=== PATIENT | female | born 1945 | race Caucasian/White ===

== ENCOUNTER 2018-02-01 07:22 | Day surgery (SDC) | payer OTHER, BC ==
[2018-02-01] MEDS ORDERED: FENTANYL CITR 100 MCG/2 ML IV ONE (07:23)
--- OUTSIDE RECORDS SUMMARY | 2018-02-01 07:27 | XMS REPORT | Continuity of Care Document ---
:1945 Author Organization Interface Problems Problem Status Onset Date Classification Date Comments Source Reported Medications Medication Details Route Status Patient Ordering Order Source Instructions Provider Date Allergies, Adverse Reactions, Alerts Substance Category Reaction Severity Reaction Status Date Comments Source type Reported Immunizations Immunization Date Given Site Status Last Updated Comments Source Results Order Results Value Reference Date Interpretation Comments Source Name Range Vital Signs Vital Sign Value Date Comments Source Encounters Location Location Encounter Encounter Reason Attending ADM DC Status Source Details Type Number For Provider Date Date Visit Outpatient [id number] STEVE 03/27 Active [facility] [place] [id number] STEVE 10/28 Active [facility] [place] Outpatient [id number] STEVE 11/12 Active [facility] [place] Outpatient [id number] STEVE 12/09 Active [facility] [place] Outpatient [id number] STEVE 01/27 Active [facility] [place] Outpatient [id number] SETVE 03/31 Active [facility] [place] Procedures Procedure Code Date Perfomer Comments Source
--- OUTSIDE RECORDS SUMMARY | 2018-02-01 07:27 | XMS REPORT | Clinical Summary ---
:1945 Author Organization [facility] Address [address] [place] [address] Care Team Providers Name Role Phone Brendon Her MD Primary Care Provider Allergies Active Allergy Reactions Severity Noted Date Comments Codeine 10/07/2016 Erythromycin 10/07/2016 Medications Medication Sig Dispensed Refills Start Date End Date Status venlafaxine XR Take 150 mg 0 Active (EFFEXOR-XR) 150 MG by mouth 24 hr capsule daily. PRIMIDONE ORAL Take 100 mg 0 Active by mouth 2 (two) times a day. metoprolol succinate Take 100 mg 0 Active XL (TOPROL-XL) 100 by mouth mg 24 hr tablet daily. omeprazole Take 20 mg by 0 Active (PriLOSEC) 20 MG mouth daily. capsule losartan (COZAAR) Take 100 mg 0 Active 100 MG tablet by mouth daily. amLODIPine (NORVASC) Take 2.5 mg 0 Active 2.5 mg tablet by mouth daily. rosuvastatin Take 10 mg by 0 Active (CRESTOR) 10 MG mouth daily. tablet levothyroxine Take 75 mcg 0 Active (SYNTHROID, LEVOXYL) by mouth 75 mcg tablet every morning. ANASTROZOLE ORAL Take 1 mg by 0 Active mouth daily. aspirin (ECOTRIN) 81 Take 81 mg by 0 Active MG enteric coated mouth daily. tablet LD 06/17/17 calcium Take 1 tablet 0 Active carbonate-vitamin D3 by mouth 2 500 mg-200 unit per (two) times a tablet day with meals. VIT A/VIT C/VIT Take by 0 Active E/ZINC/COPPER (ICAPS mouth. AREDS ORAL) ARIPiprazole Take 5 mg by 0 Active (ABILIFY) 5 MG mouth daily. tablet rosuvastatin Take 10 mg by 0 Active (CRESTOR) 10 MG mouth daily. tablet doxycycline Take 100 mg 0 Active (VIBRAMYCIN) 100 MG by mouth 2 oral dosage form (two) times a day. LORAZepam (ATIVAN) Take 0.5 mg 0 10/29/2017 Discontinued 0.5 MG tablet by mouth every 6 (six) hours as needed for anxiety. ARIPiprazole Take 2 mg by 0 10/29/2017 Discontinued (ABILIFY) 2 MG mouth daily. tablet Active Problems Problem Noted Date Personal history of breast cancer 06/25/2017 Malignant neoplasm of upper lobe of left lung 06/25/2017 Overview: Diagnosed 2017 Encounters Date Type Specialty Care Team Description 01/04/2018 Orders Only Cardiothoracic Surgery Susan Grijalva MD 10/29/2017 Hospital Encounter Radiology Adolfo Park MD 10/29/2017 Hospital Encounter Radiology Adolfo Park MD 10/29/2017 Office Visit Cardiothoracic Surgery Adolfo Park Personal history of lung cancer (Primary Dx); MD Edgar Lung nodules; LAD (lymphadenopathy), hilar 10/22/2017 Telephone Cardiothoracic Surgery Denise Hill MA 10/21/2017 Orders Only Cardiothoracic Surgery Susan Grijalva MD 07/07/2017 Telephone Cardiothoracic Surgery Adolfo Park MD 07/03/2017 Hospital Encounter Radiology Denny Jenkins Lung nodule MD Jose Manuel 07/03/2017 Hospital Encounter Radiology Carlos Fink Lung nodule Tan THAKUR MD 07/03/2017 Hospital Encounter Radiology Adolfo Park Personal history of breast cancer (Primary Dx); MD Edgar Lung nodule; Pre-op testing 07/01/2017 Telephone Cardiothoracic Surgery Denise Hill MA 06/29/2017 Telephone Cardiothoracic Surgery Naima Birch MA 06/26/2017 Telephone Cardiothoracic Surgery Denise Hill MA 06/25/2017 Lab Lab Adolfo Park [place] lesion (Primary Dx); MD Carlos Preop examination Adolfo Park MD 06/25/2017 Hospital Encounter Radiology Adolfo Park MD 06/25/2017 Office Visit Cardiothoracic Surgery Adolfo Park Lung nodule ( Primary Dx); MD Edgar Pre-op testing; Martha, Personal history of lung cancer; Candace Keith NP Personal history of breast cancer 06/25/2017 Orders Only Cardiothoracic Surgery Susan Grijalva MD 04/29/2017 Telephone Cardiothoracic Surgery Denise Hill, AUGUSTINA 04/17/2017 Telephone Cardiothoracic Surgery Sergio, Denise, [place]UG[place]INA 04/06/2017 Telephone Cardiothoracic Surgery Adolfo Park MD 04/06/2017 Telephone Cardiothoracic Surgery Naima Birch MA 03/25/2017 Hospital Encounter Radiology Lupillo Castillo MD 03/25/2017 Hospital Encounter Radiology Lupillo Castillo MD 03/25/2017 Hospital Encounter Radiology Lupillo Castillo MD 03/25/2017 Hospital Encounter Radiology Adolfo Park Lung nodule; MD Edgar Malignant neoplasm of upper lobe of left lung 03/09/2017 Telephone Cardiothoracic Surgery Candace Thomas NP 03/03/2017 Telephone Cardiothoracic Surgery Sergio Denise, AUG[place]INA 03/03/2017 Telephone Cardiothoracic Surgery Sergio, Denise, [place]UG[place] 02/20/2017 Orders Only Cardiothoracic Surgery Denise Hill, SOB ( shortness of breath) (Primary Dx); MA Lung nodule; Pre-operative laboratory examination 02/16/2017 Lab Lab Adolfo Park MD 02/13/2017 Lab Lab Adolfo Park MD 02/12/2017 Lab Lab Adolfo Park Lung nodule; MD Edgar Malignant neoplasm of upper lobe of left lung 02/12/2017 Hospital Encounter Radiology Adolfo Park MD 02/12/2017 Office Visit Cardiothoracic Surgery Adolfo Park Lung nodule ( Primary Dx); MD Edgar Malignant neoplasm of upper lobe of left lung 02/12/2017 Orders Only Cardiothoracic Surgery Susan Grijalva MD after 01/31/2017 Family History Medical History Relation Name Comments Basal cell carcinoma Brother Deniz Breast cancer Brother Deniz Mastectomy age 75 Heart disease Brother Deniz Prostate cancer Brother Sky Stomach cancer Brother Bruce Brain cancer Father Colon cancer Mother Bee Alvarez Age 78 Colon polyps Mother Bee Alvarez Hypertension Mother Bee Alvarez Relation Name Status Comments Brother Deniz Brother Sky Alive Brother Bruce Alive Father Mother Bee Alvarez Social History Tobacco Use Types Packs/Day Years Used Date Former Smoker Cigarettes 1 11/19/1969 - 04/16/1994 Smokeless Tobacco: Never Used Tobacco Cessation: Counseling Given: No Alcohol Use Drinks/Week oz/Week Comments Yes 15 Glasses of wine Sex Assigned at Date Recorded Not on file Job Start Date Occupation Industry Not on file Not on file Not on file Travel History Travel Start Travel End No recent travel history available. Last Filed Vital Signs Vital Sign Reading Time Taken Blood Pressure 173/83 10/29/2017 10:31 AM CDT Pulse 88 10/29/2017 10:31 AM CDT Temperature 36.4 C (97.6 F) 10/29/2017 10:31 AM CDT Respiratory Rate 15 10/29/2017 10:31 AM CDT Oxygen Saturation 95% 10/29/2017 10:31 AM CDT Inhaled Oxygen Concentration - - Weight 91.2 kg (201 lb) 10/29/2017 10:31 AM CDT Height 167.6 cm (5' 6") 10/29/2017 10:31 AM CDT Body Mass Index 32.44 10/29/2017 10:31 AM CDT Plan of Treatment Health Maintenance Due Date Last Done Comments COLON CANCER SCREENING 1994 SHINGRIX VACCINE (1 of 2) 1994 ZOSTER VACCINE 2004 PNEUMOCOCCAL POLYSACCHARIDE VACCINE 2009 AGE 65 AND OVER PNEUMOCOCCAL-13 2009 BREAST CANCER SCREENING 06/12/2017 06/13/2015, 06/13/2015, 09/21/2009 INFLUENZA VACCINE 09/30/2017 Procedures Procedure Name Priority Date/Time Associated Comments Diagnosis CT CHEST W CONTRAST Routine 01/01/2018 CT CHEST EXTERNAL STUDY Routine 10/09/2017 8:07 Results for this AM CDT procedure are in the results section. CT CHEST W CONTRAST Routine 10/09/[address] SKULL BASE TO Routine 07/16/2017 MID THIGH XR CHEST 1 VW Routine 07/03/2017 3:32 Lung nodule Results for this PM CDT procedure are in the results section. XR CHEST 1 VW Routine 07/03/2017 1:28 Lung nodule Results for this PM CDT procedure are in the results section. CT NEEDLE BIOPSY NO Routine 07/03/2017 1:01 Lung nodule Results for this CONTRAST PM CDT Pre-op testing procedure are in the results section. CYTOLOGY Routine 07/03/2017 12:57 Results for this (NON-GYNECOLOGICAL) PM CDT procedure are in REQUEST the results section. SURGICAL PATHOLOGY Routine 07/03/2017 12:57 Results for this REQUEST PM CDT procedure are in the results section. HC COMPLETE BLD COUNT Routine 06/25/2017 12:05 [place] lesion Results for this W/AUTO DIFF PM CDT Preop examination procedure are in the results section. PARTIAL THROMBOPLASTIN Routine 06/25/2017 12:05 [place] lesion Results for this TIME (PTT) PM CDT Preop examination procedure are in the results section. PROTHROMBIN TIME WITH Routine 06/25/2017 12:05 [place] lesion Results for this INR PM CDT Preop examination procedure are in the results section. CT CHEST EXTERNAL STUDY Routine 06/17/2017 8:37 Results for this AM CDT procedure are in the results section. CT CHEST EXTERNAL STUDY Routine 06/17/2017 8:37 Results for this AM CDT procedure are in the results section. CT CHEST W CONTRAST Routine 06/17/2017 XR CHEST 1 VW Routine 03/25/2017 3:38 Results for this PM [employer] procedure are in the results section. XR CHEST 1 VW Routine 03/25/2017 2:20 Results for this PM [employer] procedure are in the results section. XR CHEST 1 VW STAT 03/25/2017 12:57 Results for this PM [employer] procedure are in the results section. CYTOLOGY Routine 03/25/2017 11:36 Results for this (NON-GYNECOLOGICAL) AM [employer] procedure are in REQUEST the results section. CT NEEDLE BIOPSY NO Routine 03/25/2017 11:18 Lung nodule Results for this CONTRAST AM [employer] Malignant neoplasm procedure are in of upper lobe of the results left lung section. SURGICAL PATHOLOGY Routine 03/25/2017 11:12 Results for this REQUEST AM [employer] procedure are in the results section. MISCELLANEOUS REFERRAL Routine 02/16/2017 12:00 Results for this TEST PM [employer] procedure are in the results section. PARTIAL THROMBOPLASTIN Routine 02/12/2017 12:07 Lung nodule Results for this TIME (PTT) PM [employer] Malignant neoplasm procedure are in of upper lobe of the results left lung section. PROTHROMBIN TIME WITH Routine 02/12/2017 12:07 Lung nodule Results for this INR PM [employer]ODUCT [employer] Malignant neoplasm procedure are in of upper lobe of the results left lung section. HC COMPLETE BLD COUNT Routine 02/12/2017 12:07 Lung nodule Results for this W/AUTO DIFF PM [employer] Malignant neoplasm procedure are in of upper lobe of the results left lung section. CT CHEST EXTERNAL STUDY Routine 02/03/2017 8:55 Results for this AM [employer] procedure are in the results section. CT CHEST WO CONTRAST Routine 02/03/2017 CT CHEST EXTERNAL STUDY Routine 02/03/2017 after 01/31/[address] Chest W Contrast (01/01/2018)Only the most recent of3 resultswithin the time period is included. Narrative Performed At CT Chest External Study (10/09/2017 8:07 AM CDT)Only the most recent of5 resultswithin the time period is included. Narrative Performed At This exam was not acquired at a [facility] facility and has not been RADIANT interpreted by a [facility] Provider.The exam was imported into our imaging system for comparisons purposes. Performing Organization Address [facility] Phone Number [facility] [address] [place] [address] PET/CT Skull Base To Mid Thigh (07/16/2017) Narrative Performed At XR Chest 1 Vw (07/03/2017 3:32 PM CDT)Only the most recent of5 resultswithin the time period is included. Narrative Performed At EXAMINATION:XR CHEST 1 VW RADIANT CLINICAL HISTORY:R91.1 Solitary pulmonary nodule, post lung biopsy COMPARISON:07/03/2017 IMPRESSION: Subsegmental left upper lobe atelectasis and parenchymal density is again present. Heart size is within normal limits. Suspicious osseous lesion is not seen. No pneumothorax is seen. [facility]-[id number] Procedure Note Hm Interface, Radiology Results Incoming - 07/03/2017 3:42 PM CDT EXAMINATION: XR CHEST 1 VW CLINICAL HISTORY: R91.1 Solitary pulmonary nodule, post lung biopsy COMPARISON: 07/03/2017 IMPRESSION: Subsegmental left upper lobe atelectasis and parenchymal density is again present. Heart size is within normal limits. Suspicious osseous lesion is not seen. No pneumothorax is seen. [id number] Performing Organization Address [facility] Phone Number [facility] [address] [place] [address] CT Needle Biopsy No Contrast (07/03/2017 1:01 PM CDT)Only the most recent of2 resultswithin the time period is included. Narrative Performed At EXAMINATION:CT NEEDLE BIOPSY NO CONTRAST RADIANT CLINICAL HISTORY:R91.1 Solitary pulmonary nodule, Z01.818 Encounter for other preprocedural examination, NODULE ON CTLUNG, lung nodule- RUL TECHNIQUE: The risks, benefits, and alternatives were discussed with the patient and written informed consent was obtained. Patient was placed in prone position on CT table. A 7 x 9 mm nodule in the medial aspect of the right upper lobe was localized with CT.A site for needle entry was selected and the skin was prepped and draped in the usual sterile fashion. After local administration of 1% buffered lidocaine, using CT guidance, introducer needle was advanced to the margin of the right upper lobe nodule. Subsequently, with intermittent CT, 3 20-gauge core samples were obtained through the introducer needle. Scant tissue was obtained. There was small amount of postbiopsy hemorrhage. The introducer needle was removed. No definite malignant cells identified on touch prep. The patient was discharged to the radiology recovery area for monitoring prior to discharge. They have been instructed to follow-up with referring physician for the results of the biopsy. Conscious sedation: Intravenous Versed 1.5 mg, intravenous fentanyl 75 mcg. The patient was monitored throughout the procedure and in the postprocedure recovery area. Physician [id number] sedation time was 33 minutes. Estimated blood loss: None Complications: None Assistants: None IMPRESSION: CT-guided biopsy right upper lobe lung nodule. [id number] Procedure Note [facility], Radiology Results Incoming - 07/03/2017 2:56 PM CDT EXAMINATION: CT NEEDLE BIOPSY NO CONTRAST CLINICAL HISTORY: R91.1 Solitary pulmonary nodule, Z01.818 Encounter for other preprocedural examination, NODULE ON CT LUNG, lung nodule- RUL TECHNIQUE: The risks, benefits, and alternatives were discussed with the patient and written informed consent was obtained. Patient was placed in prone position on CT table. A 7 x 9 mm nodule in the medial aspect of the right upper lobe was localized with CT. A site for needle entry was selected and the skin was prepped and draped in the usual sterile fashion. After local administration of 1% buffered lidocaine, using CT guidance, introducer needle was advanced to the margin of the right upper lobe nodule. Subsequently, with intermittent CT, 3 20-gauge core samples were obtained through the introducer needle. Scant tissue was obtained. There was small amount of postbiopsy hemorrhage. The introducer needle was removed. No definite malignant cells identified on touch prep. The patient was discharged to the radiology recovery area for monitoring prior to discharge. They have been instructed to follow-up with referring physician for the results of the biopsy. Conscious sedation: Intravenous Versed 1.5 mg, intravenous fentanyl 75 mcg. The patient was monitored throughout the procedure and in the postprocedure recovery area. Physician nldi-fu-[id number] sedation time was 33 minutes. Estimated blood loss: None Complications: None Assistants: None IMPRESSION: CT-guided biopsy right upper lobe lung nodule. [id number] Performing Organization Address [facility] Phone Number [facility] [address] [place] [address] Surgical pathology request (07/03/2017 12:57 PM CDT)Only the most recent of2 resultswithin the time period is included. [facility] DEPARTMENT OF PATHOLOGY AND GENOMIC MEDICINE Surgical pathology report See link below for PDF [facility] DEPARTMENT OF Lab Report PATHOLOGY AND GENOMIC MEDICINE Result status This is Final Report to [facility] DEPARTMENT OF [id number] PATHOLOGY AND GENOMIC MEDICINE Performing Organization Address [facility] Phone Number [facility] DEPARTMENT OF PATHOLOGY AND [address] [place] [phone] GENOMIC MEDICINE Cytology (non-gynecological) request (07/03/2017 12:57 PM CDT)Only the most recent of2 resultswithin the time period is included. [facility] DEPARTMENT OF PATHOLOGY AND GENOMIC MEDICINE Cytology See link below for PDF [facility] DEPARTMENT OF (non-gynecological) report Lab Report PATHOLOGY AND GENOMIC MEDICINE Result status This is Final Report to [facility] DEPARTMENT OF [id number] PATHOLOGY AND GENOMIC MEDICINE Performing Organization Address [facility] [place]/[facility] Phone Number [facility] DEPARTMENT OF PATHOLOGY AND [address] [place] [address] [facility] MEDICINE Partial thromboplastin time, activated (06/25/2017 12:05 PM CDT)Only the most recent of2 resultswithin the time period is included. PTT 27.2 23.0 - 36.0 sec [facility] DEPARTMENT OF PATHOLOGY Comment: AND GENOMIC MEDICINE PTT therapeutic range for unfractionated heparin is 61.0-112.0 seconds which corresponds to Anti-Xa 0.3-0.7 U/ml. Specimen Blood Performing Organization Address [facility] Phone Number [facility] DEPARTMENT OF PATHOLOGY AND [address] [place] [address] [employer] [facility] Prothrombin time with INR (06/25/2017 12:05 PM CDT)Only the most recent of2 resultswithin the time period is included. Prothrombin time 13.9 12.0 - 15.0 sec [facility] DEPARTMENT OF PATHOLOGY AND GENOMIC MEDICINE INR 1.1 [facility] DEPARTMENT OF Comment: PATHOLOGY AND GENOMIC The International Normalized Ratio (INR) is a therapeutic MEDICINE monitoring tool for patients who are stable on oral anticoagulant therapy. An INR of 2.0-3.0 is suggested for deep vein thrombosis/pulmonary embolism. Specimen Blood Performing Organization Address City/State/Zipcode Phone Number [facility] DEPARTMENT OF PATHOLOGY AND [address] [place] [phone] [facility] CBC with platelet and differential (06/25/2017 12:05 PM CDT)Only the most recent of2 resultswithin the time period is included. WBC 3.12 (L) 4.50 - 11.00 k/uL [facility] DEPARTMENT OF PATHOLOGY AND GENOMIC MEDICINE RBC 4.04 (L) 4.20 - 5.50 m/uL [facility] DEPARTMENT OF PATHOLOGY AND GENOMIC MEDICINE HGB 13.2 12.0 - 16.0 g/dL [facility] DEPARTMENT OF PATHOLOGY AND GENOMIC MEDICINE HCT 39.4 37.0 - 47.0 % [facility] DEPARTMENT OF PATHOLOGY AND GENOMIC MEDICINE MCV 97.5 82.0 - 100.0 fL [facility] DEPARTMENT OF PATHOLOGY AND GENOMIC MEDICINE MCH 32.7 27.0 - 34.0 pg [facility] DEPARTMENT OF PATHOLOGY AND GENOMIC MEDICINE MCHC 33.5 31.0 - 37.0 g/dL [facility] DEPARTMENT OF PATHOLOGY AND GENOMIC MEDICINE RDW - SD 47.2 37.0 - 55.0 fL [facility] DEPARTMENT OF PATHOLOGY AND GENOMIC MEDICINE MPV 11.2 8.8 - 13.2 fL [facility] DEPARTMENT OF PATHOLOGY AND GENOMIC MEDICINE Platelet count 149 (L) 150 - 400 k/uL [facility] DEPARTMENT OF PATHOLOGY AND GENOMIC MEDICINE Nucleated RBC 0.00 /100 WBC [facility] DEPARTMENT OF PATHOLOGY AND GENOMIC MEDICINE Neutrophils 61.2 39.0 - 69.0 % [facility] DEPARTMENT OF PATHOLOGY AND GENOMIC MEDICINE Lymphocytes 19.2 (L) 25.0 - 45.0 % [facility] DEPARTMENT OF PATHOLOGY AND GENOMIC MEDICINE Monocytes 13.5 (H) 0.0 - 10.0 % [facility] DEPARTMENT OF PATHOLOGY AND GENOMIC MEDICINE Eosinophils 4.5 0.0 - 5.0 % [facility] DEPARTMENT OF PATHOLOGY AND GENOMIC MEDICINE Basophils 1.0 0.0 - 1.0 % [facility] DEPARTMENT OF PATHOLOGY AND GENOMIC MEDICINE Immature granulocytes 0.6Comment: 0.0 - 1.0 % [facility] DEPARTMENT OF "Immature PATHOLOGY AND GENOMIC granulocytes" MEDICINE (promyelocytes, myelocytes, metamyelocytes) Specimen Blood Performing Organization Address City/State/Zipcode Phone Number [facility] DEPARTMENT OF PATHOLOGY AND [address] [place] [phone] GENOMIC MEDICINE Miscellaneous referral test (02/16/2017 12:00 PM [employer]ODUCT [facility]ER) [facility] test name [facility] test result SEE NOTE [facility] Comment: MET FISH Sample type: Paraffin, lung Case# [id number] RESULTS: NEGATIVE Interpretation: MET(7q31) signals per nucleus: 2.1 CEN7 signals per nucleus: 2.1 MET-CEN7 signal ratio: 1.0 An H&E stained slide was reviewed by a pathologist to identify traget areas containing invasive tumor. FISH analysis was performed within the marked target areas using a dual-probe FISH assay to detect MET overexpression. Results show no evidence of MET amplification with a MET/CEN7 ratio of <2.0. This is a NEGATIVE result. This MET FISH assay was scored manually by a certified radiologic technologist. Two or more independent areas containing invasive tumor were analyzed and the technical results underwent further review for design quality engineer purposes. Reference range: Positive: MET(7q31) to CEN7 signal ration is >/=2.0 or when 10% of tumor cells contain clusters of >15 copies per cell of MET (7q31) signals. Negative: MET(7q31) to CEN7 signal ratio is <2.0 Equivocal: MET copy number >/=5.0 and MET/CEN7 ratio <2.0 Probe set details: MET: nuc cynthia(CEN7x2.1,METx2.1)[50] Nuclei scored: 50 Test(s) performed by: [employer] MONO Hernández Narrative Performed At [facility] [id number] SERVICE DATE: 10/23/16 Performing Organization Address City/State/Zipcode [place] [address] CT Chest Wo Contrast (02/03/2017) Narrative Performed At after 01/31/2017 Insurance Payer Benefit Plan / Group Subscriber ID Type Phone Address MEDICARE MEDICARE PART A AND B xxxxxxxxxxx Medicare [place], [place] BCBS BCBS CHOICE PPO/[employer] PPO xxxxxxxxxxxx PPO Advance Directives Patient has advance care planning documents on file. For more information, please contact:Servando [id number] [facility] [place] [address]
[2018-02-01] MEDS ORDERED: BUPIVACAINE 0.25% PF 10 ML VIAL ONE (08:12)
[2018-02-01] MEDS ORDERED: NA CHLORIDE 0.9% 500 ML ONE (08:12)
[2018-02-01] MEDS ORDERED: TETRACAINE HCL 0.5% 2ML OPTH ONE (08:12)
[2018-02-01] MEDS ORDERED: LIDOCAINE 2% MPF 5 ML VIAL ONE (08:12)
[2018-02-01] MEDS: PHENYLEPHRINE 10% OPTH 5ML ONE ×3 (08:15→08:36)
[2018-02-01] MEDS: CYCLOPENTOLATE 1% OPTH 2 ML ONE ×3 (08:15→08:35)
[2018-02-01] MEDS ORDERED: DUOVISC 1 KIT OPTH ONE (08:18)
[2018-02-01] MEDS ORDERED: BALANCED SALT IRRIG PLAIN 500 ML BTL IRR ONE (08:18)
[2018-02-01] MEDS ORDERED: NS 0.9% VIAL 10 ML ONE (08:18)
[2018-02-01] MEDS ORDERED: EPINEPHRINE/PF 1 MG/ML AMP ONE (08:18)
[2018-02-01] MEDS ORDERED: MOXIFLOXACIN HCL 10 DROPS/ML **OR USE OPTH ONE (08:20)
[2018-02-01] MEDS ORDERED: PROPOFOL 200 MG/20 ML VIAL IV ONE (09:02)
[2018-02-01] MEDS ORDERED: LIDOCAINE 1% MPF 2 ML AMPULE ONE (09:03)
--- NOTE | 2018-02-01 09:53 | P.BOP ---
Preoperative diagnosis: Nuclear sclerotic cataract OS Postoperative diagnosis: Same Primary procedure: Phacoemulsification with IOL OS Estimated blood loss: None Anesthesia: Local (Subtenon's infusion with anesthesia for cataract surgery) Complications: None Implants: [id number] +24.0 Transferred to: Other (Day surgery) Condition: Good
--- NOTE | 2018-02-01 21:10 | OP ---
Date of Procedure: 02/01/2018 Surgeon: Lamar Gallagher MD Preoperative Diagnosis: Nuclear sclerotic cataract, left eye. Operation Performed: Phacoemulsification with intraocular lens implant, left eye. Anesthesia: Velia Tanner CRNA. Anesthesia: Per cataract surgery. Complications: None. Description Of Procedure: In day surgery, the patient was prepped with Betadine and draped. A conju nctival incision was made in the inferior nasal quadrant with Kim scissors. A sub-Tenon block c onsisting of a 1:1 mixture of 2% Xylocaine and 0.25% bupivacaine was placed through the conjunctival incision with a blunt cannula. A Honan balloon was placed over the eye and the patient was transferr ed to the operating room. In the operating room the patient was prepped and draped in the usual sterile fashion for ophthalmic surgery. A lid speculum was placed in the left eye. Two paracentesis sites were made superiorly and inferiorly in the limbal cornea. Viscoat was placed in the anterior chamber and a crescent blade wa s used to make a corneal groove and tunnel, and a keratome was used to enter the anterior chamber. P rovisc was placed in the anterior chamber and a 360 degree capsulotomy was performed with a cystitome . The lens was hydrodissected with BSS and rotated freely. The lens was removed with a stop and cho p technique. 10.69 phaco CDE was used to remove the lens. Residual cortex was removed with the irri gation and aspiration. Provisc was placed in the capsular bag. A SN60WF +24.0 diopter lens was plac ed in the capsular bag without complications. Irrigation and aspiration were used to remove residual viscoelastic. The paracentesis sites were hydrated with BSS. The wound and paracentesis sites were inspected and found to be watertight. Vigamox 0.07 cc was placed intracamerally at the end of the p rocedure. The eye was irrigated with balanced salt solution. The eye was patched with a soft cotton patch and Glover metal shield. The patient was returned to day surgery in good condition. Comments: Discharge Instructions: Ms. Keith was discharged to home in good condition and is to follow up with Dr. Gallagher in the morning. NOLVIA/SHAHID Voice ID: [id number] Report ID: [id number]
== END 2018-02-01 11:00 | disposition home or self-care (01) ==
LOC: OR 07:22
PROVIDERS: ATTEND Ophthalmology Retina Specialist
PROC: 08RK3JZ Replacement of Left Lens with Synthetic Substitute, Percutaneous Approach (ICD-10-PCS; principal; 2018-02-01 09:00)
DX: H25.12 Age-related nuclear cataract, left eye (principal); H04.123 Dry eye syndrome of bilateral lacrimal glands; H35.3110 Nonexudative age-related macular degeneration, right eye, stage unspecified; I10 Essential (primary) hypertension; E07.9 Disorder of thyroid, unspecified; E78.00 Pure hypercholesterolemia, unspecified; G47.30 Sleep apnea, unspecified; M19.90 Unspecified osteoarthritis, unspecified site; Z88.6 Allergy status to analgesic agent; Z88.3 Allergy status to other anti-infective agents; Z85.3 Personal history of malignant neoplasm of breast; Z85.118 Personal history of other malignant neoplasm of bronchus and lung; Z87.891 Personal history of nicotine dependence; Z83.518 Family history of other specified eye disorder; Z80.9 Family history of malignant neoplasm, unspecified; Z82.49 Family history of ischemic heart disease and other diseases of the circulatory system
CPT/HCPCS: 66984; J0171; J2001; J2704; J3010; V2630

== ENCOUNTER 2018-11-02 21:54 | Emergency (ER) | payer OTHER, BC ==
--- OUTSIDE RECORDS SUMMARY | 2018-11-02 22:02 | XMS REPORT | Continuity of Care Document ---
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 Dyskinesia Resolved Problem 08/18/2018 [facility] Essential tremor Active Problem 08/18/2018 [facility] Hyperlipidemia Active Problem 08/18/2018 [facility] Hypertension Active Problem 08/18/2018 [facility] Hypothyroidism Active Problem 08/18/2018 [facility] Paresthesia Active Problem 08/18/2018 [facility] Tremor Resolved Problem 08/18/2018 [facility] Mixed anxiety and Resolved Problem 10/26/2018 [facility] depressive Neuro disorder (disorder) 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) Dyskinesia Resolved Problem 10/26/2018 [facility] (finding) [facility] Essential tremor Active Problem 10/26/2018 [facility] (disorder) [facility] Hyperlipidemia Active Problem 10/26/2018 [facility] (disorder) [facility] Hypertensive Active Problem 10/26/2018 [facility] disorder, Neuro systemic arterial (disorder) Hypothyroidism Active Problem 10/26/2018 [facility] (disorder) [facility] Paresthesia Active Problem 10/26/2018 [facility] (finding) [facility] Tremor (finding) Resolved Problem 10/26/2018 [facility] Medications Medication Details Route Status Patient Ordering Order Source Instructions Provider Date topiramate 50 50 mg=1 Active 08/11/19 [facility] MG Oral Tablet tab, PO, 19 Neuro [Topamax] BID, # 180 tab, 2 Refill(s), Pharmacy: [facility] primidone 250 =1 tab, Active 07/06/19 [facility] mg oral tablet PO, BID, # 19 Neuro 180 tab, Refill(s) 2, Pharmacy: [facility] topiramate 50 50 mg=1 Active 07/01/19 [facility] MG Oral Tablet tab, PO, 19 Neuro [Topamax] Bedtime, # 90 tab, 1 Refill(s), Pharmacy: [facility] Carbidopa 25 1 tab, PO, No Longer 03/31/19 [facility] MG / Levodopa BID, # 180 Active 19 Neuro 100 MG Oral tab, 2 Tablet Refill(s), [Sinemet Pharmacy: 25-100] [facility] primidone 250 250 mg=1 No Longer 01/28/20 [facility] mg oral tablet tab, PO, Active 18 Neuro BID, # 180 tab, 2 Refill(s), Pharmacy: [facility] primidone 50 See No Longer 05/29/19 [facility] mg oral tablet Instructio Active 18 Neuro ns, # 360 tab, Refill(s) 2, TAKE 2 TABLETS TWICE A DAY, Pharmacy: [facility] Allergies, Adverse Reactions, Alerts Substance Category Reaction Severity Reaction Status Date Comments Source type Reported codeine Assertion Drug Active [facility] phosphate allergy Neuro Immunizations No Data Provided for This Section Results No Data Provided for This Section Pathology Reports No Data Provided for This Section Diagnostic Reports No Data Provided for This Section Consultation Notes No Data Provided for This Section Discharge Summaries No Data Provided for This Section History and Physicals No Data Provided for This Section Vital Signs Vital Sign Value Date Comments Source Height 165.1 cm 08/10/2018 [facility] Weight 93.182 08/10/2018 [facility] BMI Calculated 34.19 08/10/2018 [facility] Systolic (mm Hg) 158 08/10/2018 [facility] Diastolic (mm Hg) 78 08/10/2018 [facility] Respitory Rate 16 08/10/2018 [facility] Heart Rate 68 08/10/2018 [facility] Weight 93.182 06/30/2018 [facility] Height 165.1 cm 06/30/2018 [facility] BMI Calculated 34.19 06/30/2018 [facility] Heart Rate 72 06/30/2018 [facility] Systolic (mm Hg) 159 06/30/2018 [facility] Diastolic (mm Hg) 85 06/30/2018 [facility] Respitory Rate 16 06/30/2018 [facility] Systolic (mm Hg) 146 03/31/2018 [facility] Diastolic (mm Hg) 77 03/31/2018 [facility] Heart Rate 74 03/31/2018 [facility] Height 167.64 cm 03/31/2018 [facility] Weight 95 03/31/2018 [facility] BMI Calculated 33.8 03/31/2018 [facility] Neuro BMI Calculated 33.8 01/27/2018 [facility] Neuro Weight 95 01/27/2018 [facility] Neuro Height 167.64 cm 01/27/2018 [facility] Neuro Systolic (mm Hg) 159 01/27/2018 [facility] Neuro Diastolic (mm Hg) 86 01/27/2018 [facility] Neuro Heart Rate 73 01/27/2018 [facility] Neuro Encounters Location Location Encounter Encounter Reason Attending ADM DC Status Source Details Type Number For Provider Date Date Visit Outpatient [id number] STEVE 03/27 Active [facility] Outpatient [id number] STEVE 10/28 [facility] Outpatient [id number] STEVE 11/12 [facility] Outpatient [id number] STEVE 12/09 [facility] Ambulatory [id number] Steve 12/09 12/09 [facility] Neurology Pre-Reg [facility] [place] [facility] [id number] STEVE 01/27 [facility] [facility] Outpatient [id number] Steve 01/27 01/28 [facility] Neurology [facility] /2017 [facility] [place] [facility] Phone [id number] 01/27 01/29 [facility] Neurology Message /2017 [facility] [place] [facility] Outside [id number] 03/05 03/07 [facility] Neurology Medical /2018 [facility] [place] Records Outpatient [id number] STEVE 03/31 Active [facility] MNA Outpatient [id number] Steve 03/31 04/01 [facility] Neurology [facility] /2018 [facility] [place] MNA Phone [id number] 04/06 04/08 [facility] Neurology Message /2018 [facility] [place] Outpatient [id number] STEVE 04/13 Active [facility] Miguel Angel Outpatient [id number] Steve 05/25 Active [facility] Outpatient [id number] Steve 06/30 Active [facility] [place] [facility] Outpatient [id number] Steve 06/30 07/01 [facility] Neurology Kre /2018 [facility] [place] Outpatient [id number] Steve 08/10 Active [facility] MNA Outpatient [id number] Steve 08/10 08/11 [facility] /2018 [facility] [place] Outpatient [id number] Steve 11/09 [facility] Procedures No Data Provided for This Section Assessment and Plan No Data Provided for This Section Plan of Care No Data Provided for This Section Social History Social History Date Source Social History TypeResponse 08/10/2018 [facility] Smoking Status Former smoker; Type: Cigarettes; Exposure to Tobacco Smoke None; Cigarette Smoking Last 365 Days No; Reg Smoking Cessation Counseling No entered on: 08/10/18 Family History No Data Provided for This Section Advance Directives No Data Provided for This Section Functional Status No Data Provided for This Section
--- OUTSIDE RECORDS SUMMARY | 2018-11-02 22:02 | XMS REPORT | Clinical Summary ---
:1945 Author Organization [facility] Address [address] [place] [address] Care Team Providers Name Role Phone Brendon Her MD Primary Care Provider Allergies Active Allergy Reactions Severity Noted Date Comments Codeine 10/07/2016 Erythromycin 10/07/2016 Medications Medication Sig Dispensed Refills Start Date End Date Status venlafaxine XR Take 150 mg by 0 Active (EFFEXOR-XR) 150 MG 24 mouth daily. hr capsule PRIMIDONE ORAL Take 100 mg by 0 Active mouth 2 (two) times a day. metoprolol succinate XL Take 100 mg by 0 Active (TOPROL-XL) 100 mg 24 hr mouth daily. tablet omeprazole (PriLOSEC) 20 Take 20 mg by 0 Active MG capsule mouth daily. losartan (COZAAR) 100 MG Take 100 mg by 0 Active tablet mouth daily. amLODIPine (NORVASC) 2.5 Take 2.5 mg by 0 Active mg tablet mouth daily. rosuvastatin (CRESTOR) Take 10 mg by 0 Active 10 MG tablet mouth daily. levothyroxine Take 75 mcg by 0 Active (SYNTHROID, LEVOXYL) 75 mouth every mcg tablet morning. ANASTROZOLE ORAL Take 1 mg by 0 Active mouth daily. aspirin (ECOTRIN) 81 MG Take 81 mg by 0 Active enteric coated tablet mouth daily. LD 06/17/17 calcium Take 1 tablet by 0 Active carbonate-vitamin D3 500 mouth 2 (two) mg-200 unit per tablet times a day with meals. VIT A/VIT C/VIT Take by mouth. 0 Active E/ZINC/COPPER (ICAPS AREDS ORAL) ARIPiprazole (ABILIFY) 5 Take 5 mg by 0 Active MG tablet mouth daily. rosuvastatin (CRESTOR) Take 10 mg by 0 Active 10 MG tablet mouth daily. doxycycline (VIBRAMYCIN) Take 100 mg by 0 Active 100 MG oral dosage form mouth 2 (two) times a day. Active Problems Problem Noted Date Personal history of breast cancer 06/25/2017 Malignant neoplasm of upper lobe of left lung 06/25/2017 Overview: Diagnosed 2017 Encounters Date Type Specialty Care Team Description 04/07/2018 Hospital Encounter Radiology Patric Perez MD 04/07/2018 Hospital Encounter Radiology Patric Perez Tremor MD [facility] 03/31/2018 Transcribe Orders Radiology Patric Perez (Primary Dx) MD [place] 01/04/2018 Orders Only Cardiothoracic Surgery Provider, MD Susan after 11/01/2017 Family History Medical History Relation Name Comments [...] Years Used Date Former Smoker Cigarettes 1 25 11/19/1969 - 04/16/1994 Smokeless Tobacco: Never Used Tobacco Cessation: Counseling Given: No Alcohol Use Drinks/Week oz/Week Comments Yes 15 Glasses of wine Sex Assigned at Date Recorded Not on file Job Start Date Occupation Industry Not on file Not on file Not on file Travel History Travel Start Travel End No recent travel history available. Last Filed Vital Signs Not on file Plan of Treatment Health Maintenance Due Date Last Done Comments COLONOSCOPY SCREENING 1994 SHINGLES VACCINES (#1) 1994 65+ PNEUMOCOCCAL VACCINE (1 of 2 - 2009 PCV13) BREAST CANCER SCREENING 06/12/2017 06/13/2015, 06/13/2015, 09/21/2009 INFLUENZA VACCINE 09/30/2018 Procedures Procedure Name Priority Date/Time Associated Diagnosis Comments NM BRAIN SPECT W I Routine 04/07/2018 1:57 PM Tremor Results for this 123 DATSCAN FUTURES TRADER procedure are in the results section. CT CHEST W CONTRAST Routine 01/01/2018 after 11/01/2017 Results NM Brain Spect W I 123 Datscan (04/07/2018 1:57 PM FUTURES TRADER) Specimen Narrative Performed At PROCEDURE:NM BRAIN SPECT W I 123 DATSCAN [facility] INDICATION:Tremor. TECHNIQUE: The patient was pretreated with potassium iodide drops for thyroid protection and then injected with 4 mCi of I-123 DaTscan IV. Brain SPECT imaging was then performed. FINDINGS:Striatal uptake appears normal, bilaterally. IMPRESSION: 1.Negative study.No evidence for an underlying primary Parkinsonian syndrome. [facility]-[id number] Procedure Note Interface, Radiology Results Incoming - 04/07/2018 2:17 PM FUTURES TRADER PROCEDURE: NM BRAIN SPECT W I 123 DATSCAN INDICATION: Tremor. TECHNIQUE: The patient was pretreated with potassium iodide drops for thyroid protection and then injected with 4 mCi of I-123 DaTscan IV. Brain SPECT imaging was then performed. FINDINGS: Striatal uptake appears normal, bilaterally. IMPRESSION: 1. Negative study. No evidence for an underlying primary Parkinsonian syndrome. 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
--- NOTE | 2018-11-03 00:16 | ER ---
Nurse's Notes [facility] [place], [place] Name: Khushbu Keith Age: 73 yrs Sex: Female : 1945 Arrival Date: 11/02/2018 Time: 21:58 Bed 20 Private MD: Diagnosis: Concussion with loss of consciousness of 30 minutes or less;Contusion of unspecified part of head Presentation: 11/02 21:50 Presenting complaint: EMS states: "Head injury resulting from fall over from bathroom cc3 to bed. Patient sustained a wound to her right temporal area which was due to her eyeglasses that she was wearing when she fell. Nobody witnessed the incident but patient said she thinks that she lost her consciousness after the fall". Care prior to arrival: None. Mechanism of Injury: Fall from standing position. Trauma event details: Injury occurred in the [facility]. 21:50 Acuity: CONCHA 2 cc3 21:50 Method Of Arrival: EMS: [facility] cc3 21:50 Transition of care: patient was not received from another setting of care. Onset of cc3 symptoms was November 02, 2018. Risk Assessment: Do you want to hurt yourself or someone else? Patient reports no desire to harm self or others. Initial Sepsis Screen: Does the patient meet any 2 criteria? No. Patient's initial sepsis screen is negative. Does the patient have a suspected source of infection? No. Patient's initial sepsis screen is negative. Triage Assessment: 21:50 General: Appears in no apparent distress. comfortable, Behavior is calm, cooperative, cc3 appropriate for age. Pain: Denies pain. EENT: No signs and/or symptoms were reported regarding the EENT system. Neuro: Level of Consciousness is awake, alert, obeys commands, Oriented to person, place, time, situation, Appropriate for age C[place] Edge Trimmer are equal bilaterally Moves all extremities. Speech is normal, Facial symmetry appears normal, Pupils are PERRLA, Intact. Cardiovascular: Denies chest pain, Heart tones S1 S2 present Capillary refill < 3 seconds Patient's skin is warm and dry. Respiratory: Airway is patent Respiratory effort is even, unlabored, Respiratory pattern is regular, symmetrical. GI: Abdomen is round obese. : No signs and/or symptoms were reported regarding the genitourinary system. Derm: Skin is intact, is healthy with good turgor, Skin is pink, warm \\T\\ dry. normal, Wound noted right temporal area. Musculoskeletal: Circulation, motion, and sensation intact. Range of motion: intact in all extremities. Injury Description: fall injury. Trauma Activation: Alert Physician: ED Physician; Name: Ward; Notified At: 21:50; Arrived At: 21:50 Physician: General Surgeon; Name: ; Notified At: 21:50; Arrived At: Physician: Radiology; Name: ; Notified At: 21:50; Arrived At: Physician: Respiratory; Name: ; Notified At: 21:50; Arrived At: Physician: Lab; Name: ; Notified At: 21:50; Arrived At: Historical: - Allergies: 21:50 Codeine; cc3 21:50 Erythromycin; cc3 - Home Meds: 21:50 venlafaxine oral oral [Active]; Primidone Oral [Active]; Metoprolol Tartrate Oral cc3 [Active]; Omeprazole Oral [Active]; losartan oral oral [Active]; amlodipine oral [Active]; letrozole oral oral [Active]; levothyroxine oral [Active]; rosuvastatin oral oral [Active]; Lorazepam Oral [Active]; aripiprazole oral oral [Active]; topiramate oral oral [Active]; Vitamin D3 oral oral [Active]; areds 2 [Active]; - PMHx: 21:50 breast cancer; Hyperlipidemia; Hypertension; bilateral mastectomy 2016; right plantar cc3 fascitis; left hip sciatica; - PSHx: 21:50 Hysterectomy; cc3 - Immunization history: Last tetanus immunization: unknown. - Social history:: Smoking status: Patient/guardian denies using tobacco, but has a distant history of tobacco abuse. - Ebola Screening: : No symptoms or risks identified at this time. Screenin:50 Abuse screen: Denies threats or abuse. Denies injuries from another. Nutritional cc3 screening: No deficits noted. Tuberculosis screening: No symptoms or risk factors identified. Fall Risk Ambulatory Aid- None/Bed Rest/Nurse Assist (0 pts). Gait- Normal/Bed Rest/Wheelchair (0 pts) Mental Status- Oriented to own ability (0 pts). Primary Survey: 21:50 NO uncontrolled hemorrhage observed. A: The patient is alert. Airway: patent, No cc3 supplemental oxygen in use on arrival. Oral cavity: clear, gag reflex present, Trachea midline. Breathing/Chest: Respiratory pattern: regular, Respiratory effort: spontaneous, unlabored, Breath sounds: clear, bilaterally. Chest inspection: symmetrical rise and fall of the chest. Circulation: Heart tones present. Skin color: pink, Skin temperature: warm. Disability Alert. Exposure/Environment: All clothing and personal items were removed. Forensic evidence collection is not deemed to be indicated at this time. Items placed in patient belonging bag. There is no evidence of uncontrolled external bleeding. Obvious injury(ies) are noted at this time: wound to right temporal area A warming method has been applied: A warm blanket has been provided to the patient. 22:00 Reassessment Airway Airway Patent Oxygen No O2 Breathing/Chest Respiratory pattern cc3 Regular Circulation Heart tones Present Disability Alert. Secondary Survey: 21:50 HEENT: Head No injury/deformity Face Other wound to right temporal area Eyes: No injury cc3 or deformity noted. to bilateral eyes. Ears: clear bilaterally. Nose: clear to bilateral nares. Throat: No injury or deformity noted. is clear with gag reflex present. Gastrointestinal: Abdomen is soft, obese, Bowel sounds present in all quadrants. : No signs and/or symptoms were reported regarding the genitourinary system. Musculoskeletal: Circulation, motion, and sensation intact. Range of motion: intact in all extremities. Assessment: 21:50 General: Appears in no apparent distress. comfortable, Behavior is calm, cooperative, cc3 appropriate for age. Pain: Denies pain. Neuro: Level of Consciousness is awake, alert, obeys commands, Oriented to person, place, time, situation, Appropriate for age Cutter And Edge Trimmer are equal bilaterally Moves all extremities. Speech is normal, Facial symmetry appears normal, Pupils are PERRLA, Intact. EENT: No signs and/or symptoms were reported regarding the EENT system. Cardiovascular: Denies chest pain, Heart tones S1 S2 present Capillary refill < 3 seconds Patient's skin is warm and dry. Respiratory: Airway is patent Respiratory effort is even, unlabored, Respiratory pattern is regular, symmetrical. GI: Abdomen is round non-distended. : No signs and/or symptoms were reported regarding the genitourinary system. Derm: Skin is intact, is healthy with good turgor, Skin is pink, warm \\T\\ dry. normal, Wound noted right temporal area. Musculoskeletal: Circulation, motion, and sensation intact. Range of motion: intact in all extremities. Injury Description: fall injury. 22:30 Reassessment: Patient appears in no apparent distress at this time. Patient and/or cc3 family updated on plan of care and expected duration. Pain level reassessed. Patient is alert, oriented x 3, equal unlabored respirations, skin warm/dry/pink. Patient came back from CT scan department, awaiting result. Patient denies pain at this time. 23:18 Reassessment: Patient appears in no apparent distress at this time. Patient and/or cc3 family updated on plan of care and expected duration. Pain level reassessed. Patient is alert, oriented x 3, equal unlabored respirations, skin warm/dry/pink. Patient denies pain at this time. 11/03 00:15 Reassessment: Patient appears in no apparent distress at this time. Patient and/or cc3 family updated on plan of care and expected duration. Pain level reassessed. Patient is alert, oriented x 3, equal unlabored respirations, skin warm/dry/pink. Dr. Hopper discharged the patient home, no prescription given. No IV cannula in situ. Patient left ER vitally stable by wheelchair escorted by me and the patient's . No valuables left in the patient's room. Patient denies pain at this time. Patient states feeling better. Patient states symptoms have improved. Vital Signs: 11/02 21:50 BP 153 / 80; Pulse 79; Resp 18 S; Temp 98.6(O); Pulse Ox 97% on R/A; Weight 92.99 kg cc3 (R); Height 5 ft. 5 in. (165.10 cm) (R); Pain 0/10; 22:41 BP 148 / 65; Pulse 76; Resp 17 S; Pulse Ox 98% on R/A; cc3 23:10 BP 149 / 67; Pulse 75; Resp 18 S; Pulse Ox 96% on R/A; 3 11/03 00:00 BP 139 / 60; Pulse 73; Resp 17 S; Pulse Ox 96% on R/A; 3 11/02 21:50 Body Mass Index 34.11 (92.99 kg, 165.10 cm) cc3 [place] Coma Score: 11/02 21:50 Eye Response: spontaneous(4). Verbal Response: oriented(5). Motor Response: obeys cc3 commands(6). Total: 15. Trauma Score (Adult): 21:50 Eye Response: spontaneous(1); Verbal Response: oriented(1); Motor Response: obeys cc3 commands(2); Systolic BP: > 89 mm Hg(4); Respiratory Rate: 10 to 29 per min(4); [place] Score: 15; Trauma Score: 12 ED Course: 21:50 Arm band placed on right wrist. Patient notified of wait time. cc3 21:50 Patient has correct armband on for positive identification. Placed in gown. Bed in low cc3 position. Call light in reach. Side rails up X2. Pulse ox on. NIBP on. 21:50 Patient maintains SpO2 saturation greater than 95% on room air. cc3 21:50 Thermoregulation: warm blanket given to patient. cc3 21:58 Patient arrived in ED. aa1 22:00 Mansoor Hopper MD is Attending Physician. tw4 22:04 Garima Fortune is Primary Nurse. cc3 22:20 Triage completed. cc3 22:35 CT Head C Spine In Process Unspecified. EDMS 11/03 00:15 No provider procedures requiring assistance completed. Patient did not have IV access cc3 during this emergency room visit. Administered Medications: No medications were administered Intake: 11/02 22:30 PO: 200ml (Water); Total: 200ml. cc3 Output: 22:30 Urine: 1ml (Voided); Total: 1ml. cc3 Outcome: 11/03 00:02 Discharge ordered by . tw4 00:15 Discharged to home via wheelchair, with family. cc3 00:15 Condition: stable 00:15 Discharge instructions given to patient, family, Instructed on discharge instructions, follow up and referral plans. Demonstrated understanding of instructions, follow-up care. 00:15 Patient's length of stay was not longer than 2 hours. cc3 00:24 Patient left the ED. cc3 Signatures: Dispatcher [employer] EDAK Yojana Ramos RN RN aa1 Mansoor Hopper MD MD tw4 Cordel, Garima cc3 Corrections: (The following items were deleted from the chart) 11/02 22:11 22:05 BP 153 / 80; Pulse 79bpm; Resp 18bpm; Spontaneous; Pulse Ox 97% RA; Temp 98.6F cc3 Oral; 92.99 kg Reported; Height 5 ft. 5 in. Reported; BMI: 34.1; Pain 0/10; cc3
--- NOTE | 2018-11-03 00:19 | EDPHYS ---
Physician Documentation [facility] Name: Khushbu Keith Age: 73 yrs Sex: Female : 1945 Arrival Date: 11/02/2018 Time: 21:58 Bed 20 Private MD: ED Physician Mansoor Hopper HPI: 11/02 23:58 This 73 yrs old Female presents to ER via EMS with complaints of Fall Injury. tw4 23:58 Details of fall: The patient fell from an upright position, while standing. Onset: The tw4 symptoms/episode began/occurred today. Associated injuries: The patient sustained injury to the head, abrasion, contusion. Severity of symptoms: At their worst the symptoms were mild, in the emergency department the symptoms are unchanged. The patient has not experienced similar symptoms in the past. Historical: - Allergies: 21:50 Codeine; cc3 21:50 Erythromycin; cc3 - Home Meds: 21:50 venlafaxine oral oral [Active]; Primidone Oral [Active]; Metoprolol Tartrate Oral cc3 [Active]; Omeprazole Oral [Active]; losartan oral oral [Active]; amlodipine oral [Active]; letrozole oral oral [Active]; levothyroxine oral [Active]; rosuvastatin oral oral [Active]; Lorazepam Oral [Active]; aripiprazole oral oral [Active]; topiramate oral oral [Active]; Vitamin D3 oral oral [Active]; areds 2 [Active]; - PMHx: 21:50 breast cancer; Hyperlipidemia; Hypertension; bilateral mastectomy 2016; right plantar cc3 fascitis; left hip sciatica; - PSHx: 21:50 Hysterectomy; cc3 - Immunization history: Last tetanus immunization: unknown. - Social history:: Smoking status: Patient/guardian denies using tobacco, but has a distant history of tobacco abuse. - Ebola Screening: : No symptoms or risks identified at this time. ROS: 23:58 Constitutional: Negative for fever, chills, and weight loss, Eyes: Negative for injury, tw4 pain, redness, and discharge, Cardiovascular: Negative for chest pain, palpitations, and edema, Respiratory: Negative for shortness of breath, cough, wheezing, and pleuritic chest pain, Abdomen/GI: Negative for abdominal pain, nausea, vomiting, diarrhea, and constipation, Back: Negative for injury and pain, MS/Extremity: Negative for injury and deformity, Skin: Negative for injury, rash, and discoloration. Exam: 23:58 Constitutional: This is a well developed, well nourished patient who is awake, alert, tw4 and in no acute distress. Chest/axilla: Normal chest wall appearance and motion. Nontender with no deformity. No lesions are appreciated. Cardiovascular: Regular rate and rhythm with a normal S1 and S2. No gallops, murmurs, or rubs. Normal PMI, no JVD. No pulse deficits. Respiratory: Lungs have equal breath sounds bilaterally, clear to auscultation and percussion. No rales, rhonchi or wheezes noted. No increased work of breathing, no retractions or nasal flaring. Abdomen/GI: Soft, non-tender, with normal bowel sounds. No distension or tympany. No guarding or rebound. No evidence of tenderness throughout. 23:58 MS/ Extremity: Pulses equal, no cyanosis. Neurovascular intact. Full, normal range of motion. Neuro: Awake and alert, GCS 15, oriented to person, place, time, and situation. Cranial nerves II-XII grossly intact. Motor strength 5/5 in all extremities. Sensory grossly intact. Cerebellar exam normal. Normal gait. 23:58 Head/face: Noted is contusion, of the right mandaeism. Vital Signs: 21:50 BP 153 / 80; Pulse 79; Resp 18 S; Temp 98.6(O); Pulse Ox 97% on R/A; Weight 92.99 kg cc3 (R); Height 5 ft. 5 in. (165.10 cm) (R); Pain 0/10; 22:41 BP 148 / 65; Pulse 76; Resp 17 S; Pulse Ox 98% on R/A; cc3 23:10 BP 149 / 67; Pulse 75; Resp 18 S; Pulse Ox 96% on R/A; cc3 11/03 00:00 BP 139 / 60; Pulse 73; Resp 17 S; Pulse Ox 96% on R/A; cc3 11/02 21:50 Body Mass Index 34.11 (92.99 kg, 165.10 cm) cc3 [place] Coma Score: 11/02 21:50 Eye Response: spontaneous(4). Verbal Response: oriented(5). Motor Response: obeys cc3 commands(6). Total: 15. Trauma Score (Adult): 21:50 Eye Response: spontaneous(1); Verbal Response: oriented(1); Motor Response: obeys cc3 commands(2); Systolic BP: > 89 mm Hg(4); Respiratory Rate: 10 to 29 per min(4); [place] Score: 15; Trauma Score: 12 MDM: 22:00 Patient medically screened. tw4 23:58 Data reviewed: vital signs, nurses notes. Counseling: I had a detailed discussion with tw4 the patient and/or guardian regarding: the historical points, exam findings, and any diagnostic results supporting the discharge/admit diagnosis, radiology results. Special discussion: Based on the patient's history, exam and DX evaluation, there is no indication for emergent intervention or inpatient [place]. It is understood by the patient/guardian that if the SXs persist or worsen they need to return immediately for re-evaluation. I discussed with the patient/guardian in detail that at this point there is no indication for admission to the hospital. It is understood, however, that if the symptoms persist or worsen the patient needs to return immediately for re-evaluation. 11/02 22:01 Order name: CT Head C Spine tw4 Administered Medications: No medications were administered Disposition: 11/03/18 00:02 Discharged to Home. Impression: Concussion with loss of consciousness of 30 minutes or less, Contusion of unspecified part of head. - Condition is Stable. - Discharge Instructions: Head Injury, Adult. - Medication Reconciliation Form, Thank You Letter, Antibiotic Education, Prescription Opioid Use form. - Follow up: Private Physician; When: Upon discharge from the Emergency Department; Reason: If symptoms return, Recheck today's complaints, Continuance of care. - Problem is new. - Symptoms have improved. Signatures: Dispatcher [employer] Mansoor Beatty MD MD tw4 Garima Fortune cc3 Corrections: (The following items were deleted from the chart) 11/03 00:24 00:02 11/03/2018 00:02 Discharged to Home. Impression: Concussion with loss of cc3 consciousness of 30 minutes or less; Contusion of unspecified part of head. Condition is Stable. Forms are Medication Reconciliation Form, Thank You Letter, Antibiotic Education, Prescription Opioid Use. Follow up: Private Physician; When: Upon discharge from the Emergency Department; Reason: If symptoms return, Recheck today's complaints, Continuance of care. Problem is new. Symptoms have improved. tw4
--- NOTE | 2018-11-03 10:46 | RAD REPORT ---
EXAM DESCRIPTION: CT - Head C Spine Mpr Wo Con - 11/02/2018 11:45 pm CLINICAL HISTORY: PAIN COMPARISON: None. TECHNIQUE: CT HEAD NECK WITHOUT IV CONTRAST on 11/02/2018 10:01 PM CDT This exam was performed according to our departmental dose-optimization program, which includes autom ated exposure control, adjustment of the mA and/or kV according to patient size and/or use of iterati ve reconstruction technique. FINDINGS: Brain: There is no acute hemorrhage, mass effect or midline shift. Hernandez-white differentiat ion is preserved. There is no hydrocephalus. There is no significant volume loss for age. The calvarium is intact. Orbits and globes are unremarkable. The paranasal sinuses are clear. Mastoid air cells are clear. Cervical Spine: There is no acute fracture. Alignment is anatomic. There is mild diffuse facet arthri tis. There are multiple small osteophytes at multiple levels throughout the cervical spine. There is mild narrowing of the C3-4, C4-5, C5-6 and C6-7 discs. Vertebral body heights are preserved. Soft tissues are unremarkable. IMPRESSION: No definite posttraumatic findings. Electronically signed by: Allen Shen MD 11/02/2018 11:36 PM CDT Due to temporary technical issues with the PACS/Fluency reporting system, reports are being signed by the in house radiologist as a courtesy to ensure prompt reporting. The interpreting radiologist is f ully responsible for the content of the report.
== END 2018-11-03 00:24 | disposition home or self-care (01) ==
LOC: ER 21:54
DX: S06.0X1A Concussion with loss of consciousness of 30 minutes or less, initial encounter (principal); W19.XXXA Unspecified fall, initial encounter; Y93.89 Activity, other specified; Y92.9 Unspecified place or not applicable; Z88.3 Allergy status to other anti-infective agents; Z88.5 Allergy status to narcotic agent; Z85.3 Personal history of malignant neoplasm of breast; Z90.13 Acquired absence of bilateral breasts and nipples; E78.5 Hyperlipidemia, unspecified; I10 Essential (primary) hypertension
CPT/HCPCS: 70450; 71250; 72125; 99284

== ENCOUNTER 2019-03-26 14:01 | Emergency (ER) | payer OTHER, BC ==
--- OUTSIDE RECORDS SUMMARY | 2019-03-26 14:05 | XMS REPORT ---
:1945 [facility] Address [address] [place] [address] Dr. Hernandez [address] [place] [address] Care Team Providers Name Role Phone Unavailable Unavailable Unavailable Payers Payer Name Policy Type Policy Number Effective Date Expiration Date Problems This patient has no known problems. Allergies, Adverse Reactions, Alerts Allergy Name Allergy Status Severity Reaction(s) Onset Inactive Treating Comments Type Date Date Clinician codeine DA Active MO 2018-03 00:00: 00 erythromycin DA Active MO 2018-03 base 03-13 00:00: 00 adhesive tape DA Active MO 2018-03 00:00: 00 adhesive tape DA Active MO 2018-03 00:00: 00 codeine DA Active MO 2018-03 00:00: 00 erythromycin DA Active MO 2018-03 00:00: 00 Medications This patient has no known medications. Results Test Description Test Time Test Comments Text Results Atomic Results Result Comments - XR PELVIS 1/2 VIEWS 2019-01-12 09:43:00 Patient Name: ODALIS RUVALCABA Unit No: [id number] EXAMS: CPT CODE: [id number] XR PELVIS 1/2 VIEWS 20416 AP VIEW OF THE PELVIS. COMMENT: In progress total left hip arthroplasty. AP view of the pelvis COMMENT: COMPARISON: No prior exams available. Completed total left hip arthroplasty. Prosthesis appears to be in good position. at 0943 Reported and signed by: Sudhir Kirby M.D. CC: Jessee Santiago MD Technologist: ESTEFANIA WHITE (RT.R) Transcribed D/ (0943) [facility]: [facility]ATION[facility]avon [address] [place] [address] PHYS: MATVA.Jessee Lopez : 1945 AGE: 73 SEX: F [place], [place] [address] LOC: Y.501 A PHONE #: [phone] EXAM DATE: 01/11/2019 STATUS: ADM IN FAX #: [phone] RAD #: D/C DT PAGE 1 Signed Report Patient Name: ODALIS RUVALCABA Unit No: [id number] EXAMS: CPT CODE: [id number] XR PELVIS 1/2 VIEWS 83082 <Continued> Orig Print D/T: S: 01/12/2019 (0947) [facility] NAME: ODALIS RUVALCABA[address] PHYS: MATVAJessee Amezquita : 1945 AGE: 73 SEX: F [place] [address] LOC: Y.501 A PHONE #: [phone] EXAM DATE: 01/11/2019 STATUS: ADM IN FAX #: [phone] RAD #: D/C DT PAGE 2 Signed Report - XR PELVIS 1/2 VIEWS 2019-01-12 09:43:00 Patient Name: ODALIS RUVALCABA Unit No: [id number] EXAMS: CPT CODE: [id number] XR PELVIS 1/2 VIEWS 42641 AP VIEW OF THE PELVIS. COMMENT: In progress total left hip arthroplasty. AP view of the pelvis COMMENT: COMPARISON: No prior exams available. Completed total left hip arthroplasty. Prosthesis appears to be in good position. at 0943 Reported and signed by: Sudhir Kirby M.D. CC: Jessee Santiago MD Technologist: ESTEFANIA WHITE (RT.R) Transcribed D/ (5413) [facility]: ODALIS RUVALCABA[address] PHYS: Jsesee Britton : 1945 AGE: 73 SEX: F [place], [place] [address] LOC: Y.501 A PHONE #: [phone] EXAM DATE: 01/11/2019 STATUS: ADM IN FAX #: [phone] RAD #: D/C DT PAGE 1 Signed Report Patient Name: ODALIS RUVALCABA Unit No: [id number] EXAMS: CPT CODE: [id number] XR PELVIS 1/2 VIEWS 04253 <Continued> Orig Print D/T: S: 01/12/2019 (0947) [facility] NAME: ODALIS RUVALCABA [address] [facility] PHYS: Jessee Britton : 1945 AGE: 73 SEX: F [place] [address] LOC: Y.501 A PHONE #: [phone] EXAM DATE: 01/11/2019 STATUS: ADM IN FAX #: [phone] RAD #: D/C DT PAGE 2 Signed Report BASIC METABOLIC PANEL 2019-01-12 07:12:00 Test Item Value Reference Range Comments SODIUM (test code=NA) 143 mmol/L 136-145 POTASSIUM (test code=K) 4.6 mmol/L 3.5-5.1 CHLORIDE (test code=CL) 108.0 mmol/L 98-107 CARBON DIOXIDE (test code=CO2) 26.4 mmol/L 21-32 GLUCOSE (test code=GLU) 115 mg/dL 70-110 BLOOD UREA NITROGEN (test 22 mg/dL 7-18 code=BUN) GLOMERULAR FILTRATION RATE (test 53.0 >60 Unit of measure: mL/min/1.73 code=GFR) [id number] Range:Healthy Adults >90 mL/min/1.73 m2 For Chronic Kidney Disease: Stage II Mild Decrease in GFR 60-90 Stage III Moderate Decrease in GFR 30-59 Stage IV Severe Decrease in GFR 15-29 Stage V Kidney Failure <15 CREATININE (test code=CREAT) 1.02 mg/dL 0.55-1.30 CALCIUM (test code=CA) 8.3 mg/dL 8.2-10.1 HGB [id number] 05:59:00 Test Item Value Reference Range Comments HEMOGLOBIN (test code=HGB) 11.0 g/dL 12-16 HEMATOCRIT (test code=HCT) 34.0 % 37-47 COMPREHENSIVE METABOLIC [id number] 20:53:00 Test Item Value Reference Range Comments SODIUM (test code=NA) 144 mmol/L 136-145 POTASSIUM (test code=K) 4.1 mmol/L 3.5-5.1 CHLORIDE (test code=CL) 107.0 mmol/L 98-107 CARBON DIOXIDE (test code=CO2) 27.9 mmol/L 21-32 GLUCOSE (test code=GLU) 81 mg/dL 70-110 BLOOD UREA NITROGEN (test 15 mg/dL 7-18 code=BUN) GLOMERULAR FILTRATION RATE 72.2 >60 Unit of measure: (test code=GFR) mL/min/1.73 d2Swliittiu Range:Healthy Adults >90 mL/min/1.73 m2 For Chronic Kidney Disease: Stage II Mild Decrease in GFR 60-90 Stage III Moderate Decrease in GFR 30-59 Stage IV Severe Decrease in GFR 15-29 Stage V Kidney Failure <15 CREATININE (test code=CREAT) 0.78 mg/dL 0.55-1.30 TOTAL PROTEIN (test code=PROT) 6.6 g/dL 6.4-8.2 ALBUMIN (test code=ALB) 3.5 g/dL 3.4-5.0 GLOBULIN (test code=GLOB) 3.1 g/dL 2.2-4.2 ALBUMIN/GLOBULIN RATIO (test 1.1 0.7-2.0 code=A/G) CALCIUM (test code=CA) 9.0 mg/dL 8.2-10.1 BILIRUBIN TOTAL (test 0.26 mg/dL 0.2-1.00 code=BILT) SGOT/AST (test code=AST) 33.0 U/L 15-37 SGPT/ALT (test code=ALT) 57.0 U/L 12-78 Please note new normal range. ALKALINE PHOSPHATASE TOTAL 146 U/L 46-116 (test code=ALKP) CBC W/AUTO [id number] 20:31:00 Test Item Value Reference Range Comments WHITE BLOOD CELL (test code=WBC) 3.6 K/mm3 5.8-11.0 RED BLOOD CELL (test code=RBC) 3.98 M/mm3 4.2-5.4 HEMOGLOBIN (test code=HGB) 12.7 g/dL 12-16 HEMATOCRIT (test code=HCT) 38.1 % 37-47 MEAN CELL VOLUME (test code=MCV) 96 fL 80-98 MEAN CELL HGB (test code=MCH) 31.9 pg 27-34 MEAN CELL HGB CONCENTRATION (test code=MCHC) 33.3 g/dL 30.8-34.1 RED CELL DISTRIBUTION WIDTH (test code=RDW) 13.7 % 11-16 PLT (test code=PLT) 129 K/mm3 130-400 MEAN PLATELET VOLUME (test code=MPV) 12.3 fL 8.9-12.1 NEUTROPHIL % (test code=NT%) 62.1 % 45-70 LYMPHOCYTE % (test code=LY%) 19.1 % 20-40 MONOCYTE % (test code=MO%) 14.1 % 3-10 EOSINOPHIL % (test code=EO%) 3.3 % 1-5 BASOPHIL % (test code=BA%) 0.8 % 0.0-1.1 NEUTROPHIL # (test code=NT#) 2.25 K/mm3 2.00-7.50 LYMPHOCYTE # (test code=LY#) 0.69 K/mm3 1.50-4.00 MONOCYTE # (test code=MO#) 0.51 K/mm3 0.2-0.8 EOSINOPHIL # (test code=EO#) 0.12 K/mm3 0.04-0.4 BASOPHIL # (test code=BA#) 0.03 K/mm3 0.02-0.10 MANUAL DIFF REQUIRED (test code=MDIFF) NO MANUAL DIFF NUCLEATED RED BLOOD CELL (test code=NRBC) 0 % 0-0 PROTHROMBIN [id number] 20:26:00 Test Item Value Reference Range Comments PROTHROMBIN TIME PATIENT 11.1 secs 10.1-12.5 (test code=PTP) INTERNATIONAL NORMAL RATIO 0.99 <2.0 RECOMMENDED THERAPEUTIC RANGE (test code=INR) FOR ORAL ANTICOAGULANTTREATMENT: CONDITION INRProphylaxis of venous thrombosis in 2.0 - 3.0 high-risk medical or surgical patientsTreatment of venous thrombosis 2.0 - 3.0Prevention of embolism 2.0 - 3.0Prevention of recurrent embolism, or 3.0 - 4.5 patients with mechanical prosthetic intravascular valves IS PATIENT ON ANTICOAGULANTS ? [facility] been notified if Patient is on Heparin Drip? NOTHROMBOPLASTIN TIME [id number] 20:26:00 Test Item Value Reference Range Comments PTT ACTIVATED (test code=APTT) 32.1 secs 24.9-37.0 IS PATIENT ON ANTICOAGULANTS ? [facility] been notified if Patient is on Heparin Drip? NO
--- OUTSIDE RECORDS SUMMARY | 2019-03-26 14:05 | XMS REPORT | Summary of Care ---
:1945 Author Organization [facility] Address [address] [place] [address] Care Team Providers Name Role Phone Brendon Her Primary Care Provider Reason for Visit Reason Comments LAB WORK Auth/Cert Status Reason Specialty Diagnoses / Referred By Referred To Procedures Contact Contact Clinical Medical Diagnoses Low back pain Low back pain [M54.5] [facility] Laboratory Procedures CHG COMPLETE CBC & AUTO DIFF WBC CBC [address] [facility] [place] [address] Encounter Details Date Type Department Care Team Description 11/03/2018 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 3 06/24/2016 Active venlafaxine XR 150 mg 24 Take 150 mg by 0 Active hr capsule mouth 2 (two) times daily. PRIMIDONE ORAL Take 100 mg by 0 Active mouth daily. METOPROLOL SUCCINATE Take 100 mg by 0 Active ORAL mouth daily. omeprazole 20 mg capsule Take 20 mg by 0 Active mouth daily. losartan 100 mg tablet Take 100 mg by 0 Active mouth daily. rosuvastatin 10 mg Take 10 mg by 0 Active tablet mouth at bedtime. LORazepam 0.5 mg tablet Take 0.5 mg by 0 Active mouth. levothyroxine 75 mcg Take 75 mcg by 0 Active tablet mouth every morning. ARIPiprazole (ABILIFY) 2 Take 2 mg by 0 Active mg tablet mouth daily. ANASTROZOLE ORAL Take 1 mg by 0 Active mouth daily. aspirin 81 mg chewable Take 81 mg by 0 Active tablet mouth daily. CALCIUM Take by mouth. 0 Active CARBONATE/VITAMIN D3 (CALCIUM 500 + D, D3, ORAL) VIT Take by mouth. 0 Active C/E/ZN/COPPR/LUTEIN/ZEAX AN (PRESERVISION AREDS 2 ORAL) documented as of this encounter (statuses as of 11/03/2018) Active Problems Not on filedocumented as of this encounter (statuses as of 11/03/2018) Social History Tobacco Use Types Packs/Day Years Used Date Never Smoker Sex Assigned at Date Recorded Not on file Job Start Date Occupation Industry Not on file Not on file Not on file Travel History Travel Start Travel End No recent travel history available. documented as of this encounter Last Filed Vital Signs Not on filedocumented in this encounter Plan of Treatment Name Type Priority Associated Diagnoses Date/Time CBC WITH DIFF LAB Routine Preop testing 11/03/2018 2:39 PM CDT CBC WITH DIFFERENTIAL LAB Routine Preop testing 11/03/2018 2:39 PM CDT Health Maintenance Due Date Last Done Comments HEPATITIS C (HCV) SCREEN 1945 DTaP,Tdap,and Td Vaccines (1 - Tdap) 1963 MAMMOGRAM 1984 COLONOSCOPY 1994 Zoster Recombinant Vaccine (SHINGRIX) (1 of 2) 1994 Medicare Wellness Visit 2009 Osteoporosis Screening 2009 PNEUMOCOCCAL VACCINES 65+ (1 of 2 - PCV13) 2009 INFLUENZA VACCINE (#1) 2018 documented as of this encounter Results Not on filedocumented in this encounter Visit Diagnoses Diagnosis Preop testing - Primary Preoperative examination, unspecified documented in this encounter Insurance Payer Benefit Plan / Subscriber ID Effective Phone Address Type Group Dates MEDICARE MEDICARE PART A xxxxxxxxxxx 2009-Pres [phone] [address] Medicare & B ent [phone] ALANNAH ROSARIO [phone] BCBS OF BCBS [id number] 2016-Pres [phone] Medicare [place] [employer]ITION[employer] ent [id number] [place] [address] documented as of this encounter
--- NOTE | 2019-03-26 14:28 | EDPHYS ---
Physician Documentation [facility] Name: Khushbu Keith Age: 73 yrs Sex: Female : 1945 Arrival Date: 03/26/2019 Time: 14:07 Bed 9 Private MD: Brendon Her ED Physician Manolo Zheng HPI: 03/26 14:25 This 73 yrs old Female presents to ER via Ambulatory with complaints of Sore pm1 on back. 14:25 the patient presents with a swollen area of the left low back. Description: raised. pm1 14:25 Onset: The symptoms/episode began/occurred 1 week(s) ago. Possible cause(s): unknown. pm1 Associated signs and symptoms: Pertinent negatives: discharge, drainage, fever. Modifying factors: the symptoms are alleviated by nothing, the symptoms are aggravated by touching. Severity of symptoms: in the emergency department the symptoms are unchanged. The patient has not experienced similar symptoms in the past. Historical: - Allergies: 14:12 Codeine; hb 14:12 Erythromycin; hb - PMHx: 14:12 Hyperlipidemia; Hypertension; breast cancer; bilateral mastectomy 2015; left hip hb sciatica; right plantar fascitis; - PSHx: 14:12 Hysterectomy; Hip - Left; hb - Immunization history:: Adult Immunizations up to date. - Coronavirus screen:: The patient has NOT traveled to [place], [place], or [place] in the past 14 days. The patient has NOT had contact with known/suspected case of Coronavirus? Proceed with normal triage procedures. - Social history:: Smoking status: Patient denies any tobacco usage or history of. - Ebola Screening: : No symptoms or risks identified at this time. ROS: 14:25 Constitutional: Negative for fever, chills, and weight loss, Cardiovascular: Negative pm1 for chest pain, palpitations, and edema, Respiratory: Negative for shortness of breath, cough, wheezing, and pleuritic chest pain, Abdomen/GI: Negative for abdominal pain, nausea, vomiting, diarrhea, and constipation, Back: Negative for injury and pain, MS/Extremity: Negative for injury and deformity. 14:25 Neuro: Negative for headache, weakness, numbness, tingling, and seizure. 14:25 Skin: Positive for of the left low back, swollen area. Exam: 14:25 Constitutional: This is a well developed, well nourished patient who is awake, alert, pm1 and in no acute distress. Head/Face: Normocephalic, atraumatic. Neck: Trachea midline, no thyromegaly or masses palpated, and no cervical lymphadenopathy. Supple, full range of motion without nuchal rigidity, or vertebral point tenderness. No Meningismus. Chest/axilla: Normal chest wall appearance and motion. Nontender with no deformity. No lesions are appreciated. Cardiovascular: Regular rate and rhythm with a normal S1 and S2. No gallops, murmurs, or rubs. Normal PMI, no JVD. No pulse deficits. Respiratory: Lungs have equal breath sounds bilaterally, clear to auscultation and percussion. No rales, rhonchi or wheezes noted. No increased work of breathing, no retractions or nasal flaring. Back: No spinal tenderness. No costovertebral tenderness. Full range of motion. 14:25 Skin: Appearance: normal except for affected area, small 1 cm x 1.5 cm phlegmon. No fluctuance, pointing, surrounding cellulitis. Vital Signs: 14:12 BP 180 / 59; Pulse 84; Resp 16; Temp 98.5; Pulse Ox 98% on R/A; Weight 95.25 kg; Height hb 5 ft. 5 in. (165.10 cm); Pain 0/10; 14:12 Body Mass Index 34.95 (95.25 kg, 165.10 cm) hb MDM: 14:25 Patient medically screened. pm1 14:25 Data reviewed: vital signs. Data interpreted: Pulse oximetry: on room air is 98 %. pm1 Interpretation: normal. Counseling: I had a detailed discussion with the patient and/or guardian regarding: the historical points, exam findings, and any diagnostic results supporting the discharge/admit diagnosis, the need for outpatient follow up, to return to the emergency department if symptoms worsen or persist or if there are any questions or concerns that arise at home. 14:25 ED course: Tetanus less than 5 years per patient. pm1 Administered Medications: No medications were administered Disposition: 17:06 Co-signature as Attending Physician, Manolo Zheng MD I agree with the assessment and kdr plan of care. Disposition: 03/26/19 14:27 Discharged to Home. Impression: Local infection of the skin and subcutaneous tissue, unspecified. - Condition is Stable. - Discharge Instructions: Cellulitis, Adult. - Prescriptions for Bactrim DS 800- 160 mg Oral Tablet - take 1 tablet by ORAL route every 12 hours for 10 days; 20 tablet. Bactroban 2 % Topical Ointment - Apply to affected area 1 application by TOPICAL route every 12 hours; 30 gram. - Medication Reconciliation Form, Thank You Letter, Antibiotic Education, Prescription Opioid Use form. - Follow up: Emergency Department; When: As needed; Reason: Worsening of condition. Follow up: Private Physician; When: 2 - 3 days; Reason: Recheck today's complaints, Continuance of care, Re-evaluation by your physician. - Problem is new. - Symptoms have improved. Signatures: Manolo Zheng MD MD [facility] Shawn Patel NP PIN MAKER pm1 Janet Chaudhari RN RN hb Corrections: (The following items were deleted from the chart) 14:43 14:27 03/26/2019 14:27 Discharged to Home. Impression: Local infection of the skin and hb subcutaneous tissue, unspecified. Condition is Stable. Forms are Medication Reconciliation Form, Thank You Letter, Antibiotic Education, Prescription Opioid Use. Follow up: Emergency Department; When: As needed; Reason: Worsening of condition. Follow up: Private Physician; When: 2 - 3 days; Reason: Recheck today's complaints, Continuance of care, Re-evaluation by your physician. Problem is new. Symptoms have improved. pm1
--- NOTE | 2019-03-26 14:28 | ER ---
Nurse's Notes [facility] Name: Khushbu Keith Age: 73 yrs Sex: Female : 1945 Arrival Date: 03/26/2019 Time: 14:07 Bed 9 Private MD: Brendon Her Diagnosis: Local infection of the skin and subcutaneous tissue, unspecified Presentation: 03/26 14:11 Presenting complaint: Abscess on left lower back x 1 week. Transition of care: patient hb was not received from another setting of care. Onset of symptoms was March 19, 2019. Risk Assessment: Do you want to hurt yourself or someone else? Patient reports no desire to harm self or others. Initial Sepsis Screen: Does the patient meet any 2 criteria? No. Patient's initial sepsis screen is negative. Does the patient have a suspected source of infection? No. Patient's initial sepsis screen is negative. Care prior to arrival: None. 14:11 Method Of Arrival: Ambulatory hb 14:11 Acuity: CONCHA 4 hb Historical: - Allergies: 14:12 Codeine; hb 14:12 Erythromycin; hb - PMHx: 14:12 Hyperlipidemia; Hypertension; breast cancer; bilateral mastectomy 2015; left hip hb sciatica; right plantar fascitis; - PSHx: 14:12 Hysterectomy; Hip - Left; hb - Immunization history:: Adult Immunizations up to date. - Coronavirus screen:: The patient has NOT traveled to [place], [place], or [place] in the past 14 days. The patient has NOT had contact with known/suspected case of Coronavirus? Proceed with normal triage procedures. - Social history:: Smoking status: Patient denies any tobacco usage or history of. - Ebola Screening: : No symptoms or risks identified at this time. Vital Signs: 14:12 BP 180 / 59; Pulse 84; Resp 16; Temp 98.5; Pulse Ox 98% on R/A; Weight 95.25 kg; Height hb 5 ft. 5 in. (165.10 cm); Pain 0/10; 14:12 Body Mass Index 34.95 (95.25 kg, 165.10 cm) hb ED Course: 14:07 Patient arrived in ED. es 14:07 Brendon Her MD is Private Physician. es 14:11 Triage completed. hb 14:12 Arm band placed on. hb 14:15 Shawn Patel NP is PHCP. pm1 14:15 Manolo Zheng MD is Attending Physician. pm1 Administered Medications: No medications were administered Outcome: : Discharge ordered by . pm1 14:43 Patient left the ED. hb Signatures: Ophelia Kang Patrick, NP GARDEN WORKER pm1 Janet Chaudhari, RN RN hb
[2019-03-26 14:49] VITALS: BP 180/59; TEMP 98.5; O2SAT 98
== END 2019-03-26 14:43 | disposition home or self-care (01) ==
LOC: ER 14:01
DX: L02.212 Cutaneous abscess of back [any part, except buttock and flank] (principal); L08.9 Local infection of the skin and subcutaneous tissue, unspecified; Z88.6 Allergy status to analgesic agent; Z88.2 Allergy status to sulfonamides; Z85.3 Personal history of malignant neoplasm of breast
CPT/HCPCS: 99281

== ENCOUNTER 2019-05-24 17:12 | Emergency (ER) | payer OTHER, BC ==
--- OUTSIDE RECORDS SUMMARY | 2019-05-24 17:16 | XMS REPORT ---
:1945 [facility] Address [address] [place] [address] Dr. Hernandez [address] [place] [address] Care Team Providers Name Role Phone Unavailable [...] 00 erythromycin DA Active MO 2018-03 base 03-07 00:00: 00 Medications This patient has no known medications. Results Test Description Test Time Test Comments Text Results Atomic Results Result Comments - XR PELVIS 1/2 VIEWS 2019-01-12 09:43:00 Patient Name: ODALIS RUVALCABA Unit No: [id number] EXAMS: CPT CODE: [id number] XR PELVIS 1/2 VIEWS 83629 AP VIEW OF THE PELVIS. COMMENT: In progress total left hip arthroplasty. AP view of the pelvis COMMENT: COMPARISON: No prior exams available. Completed total left hip arthroplasty. Prosthesis appears to be in good position. at 0943 Reported and signed by: Sudhir Kirby M.D. CC: Jessee Santiago MD Technologist: ESTEFANIA WHITE (RT.R) Transcribed D/ (0943) [facility]: [facility] [address] [place] [address] PHYS: MATVA.Jessee Lopez : 1945 AGE: 73 SEX: F [place], [place] [address] LOC: Y.501 A PHONE #: [phone] EXAM DATE: 01/11/2019 STATUS: ADM IN FAX #: [phone] RAD #: D/C DT PAGE 1 Signed Report Patient Name: ODALIS RUVALCABA Unit No: [id number] EXAMS: CPT CODE: [id number] XR PELVIS 1/2 VIEWS 03084 <Continued> Orig Print D/T: S: 01/12/2019 (0947) [facility] NAME: ODALIS RUVALCABA[address] PHYS: MATVAJessee Amezquita : 1945 AGE: 73 SEX: F [place] [address] LOC: Y.501 A PHONE #: [phone] EXAM DATE: 01/11/2019 STATUS: ADM IN FAX #: [phone] RAD #: D/C DT PAGE 2 Signed Report - XR PELVIS 1/2 VIEWS 2019-01-12 09:43:00 Patient Name: ODALIS RUVALCABA Unit No: [id number] EXAMS: CPT CODE: [id number] XR PELVIS 1/2 VIEWS 11690 AP VIEW OF THE PELVIS. COMMENT: In progress total left hip arthroplasty. AP view of the pelvis COMMENT: COMPARISON: No prior exams available. Completed total left hip arthroplasty. Prosthesis appears to be in good position. at 0943 Reported and signed by: Sudhir Kirby M.D. CC: Jessee Santiago MD Technologist: ESTEFANIA WHITE (RT.R) Transcribed D/ (1205) [facility]: ODALIS RUVALCABA[address] PHYS: Jessee Britton : 1945 AGE: 73 SEX: F [place], [place] [address] LOC: Y.501 A PHONE #: [phone] EXAM DATE: 01/11/2019 STATUS: ADM IN FAX #: [phone] RAD #: D/C DT PAGE 1 Signed Report Patient Name: ODALIS RUVALCABA Unit No: [id number] EXAMS: CPT CODE: [id number] XR PELVIS 1/2 VIEWS 40612 <Continued> Orig Print D/T: S: 01/12/2019 (0947) [facility] NAME: ODALIS RUVALCABA [address] [facility] PHYS: Jessee Britton : 1945 AGE: 73 SEX: F [place] [address] LOC: Y.501 A PHONE #: [phone] EXAM DATE: 01/11/2019 STATUS: ADM IN FAX #: [phone] RAD #: D/C DT PAGE 2 Signed [...] 53.0 >60 Unit of measure: mL/min/1.73 code=GFR) [id number] Range:Healthy Adults >90 mL/min/1.73 m2 For Chronic Kidney Disease: Stage II Mild Decrease in GFR 60-90 Stage III Moderate Decrease in GFR 30-59 Stage IV Severe Decrease in GFR 15-29 Stage V Kidney Failure <15 CREATININE (test code=CREAT) 1.02 mg/dL 0.55-1.30 CALCIUM (test code=CA) 8.3 mg/dL 8.2-10.1 HGB [id number] 05:59:00 Test Item Value Reference Range Comments HEMOGLOBIN (test code=HGB) 11.0 g/dL 12-16 HEMATOCRIT (test code=HCT) 34.0 % 37-47 COMPREHENSIVE METABOLIC [id number] 20:53:00 Test Item Value Reference Range Comments SODIUM (test code=NA) 144 mmol/L 136-145 POTASSIUM (test code=K) 4.1 mmol/L 3.5-5.1 CHLORIDE (test code=CL) 107.0 mmol/L 98-107 CARBON DIOXIDE (test code=CO2) 27.9 mmol/L 21-32 GLUCOSE (test code=GLU) 81 mg/dL 70-110 BLOOD UREA NITROGEN (test 15 mg/dL 7-18 code=BUN) GLOMERULAR FILTRATION RATE 72.2 >60 Unit of measure: (test code=GFR) mL/min/1.73 [id number] Range:Healthy Adults >90 mL/min/1.73 m2 For Chronic [...] 146 U/L 46-116 (test code=ALKP) CBC W/AUTO [id number] 20:31:00 Test Item Value Reference Range Comments [...] CELL (test code=NRBC) 0 % 0-0 PROTHROMBIN [id number] 20:26:00 Test Item Value Reference Range Comments [...] intravascular valves IS PATIENT ON ANTICOAGULANTS ? [facility] been notified if Patient is on Heparin Drip? NOTHROMBOPLASTIN TIME [id number] 20:26:00 Test Item Value Reference Range Comments PTT ACTIVATED (test code=APTT) 32.1 secs 24.9-37.0 IS PATIENT ON ANTICOAGULANTS ? [facility] been notified if Patient is on Heparin Drip? NO
--- NOTE | 2019-05-24 17:36 | ER ---
Nurse's Notes [facility] Name: Khushbu Keith Age: 74 yrs Sex: Female : 1945 Arrival Date: 05/24/2019 Time: 17:18 Bed 26 Private MD: Diagnosis: Secondary malignant neoplasm of brain Presentation: 05/23 17:22 Chief complaint: Chief complaint: "I have been having memory problems for a couple hb months, Dr. Perez sent me for outpatient MRI today, his office called and said I have a lesion in my brain and he instructed me to come to the ER to be transferred to [facility] for surgery.". 17:23 Coronavirus screen: Patient denies fever greater than 100.4F, cough, shortness of hb breath, or difficulty breathing. Proceed with normal triage process. Ebola Screen: No symptoms or risks identified at this time. Initial Sepsis Screen: Does the patient meet any 2 criteria? No. Patient's initial sepsis screen is negative. Does the patient have a suspected source of infection? No. Patient's initial sepsis screen is negative. Risk Assessment: Do you want to hurt yourself or someone else? Patient reports no desire to harm self or others. 17:23 Method Of Arrival: Wheelchair hb 17:23 Acuity: CONCHA 3 hb 21:17 Onset of symptoms was March 2019. ch2 Historical: - Allergies: 17:26 Codeine; hb 17:26 Erythromycin; hb - PMHx: 17:26 bilateral mastectomy 2015; Hypertension; left hip sciatica; right plantar fascitis; hb Hyperlipidemia; breast cancer; - PSHx: 17:26 Hysterectomy; Hip - Left; hb - Immunization history:: Adult Immunizations up to date. - Social history:: Smoking status: Patient denies any tobacco usage or history of. Patient/guardian denies using alcohol, street drugs, The patient lives with family. - Family history:: not pertinent. Screenin:00 Abuse screen: Denies threats or abuse. Denies injuries from another. Nutritional rr5 screening: No deficits noted. Tuberculosis screening: No symptoms or risk factors identified. Fall Risk Ambulatory Aid- Crutches/Cane/Walker (15 pts). Total Cui Fall Scale indicates No Risk (0-24 pts). Assessment: 17:50 General: Appears in no apparent distress. comfortable, Behavior is calm, cooperative. rr5 17:50 Pain: Denies pain. Neuro: Level of Consciousness is awake, alert, obeys commands, rr5 Oriented to person, place, time, situation. Cardiovascular: Capillary refill < 3 seconds Patient's skin is warm and dry. Respiratory: Airway is patent Respiratory effort is even, unlabored, Respiratory pattern is regular, symmetrical. GI: No signs and/or symptoms were reported involving the gastrointestinal system. : No signs and/or symptoms were reported regarding the genitourinary system. EENT: No signs and/or symptoms were reported regarding the EENT system. Derm: Skin is intact, is healthy with good turgor, Skin is pink, warm \\T\\ dry. Skin temperature is warm. Musculoskeletal: Capillary refill < 3 seconds. 18:30 Reassessment: Patient appears in no apparent distress at this time. Patient is alert, rr5 oriented x 3, equal unlabored respirations, skin warm/dry/pink. for transfer awaiting for facility acceptance. complaining neck pain 4/10 pain score. ED provider aware with order made and carried out. 18:46 Reassessment: spoke to transfer center [facility] staff "smooth". she said to call rr5 them back because they are doing shift huddle. 19:30 Reassessment: Patient appears in no apparent distress at this time. No changes from ch2 previously documented assessment. Patient and/or family updated on plan of care and expected duration. Pain level reassessed. Patient is alert, oriented x 3, equal unlabored respirations, skin warm/dry/pink. updated on transfer process, attempting to call transfer center to give receiving nurse report, no answer at this time Patient denies pain at this time. Patient states feeling better. 19:30 General: Appears in no apparent distress. comfortable, Behavior is calm, cooperative, ch2 appropriate for age. 20:30 Reassessment: Patient appears in no apparent distress at this time. No changes from ch2 previously documented assessment. Patient and/or family updated on plan of care and expected duration. Pain level reassessed. Patient is alert, oriented x 3, equal unlabored respirations, skin warm/dry/pink. notified physician of elevated BP, doctor gave verbal OK for patient to take home meds as usual along with antianxiety meds, assisted patient with admin. Vital Signs: 17:23 BP 179 / 95; Pulse 88; Resp 16; Temp 97.9; Pulse Ox 100% on R/A; Weight 97.52 kg; hb Height 5 ft. 4 in. (162.56 cm); Pain 0/10; 18:30 BP 177 / 74; Pulse 85; Resp 17; Pulse Ox 98% on R/A; Pain 4/10; rr5 19:04 BP 176 / 84; Pulse 101; Resp 18; Temp 98.2; Pulse Ox 100% ; Pain 0/10; ch2 20:19 BP 190 / 71; Pulse 106; Resp 20; Pulse Ox 100% on R/A; Pain 0/10; ch2 17:23 Body Mass Index 36.90 (97.52 kg, 162.56 cm) hb ED Course: 17:18 Patient arrived in ED. ag5 17:25 Triage completed. hb 17:26 Arm band placed on. hb 17:27 Carla Ahuja MD is Attending Physician. ma2 17:30 Patient has correct armband on for positive identification. Bed in low position. Call rr5 light in reach. Pulse ox on. NIBP on. 18:27 Zac Alba, RN is Primary Nurse. rr5 21:16 No provider procedures requiring assistance completed. Patient did not have IV access ch2 during this emergency room visit. 21:18 Report given to Haley Mayo RN. ch2 Administered Medications: 18:35 Drug: Tylenol 500 mg Route: PO; rr5 Outcome: 17:36 ER care complete, transfer ordered by . ma2 21:16 Transferred by ground EMS to [facility]. ch2 21:16 Condition: good 21:16 Instructed on the need for transfer. 21:20 Patient left the ED. ch2 Signatures: Janet Chaudhari, RN RN Carla Ahuja MD MD ma2 Samantha Torres RN RN ch2 Zac Alba, CINTHIA RN rr5 Kiko Bond ag5 Corrections: (The following items were deleted from the chart) 17:25 17:22 Chief complaint: hb hb 18:41 18:35 Reassessment: Patient appears in no apparent distress at this time. Patient is rr5 alert, oriented x 3, equal unlabored respirations, skin warm/dry/pink. for transfer awaiting for facility acceptance. rr5 21:15 20:30 Reassessment: Patient appears in no apparent distress at this time. No changes ch2 from previously documented assessment. Patient and/or family updated on plan of care and expected duration. Pain level reassessed. Patient is alert, oriented x 3, equal unlabored respirations, skin warm/dry/pink. updated on transfer process, attempting to call transfer center to give receiving nurse report, no answer at this time Patient denies pain at this time. Patient states feeling better. ch2 21:15 20:30 General: Appears in no apparent distress. comfortable, Behavior is calm, ch2 cooperative, appropriate for age, ch2
--- NOTE | 2019-05-24 17:36 | EDPHYS ---
Physician Documentation [facility] Name: Khushbu Keith Age: 74 yrs Sex: Female : 1945 Arrival Date: 05/24/2019 Time: 17:18 Bed 26 Private MD: ED Physician Carla Ahuja HPI: 05/23 17:30 This 74 yrs old Female presents to ER via Wheelchair with complaints of Sent ma2 By Dr. Perez. 17:[address] Perez for chronic headache and mri shows frontal lobe mass with edema and ma2 midline shift. she does not have any new symptoms. headache is unchanged for the last 3 weeks, history of breast and lung cancer in remission . Onset: The symptoms/episode began/occurred gradually, 1 week(s) ago. Severity of symptoms: At their worst the symptoms were mild in the emergency department the symptoms are unchanged. Historical: - Allergies: 17:26 Codeine; hb 17:26 Erythromycin; hb - PMHx: 17:26 bilateral mastectomy 2015; Hypertension; left hip sciatica; right plantar fascitis; hb Hyperlipidemia; breast cancer; - PSHx: 17:26 Hysterectomy; Hip - Left; hb - Immunization history:: Adult Immunizations up to date. - Social history:: Smoking status: Patient denies any tobacco usage or history of. Patient/guardian denies using alcohol, street drugs, The patient lives with family. - Family history:: not pertinent. ROS: 17:30 Constitutional: Negative for fever, chills, and weight loss, Eyes: Negative for injury, ma2 pain, redness, and discharge. 17:30 All other systems are negative. Exam: 17:30 Constitutional: This is a well developed, well nourished patient who is awake, alert, ma2 and in no acute distress. Chest/axilla: Normal chest wall appearance and motion. Nontender with no deformity. No lesions are appreciated. Cardiovascular: Regular rate and rhythm with a normal S1 and S2. No gallops, murmurs, or rubs. Normal PMI, no JVD. No pulse deficits. Respiratory: Lungs have equal breath sounds bilaterally, clear to auscultation and percussion. No rales, rhonchi or wheezes noted. No increased work of breathing, no retractions or nasal flaring. Abdomen/GI: Soft, non-tender, with normal bowel sounds. No distension or tympany. No guarding or rebound. No evidence of tenderness throughout. Neuro: Awake and alert, GCS 15, oriented to person, place, time, and situation. Cranial nerves II-XII grossly intact. Motor strength 5/5 in all extremities. Sensory grossly intact. Cerebellar exam normal. Normal gait. Vital Signs: 17:23 BP 179 / 95; Pulse 88; Resp 16; Temp 97.9; Pulse Ox 100% on R/A; Weight 97.52 kg; hb Height 5 ft. 4 in. (162.56 cm); Pain 0/10; 18:30 BP 177 / 74; Pulse 85; Resp 17; Pulse Ox 98% on R/A; Pain 4/10; rr5 19:04 BP 176 / 84; Pulse 101; Resp 18; Temp 98.2; Pulse Ox 100% ; Pain 0/10; ch2 20:19 BP 190 / 71; Pulse 106; Resp 20; Pulse Ox 100% on R/A; Pain 0/10; ch2 17:23 Body Mass Index 36.90 (97.52 kg, 162.56 cm) hb MDM: 17:27 Patient medically screened. ma2 17:30 Differential Diagnosis brain tumurs primary vs mets, vs other mass vs bleeding, will ma2 transfer emergently given the midline shift, for higher level of care no neurosurgery or oncology or radiation oncology available in our hospital. . Data reviewed: vital signs, nurses notes. Counseling: I had a detailed discussion with the patient and/or guardian regarding: the historical points, exam findings, and any diagnostic results supporting the discharge/admit diagnosis, the presence of at least one elevated blood pressure reading (>120/80) during this emergency department visit, the need to transfer to another facility. 17:41 ED course: MRI shows 3.8 centimeter enhancing mass contains areas necrosis right ma2 frontal lobe. Marked amount of surrounding vasogenic edema with shift of the midline structures 13 millimeters to the left . 18:13 ED course: . ma2 Administered Medications: 18:35 Drug: Tylenol 500 mg Route: PO; rr5 Disposition: 05/24/19 17:36 Transfer ordered to [facility]. Diagnosis is Secondary malignant neoplasm of brain. - Reason for transfer: Higher level of care. - Accepting physician is [facility] . - Condition is Stable. - Problem is new. - Symptoms are unchanged. Signatures: Janet Chaudhari, RN RN Carla Ahuja MD MD ma2 Samantha Torres RN RN ch2 Zac Alba RN RN rr5 Corrections: (The following items were deleted from the chart) 21:20 17:36 05/24/2019 17:36 Transfer ordered to [facility]. Diagnosis is Secondary ch2 malignant neoplasm of brain. Reason for transfer: Higher level of care. Accepting physician is [facility] . Condition is Stable. Problem is new. Symptoms are unchanged. ma2
[2019-05-24] MEDS ORDERED: ACETAMINOPHEN 500 MG TAB ONE (18:38)
[2019-05-24 21:28] VITALS: TEMP 98.2; O2SAT 100
[2019-05-24 21:29] VITALS: BP 190/71
== END 2019-05-24 21:20 | disposition short-term general hospital (02) ==
LOC: ER 17:12
DX: C79.31 Secondary malignant neoplasm of brain (principal); I10 Essential (primary) hypertension; Z88.1 Allergy status to other antibiotic agents; Z85.3 Personal history of malignant neoplasm of breast; Z88.5 Allergy status to narcotic agent; Z85.118 Personal history of other malignant neoplasm of bronchus and lung; Z90.13 Acquired absence of bilateral breasts and nipples
CPT/HCPCS: 70553; 99285

== ENCOUNTER 2020-02-07 09:34 | Inpatient (IN) | payer OTHER, BC ==
[2020-02-07] MEDS ORDERED: ONDANSETRON 4 MG/2 ML VIAL ONE (10:32)
[2020-02-07] MEDS ORDERED: MORPHINE 4 MG/ML SYR ONE (10:32)
[2020-02-07] MEDS ORDERED: NA CHLORIDE 0.9% 1,000 ML ONE (10:32)
[2020-02-07 11:02] LABS: Potassium 4.1 mmol/L (3.5-5.1)
[2020-02-07 11:40] LABS: Absolute Lymphocytes (CBC) 0.5 K/uL (0.7-4.9); Basophils % 0.6 % (0-1.3); Hematocrit 42.3 % (36.0-45.0); Lymphocytes % 10.2 % (15.3-44.8); MPV 9.4 fL (7.6-11.3); RBC Red Blood Cell Count 4.54 M/uL (3.86-4.86)
--- NOTE | 2020-02-07 11:46 | RAD REPORT ---
EXAM DESCRIPTION: CT - Abdomen Pelvis W Contrast - 02/07/2020 11:10 am CLINICAL HISTORY: Abdominal pain COMPARISON: October 2019 TECHNIQUE: Computed axial tomography of the abdomen pelvis was obtained. 100 cc Isovue-300 was admin istered intravenously. Oral contrast was not requested which limits evaluation of bowel. All CT scans are performed using dose optimization technique as appropriate and may include automated exposure control or mA/KV adjustment according to patient size. FINDINGS: 11 millimeter nodule right lower lobe. Previously it measured 7 millimeters. Possible gallstones. Gallbladder is mildly distended. Mild fatty infiltration. , spleen, pancreas, adrenal and kidneys appear unremarkable. There is no evidence of diverticulitis. A normal appendix Mild dilatation of jejunum. Mid and distal ileum decompressed. This likely represents a small bowel o bstruction. A small amount of ascites. Spondylosis involves lumbar spine resulting in spinal stenosis. Small hiatal hernia IMPRESSION: Small bowel obstruction Mild gallbladder distention with possible cholelithiasis Enlargement of an 11 millimeter right lower lobe nodule
--- NOTE | 2020-02-07 12:21 | EDPHYS ---
Physician Documentation [facility] Name: Khushbu Keith Age: 74 yrs Sex: Female : 1945 Arrival Date: 02/07/2020 Time: 09:39 Bed 2 Private MD: Brendon Her ED Physician Carla Ahuja HPI: 02/06 12:18 This 74 yrs old Female presents to ER via Ambulatory with complaints of kb Abdominal Pain. 12:18 The patient presents with abdominal pain in the lower abdomen. Onset: The kb symptoms/episode began/occurred 2 day(s) ago. The symptoms do not radiate. Associated signs and symptoms: Pertinent positives: nausea, vomiting, and diarrhea, Pertinent negatives: fever. The symptoms are described as achy, constant, dull. Modifying factors: The symptoms are alleviated by nothing, the symptoms are aggravated by pressure. Severity of pain: At its worst the pain was moderate in the emergency department the pain is unchanged. The patient has not experienced similar symptoms in the past. The patient has not recently seen a physician. Historical: - Allergies: 10:03 Codeine; iw 10:03 Erythromycin; iw - PMHx: 10:03 bilateral mastectomy 2016; breast cancer; Hyperlipidemia; Hypertension; left hip iw sciatica; right plantar fascitis; metastatic breast cancer, brain and lung; - PSHx: 10:03 Hysterectomy; Hip - Left; iw - Immunization history:: Adult Immunizations. - Social history:: Smoking status: Patient denies any tobacco usage or history of. ROS: 12:14 Constitutional: Negative for fever, chills, and weight loss, Cardiovascular: Negative kb for chest pain, palpitations, and edema, Respiratory: Negative for shortness of breath, cough, wheezing, and pleuritic chest pain, Back: Negative for injury and pain, MS/Extremity: Negative for injury and deformity, Skin: Negative for injury, rash, and discoloration, Neuro: Negative for headache, weakness, numbness, tingling, and seizure. 12:14 Abdomen/GI: Positive for abdominal pain, nausea, vomiting, and diarrhea. Exam: 12:17 Constitutional: This is a well developed, well nourished patient who is awake, alert, kb and in no acute distress. Head/Face: Normocephalic, atraumatic. Chest/axilla: Normal chest wall appearance and motion. Nontender with no deformity. No lesions are appreciated. Cardiovascular: Regular rate and rhythm with a normal S1 and S2. No gallops, murmurs, or rubs. Normal PMI, no JVD. No pulse deficits. Respiratory: Lungs have equal breath sounds bilaterally, clear to auscultation and percussion. No rales, rhonchi or wheezes noted. No increased work of breathing, no retractions or nasal flaring. Skin: Warm, dry with normal turgor. Normal color with no rashes, no lesions, and no evidence of cellulitis. MS/ Extremity: Pulses equal, no cyanosis. Neurovascular intact. Full, normal range of motion. Neuro: Awake and alert, GCS 15, oriented to person, place, time, and situation. Cranial nerves II-XII grossly intact. Motor strength 5/5 in all extremities. Sensory grossly intact. Cerebellar exam normal. Normal gait. 12:17 Abdomen/GI: Inspection: abdomen appears normal, Bowel sounds: diminished, Palpation: soft, in all quadrants, moderate abdominal tenderness, in the right lower quadrant and left lower quadrant. Vital Signs: 09:58 BP 162 / 91; Pulse 106; Resp 18; Temp 98.6; Pulse Ox 98% on R/A; Weight 100.7 kg; iw Height 5 ft. 5 in. (165.10 cm); Pain 6/10; 10:52 BP 155 / 84; Pulse 90; Resp 15; Pulse Ox 96% ; jl7 11:55 BP 149 / 83; Pulse 81; Resp 18; Pulse Ox 100% on 1 lpm NC; tw2 13:04 BP 152 / 79; Pulse 75; Resp 18; Pulse Ox 100% on 1 lpm NC; tw2 14:07 BP 146 / 66; Pulse 80; Resp 17; Pulse Ox 100% ; jl7 15:20 BP 125 / 66; Pulse 84; Resp 17; Pulse Ox 100% on R/A; tw2 09:58 Body Mass Index 36.94 (100.70 kg, 165.10 cm) iw MDM: 10:04 Patient medically screened. kb 12:11 Data reviewed: vital signs, nurses notes. Data interpreted: Pulse oximetry: on room air kb is 100 %. Interpretation: normal. Counseling: I had a detailed discussion with the patient and/or guardian regarding: the historical points, exam findings, and any diagnostic results supporting the discharge/admit diagnosis, lab results, radiology results, the need for further work-up and treatment in the hospital. Physician consultation: Zac Bennett MD was contacted at 12:11, regarding admission, to the medical/surgical unit. patient's condition, and will see patient in ED, shortly. 12:14 Physician consultation: Koby Marquez MD was contacted at 12:14, regarding consult, kb patient's condition, and will see patient in inpatient room, later today. 02/06 10:13 Order name: Basic Metabolic Panel 02/06 10:13 Order name: CBC with Diff 02/06 10:47 Order name: CBC with Automated Diff; Complete Time: 11:44 EDMS 02/06 11:02 Order name: Basic Metabolic Panel; Complete Time: 11:05 EDMS 02/06 11:03 Order name: Basic Metabolic Panel EDLA 02/06 11:34 Order name: CREATININE WHOLE BLOOD; Complete Time: 11:44 EDLA 02/06 10:13 Order name: CT Abd/Pelvis - IV Contrast Only 02/06 10:50 Order name: Abdomen ; Complete Time: 11:49 EDMS 02/06 11:34 Order name: CREATININE WHOLE BLOOD EDLA 02/06 12:41 Order name: LFT's tw2 02/06 12:47 Order name: Liver (Hepatic) Function EDLA 02/06 12:52 Order name: Liver (Hepatic) Function EDLA 02/06 13:14 Order name: Liver (Hepatic) Function EDLA 02/06 10:13 Order name: IV Saline Lock; Complete Time: 10:54 kb 02/06 10:13 Order name: Labs collected and sent; Complete Time: 10:54 kb 02/06 11:03 Order name: Labs - recollect needed: recollect cbc; Complete Time: 11:30 bd 02/06 13:19 Order name: CONS Physician Consult EDMS Administered Medications: 10:40 Drug: NS 0.9% 1000 ml Route: IV; Rate: 1000 ml; Site: right antecubital; jl7 15:32 Follow up: IV Status: Infusion continued upon admission jl7 10:40 Drug: Zofran (Ondansetron) 4 mg Route: IVP; Site: right antecubital; jl7 11:00 Follow up: Response: No adverse reaction; Nausea is decreased jl7 10:40 Drug: morphine 4 mg Route: IVP; Site: right antecubital; jl7 11:00 Follow up: Response: No adverse reaction; Pain is decreased jl7 Disposition: 18:32 Co-signature as Attending Physician, Carla Ahuja MD. ma2 Disposition: 02/07/20 12:21 Hospitalization ordered by Zac Bennett for Inpatient Admission. Preliminary diagnosis is Other intestinal obstruction - SBO. - Bed requested for Telemetry/MedSurg (Inpatient). - Status is Inpatient Admission. jl7 - Condition is Stable. - Problem is new. - Symptoms are unchanged. Signatures: Dispatcher [employer] EDMS Maria A Valentine, DRU-C [employer] [facility] OFFICE SUPERVISOR-Brittney Elmore Irene, CINTHIA VICENTE Owen Hopkins RN RN 7 Carla Ahuja MD MD ma2 Corrections: (The following items were deleted from the chart) 14:00 12:21 Hospitalization Ordered by Zac Bennett MD for Inpatient Admission. Preliminary bd diagnosis is Other intestinal obstruction - SBO. Bed requested for Telemetry/MedSurg (Inpatient). Status is Inpatient Admission. Condition is Stable. Problem is new. Symptoms are unchanged. kb 15:32 14:00 02/07/2020 12:21 Hospitalization Ordered by Zac Bennett MD for Inpatient jl7 Admission. Preliminary diagnosis is Other intestinal obstruction - SBO. Bed requested for Telemetry/MedSurg (Inpatient). Status is Inpatient Admission. Condition is Stable. Problem is new. Symptoms are unchanged. bd
--- NOTE | 2020-02-07 12:21 | ER ---
Nurse's Notes [facility] Name: Khushbu Keith Age: 74 yrs Sex: Female : 1945 Arrival Date: 02/07/2020 Time: 09:39 Bed 2 Private MD: Brendon Her Diagnosis: Other intestinal obstruction-SBO Presentation: 02/06 09:58 Chief complaint: Patient states: has had vomiting and abd pain since Thursday night also iw has diarrhea , hx of diverticulosis. Coronavirus screen: diarrhea, nausea, vomiting. Client presents with at least one sign or symptom that may indicate coronavirus-19. Ebola Screen: Patient negative for fever greater than or equal to 101.5 degrees Fahrenheit, and additional compatible Ebola Virus Disease symptoms Patient denies exposure to infectious person. Patient denies travel to an Ebola-affected area in the 21 days before illness onset. No symptoms or risks identified at this time. Initial Sepsis Screen: Does the patient meet any 2 criteria? No. Patient's initial sepsis screen is negative. Does the patient have a suspected source of infection? No. Patient's initial sepsis screen is negative. Risk Assessment: Do you want to hurt yourself or someone else? Patient reports no desire to harm self or others. Onset of symptoms was February 03, 2020. 09:58 Method Of Arrival: Ambulatory iw 09:58 Acuity: CONCHA 3 iw 09:58 Acuity: CONCHA 3 iw Historical: - Allergies: 10:03 Codeine; iw 10:03 Erythromycin; iw - PMHx: 10:03 bilateral mastectomy 2016; breast cancer; Hyperlipidemia; Hypertension; left hip iw sciatica; right plantar fascitis; metastatic breast cancer, brain and lung; - PSHx: 10:03 Hysterectomy; Hip - Left; iw - Immunization history:: Adult Immunizations. - Social history:: Smoking status: Patient denies any tobacco usage or history of. Screenin:10 Abuse screen: Denies threats or abuse. Denies injuries from another. Nutritional jl7 screening: No deficits noted. Tuberculosis screening: No symptoms or risk factors identified. Fall Risk IV access (20 points). Total Cui Fall Scale indicates No Risk (0-24 pts). Assessment: 10:10 General: Appears in no apparent distress. uncomfortable, Behavior is calm, cooperative, jl7 appropriate for age. Pain: Complains of pain in right lower quadrant and left lower quadrant Pain currently is 6 out of 10 on a pain scale. Pain began 2-3 days ago. Is continuous. Neuro: Level of Consciousness is awake, alert, obeys commands, Oriented to person, place, time, situation. Cardiovascular: Patient's skin is warm and dry. Respiratory: Airway is patent Respiratory effort is even, unlabored, Respiratory pattern is regular, symmetrical. GI: Abdomen is round Abdomen is tender to palpation. Derm: Skin is pink, warm \T\ dry. 11:34 Reassessment: Patient appears in no apparent distress at this time. Patient and/or jl7 family updated on plan of care and expected duration. Pain level reassessed. Patient is alert, oriented x 3, equal unlabored respirations, skin warm/dry/pink. reports decreased pain at this time. 11:51 Reassessment: provider at bedside at this time. tw2 12:42 Reassessment: hospitalist Dr. Zac Bennett at bedside at this time. VO 100% read back tw2 to add LFT's, lab notified and will add to pts results. 13:05 Reassessment: Patient appears in no apparent distress at this time. Patient and/or tw2 family updated on plan of care and expected duration. Pain level reassessed. Patient is alert, oriented x 3, equal unlabored respirations, skin warm/dry/pink. 15:31 Reassessment: Patient appears in no apparent distress at this time. Patient and/or jl7 family updated on plan of care and expected duration. Pain level reassessed. Patient is alert, oriented x 3, equal unlabored respirations, skin warm/dry/pink. Vital Signs: 09:58 BP 162 / 91; Pulse 106; Resp 18; Temp 98.6; Pulse Ox 98% on R/A; Weight 100.7 kg; iw Height 5 ft. 5 in. (165.10 cm); Pain 6/10; 10:52 BP 155 / 84; Pulse 90; Resp 15; Pulse Ox 96% ; jl7 11:55 BP 149 / 83; Pulse 81; Resp 18; Pulse Ox 100% on 1 lpm NC; tw2 13:04 BP 152 / 79; Pulse 75; Resp 18; Pulse Ox 100% on 1 lpm NC; tw2 14:07 BP 146 / 66; Pulse 80; Resp 17; Pulse Ox 100% ; jl7 15:20 BP 125 / 66; Pulse 84; Resp 17; Pulse Ox 100% on R/A; tw2 09:58 Body Mass Index 36.94 (100.70 kg, 165.10 cm) iw ED Course: 09:39 Patient arrived in ED. ag5 09:39 Brendon Her MD is Private Physician. ag5 09:50 Maria A Valentine F[facility]-C [facility]. kb 09:50 Carla Ahuja MD is Attending Physician. kb 10:01 Triage completed. iw 10:03 Arm band placed on. iw 10:04 Owen Hopkins RN is Primary Nurse. jl7 10:10 Patient has correct armband on for positive identification. Placed in gown. Bed in low jl7 position. Call light in reach. Side rails up X 1. Pulse ox on. NIBP on. 10:15 Missed attempt(s): 20 gauge in right antecubital area. Bleeding controlled, band aid jl7 applied, catheter tip intact. 10:45 Initial lab(s) drawn, by oh, sent to lab. Inserted saline lock: 22 gauge in right jl7 antecubital area, using aseptic technique. Blood collected. 11:10 Abdomen In Process Unspecified. EDMS 12:20 Zac Bennett MD is Hospitalizing Provider. kb 14:02 Awaiting: Receiving nurse unavailable. jl7 14:14 Awaiting: unsuccessful attempt to call report to 2nd floor at this time. tw2 15:31 No provider procedures requiring assistance completed. Patient admitted, IV remains in jl7 place. Administered Medications: 10:40 Drug: NS 0.9% 1000 ml Route: IV; Rate: 1000 ml; Site: right antecubital; jl7 15:32 Follow up: IV Status: Infusion continued upon admission jl7 10:40 Drug: Zofran (Ondansetron) 4 mg Route: IVP; Site: right antecubital; jl7 11:00 Follow up: Response: No adverse reaction; Nausea is decreased jl7 10:40 Drug: morphine 4 mg Route: IVP; Site: right antecubital; jl7 11:00 Follow up: Response: No adverse reaction; Pain is decreased jl7 Outcome: 12:21 Decision to Hospitalize by Provider. kb 15:31 Admitted to Med/surg accompanied by tech, via wheelchair. jl7 15:31 Condition: stable 15:31 Instructed on the need for admit. 15:32 Patient left the ED. jl7 Signatures: Dispatcher [employer] EDMaria A Rivera, CORRECTIONAL OFFICER LIEUTENANT-C CORRECTIONAL OFFICER LIEUTENANT-Samantha Maher, RN RN iw Maryjo Leong RN RN tw2 Owen Hopkins RN RN jl7 Kiko Bond ag5 Corrections: (The following items were deleted from the chart) 12:43 12:42 Reassessment: hospitalist Dr. Zac Bennett at bedside at this time. tw2 tw2
[2020-02-07 13:13] LABS: ALT/SGPT 25 U/L (12-78); AST/SGOT 17 U/L (15-37); Albumin 3.3 g/dL (3.4-5.0); Alkaline Phosphatase 185 U/L (45-117); Bilirubin Direct < 0.1 mg/dL (0-0.2); Bilirubin Total 0.3 mg/dL (0.2-1.0); Protein, Total 7.2 g/dL (6.4-8.2)
--- NOTE | 2020-02-07 13:30 | P.HP ---
Certification for Inpatient Patient admitted to: Inpatient With expected LOS: >2 Midnights Practitioner: I am a practitioner with admitting privileges, knowledge of patient current condition, hospital course, and medical plan of care. Services: Services provided to patient in accordance with Admission requirements found in Title 42 Section 412.3 of the Code of Federal Regulations Patient History Date of Service: 02/07/20 Reason for admission: SBO History of Present Illness: 74yo female, presents to ED due to abdominal pain over past 2 days associated with nausea/vomiting. She reports initially having some diarrhea, then began to feel bloated and nauseous. She has been unable to tolerate any PO diet over the last 2-3 days. Her last BM was yesterday and reported as regular but small. She believes she passed some flatus early this morning/overnight. Her last emesis was last night. In the ED, workup revealed a CT concerning for SBO. Dr. Marquez was contacted and recommended admission. Pt endorses some slight chills at home, Tmax: 99.6 yesterday. She reports otherwise being in her usual state of health until this occurred. PMH: HTN, anxiety/depression, metastatic breast cancer (brain), lung cancer Allergies codeine Adverse Reaction (Verified 01/28/18 11:17) Nausea/Vomiting erythromycin base Adverse Reaction (Verified 01/28/18 11:17) Nausea/Vomiting Home Medications: Amlodipine Besylate [Norvasc] 2.5 mg PO [id number] 09/06/15 LORazepam [Ativan*] 0.5 mg PO DAILY 09/06/15 Levothyroxine [Synthroid*] 75 mcg PO [id number] 09/06/15 Metoprolol Succinate [Toprol Xl*] 100 mg PO [id number] 09/06/15 Omeprazole 20 mg PO BID 09/06/15 Primidone [Mysoline *] 100 mg PO BID 09/06/15 Venlafaxine HCl [Effexor XR] 150 mg PO BID 09/06/15 ARIPiprazole [Abilify*] 2.5 mg PO BEDTIME 01/23/16 Rosuvastatin Calcium [Crestor] 40 mg PO DAILY 01/28/18 Vit D3/Folic Acid/B2/B6/B12 [Folgard Tablet] 1 mg PO DAILY 01/28/18 Ramelteon 1 tab PO BEDTIME 02/07/20 - Past Medical/Surgical History -: breast cancer, metastatic -: lung cancer -: HTN -: Anxiety/depression -: Bilateral mastectomy 2016 -: Hysterectomy -: brain mass excision - Family History Family History: Reviewed- Non-Contributory - Social History Smoking Status: Former smoker Alcohol use: Yes Place of Residence: Home Review of Systems 10-point ROS is otherwise unremarkable Physical Examination - Physical Exam General: Alert, In no apparent distress HEENT: Sclerae nonicteric Respiratory: Clear to auscultation bilaterally Cardiovascular: No edema, Regular rate/rhythm Gastrointestinal: Soft and benign, No rebound, Distended (mild), Tenderness (mild, across lower abdomen) Musculoskeletal: No tenderness Integumentary: No rashes Neurological: Normal speech, Normal affect - Studies Laboratory Data (last 24 hrs) 02/07/20 11:26: WBC 4.8, Hgb 14.2, Hct 42.3, Plt Count 133 L 02/07/20 10:37: Total Bilirubin 0.3, AST 17, ALT 25, Alkaline Phosphatase 185 H 02/07/20 10:37: Sodium 142, Potassium 4.1, BUN 13, Creatinine 1.08, Glucose 172 H Assessment and Plan - Advance Directives Does patient have a Living Will: Yes Does patient have a Durable POA for Healthcare: Yes Physician Review Additional Text: Small-bowel obstruction h/o metastatic breast cancer s/p b/l mastectomy (metastasis to brain) s/p excision h/o Lung cancer Hypertension Anxiety/depression Dr. Marquez contacted by ED, recommended admission and will see in consult NPO, IVF, morphine for pain control Discussed NGT, will hold off for now, as patient reports no emesis since last night, small flatus this a.m. Serial abdominal exams Obtain home medications and restart as appropriate Mild gallbladder distention with possible cholelithiasis noted on CT, will add LFTs to blood obtained in ED VTE prophylaxis: SCDs Dispo: Anticipate dc home once SBO resolves, hospitalization > 48hrs Time Spent Managing Pts Care (In Minutes): 60
[2020-02-07] MEDS ORDERED: MORPHINE 4 MG/ML SYR IV PRN (15:41)
[2020-02-07 16:15] VITALS: BMI 36.6
[2020-02-07] MEDS: ONDANSETRON 4 MG/2 ML VIAL IV PRN (17:32)
[2020-02-07] MEDS: NA CHLORIDE 0.9% 1,000 ML IV SCH (17:32)
--- NOTE | 2020-02-07 20:11 | P.CNS ---
Date of Consult: 02/07/20 PC: I was asked to see this 74-year-old female regards to a partial small-bowel obstruction. HPC: Patient on Thursday has some granola as an some baked chicken. Th later on that evening she began to notice her abdomen felt full, and she become distended. Over the past last 24 hr she has been having increasing pain that comes in waves. Her chin in the lower portion of her abdomen. PMH: Breast cancer, endometriosis PSHx: Previous mastectomies SOC: Allergic to codeine erythromycin, the medication list was reviewed SYS REVIEW: States that she has actually been a in a relatively okay health. She does have some back issues as well as some hip issues. No shortness of breath. This is the 1st time she has had some abdominal issues and quite a while. She was also contemplating back surgery for a possible disc issue. Denies any urinary complaints. O/E awake alert comfortable at the moment HEENT: Not jaundiced Chest: Air entry equal bilateral ABD: Mildly tympanic, but soft minimal tenderness LOCO: Intact DATA: White cell count normal, CT suggests possible distal partial small-bowel obstruction IMPRESSION: Partial small-bowel obstruction PLAN: The patient is currently in NPO. I would her some clear liquids for now for a preacher comfort. I will give her some mineral oil. We will make her NPO again and midnight in reviewed in a.m.. I anticipate this will resolve non operatively.
[2020-02-07] MEDS ORDERED: MINERAL OIL 30 ML UCUP FT ONE (20:12)
[2020-02-08] MEDS: NA CHLORIDE 0.9% 1,000 ML IV SCH ×4 (00:26→23:39)
[2020-02-08] MEDS ORDERED: LORazepam 2 MG/ML VIAL IV ONE (01:36)
[2020-02-08] MEDS: ONDANSETRON 4 MG/2 ML VIAL IV PRN (08:54)
[2020-02-08] MEDS: LORAZEPAM 0.5 MG TABLET PO SCH (12:19)
[2020-02-08] MEDS: VENLAFAXINE HCL XR 75 MG CAP PO SCH ×2 (13:24→20:38)
[2020-02-08] MEDS: AMLODIPINE 2.5 MG TAB PO SCH (13:24)
[2020-02-08] MEDS: METOPROLOL XL 100 MG TAB PO SCH (13:29)
[2020-02-08] MEDS: PANTOPRAZOLE 40MG TABLET PO SCH (16:21)
--- NOTE | 2020-02-08 17:30 | P.PN ---
Subjective Date of Service: 02/08/20 Chief Complaint: SBO Subjective: Other (slight improvement, small BM this morning, still with lower abdominal pain) Review of Systems 10-point ROS is otherwise unremarkable Physical Examination - Vital Signs Temperature: 98.7 F Blood Pressure: 177/81 Pulse: 91 Respirations: 20 Pulse Ox (%): 93 - Physical Exam General: Alert, In no apparent distress HEENT: Sclerae nonicteric Respiratory: Clear to auscultation bilaterally Cardiovascular: Regular rate/rhythm Gastrointestinal: Hypoactive, Soft and benign, No rebound, Tenderness (lower abdomen, bilaterally) Musculoskeletal: No tenderness Integumentary: No rashes Neurological: Normal speech, Normal affect Assessment & Plan Physician Review Additional Text: Small-bowel obstruction h/o metastatic breast cancer s/p b/l mastectomy (metastasis to brain) s/p excision h/o Lung cancer Hypertension Anxiety/depression general surgery following passed flatus and small BM this morning NPO with sips for meds, restart home medications morphine for pain control, continue IVF Serial abdominal exams Mild gallbladder distention with possible cholelithiasis noted on CT, will add LFTs to blood obtained in ED VTE prophylaxis: SCDs Dispo: Anticipate dc home once SBO resolves, possibly next 24-48hrs Time Spent Managing Pts Care (In Minutes): 35
[2020-02-08] MEDS: PRIMIDONE 50 MG TAB PO SCH (20:38)
[2020-02-08] MEDS ORDERED: ZOLPIDEM TARTRATE 5 MG TABLET PO SCH (21:00)
[2020-02-08] MEDS ORDERED: ROSUVASTATIN 10 MG TAB PO SCH (21:00)
[2020-02-08] MEDS ORDERED: ARIPiprazole 5 MG TAB PO SCH (21:00)
[2020-02-08] MEDS ORDERED: HOME MED 1 EA UNK PO SCH (21:00)
[2020-02-08] MEDS ORDERED: MINERAL OIL 30 ML UCUP PO ONE (22:00)
[2020-02-08 23:31] VITALS: O2SAT 95
[2020-02-09] MEDS: METOPROLOL XL 100 MG TAB PO SCH (05:29)
[2020-02-09 05:46] LABS: Absolute Lymphocytes (CBC) 0.7 K/uL (0.7-4.9); Basophils % 0.9 % (0-1.3); Hematocrit 37.4 % (36.0-45.0); Lymphocytes % 15.9 % (15.3-44.8); MPV 9.5 fL (7.6-11.3)
[2020-02-09 06:02] LABS: Bilirubin Total 0.2 mg/dL (0.2-1.0); Magnesium 2.3 mg/dL (1.8-2.4); Potassium 3.8 mmol/L (3.5-5.1); Protein, Total 6.4 g/dL (6.4-8.2)
[2020-02-09] MEDS ORDERED: LEVOTHYROXINE SOD 0.075 MG TAB PO SCH (06:30)
[2020-02-09] MEDS ORDERED: FOLBIC 1 TAB PO SCH (09:00)
[2020-02-09] MEDS: LORAZEPAM 0.5 MG TABLET PO SCH (09:00)
[2020-02-09] MEDS: PANTOPRAZOLE 40MG TABLET PO SCH (09:37)
[2020-02-09] MEDS: VENLAFAXINE HCL XR 75 MG CAP PO SCH (09:38)
[2020-02-09] MEDS: PRIMIDONE 50 MG TAB PO SCH (09:38)
[2020-02-09] MEDS: AMLODIPINE 2.5 MG TAB PO SCH (09:38)
[2020-02-09] MEDS ORDERED: POTASSIUM 25 MEQ EFFERV TAB PO ONE (14:00)
--- NOTE | 2020-02-09 15:48 | RAD REPORT ---
EXAM DESCRIPTION: CT - Abdomen Pelvis Wo Contrast - 02/09/2020 3:20 pm CLINICAL HISTORY: Abdominal pain. partial SBO COMPARISON: Abdomen Pelvis W Contrast dated 02/07/2020 TECHNIQUE: CT imaging of the abdomen and pelvis was performed without contrast. Solid organ, bowel a nd vascular assessment is limited due to lack of IV and oral contrast. All CT scans are performed using dose optimization technique as appropriate and may include automated exposure control or mA/KV adjustment according to patient size. FINDINGS: Noncalcified 12 mm pulmonary nodule is seen in the right lung base laterally. The liver, spleen, pancreas, adrenal glands and kidneys are within normal limits for a limited non-co ntrast examination.Cholelithiasis. The previously noted small bowel obstruction pattern has resolved. No free air or free fluid. No intr a-abdominal or pelvic abscess. The appendix is normal. The osseous structures are within normal limits. IMPRESSION: Resolution of the previously noted small bowel obstruction. A limited non-contrast examination was performed as detailed.
--- NOTE | 2020-02-09 16:36 | P.DS ---
Admission Date: 02/07/20 Discharge Date: 02/09/20 Disposition: ROUTINE DISCHARGE Discharge Condition: GOOD Reason for Admission: SBO Consultations: General Surgery: Dr. Marquez Procedures: CT Abd/Pelvis (02/06): Mild dilatation of jejunum. Mid and distal ileum decompressed. This likely represents a small bowel obstruction. A small amount of ascites. Spondylosis involves lumbar spine resulting in spinal stenosis. Small hiatal hernia. No evidence of diverticulitis. normal appendix CT Abd/Pelvis (02/08): previously noted small bowel obstruction pattern has resolved. No free air or free fluid. No intra-abdominal or pelvic abscess. The appendix is normal. Problem List Small-bowel obstruction h/o metastatic breast cancer s/p b/l mastectomy (metastasis to brain) s/p excision h/o Lung cancer Hypertension Anxiety/depression Brief History of Present Illness: 74yo female, presents to ED due to abdominal pain over past 2 days associated with nausea/vomiting. She reports initially having some diarrhea, then began to feel bloated and nauseous. She has been unable to tolerate any PO diet over the last 2-3 days. Her last BM was yesterday and reported as regular but small. She believes she passed some flatus early this morning/overnight. Her last emesis was last night. In the ED, workup revealed a CT concerning for SBO. Dr. Marquez was contacted and recommended admission. Pt endorses some slight chills at home, Tmax: 99.6 yesterday. She reports otherwise being in her usual state of health until this occurred. PMH: HTN, anxiety/depression, metastatic breast cancer (brain), lung cancer Hospital Course: Patient was admitted and placed on bowel rest. General Surgery was consulted and patient was given mineral oil PO. She had a BM and diet was advanced. On morning of discharge, patient reported some increased "stomach gas" and distention, but denied nausea/vomiting and was still passing flatus. A CT abd/pelvis was repeated and revealed resolution of SBO. Patient was given PO contrast as well and had a few more small BMs and was feeling much better. She was discharged home to f/u with PCP. She was advised to take a daily stool softener. During her hospitalization she was noted to have some elevated blood pressure readings and this was attributed to missing her home medications due to NPO status and anxiety. She had some improvement after re-initiation on day of discharge. She is to f/u with PCP for continued monitoring of her blood pressure. During her hospitalization, advanced directives were reviewed and patient reported she is DNR. Advanced care planning was discussed during her hospitalization as well, with options including home or possiblie SNF/LTAC if required surgical intervention. Fortunately, patient improved and her SBO resolved without surgical intervention and she was discharged home. These discussions totaled ~40 minutes. Vital Signs/Physical Exam: Temp Pulse Resp BP Pulse Ox 98.2 F 66 16 167/65 H 95 02/09/20 13:55 02/09/20 13:55 02/09/20 13:55 02/09/20 13:55 02/09/20 13:55 General: Alert, In no apparent distress, Oriented x3 HEENT: Sclerae nonicteric Respiratory: Clear to auscultation bilaterally Cardiovascular: No edema, Regular rate/rhythm Gastrointestinal: Normal bowel sounds, Soft and benign, Non-distended, No tenderness Musculoskeletal: No tenderness Integumentary: No rashes Neurological: Normal speech, Normal affect Laboratory Data at Discharge: WBC 4.1 K/uL (4.3-10.9) L D 02/09/20 05:23 Hgb 12.6 g/dL (12.0-15.0) 02/09/20 05:23 Hct 37.4 % (36.0-45.0) 02/09/20 05:23 Plt Count 129 K/uL (152-406) L 02/09/20 05:23 Sodium 145 mmol/L (136-145) 02/09/20 05:23 Potassium 3.8 mmol/L (3.5-5.1) 02/09/20 05:23 BUN 7 mg/dL (7-18) 02/09/20 05:23 Creatinine 0.86 mg/dL (0.55-1.3) 02/09/20 05:23 Glucose 130 mg/dL (74-106) H 02/09/20 05:23 Magnesium 2.3 mg/dL (1.8-2.4) 02/09/20 05:23 Total Bilirubin 0.2 mg/dL (0.2-1.0) 02/09/20 05:23 AST 14 U/L (15-37) L 02/09/20 05:23 ALT 18 U/L (12-78) 02/09/20 05:23 Alkaline Phosphatase 137 U/L (45-117) H 02/09/20 05:23 Home Medications: Amlodipine Besylate [Norvasc] 2.5 mg PO [id number] 09/06/15 LORazepam [Ativan*] 0.5 mg PO DAILY 09/06/15 Levothyroxine [Synthroid*] 75 mcg PO [id number] 09/06/15 Metoprolol Succinate [Toprol Xl*] 100 mg PO [id number] 09/06/15 Omeprazole 20 mg PO BID 09/06/15 Primidone [Mysoline *] 100 mg PO BID 09/06/15 Venlafaxine HCl [Effexor XR] 150 mg PO BID 09/06/15 ARIPiprazole [Abilify*] 2.5 mg PO BEDTIME 01/23/16 Rosuvastatin Calcium [Crestor] 40 mg PO DAILY 01/28/18 Vit D3/Folic Acid/B2/B6/B12 [Folgard Tablet] 1 mg PO DAILY 01/28/18 Ramelteon 1 tab PO BEDTIME 02/07/20 Patient Discharge Instructions: follow up with PCP within 1 week. resume home medications. recommend taking a daily stool softener Diet: Regular Activity: Ad jeremias Followup: Brendon Her MD [Primary Care Provider] - (call to schedule appointment) Time spent managing pt's care (in minutes): 40
[2020-02-09 17:48] VITALS: BP 185/80; TEMP 97.8
== END 2020-02-09 17:20 | disposition home or self-care (01) | DRG 390 ==
LOC: ER 09:34 → ERHOLD 13:18 → 2ND 15:20
PROVIDERS: ADMIT Hospitalist; ATTEND Hospitalist
DX: K56.600 Partial intestinal obstruction, unspecified as to cause (principal); I10 Essential (primary) hypertension; E78.5 Hyperlipidemia, unspecified; F41.9 Anxiety disorder, unspecified; F32.9 Major depressive disorder, single episode, unspecified; Z66 Do not resuscitate; Z88.5 Allergy status to narcotic agent; Z88.1 Allergy status to other antibiotic agents; Z90.13 Acquired absence of bilateral breasts and nipples; Z85.3 Personal history of malignant neoplasm of breast; Z90.710 Acquired absence of both cervix and uterus; Z79.890 Hormone replacement therapy; Z79.899 Other long term (current) drug therapy; Z87.891 Personal history of nicotine dependence; Z85.89 Personal history of malignant neoplasm of other organs and systems; Z85.841 Personal history of malignant neoplasm of brain; Z85.118 Personal history of other malignant neoplasm of bronchus and lung; Z20.828 Contact with and (suspected) exposure to other viral communicable diseases
CPT/HCPCS: 36415; 74176; 74177; 80048; 80053; 80076; 82565; 83735; 85025; 94760; 96361; 96374; 96375; 99285; J2405; J7030; Q9967; U0002

== ENCOUNTER 2020-02-24 13:25 | Emergency (ER) | payer OTHER, BC ==
--- OUTSIDE RECORDS SUMMARY | 2020-02-24 13:29 | XMS REPORT | Clinical Summary ---
:1945 Author Organization [facility] Address [address] [place] [address] Care Team Providers Name Role Phone Solo Her MD Primary Care Provider Allergies Active Allergy Reactions Severity Noted Date Comments Codeine 10/07/2016 Erythromycin 10/07/2016 Medications Medication Sig Dispensed Refills Start End Status Date Date venlafaxine XR Take 150 mg by 0 Active (EFFEXOR-XR) 150 MG 24 mouth daily. hr capsule PRIMIDONE ORAL Take 250 mg by 0 Active mouth 2 (two) times a day. metoprolol succinate Take 100 mg by 0 Active XL (TOPROL-XL) 100 mg mouth daily. 24 hr tablet omeprazole (PriLOSEC) Take 20 mg by 0 Active 20 MG capsule mouth daily. losartan (COZAAR) 100 Take 100 mg by 0 Active MG tablet mouth daily. rosuvastatin (CRESTOR) Take 40 mg by 0 Active 10 MG tablet mouth daily. levothyroxine Take 75 mcg by 0 A ctive (SYNTHROID, LEVOXYL) mouth every 75 mcg tablet morning. calcium Take 1 tablet 0 Active carbonate-vitamin D3 by mouth 2 500 mg-200 unit per (two) times a tablet day with meals. ARIPiprazole (ABILIFY) Take 5 mg by 0 Active 5 MG tablet mouth daily. Pt take it in the evening topiramate (TOPAMAX) Take 50 mg by 0 Active 25 MG tablet mouth 2 (two) times a day. One in the morning , one at night cholecalciferol, Take 2,000 0 Ac tive vitamin D3, 400 unit Units by mouth tablet daily. butalbital-acetaminoph Take 1 tablet 40 tablet 0 Active en-caff (FIORICET) by mouth every 0 50-325-40 mg per 6 (six) hours tablet as needed for headaches. ramelteon (Rozerem) 8 Take 1 tablet 30 tablet 11 06/30 2/2 Active mg tablet (8 mg total) 0 021 by mouth nightly. amLODIPine (NORVASC) 10 mg. 0 Active 2.5 mg tablet 7 letrozole (FEMARA) 2.5 Take by mouth 0 Active mg chemo tablet daily. LORAZepam (ATIVAN) 0.5 Take 0.5 mg by 0 Active MG tablet mouth every 6 (six) hours as needed for anxiety. vit A/vit C/vit Take by mouth. 0 Active E/zinc/copper (ICAPS AREDS ORAL) gabapentin (NEURONTIN) Take 100 mg by 0 Active 100 mg capsule mouth 3 (three) times a day. amLODIPine (NORVASC) Take 5 mg by 0 Discontinued 2.5 mg tablet mouth daily. 020 (St op Taking at Discharge) ANASTROZOLE ORAL Take 1 mg by 0 Discontinued mouth daily. 020 aspirin (ECOTRIN) 81 Take 81 mg by 0 05/23 Discontinued MG enteric coated mouth daily. 020 (Stop Taking at tablet LD 06/17/17 Discharge ) VIT A/VIT C/VIT Take by mouth. 0 Discontinued E/ZINC/COPPER (ICAPS 020 (Stop Taking at AREDS ORAL) Discharg e) rosuvastatin (CRESTOR) Take 10 mg by 0 25/04 Discontinued 10 MG tablet mouth daily. 020 (Sto p Taking at Discharge) doxycycline Take 100 mg by 0 Dis continued (VIBRAMYCIN) 100 MG mouth 2 (two) 020 (Stop Taking at oral dosage form times a day. Discharge) LORAZepam (ATIVAN) 0.5 Take 0.5 mg by 0 Discontinued MG tablet mouth every 6 020 (Reord er) (six) hours as needed for anxiety. One tab Two times daily as needed amLODIPine (NORVASC) Take 1 tablet 30 tablet 2 07/01 10 mg tablet (10 mg total) 0 020 by mouth daily for 30 days. levETIRAcetam (KEPPRA) Take 1 tablet 60 tablet 0 03/03 500 MG tablet (500 mg total) 0 020 by mouth every 12 (twelve) hours for 30 days. methylPREDNISolone follow package 21 tablet 0 (Medrol, Lemuel,) 4 mg directions 0 020 tablet LORAZepam (ATIVAN) 0.5 Take 1 tablet 10 tablet 0 28/04 MG tablet (0.5 mg total) 0 020 by mouth every 6 (six) hours as needed for anxiety for up to 10 doses. One tab Two times daily as needed topiramate (TOPAMAX) 50 mg = 1 tab, 0 11/01 Discontinued 50 MG tablet PO, Daily, # 9 020 (Dup licate 90 tab, 2 order) Refill(s), other Active Problems Problem Noted Date LAD (lymphadenopathy), hilar 11/25/2019 Overview: Added automatically from request for ha cotton [id number] Lung nodules 11/25/2019 Overview: Added automatically from request for ha cotton [id number] Personal history of lung cancer 11/25/2019 Overview: Added automatically from request for ha lula [id number] Triple negative malignant neoplasm of breast 0 Follow-up examination following surgery 06/13/2019 Brain metastases 05/24/2019 Personal history of breast cancer 06/25/2017 Malignant neoplasm of upper lobe of left lung 06/26/19 18 Overview: Diagnosed 2017 Encounters Date Type Specialty Care Team Description 02/22/2020 Orders Only Cardiothoracic Provider, Eris Davis MD 02/22/2020 Orders Only Cardiothoracic Provider, Surgery MD Susan 02/17/2020 Hospital Encounter Radiology Adolfo Park MD 02/16/2020 Telephone General Surgery Adolfo Park MD 01/02/2020 Office Visit Neurosurgery Linh De Paz, Brain metas gurinder [facility] ([facility]) (Primary Dx) 01/02/2020 Travel 12/21/2019 Travel 12/12/2019 Telephone Cardiovascular Adolfo Park MD 12/08/2019 Telephone Cardiothoracic Moni Goldstein Surgery KIMBERLEY Lara 12/06/2019 Surgery Cardiothoracic Adolfo Park WITH BIO PSY Eris Hernández MD 12/06/2019 Anesthesia Event Cardiothoracic Ana Paula Sophie Surgery MD Hector Vasques Ridele E 12/06/2019 Hospital Encounter Cardiothoracic Adolfo Park LAD (ly mphadenopathy), hilar; Surgery MD Edgar Lung nodules; Personal histor y of lung cancer; Personal histor y of breast cancer; Brain metastase s (HCC) 12/06/2019 Travel 12/05/2019 Hospital Encounter Radiology Diego Latif MD 12/05/2019 Office Visit Oncology Diego Latif MD Malignant ne oplasm of upper lobe of left lung (HCC) (Primary Dx); Lung nodules; LAD (lymphadeno rosy), hilar; Brain metastase s (HCC); Personal histor y of lung cancer; Personal histor y of breast cancer; Triple negative malignant neoplasm of breast (HCC) 12/05/2019 Travel 12/05/2019 Orders Only Cardiothoracic Provider, Eris Davis MD 12/05/2019 Telephone Cardiothoracic Moni Goldstein Surgery Jane, PORTRAIT PHOTOGRAPHER 12/02/2019 Telephone Cardiothoracic Moni Goldstein Surgery Jane, PORTRAIT PHOTOGRAPHER 12/02/2019 Travel 11/25/2019 Office Visit Cardiothoracic Adolfo Park LAD (lymphade nopathy), hilar (Primary Dx); Surgery MD Edgar Lung nodules; Personal histor y of lung cancer; Personal histor y of breast cancer; Brain metastase s (HCC); Pre-op testing 11/25/2019 Hospital Encounter Radiology Adolfo Park MD 11/25/2019 Travel 11/25/2019 Orders Only Cardiothoracic Provider, Eris Davis MD 11/24/2019 Travel 07/19/2019 Telephone Neurosurgery Cristiana Johnson LVN 07/18/2019 Telephone Oncology Diego Latif MD 07/12/2019 Telephone Consult Oncology Diego Latif MD Maligna nt neoplasm of upper lobe of left lung (HCC) (Primary Dx); Brain metastase s (HCC); Triple negative malignant neoplasm of breast (HCC) 07/12/2019 Travel 07/06/2019 Telephone Oncology Diego Latif MD 07/04/2019 Documentation Oncology Diego Latif MD Advice Only 06/27/2019 Office Visit Oncology Diego Latif MD Malignant ne oplasm of upper lobe of left lung (HCC) (Primary Dx); Personal histor y of breast cancer; Triple negative malignant neoplasm of breast (HCC); Brain metastase s (HCC) 06/27/2019 Orders Only Oncology Francy Batres, Brain metast ases (HCC) (Primary Dx); MA Malignant neopl asm of upper lobe of left lung (HCC) 06/27/2019 Orders Only Oncology Francy Batres, MA 06/24/2019 Orders Only Oncology Diego Latif MD 06/13/2019 Office Visit Neurosurgery Linh De Paz, Brain mass (Primary Dx); MD Follow-up exami nation following surgery; Personal histor y of breast cancer 06/13/2019 Travel 06/06/2019 Travel 06/02/2019 Patient Outreach Quality Jennifer Wills RN 06/02/2019 Travel 05/26/2019 Surgery General Surgery Linh De Paz, RIGHT FR ONTO MD TEMPORAL CRANIOTOMY FOR EXCISION OF BRIAN OR 05/26/2019 Anesthesia Event General Surgery Sudhir Headley MD Crawley, Teri, NP 05/24/2019 Hospital Encounter Neurosurgery Linh De Paz, Brain mass (Primary Dx); - Compression of brain (HCC) 06/01/2019 Bernardo Chaves MD 05/24/2019 Travel after 02/23/2019 Surgical History Surgery Date Site/Laterality Comments EYE SURGERY 2915 Cataract TUBAL LIGATION HYSTERECTOMY COLONOSCOPY LYMPH NODE BIOPSY MASTECTOMY 03/02/2015 - 03/01/2016 Bilateral mastectomy BRONCHOSCOPY 11/12/2016 Bilateral Procedure: FLEXI BLE BRONCHOSCOPY, ; Surgeon: Cici Ybarra; Location: [facility]; Service: Thoraci c; Laterality: Bila teral; EGD, INTRAOPERATIVE 11/12/2016 N/A Procedure: EBUS WITH BIOPSY; Surgeon : Adolfo Park MD; Locat ion: [facility]; Ser vice: Thoracic; Later ality: N/A; BREAST SURGERY 03/02/2009 - 03/01/2010 Left lumpectomy CRANIOTOMY 05/26/2019 Head/Right Procedure: RIGHT FRONTO TEMPORAL CRANIOT COURT FOR EXCISION OF TUMO R; Surgeon: Linh De Paz MD; Location: [facility]; Service: Neurosu rgery; Laterality: Righ t; Medical devices from this surgery are in t he Implants section. HIP SURGERY 12/31/2018 - Left total left hip r eplacement 01/29/2019 US, ENDOBRONCHIAL 12/06/2019 N/A Procedure: EBU S WITH BIOPSY; Surgeon: Adolfo Park MD; Location: [facility]; Service: oracic; Laterality: N/A; BRONCHOSCOPY 12/06/2019 N/A Procedure: [facility]; Surgeon: Jaspal Park MD; Location: [facility]; Service: oracic; Laterality: N/A; Medical History Medical History Date Comments Allergic Codeine, erythromyci n Anxiety Arthritis Breast disorder Cancer (HCC) GERD (gastroesophageal reflux disease) Sleep apnea Osteoarthritis PONV (postoperative nausea and vomiting) Hypertension Hyperlipidemia Lung nodule Family History Medical History Relation Name Comments Basal cell carcinoma Brother Deniz Breast cancer Brother Deniz Mastectomy age 7 5 Heart disease Brother Deniz Prostate cancer Brother Sky Stomach cancer Brother Bruce Brain cancer Father Colon cancer Mother Bee Alvarez Age 78 Colon polyps Mother Bee Alvarez Hypertension Mother Bee Alvarez Relation Name Status Comments Brother Deniz Brother Sky Alive Brother Brcue Alive Father Mother Bee Alvarez Social History Tobacco Use Types Packs/Day Years Used Date Former Smoker Cigarettes 1 25 11/19/1969 - 0 04/16/1994 Smokeless Tobacco: Never Used Tobacco Cessation: Counseling Given: No Alcohol Use Drinks/Week oz/Week Comments Yes 14 Glasses of wine 14.0 Sex Assigned at Date Recorded Not on file Last Filed Vital Signs Vital Sign Reading Time Taken Comments Blood Pressure 140/66 12/06/2019 2:30 PM CDT Pulse 71 12/06/2019 2:30 PM CDT Temperature 36.3 C (97.4 F) 12/06/2019 2:30 PM CDT Respiratory Rate 18 12/06/2019 2:30 PM CDT Oxygen Saturation 92% 12/06/2019 2:30 PM CDT Inhaled Oxygen Concentration - - Weight 99.3 kg (219 lb) 12/06/2019 6:44 AM CDT Height 165.1 cm (5' 5") 12/06/2019 6:44 AM CDT Body Mass Index 36.44 12/06/2019 6:44 AM CDT Plan of Treatment Health Maintenance Due Date Last Done Comments COVID-19 VACCINE (#1) 1960 COLONOSCOPY SCREENING 1994 SHINGLES VACCINES (#1) 1994 BREAST CANCER SCREENING 06/12/2017 06/13/2015, 06/13/2015, 09/21/2009 INFLUENZA VACCINE 10/01/2019 03/24/2018 65+ PNEUMOCOCCAL VACCINE Completed 03/24/2018 Implants Implanted Type Area Moulder Operator Device Shelf Model / Identifier Expiration Serial / Date Lot Plate Midface Pilot Station Hol 1.5x0.5x18.5mm [place] - [id number] Crania l N/A: [employer] [id number] / Implanted: Qty: 4 on 05/26/2019 by Linh De Paz MD at [facility] Plate or Bur N/A [employer] / Hole Cover Screw Bone Hitrqe Slf-Drl 1.5x4mm - [id number] Cranial N/A: FARHAD FREDERICK [id number] / Implanted: Qty: 18 on 05/26/2019 by Linh De Paz M Colin at [facility] Plate or Bur N/A [employer] / Hole Cover Matrix Dural Duragen Plus 3x3in Regnrtn - [id number] Human Tissue N/A : [employer]TE[employer] 04/01/2022 [id number] / Implanted: Qty: 1 on 05/26/2019 by Linh De Paz MD at [facility] Implants N/A [employer] / NEURO [id number] Hard Cross For Hip Replacement Explanted Type Area Moulder Operator Device Shelf Model / Identifier Expiration Serial / Date Lot Screw Bone Hitrqe Slf-Drl 1.5x4mm - [id number] Cranial N/A: N/A FARHAD FREDERICK [id number] / Implanted: 05/26/2019 (Quantity not on file) Plate or [employer]GI [employer] / Explanted: Qty: 1 on 05/26/2019 at [facility] Bur Hole Cover Procedures Procedure Name Priority Date/Time Associated Comments Diagnosis CT ABDOMEN PELVIS WO Routine 02/09/[address] CHEST EXTERNAL STUDY Routine 02/01/2020 10:43 Results for this AM [employer] procedure are i n the results section. CT CHEST WO CONTRAST Routine 02/01/2020 CYTOLOGY Routine 12/06/2019 10:19 Results for this (NON-GYNECOLOGICAL) AM CDT procedur e are in REQUEST the results section. CYTOLOGY Routine 12/06/2019 10:13 Results for this (NON-GYNECOLOGICAL) AM CDT procedur e are in REQUEST the results section. XR CHEST 1 VW PORTABLE STAT 12/06/2019 10:10 R esults for this AM CDT procedure are i n the results section. CYTOLOGY Routine 12/06/2019 10:04 Results for this (NON-GYNECOLOGICAL) AM CDT procedur e are in REQUEST the results section. AFB CULTURE Timed 12/06/2019 9:51 LAD Results for this AM CDT (lymphadenopathy), procedure are in hilar the results Lung nodules section. Personal history of lung cancer Personal history of breast cancer Brain metastases (HCC) FUNGUS CULTURE Timed 12/06/2019 9:51 LAD Results f or this AM CDT (lymphadenopathy), procedure are in hilar the results Lung nodules section. Personal history of lung cancer Personal history of breast cancer Brain metastases (HCC) AFB STAIN Timed 12/06/2019 8:51 Results for this AM CDT procedure are i n the results section. GRAM STAIN Timed 12/06/2019 8:51 Results for this AM CDT procedure are i n the results section. FUNGUS SMEAR Timed 12/06/2019 8:51 Results for this AM CDT procedure are i n the results section. AEROBIC CULTURE Timed 12/06/2019 8:51 LAD Results for this AM CDT (lymphadenopathy), procedure are in hilar the results Lung nodules section. Personal history of lung cancer Personal history of breast cancer Brain metastases (HCC) ANAEROBIC CULTURE Timed 12/06/2019 8:51 LAD Result s for this AM CDT (lymphadenopathy), procedure are in hilar the results Lung nodules section. Personal history of lung cancer Personal history of breast cancer Brain metastases (HCC) SC AN ELECTIVE Routine 12/06/2019 8:11 Results f or this ENDOTRACHEAL AIRWAY AM CDT procedur e are in the results section. ESTIMATED GFR Routine 12/02/2019 11:27 Results fo r this AM CDT procedure are i n the results section. HC COMPLETE BLD COUNT Routine 12/02/2019 11:27 LAD Re sults for this W/AUTO DIFF AM CDT (lymphadenopathy), procedure are in hilar the results Lung nodules section. Personal history of lung cancer Personal history of breast cancer Brain metastases (HCC) Pre-op testing COMPREHENSIVE METABOLIC Routine 12/02/2019 11:27 LAD Results for this PANEL AM CDT (lymphadenopathy), procedure are in hilar the results Lung nodules section. Personal history of lung cancer Personal history of breast cancer Brain metastases (HCC) Pre-op testing PROTHROMBIN TIME WITH Routine 12/02/2019 11:27 LAD Re sults for this INR AM CDT (lymphadenopathy), procedure are in hilar the results Lung nodules section. Personal history of lung cancer Personal history of breast cancer Brain metastases (HCC) Pre-op testing PARTIAL THROMBOPLASTIN Routine 12/02/2019 11:27 LAD R esults for this TIME (PTT) AM CDT (lymphadenopathy), procedure are in hilar the results Lung nodules section. Personal history of lung cancer Personal history of breast cancer Brain metastases (HCC) Pre-op testing COVID-19 QUALITATIVE PCR Routine 12/02/2019 11:27 LAD Results for this AM CDT (lymphadenopathy), procedure are in hilar the results Lung nodules section. Personal history of lung cancer Personal history of breast cancer Brain metastases (HCC) Pre-op testing PET CT WHOLE BODY Routine 12/01/2019 8:51 Result s for this EXTERNAL STUDY AM CDT procedure are in the results section. PET CT SKULL BASE TO MID Routine 12/01/[address] CHEST EXTERNAL STUDY Routine 11/23/2019 2:10 Results for this PM CDT procedure are i n the results section. CT CHEST W CONTRAST Routine 11/23/2019 MRI BRAIN W WO CONTRAST Routine 11/08/[address] SKULL BASE TO MID Routine 07/13/2019 THIGH POC GLUCOSE Routine 06/01/2019 12:13 Results for this PM CDT procedure are i n the results section. POC GLUCOSE Routine 06/01/2019 7:42 Results for this AM CDT procedure are i n the results section. POC GLUCOSE Routine 06/01/2019 6:06 Results for this AM CDT procedure are i n the results section. CANCER ANTIGEN 15-3 Routine 06/01/2019 4:00 Resu lts for this AM CDT procedure are i n the results section. CANCER ANTIGEN 19-9 Routine 06/01/2019 4:00 Resu lts for this AM CDT procedure are i n the results section. CARCINOEMBRYONIC ANTIGEN Routine 06/01/2019 4:00 Results for this (CEA) AM CDT procedure are i n the results section. CANCER ANTIGEN 125 Routine 06/01/2019 4:00 Resul ts for this AM CDT procedure are i n the results section. POC GLUCOSE Routine 05/31/2019 9:00 Results for this PM CDT procedure are i n the results section. POC GLUCOSE Routine 05/31/2019 6:03 Results for this PM CDT procedure are i n the results section. POC GLUCOSE Routine 05/31/2019 5:17 Results for this PM CDT procedure are i n the results section. US DUPLEX VENOUS UPPER Routine 05/31/2019 1:27 R esults for this EXTREMITY RIGHT PM CDT procedure ar e in the results section. POC GLUCOSE Routine 05/31/2019 11:57 Results for this AM CDT procedure are i n the results section. POC GLUCOSE Routine 05/31/2019 7:43 Results for this AM CDT procedure are i n the results section. POC GLUCOSE Routine 05/31/2019 6:16 Results for this AM CDT procedure are i n the results section. ESTIMATED GFR Routine 05/31/2019 4:54 Results fo r this AM CDT procedure are i n the results section. HEMOGLOBIN A1C Routine 05/31/2019 4:54 Results f or this AM CDT procedure are i n the results section. MAGNESIUM LEVEL Routine 05/31/2019 4:54 Results for this AM CDT procedure are i n the results section. PHOSPHORUS LEVEL Routine 05/31/2019 4:54 Results for this AM CDT procedure are i n the results section. BASIC METABOLIC PANEL Routine 05/31/2019 4:54 Re sults for this AM CDT procedure are i n the results section. POC GLUCOSE Routine 05/30/2019 8:55 Results for this PM CDT procedure are i n the results section. POC GLUCOSE Routine 05/30/2019 6:47 Results for this PM CDT procedure are i n the results section. POC GLUCOSE Routine 05/30/2019 12:01 Results for this PM CDT procedure are i n the results section. POC GLUCOSE Routine 05/30/2019 7:43 Results for this AM CDT procedure are i n the results section. POC GLUCOSE Routine 05/30/2019 4:52 Results for this AM CDT procedure are i n the results section. POC GLUCOSE Routine 05/30/2019 1:09 Results for this AM CDT procedure are i n the results section. POC GLUCOSE Routine 05/29/2019 9:12 Results for this PM CDT procedure are i n the results section. POC GLUCOSE Routine 05/29/2019 5:00 Results for this PM CDT procedure are i n the results section. POC GLUCOSE Routine 05/29/2019 12:30 Results for this PM CDT procedure are i n the results section. CT HEAD WO CONTRAST Routine 05/29/2019 11:29 Resu lts for this AM CDT procedure are i n the results section. POC GLUCOSE Routine 05/29/2019 8:12 Results for this AM CDT procedure are i n the results section. POC GLUCOSE Routine 05/29/2019 4:11 Results for this AM CDT procedure are i n the results section. POC GLUCOSE Routine 05/28/2019 11:30 Results for this PM CDT procedure are i n the results section. CBC HEMOGRAM Routine 05/28/2019 7:35 Results for this PM CDT procedure are i n the results section. POC GLUCOSE Routine 05/28/2019 7:24 Results for this PM CDT procedure are i n the results section. POC GLUCOSE Routine 05/28/2019 3:46 Results for this PM CDT procedure are i n the results section. POC GLUCOSE Routine 05/28/2019 11:47 Results for this AM CDT procedure are i n the results section. POC GLUCOSE Routine 05/28/2019 7:40 Results for this AM CDT procedure are i n the results section. CBC WITH PLATELET AND Routine 05/28/2019 6:30 Re sults for this DIFFERENTIAL AM CDT procedure are i n the results section. POC GLUCOSE Routine 05/28/2019 4:57 Results for this AM CDT procedure are i n the results section. ESTIMATED GFR Routine 05/28/2019 4:00 Results fo r this AM CDT procedure are i n the results section. PHOSPHORUS LEVEL Routine 05/28/2019 4:00 Results for this AM CDT procedure are i n the results section. MAGNESIUM LEVEL Routine 05/28/2019 4:00 Results for this AM CDT procedure are i n the results section. IONIZED CALCIUM Routine 05/28/2019 4:00 Results for this AM CDT procedure are i n the results section. BASIC METABOLIC PANEL Routine 05/28/2019 4:00 Re sults for this AM CDT procedure are i n the results section. POC GLUCOSE Routine 05/28/2019 12:06 Results for this AM CDT procedure are i n the results section. POC GLUCOSE Routine 05/27/2019 8:49 Results for this PM CDT procedure are i n the results section. POC GLUCOSE Routine 05/27/2019 6:18 Results for this PM CDT procedure are i n the results section. POC GLUCOSE Routine 05/27/2019 4:25 Results for this PM CDT procedure are i n the results section. POC GLUCOSE Routine 05/27/2019 11:37 Results for this AM CDT procedure are i n the results section. HEPATIC FUNCTION PANEL STAT 05/27/2019 11:25 R esults for this AM CDT procedure are i n the results section. IONIZED CALCIUM STAT 05/27/2019 11:25 Results for this AM CDT procedure are i n the results section. ESTIMATED GFR STAT 05/27/2019 11:25 Results fo r this AM CDT procedure are i n the results section. LACTIC ACID LEVEL STAT 05/27/2019 11:25 Result s for this AM CDT procedure are i n the results section. BASIC METABOLIC PANEL STAT 05/27/2019 11:25 Re sults for this AM CDT procedure are i n the results section. POC GLUCOSE Routine 05/27/2019 7:39 Results for this AM CDT procedure are i n the results section. POC GLUCOSE Routine 05/27/2019 4:22 Results for this AM CDT procedure are i n the results section. HC COMPLETE BLD COUNT Routine 05/27/2019 4:00 Re sults for this W/AUTO DIFF AM CDT procedure are i n the results section. CT HEAD WO CONTRAST Routine 05/27/2019 2:45 Resu lts for this AM CDT procedure are i n the results section. XR CHEST 1 VW PORTABLE Routine 05/27/2019 2:33 R esults for this AM CDT procedure are i n the results section. MRI BRAIN W WO CONTRAST Routine 05/27/2019 2:03 Results for this AM CDT procedure are i n the results section. ESTIMATED GFR Routine 05/27/2019 1:21 Results fo r this AM CDT procedure are i n the results section. PHOSPHORUS LEVEL Routine 05/27/2019 1:21 Results for this AM CDT procedure are i n the results section. MAGNESIUM LEVEL Routine 05/27/2019 1:21 Results for this AM CDT procedure are i n the results section. IONIZED CALCIUM Routine 05/27/2019 1:21 Results for this AM CDT procedure are i n the results section. BASIC METABOLIC PANEL Routine 05/27/2019 1:21 Re sults for this AM CDT procedure are i n the results section. CBC HEMOGRAM Routine 05/27/2019 12:55 Results for this AM CDT procedure are i n the results section. POC GLUCOSE Routine 05/27/2019 12:15 Results for this AM CDT procedure are i n the results section. POC GLUCOSE Routine 05/26/2019 7:54 Results for this PM CDT procedure are i n the results section. POC GLUCOSE Routine 05/26/2019 3:28 Results for this PM CDT procedure are i n the results section. POC GLUCOSE Routine 05/26/2019 2:12 Results for this PM CDT procedure are i n the results section. CT HEAD WO CONTRAST STAT 05/26/2019 12:36 Resu lts for this PM CDT procedure are i n the results section. ESTIMATED GFR Routine 05/26/2019 11:40 Results fo r this AM CDT procedure are i n the results section. PROTHROMBIN TIME WITH Routine 05/26/2019 11:40 Re sults for this INR AM CDT procedure are i n the results section. PARTIAL THROMBOPLASTIN Routine 05/26/2019 11:40 R esults for this TIME (PTT) AM CDT procedure are i n the results section. HC COMPLETE BLD COUNT Routine 05/26/2019 11:40 Re sults for this W/AUTO DIFF AM CDT procedure are i n the results section. BASIC METABOLIC PANEL Routine 05/26/2019 11:40 Re sults for this AM CDT procedure are i n the results section. MISCELLANEOUS REFERRAL Routine 05/26/2019 10:00 R esults for this TEST AM CDT procedure are i n the results section. SURGICAL PATHOLOGY Routine 05/26/2019 9:11 Resul ts for this REQUEST AM CDT procedure are i n the results section. SURGICAL PATHOLOGY Routine 05/26/2019 9:11 Resul ts for this REQUEST AM CDT procedure are i n the results section. SURGICAL PATHOLOGY Routine 05/26/2019 9:11 Resul ts for this REQUEST AM CDT procedure are i n the results section. SURGICAL PATHOLOGY Routine 05/26/2019 9:11 Resul ts for this REQUEST AM CDT procedure are i n the results section. SC AN ELECTIVE Routine 05/26/2019 8:18 Results f or this ENDOTRACHEAL AIRWAY AM CDT procedur e are in the results section. ARTERIAL LINE Routine 05/26/2019 8:01 Results fo r this AM CDT procedure are i n the results section. CRANIOTOMY 05/26/2019 7:23 Compression of AM CDT brain (HCC) Case Notes TF 1400, REQ EAP, EST 4 HRS, MICROSCOPE, @ 1017 BARB ACCEPTED 0730 MOVE UP 05/25/19 MED Special Needs TF 1400, REQ EAP, EST 4 HRS, MICROSCOPE, STEALTH PHOSPHORUS LEVEL Routine 05/26/2019 4:55 AM CDT Results for this procedure are i n the results section . LIPID PANEL Routine 05/26/2019 4:55 AM CDT Resu lts for this procedure are i n the results section . MAGNESIUM LEVEL Routine 05/26/2019 4:55 AM CDT R esults for this procedure are i n the results section . THYROID STIMULATING HORMONE Routine 05/26/2019 4:55 AM CDT Results for this procedure are i n the results section . VITAMIN B12 LEVEL Routine 05/26/2019 4:55 AM CDT Results for this procedure are i n the results section . FERRITIN LEVEL Routine 05/26/2019 4:55 AM CDT Re sults for this procedure are i n the results section . FOLATE LEVEL Routine 05/26/2019 4:55 AM CDT Resu lts for this procedure are i n the results section . ESTIMATED GFR STAT 05/25/2019 6:15 PM CDT Res ults for this procedure are i n the results section . BASIC METABOLIC PANEL STAT 05/25/2019 6:15 PM CDT Results for this procedure are i n the results section . HC COMPLETE BLD COUNT W/AUTO STAT 05/25/2019 6:15 PM CDT Results for this DIFF procedure are i n the results section . MRI BRAIN W WO CONTRAST STAT 05/25/2019 4:15 PM CDT Results for this procedure are i n the results section . CT CHEST W CONTRAST ABDOMEN Routine 05/25/2019 2:52 PM CDT Results for this W WO CONTRAST PELVIS W proce dure are in the CONTRAST results section . XR CHEST 1 VW PORTABLE Routine 05/25/2019 1:05 PM CDT Results for this procedure are i n the results section . ECG 12-LEAD STAT 05/25/2019 12:53 PM CDT Resu lts for this procedure are i n the results section . POC GLUCOSE Routine 05/25/2019 12:16 PM CDT Resu lts for this procedure are i n the results section . US DUPLEX VENOUS LOWER STAT 05/25/2019 11:00 AM CDT Results for this EXTREMITY BILATERAL procedur e are in the results section . TYPE AND SCREEN Routine 05/24/2019 11:30 PM CDT R esults for this procedure are i n the results section . ESTIMATED GFR Routine 05/24/2019 11:30 PM CDT Res ults for this procedure are i n the results section . PROTHROMBIN TIME WITH INR Routine 05/24/2019 11:30 PM CDT Results for this procedure are i n the results section . PARTIAL THROMBOPLASTIN TIME Routine 05/24/2019 11:30 PM CDT Results for this (PTT) procedure are i n the results section . HC COMPLETE BLD COUNT W/AUTO Routine 05/24/2019 11:30 PM CDT Results for this DIFF procedure are i n the results section . BASIC METABOLIC PANEL Routine 05/24/2019 11:30 PM CDT Results for this procedure are i n the results section . MRI HEAD EXTERNAL STUDY Routine 05/24/2019 12:42 PM CDT Results for this procedure are i n the results section . CT CHEST EXTERNAL STUDY Routine 05/02/2019 2:00 PM [employer] Results for this procedure are i n the results section . after 02/23/[address] Abdomen Pelvis Wo Contrast (02/09/2020) Narrative Performed At This result has an attachment that is no t available. CT Chest External Study (02/01/2020 10:43 AM [employer])Only the most recent of3 resultswithin the time period is included. Specimen Narrative Performed At This exam was not acquired at a Methodis t facility and has not been [facility]IANT interpreted by a Yarsanism Provider. T he exam was imported into our imaging system. Performing Organization Address City/[facility]/[place]IP [facility] [place] [facility] [address] [place] [address] CT Chest Wo Contrast (02/01/2020) Narrative Performed At This result has an attachment that is no t available. Cytology (non-gynecological) request (12/06/2019 10:19 AM CDT)Only the most recent of3 resultswithin the time period is included. [facility] DEPARTMENT OF PATHOLOGY AND GENOMIC MEDICINE Cytology See link below [facility] DEPARTMENT OF (non-gynecological) for PDF Lab PATHOLOGY AND report Report GENOMIC MEDICINE Result status This is Final [facility] DEPARTMENT OF Report for PATHOLOGY AND [id number] GENOMIC MEDICINE Specimen Performing Organization Address City/State/ZIP Code Phon e Number [facility] DEPARTMENT OF PATHOLOGY AND [address] [place] [phone] GENOMIC MEDICINE XR Chest 1 Vw Portable (12/06/2019 10:10 AM CDT)Only the most recent of3 results within the time period is included. Specimen Narrative Performed At EXAMINATION: XR CHEST 1 VW PORTABLE HM [facility] HISTORY: post biopsy COMPARISON: PET/CT 12/01/2019 IMPRESSION: Support Devices: None. Mediastinum: Unchanged prominence of car diomediastinal silhouette. Lungs: Multifocal linear opacities at left mid lung an d both lung bases suggestive of atelectasis or postbiopsy change. Relati ve lucency at left midlung contains interstitial markings, unlikely to re present pneumothorax. No convincing pneumothorax . No pleural effusion. Bones/Other: Metallic clips overlie righ t axilla. [id number] Procedure Note Hm Interface, Radiology Results Incoming - 12/06/2019 10:22 AM CDT EXAMINATION: XR CHEST 1 VW PORTABLE HISTORY: post biopsy COMPARISON: PET/CT 12/01/2019 IMPRESSION: Support Devices: None. Mediastinum: Unchanged prominence of car diomediastinal silhouette. Lungs: Multifocal linear opacities at le ft mid lung and both lung bases suggestive of atelectasis or postbiopsy change. Relative lucency at left midlung contains interstitial markings, unlikely to represent pneumothorax. No convincing pneumothorax . No pleural effusion. Bones/Other: Metallic clips overlie righ t axilla. [id number] Performing Organization Address City/[facility]/ZIP Code Phon e Number HM [facility] [address] [place] [address] AFB culture (12/06/2019 9:51 AM CDT) AFB culture No growth after 6 weeks of incubation. KAREN HOPPER isolate Comment: HOSPITAL Specimen Information Specimen Source: Fluid Specimen Site: Lun R Specimen Tissue - Lung Performing Organization Address City/[facility]/ZIP Code Phon e Number [facility] DEPARTMENT OF PATHOLOGY AND [address] [place] [phone] GENOMIC MEDICINE [address] [address] Fungus culture (12/06/2019 9:51 AM CDT) Fungus culture No growth after 4 weeks of incubation. WARD MANDAEISM isolate Comment: HOSPITAL Specimen Information Specimen Source: Fluid Specimen Site: Lun R Specimen Tissue - Lung Performing Organization Address City/[facility]/[place]IP [facility] [place] Number [facility] DEPARTMENT OF PATHOLOGY AND [address] [place] [address] [phone] [address] Fungus smear (12/06/2019 8:51 AM CDT) Pathologist Sig nature Fungus smear No fungi observed. ED HOPPER Comment: HOSPITAL Specimen Information Specimen Source: Fluid Specimen Site: Lun R Specimen Performing Organization Address City/[facility] Phon e Number [facility] DEPARTMENT OF PATHOLOGY AND [address] [place] [address] [phone] [address] Aerobic culture (12/06/2019 8:51 AM CDT) Aerobic culture No growth after 3 days. ED PETERS IST isolate Comment: HOSPITAL Specimen Information Specimen Source: Fluid Specimen Site: Lun R Specimen Tissue - Lung Performing Organization Address [facility] Phon e Number [facility] DEPARTMENT OF PATHOLOGY AND [address] [place] [address] [phone] [address] Gram stain (12/06/2019 8:51 AM CDT) Gram stain isolate Rare WBC's [facility] No organisms seen HOSPITAL Comment: Specimen Information Specimen Source: Fluid Specimen Site: Lun R Specimen Performing Organization Address City/[facility] Phon e Number [facility] DEPARTMENT OF PATHOLOGY AND [address] [place] [address] [phone] [address] AFB stain (12/06/2019 8:51 AM CDT) Pathologist Sig nature AFB stain No acid fast bacilli (AFB) seen. ED HOPPER Comment: HOSPITAL Specimen Information Specimen Source: Fluid Specimen Site: Lun R Specimen Performing Organization Address City/[facility]/[place]IP [facility] [place] Number [facility] DEPARTMENT OF PATHOLOGY AND [address] [place] [address] [phone] [address] Anaerobic culture (12/06/2019 8:51 AM CDT) Anaerobic culture No anaerobic organisms isolated. LINDA HOPPER isolate Comment: HOSPITAL Specimen Information Specimen Source: Fluid Specimen Site: Lun R Specimen Tissue - Lung Performing Organization Address City/State/ZIP Code Phon e Number [facility] DEPARTMENT OF PATHOLOGY AND [address] [place], [place] [phone] GENOMIC MEDICINE [facility] [address] [place] [address] Airway (12/06/2019 8:11 AM CDT) Narrative Performed At Anusha Loera 12/06/2019 8:14 AM Airway Date/Time: 12/06/2019 8:08 AM Performed by: Anusha Loera Authorized by: Sophie Goss MD Location: OR Urgency: Elective Anesthesiologist: Sophie Goss MD Resident/TUGBOAT OPERATOR/AA: Anusha Loera Other Anesthesia Staff: Gabriel Young Performed by: other anesthesia staff Preoxygenated with 100% O2: Yes C-spine Precautions Maintained Throughou t: Yes Mask Ventilation: Easy mask Final Airway Type: Endotracheal airway Final Endotracheal Airway: ETT Cuffed: Yes Technique Used: Video laryngoscopy Devices/Methods Used in Placement: Int ubating stylet Insertion Site: Oral Blade type: Glidescope. Laryngoscope Blade/Videolaryngoscope Salvador de Size: 3 ETT Size (mm): 9.0 Cuff at minimum occlusion pressure: Yes Measured from: Lips ETT to Lips (cm): 23 Placement Verified by: CO2 detection and equal breath sounds Laryngoscopic view: Grade I - full vie w of glottis Rapid Sequence Induction (RSI): No Modified RSI: No Number of Attempts at Approach: 1 Preoxygenation on 100% FiO2. Smooth IV induction. Eye s taped. Easy mask ventilation with OPA. Glidescope 2 used with grade 1 view. ETT passed atraumatically through vocal cords. Cuff to seal. Absent gurgling over epigastrium, positive chest rise, positi ve EtCO2. Taped to secure. No damage to lips, teeth, or gums. VSS. Estimated GFR (12/02/2019 11:27 AM CDT)Only the most recent of8 resultswithin the time period is included. [facility] Estimated GFR 72 mL/min/1.73 [facility] Comment: m2 CLEAR GÓMEZ Catergory Units Interpretation HOS PITAL G1 >=90 Normal or high G2 60-89 Mildly decreased G3a 45-59 Mildly to moderately decreas ed G3b 30-44 Moderately to severely decre ased G4 15-29 Severely decreased G5 <15 Kidney failure The eGFR was calculated using the Chronic Kidney Disea se Epidemiology Collaboration (CKD-EPI) equation. Interpretation is based on recommendations of the National Kidney Foundation-Kidney Disease Outcomes Moshe lity Initiative (NKF-KDOQI) published in 2014. Specimen Performing Organization Address City/[facility] Phon e Number [facility] DEPARTMENT OF PATHOLOGY AND [id number] [place] [address] [place] [address] COVID-19 qualitative PCR (12/02/2019 11:27 AM CDT) Interpretation Negative results do not prec lude 2019-nCoV infection and should not be used as the sole basis for treatment or other patient management decisions. Negative results must be combined with clinical observations, patient history, and epidemiological [place] information. [facility] COVID-19 qualitative Not-Detected Not-Detecte [place] PCR result d [facility] qualitative See link below for [place] PCR PDF Lab MANDAEISM ReportComment: Case HOSPITAL Number: [id number] Specimen Nasopharyngeal swab Performing Organization Address [facility] Phon e Number [facility] DEPARTMENT OF PATHOLOGY AND [address] [place], [place] [phone] [address] [facility] Partial thromboplastin time, activated (12/02/2019 11:27 AM CDT)Only the most recent of3 resultswithin the time period is included. PTT 29.1 23.0 - 36.0 [facility] Comment: sec JOURDANTON PTT therapeutic range for unfractionated heparin is HOSPITAL 61.0-112.0 seconds which corresponds to Anti-Xa 0.3-0.7 U/ml. Specimen Blood Performing Organization Address City/[facility] Phon e Number [facility] DEPARTMENT OF PATHOLOGY AND [address] [place] [address] [place] [address] Prothrombin time with INR (12/02/2019 11:27 AM CDT)Only the most recent of3 resultswithin the time period is included. Prothrombin time 13.7 11.5 - 14.5 [facility] INR 1.0 [place] Comment: [facility] International Normalized Ratio (INR) is a [facility] monitoring tool for patients who are stable on oral anticoagulant therapy. An INR of 2.0-3.0 is suggested for deep vein thrombosis/pulmonary embolism. Specimen Blood Performing Organization Address City/State/ZIP Code Phon e Number [facility] DEPARTMENT OF PATHOLOGY AND [address] [place] [address] GENOMIC MEDICINE [facility] [address] [place], [place] [address] [place] [address] CBC with platelet and differential (12/02/2019 11:27 AM CDT)Only the most recent of6 resultswithin the time period is included. Pathologist Sig nature WBC 4.86 4.50 - 11.00 k/uL [facility] RBC 4.25 4.20 - 5.50 m/uL [facility] HGB 12.9 12.0 - 16.0 g/dL [facility] HCT 40.6 37.0 - 47.0 % [facility] MCV 95.5 82.0 - 100.0 fL [facility] MCH 30.4 27.0 - 34.0 pg [facility] MCHC 31.8 31.0 - 37.0 g/dL [facility] RDW - SD 50.4 37.0 - 55.0 fL [facility] MPV 11.1 8.8 - 13.2 fL [facility] Platelet count 132 (L) 150 - 400 k/uL [facility] Nucleated RBC 0.00 /100 WBC [facility] Neutrophils 67.1 39.0 - 69.0 % [facility] Lymphocytes 16.7 (L) 25.0 - 45.0 % [facility] Monocytes 10.9 (H) 0.0 - 10.0 % [facility] Eosinophils 4.3 0.0 - 5.0 % [facility] Basophils 0.8 0.0 - 1.0 % [facility] Specimen Blood Performing Organization Address City/[facility] Phon e Number [facility] DEPARTMENT OF PATHOLOGY AND [address] [place] [address] GENOMIC MEDICINE [facility] [address] Comprehensive metabolic panel (12/02/2019 11:27 AM CDT) Sodium 142 135 - 148 [facility] mEq/L [facility] Potassium 4.8 3.5 - 5.0 [facility] mEq/L [facility] Chloride 106 98 - 112 [facility] mEq/L [facility] CO2 25 24 - 31 mEq/L [facility] Anion gap 11@ANIO 7 - 15 mEq/L [facility] BUN 21 8 - 23 mg/dL [facility] Creatinine 0.80 0.50 - 0.90 [facility] mg/dL [facility] Glucose 120 (H) 65 - 99 mg/dL [facility] Calcium 9.3 8.8 - 10.2 [facility] mg/dL [facility] Protein 7.0 6.3 - 8.3 [facility] Comment: g/dL [facility] 4.6-7.0 g/dL 1 week 4.4-7.6 g/dL 7 months-1year 5.1-7.3 g/dL 1-2 years 5.6-7.5 g/dL >3 years 6.0-8.0 g/dL 18-150 6.3-8.3 g/dL Albumin 4.1 3.5 - 5.0 [facility] g/dL [facility] A/G ratio 1.4 0.7 - 3.8 [facility] Alkaline phosphatase 189 (H) 35 - 104 U/L [facility] AST 18 10 - 35 U/L [facility] ALT 22 5 - 50 U/L [facility] Total bilirubin 0.2 0.0 - 1.2 [facility] mg/dL [facility] Specimen Blood Performing Organization Address City/State/[facility] Phon e Number [facility] DEPARTMENT OF PATHOLOGY AND [address] [place] [address] GENOMIC MEDICINE [facility] [address] [place] [address] [facility] PET/CT Whole Body External Study (12/01/2019 8:51 AM CDT) Specimen Narrative Performed At This exam [facility] and has not been [facility] interpreted by a Yarsanism Provider. T he exam was imported into our imaging system. Performing Organization Address City/[facility] Code Phon e Number [facility] [address] [place] [address] PET/CT Skull Base To Mid Thigh (12/01/2019)Only the most recent of2 results within the time period is included. Narrative Performed At This result has an attachment that is no t available. CT Chest W Contrast (11/23/2019) Narrative Performed At This result has an attachment that is no t available. MRI Brain W Wo Contrast (11/08/2019)Only the most recent of3 resultswithin the time period is included. Narrative Performed At This result has an attachment that is no t available. POC glucose (06/01/2019 12:13 PM CDT)Only the most recent of38 resultswithin the time period is included. Pathologist Sig nature POC glucose 178 (H) 65 - 99 mg/dL [facility] Comment: HOSPITAL Veneer Marker Name: Shahla Velaandreea Device ID: [id number] Chartable: [facility] Notified RN Specimen Blood Performing Organization Address City/[facility] Phon e Number [facility] DEPARTMENT OF PATHOLOGY AND [address] [place] [address] [phone] [address] Cancer antigen 19-9 (06/01/2019 4:00 AM CDT) CA 19-9 12 0 - 35 U/mL [facility] Comment: HOSPITAL The [employer] 8000 CA19-9 immunoassay was used. Results obtained with different assay methods or kits should not be used interchangeably and may be differen t. Specimen Blood Performing Organization Address City/[facility] Phon e Number [facility] DEPARTMENT OF PATHOLOGY AND [address] [place] [address] [phone] [address] Cancer antigen 15-3 (06/01/2019 4:00 AM CDT) CA 15-3 22 0 - 25 U/mL [facility] Comment: HOSPITAL The [address] CA153 immunoassay was used. Results obtained with different assay methods or kits should not be used interchangeably and may be differen t. Specimen Blood Performing Organization Address [facility] Phon e Number [facility] DEPARTMENT OF PATHOLOGY AND [address] [place] [address] Cancer antigen 125 (06/01/2019 4:00 AM CDT) CA 125 28 0 - 35 U/mL [facility] Comment: HOSPITAL The [address] 8000 CA125 immunoassay was used. Results obtained with different assay methods or kits should not be used interchangeably and may be differen t. Specimen Blood Performing Organization Address [facility] Phon e Number [facility] DEPARTMENT OF PATHOLOGY AND [address] [place] [address] Carcinoembryonic antigen (CEA) (06/01/2019 4:00 AM CDT) Pathologist [facility] CEA 2.7 0.0 - 3.8 [facility] Comment: ng/mL HOSPITAL Reference range for heavy smokers: 0.0 - 5.5 ng/mL The [employer] CEA immunoassay was used. Results obtained with different assay methods or kits should not be used interchangeably and may be differen t. Specimen Serum Performing Organization Address [facility] Phon e Number [facility] DEPARTMENT OF PATHOLOGY AND [address] [place] [address] Us duplex venous upper extremity (05/31/2019 1:27 PM CDT) Specimen Narrative Performed At [facility] Upper Extr emity Venous Report [address] [place] [address] Pat.Name: KHUSHBU KEITH Pat.ID: [id number]Date: 05/31/2019 Refer.MD: PRIYANKA ALEXANDER MD Exam Time: 12:53:00 PM Study Type:UE Venous Height: 66in A ge: 1945,74Y Sex: FEMALE Sonogrp hr: Jake Manio, RVS, RCS Pat. Stat.:Inpatient Room: [address] Tape Vol: MAARJIT, CPT - 4: 15070 Echo Event ID:[id number] Order ID: [id number] Reason for Study:RUE swelling or pain, D VT suspected. S/p right frontotemporal craniotomy for excision o f tumor on 05/26/19. PMH of breast cancer s/p bilateral mastectomy f ollowed by adjuvant chemoradiation, lung cancer s/p XRT, bot h in remission, generalized anxiety disorder, osteoarthritis s/p bud ateral hip replacements in Dec 2018, AMAN, HTN, HLD, essential tremor, Procedures: Colorflow, Grayscale/2D, Pul sed wave Doppler Race: C SUMMARY: DUPLEX SCAN OBSERVATIONS Right Left IJ Normal Subclavian Normal Normal Axillary Normal Brachial Normal Basilic Obstructed Cephalic Normal RIGHT: The basilic vein at the antecub ital fossa is non compressible with echogenic material filling the lume n, color flow and Doppler signals are absent. The remaining visual ized veins are patent. LEFT: There is normal compressibil ity and no evidence of echogenic material noted within the lumen of the s ubclavian vein. Colorflow and Doppler signals are normal. PRELIMINARY FINDINGS 1. Total superficial vein thrombosis in right basilic vein at the antecubital fossa. 2. No evidence of deep vein thrombosis i n the visualized veins. *Preliminary result reported to CINTHIA Jonas @ [phone] on 05/31/19. PHYSICIAN INTERPRETATION Venous examination of the right upper ex tremity and neck demonstrated no evidence of deep venous thrombosis. [facility] at the antecubital fossa. FINDINGS: Signed 05/31/2019 03:18 PM Kael Erwin MD, RPVI Procedure Note Interface, Radiology Results In - 2019 3:18 PM CDT [facility] Ul[facility]ound Laboratory Upper Extremity Veno us Report [address] [address] Pat.Name: KHUSHBU KEITH Pat.I D: [id number] St.Date: 05/31/2019 Refer .MD: PRIYANKA ALEXANDER MD Exam Time: 12:53:00 PM Study Type:UE Venous Height: 66in Age: 2 1945,74Y Sex: FEMALE Sonog rphr: Jake Valle, RVS, RCS Pat. Stat.:Inpatient Room: [address] Tape Vol: , CPT - 4: 18149 Echo Event ID:[id number] Order ID: [id number] Reason for Study:RUE swelling or pain, D VT suspected. S/p right frontotemporal craniotomy for excision o f tumor on 05/26/19. PMH of breast cancer s/p bilateral mastectomy f ollowed by adjuvant chemoradiation, lung cancer s/p XRT, bot h in remission, generalized anxiety disorder, osteoarthritis s/p bud ateral hip replacements in Dec 2018, AMAN, HTN, HLD, essential tremor, Procedures: Colorflow, Grayscale/2D, Pul sed wave Doppler Race: C SUMMARY: DUPLEX SCAN OBSERVATIONS Right Left IJ Normal Subclavian Normal Normal Axillary Normal Brachial Normal Basilic Obstructed Cephalic Normal RIGHT: The basilic vein at the antecubi yareli fossa is non compressible with echogenic material filling the lume n, color flow and Doppler signals are absent. The remaining visual ized veins are patent. LEFT: There is normal compressibilit y and no evidence of echogenic material noted within the lumen of the s ubclavian vein. Colorflow and Doppler signals are normal. PRELIMINARY FINDINGS 1. Total superficial vein thrombosis in right basilic vein at the antecubital fossa. 2. No evidence of deep vein thrombosis i n the visualized veins. *Preliminary result reported to CINTHIA Jonas @ 1505 on 05/31/19. PHYSICIAN INTERPRETATION Venous examination of the right upper ex tremity and neck demonstrated no evidence of deep venous thrombosis. 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 FINDINGS: Signed 05/31/2019 03:18 PM Kael Erwin MD, RPVI Performing Organization Address City/[facility] [address] [place] [address] Phosphorus level (05/31/2019 4:54 AM CDT)Only the most recent of4 resultswithin the time period is included. Pathologist Sig nature Phosphorus 3.0 2.4 - 4.5 mg/dL [facility] Specimen Blood Performing Organization Address [facility] Phon e Number [facility] DEPARTMENT OF PATHOLOGY AND [address] [place] [address] [phone] [address] Magnesium level (05/31/2019 4:54 AM CDT)Only the most recent of4 resultswithin the time period is included. Pathologist Sig nature Magnesium 2.4 1.6 - 2.4 mg/dL [facility] Specimen Blood Performing Organization Address [facility] Phon e Number [facility] DEPARTMENT OF PATHOLOGY AND [address] [place] [address] [phone] [address] Hemoglobin A1c (05/31/2019 4:54 AM CDT) Hemoglobin A1C 6.9 (H) 4.0 - 5.6 % [facility] Comment: HOSPITAL HbA1c cutoffs for diagnosing diabetes: 4.0% - 5.6% = normal 5.7% - 6.4% = increased risk for diabetes (prediabetes )9 >=6.5% = diabetes9 Goals for glycemic control (ADA 2016) < 7.0% Target for non adults with diabetes. More or less stringent targets may be appropriate for individual patients. <7.5% Target for Children and adolescents with type 1 diabetes. Specimen Blood Performing Organization Address [facility] Phon e Number [facility] DEPARTMENT OF PATHOLOGY AND [address] [place] [phone] [address] [place] [phone] Basic metabolic panel (05/31/2019 4:54 AM CDT)Only the most recent of7 results within the time period is included. Pathologist Sig nature Sodium 139 135 - 148 mEq/L [facility] L Potassium 4.7 3.5 - 5.0 mEq/L [facility] Chloride 102 98 - 112 mEq/L [facility] CO2 25 24 - 31 mEq/L [facility] Anion gap 12@ANIO 7 - 15 mEq/L [facility] BUN 21 8 - 23 mg/dL [facility] Creatinine 0.71 0.50 - 0.90 mg/dL [facility] YARELI Glucose 178 (H) 65 - 99 mg/dL [facility] Calcium 9.0 8.8 - 10.2 mg/dL [facility] Specimen Blood Performing Organization Address [facility] Phon e Number [facility] DEPARTMENT OF PATHOLOGY AND [address] [place], [place] [phone] [address] [address] [address] Head Wo Contrast (05/29/2019 11:29 AM CDT)Only the most recent of3 results within the time period is included. Specimen Narrative Performed At EXAMINATION: CT HEAD WO CONTRAST [facility] CT IMAGING WAS PERFORMED WITH ITERATIVE RECONSTRUCTION TECHNIQUE AND/OR AUTOMATED EXPOSURE CONTROL TO REDUCE RAD IATION DOSE. CLINICAL HISTORY: f u crani COMPARISON: CT brain May 27, 2019 FINDINGS: Acute postoperative changes again noted with a right f rontotemporal craniotomy. There is a mild (6 mm thickness) extra-axi al collection of a hemorrhage, cerebral spinal fluid and air over the sup erior lateral frontal convexity on the right side with the air decreased. There is a mild to moderate amount of s ubdural hemorrhage along the falx superiorly on the right side which is s lightly diminished. There is an approximately 2 cm air filled operative defect in the anterior superior right frontal l obe similar that seen on the prior study. There is a marke d amount of vasogenic edema in the right frontal lob e which is unchanged. There is mild continued right hemispheric mass effect with approximately 6 mm mm shift of the midline structures to the left.. IMPRESSION: Evolving postop changes. [facility]-[id number] Procedure Note Hm Interface, Radiology Results Incoming - 05/29/2019 11:41 AM CDT EXAMINATION: CT HEAD WO CONTRAST CT IMAGING WAS PERFORMED WITH ITERATIVE RECONSTRUCTION TECHNIQUE AND/OR AUTOMATED EXPOSURE CONTROL TO REDUCE RADIATION DOSE. CLINICAL HISTORY: f u crani COMPARISON: CT brain May 27, 2019 FINDINGS: Acute postoperative changes again noted with a right frontotemporal craniotomy. There is a mild (6 mm thickness) extra-axial collection of a hemorrhage, cerebral spinal fluid and air over the superior lateral frontal convexity on the right side with the air decreased. There is a mild to modera te amount of subdural hemorrhage along the falx superiorly on the right side which is slightly diminished. There is an approximately 2 cm air filled operative defect in the anterior superior right frontal lobe similar that seen on the prior study. Th ere is a marked amount of vasogenic edema in the right frontal lobe which is unchanged. There is mild continued right hemispheri c mass effect with approximately 6 mm mm shift of the midline structures to the left.. IMPRESSION: Evolving postop changes. [facility]-[id number] Performing Organization Address City/State/ZIP Code Phon e Number [facility] [address] [place] [address] CBC hemogram (05/28/2019 7:35 PM CDT)Only the most recent of2 resultswithin the time period is included. Pathologist Sig nature WBC 8.29 4.50 - 11.00 k/uL [facility] RBC 3.77 (L) 4.20 - 5.50 m/uL [facility] HGB 11.6 (L) 12.0 - 16.0 g/dL [facility] HCT 36.5 (L) 37.0 - 47.0 % [facility] MCV 96.8 82.0 - 100.0 fL [facility] MCH 30.8 27.0 - 34.0 pg [facility] MCHC 31.8 31.0 - 37.0 g/dL [facility] RDW - SD 47.4 37.0 - 55.0 fL [facility] MPV 12.5 8.8 - 13.2 fL [facility] Platelet count 153 150 - 400 k/uL [facility] Nucleated RBC 0.00 /100 WBC [facility] Specimen Performing Organization Address [facility] Phon e Number [facility] DEPARTMENT OF PATHOLOGY AND [address] [place] [address] [address] Ionized calcium (05/28/2019 4:00 AM CDT)Only the most recent of3 resultswithin the time period is included. Pathologist Sig nature pH 7.57 [facility] Ionized calcium 1.06 (L) 1.11 - 1.32 [facility] mmol/L HOSPITAL Specimen Blood Performing Organization Address [facility] Phon e Number [facility] DEPARTMENT OF PATHOLOGY AND [address] [place], [place] [phone] [address] [address] Lactic acid level (05/27/2019 11:25 AM CDT) Pathologist Sig nature Lactic acid 2.3 (H) 0.5 - 2.2 mmol/L [facility] Specimen Blood Performing Organization Address City/[facility] Phon e Number [facility] DEPARTMENT OF PATHOLOGY AND [address] [place] [address] [phone] [address] Hepatic function panel (05/27/2019 11:25 AM CDT) Albumin 3.6 3.5 - 5.0 [facility] g/dL [facility] Total bilirubin <0.2 0.0 - 1.2 [facility] mg/dL [facility] Bilirubin direct <0.2 0.0 - 0.3 [facility] mg/dL HOSPITAL Alkaline phosphatase 108 (H) 35 - 104 U/L [facility] Protein 6.8 6.3 - 8.3 [facility] Comment: g/dL HOSPITAL - 4.6-7.0 g/dL 1 week 4.4-7.6 g/dL 7 months-1year 5.1-7.3 g/dL 1-2 years 5.6-7.5 g/dL >3 years 6.0-8.0 g/dL 18-150 6.3-8.3 g/dL ALT 17 5 - 50 U/L [facility] AST 21 10 - 35 U/L [facility] Specimen Blood Performing Organization Address City/State/ZIP Code Phon e Number [facility] DEPARTMENT OF PATHOLOGY AND [address] [place], [place] [address] GENOMIC MEDICINE [facility] [address] [place] [address] Miscellaneous referral test (05/26/2019 10:00 AM CDT) [facility] test name [facility] SOLID TUMOR PANEL SHOWN ABOVE [facility] test result SEE NOTE SHOWN ABOVE Comment: Solid Tumor Mutation Panel by Next Generation Sequfadii julia [facility] test code [id number] Solid Tumor Panel By NGS Interpretation See Note SAMPLE SOURCE: Brain, right frontal lobe CLINICAL HISTORY: Metastatic adenocarcinoma, 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 TIER 1: Actionable (FDA Approved Therapies in Patie nt Tumor Type, Established Diagnostic or Prognostic Significanc e) None Detected II. TIER 2: Potentially Actionable (FDA Approved Thera pies in another Tumor Type, Potential Diagnostic or Prognostic Significance) 1. 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 This particular missense mutation (p.[id number]) is presumed to alter the normal function of the tumor suppressor p53 (2). T his variant has been reported in a variety of cancer types , including breast cancer (3, 4). Clinical trials for TP 53-mutated breast cancers are currently underway (clinicaltrials. gov). III. TIER 3: Variants of Unknown Significance (VUS) None Detected IV. Low coverage regions: This list contains regions w here the average sequencing depth (number of times a particular position is sequenced) for 20% or more of the region is below o ur stringent cutoff of 300X. Sensitivity for detection of low allelic frequency mutations may be reduced in areas wi th low depth of coverage. The sequencing reads from these reg ions were manually reviewed. If high quality variants are detect ed in these regions, they will be listed above in Tier 1, Ti er 2, or Tier 3. NONE REFERENCES: 1.N. Cancer Genome [place], Comprehensive molecular port raits of human breast tumours. Nature 2012. PMID: 39652583. 2.IARC TP53 database website: http://p53.iarc.fr/SD61ZdnuDkikffyrgb.aspx 3.COSMIC database website: http://cancer.laney.ac.uk/cancergenome/projects/cosmi c/ 4.cBioPortal database website: http://www.cbioportal.o rg/ 5.Sagar Martínez et al., Standards and Guidelines for the Interpretation and Reporting of Sequence Variants in C ancer: A Joint Consensus Recommendation of the Association for Molecular Pathology, [place] Society of Clinical Oncology, and College of [place] Pathologists. The Journal of molecular diagno stics : JMD 2017. PMID: 92628162. This result has been reviewed and approved by Desirae durant M.D. BACKGROUND INFORMATION: Solid Tumor Mutation Panel by Next Generation Sequenc ing CHARACTERISTICS: Specific somatic variants have been d iscovered in multiple cancer-related genes and have diagnostic, therapeutic and/or prognostic utility in several cance r types. Targeted next generation sequencing is utilized in thi s test for the detection of hotspot variants within 44 cancer-rel ated genes and includes extended BRITTON variant detection. The perso nalized variant profile may be useful for prediction of patien t diagnosis, prognosis and/or response to targeted thera pies in solid tumors including, melanoma, gastrointestinal str omal tumors (GIST), colorectal cancers, bladder cancers, an d hepatocellular cancers. GENES TESTED: AKT1, ALK, APC, SILVANA, BRAF, CDH1, CDKN2A, CTNNB1, DDR2, EGFR, ERBB2, ERBB4, EZH2, FBXW7, FGFR1, FGFR2, F GFR3, GNA11, GNAQ, GNAS, HRAS, IDH1, IDH2, KDR, KIT, KRAS, M AP2K1, MET, MTOR, NOTCH1, NRAS, NTRK1, PDGFRA, PIK3CA, PTEN, RB1, RET, ROS1, SMAD4, SMO, STK11, TERT promoter, TP53, VHL. A f ull list of targeted regions within the above genes is availabl e through this link: http://[employer].Plored/Tests/Pdf/375. METHODOLOGY: Genomic DNA is isolated from microscopica lly-guided dissection of tumor tissue and then enriched for the t argeted regions of the tested genes. The variant status of the 44 targeted genes is determined by massively parallel seq uencing (next generation sequencing). The hg19 (GRCh37) refere [facility] sequence is used as a reference for identifying geneti c variants. LIMITATIONS: This test will not detect variants in are as outside the targeted genomic regions or below the limit of det ection. Copy number alterations, translocations, microsatellit e instability, and tumor mutational burden will not be d etected. If clinical indication is lung cancer, additional clin ical evaluation may be considered for complete genetic anal ysis including, detection of translocations or gene rearran gements. This test is not intended to detect minimal residual d isease. This test evaluates for variants in tumor tissue only and cannot distinguish between somatic and germline variants. The refore, if a hereditary/familial cancer is of clinical concern, c onsider additional clinical evaluation and genetic counseling prior to additional testing. In some cases, variants may not be identified due to technical limitations in the presenc e of known pseudogenes, homologous regions and/or low mapability regions. This includes variants in PTEN exons 1, 2, 4, 5, 6, 7, 8 and 9; MAP2K1 exons 2, 7 and 11; CDKN2A exon 2, PIK3CA exons 10 and 14; GNAQ exon 5; EZH2 exon 18; and BRAF exon 11. It is als o possible that some large insertion/deletion variants (especiall y those greater than 60bp) may not be detected. Tissue samples yielding at least 10ng are acceptable but may yield suboptimal results if yield is less than 50ng. LIMIT OF DETECTION: 5 percent mutant allele for single nucleotide variants (SNV), small to medium sized multi-nucleotide variants (MNV) (less than 60bp). ANALYTICAL SENSITIVITY (PPA): Analytical sensitivity f or all variant classes available through this link: http://ltd.Plored/Tests/Pdf/375. CLINICAL DISCLAIMER: Results of this test must always be interpreted within the clinical context and other rele vant data and should not be used alone for a diagnosis of malign sandi. This test is not intended to detect minimal residual diseas e. Test developed and characteristics determined by [employer]. See Compliance Statement B: Plored/ CS - - - - - - - - - - - - - - - - - - - - - - - - - - - - - - EER Solid Tumor Panel by NGS EERUnavailable - - - - - - - - - - - - - - - - - - - - - - - - - - - - - - Solid Tumor Panel by NGS Block ID [id number] - - - - - - - - - - - - - - - - - - - - Order comments Solid Tumor Mutation Panel by Next Generation Sequenci ng BRAIN TUMOR #2 [facility] TEST #[id number] SOLID TUMOR MUTATION PANEL [facility]-[id number] B3 ===== Test performed by: [employer] [address] [place] [address] Specimen Narrative Performed At BRAIN TUMOR #2 [facility] DEPARTMENT OF PATHOLOGY AND GENOMIC ALUP TEST #[id number] SOLID TUMOR MUTATION MEDICINE PANEL [facility]-[id number] B3 Performing Organization Address City/State/[facility] Phon e Number [facility] DEPARTMENT OF PATHOLOGY AND [address] [place] [address] 0 GENOMIC MEDICINE SHOWN ABOVE Surgical pathology request (05/26/2019 9:11 AM CDT)Only the most recent of4 resultswithin the time period is included. [facility] DEPARTMENT OF PATHOLOGY AND GENOMIC MEDICINE Surgical pathology See link below for [facility] DEPARTMENT O F report PDF Lab Report PATHOLOGY AND GENOMIC MEDICINE Result status This is Supplemental [facility] DEPARTMENT OF Report for PATHOLOGY AND [id number] GENOMIC MEDICINE Specimen Narrative Performed At BRAIN TUMOR #2 [facility] DEPARTMENT OF PATHOLOGY AND GENOMIC ARUP TEST #[id number] SOLID TUMOR MUTATION MEDICINE PANEL [facility]-[id number] B3 Performing Organization Address City/[facility] Phon e Number [facility] DEPARTMENT OF PATHOLOGY AND [address] [place], [place] [phone] 0 GENOMIC MEDICINE Airway (05/26/2019 8:18 AM CDT) Narrative Performed At Edward Diop Jr. 05/26/2019 8:2 0 AM Airway Date/Time: 05/26/2019 7:44 AM Performed by: Edward Diop Jr. Authorized by: Sudhir Headley MD Location: OR Urgency: Elective Difficult Airway: No Anesthesiologist: Sudhir Headley MD Resident/TUGBOAT OPERATOR/AA: Edward Diop Jr. Performed by: anesthesiologist Preoxygenated with 100% O2: Yes Mask Ventilation: Not attempted Final Airway Type: Endotracheal airway Final Endotracheal Airway: ETT Cuffed: Yes Technique Used: Video laryngoscopy (gl idescope 3) Insertion Site: Oral Laryngoscope Blade/Videolaryngoscope Salvador de Size: 3 ETT Size (mm): 7.0 Cuff at minimum occlusion pressure: Yes Measured from: Teeth ETT to Teeth (cm): 22 Placement Verified by: CO2 detection and direct visualization Laryngoscopic view: Grade I - full vie w of glottis Rapid Sequence Induction (RSI): No Modified RSI: Yes Number of Attempts at Approach: 1 Eyes taped closed at LOC and prior to airway manipu lation. Atraumatic ETT insertion att x 1 by TUGBOAT OPERATOR. +EtCO2, +BBS. Dentition unchanged. Patient intubated by Dr Headley with PAP R on. Arterial line (05/26/2019 8:01 AM CDT) Narrative Performed At Jadon Edward Jr. 05/26/2019 8:0 3 AM Arterial line Performed by: Raisa Worthy M D Authorized by: Sudhir Headley MD Patient Location: OR Start Time: 05/26/2019 7:58 AM End Time: 05/26/2019 8:00 AM Staff: Anesthesiologist: Chris Worthy MD Performed by: Anesthesiologist Pre-procedure: patient identified, IV ch ecked, site and side verified, procedure verified, patient position con firmed, monitors and equipment checked and pre-op evaluation complete MSBT: antiseptic used, hand hygiene performed and cap/ gown used by other personnel Indications: Indications: hemodynamic monitoring Anesthesia: Anesthesia: General Procedure Details: Arterial Line placement: Placed pos t induction Line placement site: Radial Line placement side: Left Arterial line gauge: 20 G Number of attempts: 1 Ultrasound guidance used: No Post-procedure: Post-procedure: Sterile dressing ap plied Post procedure circulation, sensation , movement: Unable to assess Patient tolerance: Patient tolerate d the procedure well with no immediate complications Thyroid stimulating hormone (05/26/2019 4:55 AM CDT) Pathologist Sig nature TSH 0.98 0.27 - 4.20 uIU/mL [facility] ITAL Specimen Blood Performing Organization Address City/[facility] Phon e Number [facility] DEPARTMENT OF PATHOLOGY AND [address] [place] [address] [phone] [address] Folate level (05/26/2019 4:55 AM CDT) Pathologist Sig nature Folate 9.3 4.8 - 24.2 ng/mL [facility] Specimen Serum Performing Organization Address City/[facility] Phon e Number [facility] DEPARTMENT OF PATHOLOGY AND [address] [place] [address] [phone] [address] Ferritin level (05/26/2019 4:55 AM CDT) Pathologist Sig [facility] Ferritin level 60 13 - 150 ng/mL [facility] Specimen Blood Performing Organization Address City/[facility] Phon e Number [facility] DEPARTMENT OF PATHOLOGY AND [address] [place] [address] [phone] [address] Vitamin B12 level (05/26/2019 4:55 AM CDT) Vitamin B12 282 211 - 946 [facility] Comment: pg/mL HOSPITAL Significant overlap exists between normal and deficien cy states. However, most patients with deficiencies will have Ser um B12 <200 pg/mL. Specimen Serum Performing Organization Address City/[facility] Phon e Number [facility] DEPARTMENT OF PATHOLOGY AND [address] [place] [phone] Lipid panel (05/26/2019 4:55 AM CDT) Cholesterol 310 (H) <200 mg/dL [facility] Triglycerides 103 <150 mg/dL [facility] HDL cholesterol 58 >40 mg/dL [facility] LDL cholesterol 239 (H)Comment: <100 mg/dL [place] Result obtained by [employer] direct [facility] measurement Lipid panel [facility] interpretation Comment: [employer] Total Cholesterol (mg/dL) HOSPIT RI <200 Desirable 200-239 Borderline-high >=240 High Triglycerides (mg/dL) <150 Normal 150-199 Borderline-high 200-499 High >=500 Very high HDL Cholesterol (mg/dL) <40 Low (male) <40 Low (female) LDL Cholesterol (mg/dL) <100 Optimal 100-129 Near or above optimal 130-159 Borderline-high 160-189 High >=190 Very high Risk Catergories that modify LDL goals. Risk Catergories LDL goal (mg/d L) CHD and CHD risk equivalent <100 (10-year risk >20%) Multiple (2+) risk factors <130 (10-year risk =<20%) 0-1 risk factors <160 (<10-year risk) Defining levels of lipids in metabolic syndrome Triglycerides >=150 mg/dL HDL Cholesterol Men <40 mg /dL Women <40 mg/ dL Non-HDL cholesterol is a second target for therapy in persons with high triglycerides (>=200 mg/dL) Specimen Blood Performing Organization Address City/State/ZIP Code Phon e Number [facility] DEPARTMENT OF PATHOLOGY AND [address] [place] [phone] GENOMIC MEDICINE [facility] [address] [place] [address] Chest W Contrast Abdomen W Wo Contrast Pelvis W Contrast (05/25/2019 2:52 PM CDT) Specimen Narrative Performed At EXAMINATION: CT CHEST W CONTRAST ABDOMEN W WO CONTRA ST PELVIS W [facility] CONTRAST CLINICAL HISTORY: metastatic workup TECHNIQUE: Axial images of the abdomen were obtained p rior to intravenous contrast administration. Multiple axial im ages of the chest, abdomen, and pelvis were obtained following intravenou s administration of iodinated contrast. Sagittal and anatoly nal computerized reformatted images were obt ained. CT imaging was performed with iterative reconstruction techniques and/or automated exposure control to reduce rad iation dose. COMPARISON: Chest CT 05/02/2019 FINDINGS: Chest: 1. There is stable linear scar in the left upper lobe. A tiny juxtapleural scarlike 4 mm nodule is sta ble since 2017. 2.There is a subsolid 1 cm nodule in the left lower lo be that has not substantially grown since 2017. 3.The right lung is clear. 4.There is no pleural or pericardial eff usion. 5.No thoracic lymphadenopathy is seen. 6.Heart size is normal. Abdomen and Pelvis: 1. The liver, spleen, pancreas, gallblad aline, and adrenals are normal. 2.A couple of subcentimeter bilateral renal cysts are present. There is no hydronephrosis. The urinary bladder i s normal. 3.There is sigmoid diverticulosis. No small or large b owel obstruction or inflammation is seen. The stomach and appendix ar e within normal limits. 4.No lymphadenopathy or ascites is seen. 5.The uterus is absent. 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 There is no acute or aggressive skeletal finding. IMPRESSION: No signs of metastatic disease. Stable groundglass nodule in the left lower lobe, diff erential including postinflammatory scarring or indolent adenomatous lesi on such as in situ or minimally invasive adenocarcinoma. [id number] Procedure Note Hm Interface, Radiology Results Incoming - 05/25/2019 3:11 PM CDT EXAMINATION: CT CHEST W CONTRAST ABDOMEN W WO CONTRAST PELVIS W CONTRAST CLINICAL HISTORY: metastatic workup TECHNIQUE: Axial images of the abdomen w ere obtained prior to intravenous contrast administration. Multiple axial images of the chest, abdomen, and pelvis were obtained following intravenous administration of iodinated contrast. Sagittal and coronal computerized reformatted images were obt ained. CT imaging was performed with iterative reconstruction techniques and/or automated exposure control to reduce radiation dose. COMPARISON: Chest CT 05/02/2019 FINDINGS: Chest: 1. There is stable linear scar in the le ft upper lobe. A tiny juxtapleural scarlike 4 mm nodule is stable since 2017. 2.There is a subsolid 1 cm nodule in the left lower lobe that has not substantially grown since 2017. 3.The right lung is clear. 4.There is no pleural or pericardial eff usion. 5.No thoracic lymphadenopathy is seen. 6.Heart size is normal. Abdomen and Pelvis: 1. The liver, spleen, pancreas, gallblad aline, and adrenals are normal. 2.A couple of subcentimeter bilateral re nal cysts are present. There is no hydronephrosis. The urinary bladder is normal. 3.There is sigmoid diverticulosis. No sm all or large bowel obstruction or inflammation is seen. The stomach and appendix are within normal limits. 4.No lymphadenopathy or ascites is seen. 5.The uterus is absent. Skeletal: Left hip prosthesis, avascular necrosis in the right femoral head, and generalized osteopenia are present. There is no acute or aggressive skeletal finding. IMPRESSION: No signs of metastatic disease. Stable groundglass nodule in the left lo wer lobe, differential including postinflammatory scarring or indolent adenomatous lesion such as in situ or minimally invasive adenocarcinoma. [id number] Performing Organization Address [facility]/ZIP Code Phon e Number [facility] [address] [place] [address] ECG 12 lead (05/25/2019 12:53 PM CDT) Pathologist Sig nature Ventricular rate 79 [facility] Atrial rate 79 [facility] SC interval 136 [facility] QRSD interval 70 [facility] QT interval 404 [facility] QTC interval 463 [facility] P axis 1 47 [facility] QRS axis 1 -2 [facility] T wave axis 34 [facility] EKG impression Normal sinus [facility] MUSE rhythm-Normal ECG-In automated comparison with ECG of 15-JUN-2015 15:46,-QT has lengthened-Electronical ly Signed By Mike Buchanan MD ([id number]) on 05/25/2019 9:20:32 PM Specimen Narrative Performed At This result has an attachment that is no t available. Performing Organization Address [facility] Phon e Number [facility] MUSE [address] duplex venous lower extremity (05/25/2019 11:00 AM CDT) Specimen Narrative Performed At [facility] Lower Extr emity Venous Report [address] [place] [address] Pat.Name: KHUSHBU KEITH Pat.ID: [id number] .Date: 05/25/2019 Refer.MD: LINH DE PAZ MD Exam Time: 10:19:00 AM Study Type:LE Venous Height: 66in Weight: 201lb BSA: 2.01 m2 Ag e: 1945,74Y Sex: FEMALE Sonogrp hr: Nighat Cabezas RVT Pat. Stat.:Inpatient Room: [id number] Tape Vol: LN, CPT - 4: 23546 Echo Event ID:[id number] Order ID: [id number] Reason for Study:Leg swelling and pain. History of HTN, HLD, breast cancer s/p mastectomy Procedures: Colorflow, Grayscale/2D, Pul sed wave Doppler SUMMARY: DUPLEX SCAN OBSERVATIONS Deep Veins Superficial Veins Right Left Right Left EIV GSV (prox) Normal Normal CFV Normal Normal (above knee) Femoral Normal Normal GSV (dist) Normal Normal Profunda Normal Normal (below knee) Popliteal Normal Normal PT (prox) Normal Normal SSV Normal Nor mal PT (dist) Normal Normal Peroneal Normal Normal Gastrocs Normal Normal RIGHT: There is normal compressibility with no evidence of echogenic material noted within the lumen of the v isualized veins. Colorflow and Doppler signals are normal. LEFT: There is normal compressibility with no evidence of echogenic material noted within the lumen of the v isualized veins. Colorflow and Doppler signals are normal. PRELIMINARY FINDINGS 1. No evidence of venous thrombosis in t he visualized veins. PHYSICIAN INTERPRETATION Venous examination of the both lower ext remities demonstrated no evidence of venous thrombosis in the vis ualized veins. Normal compressibility and augmentation of all veins visualized. FINDINGS: Signed 05/25/2019 12:06 PM Kael Erwin MD, RPVI Procedure Note Interface, Radiology Results In - 2019 12:07 PM CDT [facility] Lower Extremity Veno us Report [id number] [address] , [place] [address] Pat.Name: KHUSHBU KEITH Pat.I D: [id number] .Date: 05/25/2019 Refer .MD: LINH DE PAZ MD Exam Time: 10:19:00 AM Study Type:LE Venous Height: 66in Weigh t: 201lb BSA: 2.01 m2 Age: 2 1945,74Y Sex: FEMALE Sonog rphr: Nighat Cabezas, RVBobo Pat. Stat.:Inpatient Room: [address] Tape Vol: LN, CPT - 4: 32456 Echo Event ID:[id number] Order ID: [id number] Reason for Study:Leg swelling and pain. History of HTN, HLD, breast cancer s/p mastectomy Procedures: Colorflow, Grayscale/2D, Pul sed wave Doppler SUMMARY: DUPLEX SCAN OBSERVATIONS Deep Veins Superficial Veins Right Left Right Left EIV GSV (prox) Normal Normal CFV Normal Normal (above knee) Femoral Normal Normal GSV (dist) Normal Normal Profunda Normal Normal (below knee) Popliteal Normal Normal PT (prox) Normal Normal SSV Normal Norm al PT (dist) Normal Normal Peroneal Normal Normal Gastrocs Normal Normal RIGHT: There is normal compressibility with no evidence of echogenic material noted within the lumen of the v isualized veins. Colorflow and Doppler signals are normal. LEFT: There is normal compressibility w ith no evidence of echogenic material noted within the lumen of the v isualized veins. Colorflow and Doppler signals are normal. PRELIMINARY FINDINGS 1. No evidence of venous thrombosis in t he visualized veins. PHYSICIAN INTERPRETATION Venous examination of the both lower ext remities demonstrated no evidence of venous thrombosis in the vis ualized veins. Normal compressibility and augmentation of all veins visualized. FINDINGS: Signed 05/25/2019 12:06 PM Kael Erwin MD, RPVI Performing Organization Address City/State/ZIP Code Phon e Number [facility] [id number] [place] [address] Type and screen (05/24/2019 11:30 PM CDT) Pathologist Sig nature ABO grouping O [facility] Rh type POS [facility] Antibody screen (gel) NEG [facility] Specimen Blood Performing Organization Address City/State/ZIP Code Phon e Number [facility] DEPARTMENT OF PATHOLOGY AND [address] [place], [place] [address] GENOMIC MEDICINE [facility] [address] [place] [address] MRI Head External Study (05/24/2019 12:42 PM CDT) Specimen Narrative Performed At This exam was not acquired at a Method[facility] t facility and has not been [facility] interpreted by a [facility] Provider. T he exam was imported into our imaging system. Performing Organization Address City/State/ZIP Code Phon e Number [facility] [address] [place] [address] after 02/23/2019 Insurance Payer Benefit Plan / Subscriber ID Effective Dates Phone Addre ss Type Group MEDICARE MEDICARE PART A [id number] 2009-Present [place], [place] Medicare AND B BCBS BCBS PAR/TRAD [id number] 2016-Present Indemnity PLAN Advance Directives For more information, please contact: [phone] Type Date Recorded Patient Cupola Charger Explanati on Advance Directives, 12/06/2019 6:06 AM Living Will and Medical Power of [employer] Advance Directives, 06/03/2019 12:40 PM ADV Living Will and Medical Power of [employer] Advance Directives, 06/03/2019 12:40 PM POA Living Will and Medical Power of [employer]
--- OUTSIDE RECORDS SUMMARY | 2020-02-24 13:30 | XMS REPORT | Summary of Care ---
:1945 Author Organization [facility] - [facility] Address [address] [place] [address] Care Team Providers Name Role Phone Margo Her Primary Care Provider Reason for Visit Reason Comments LAB WORK Auth/Cert Status Reason Specialty Diagnoses / Referred By Referred To Procedures Contact Contact Clinical Medical Diagnoses covid pre op Adc Lab Laboratory Procedures covmo [address] [place] [address] Encounter Details Date Type Department Care Team Description 02/14/2020 Laboratory Only [facility] Fortunato Marti MD [address] [place] [phone] COVID-19 ruled out Phlebotomy Only, Adc Test (Primary Dx) Lab-[address] [phone] Allergies Active Allergy Reactions Severity Noted Date Comments Codeine Nausea and/or Vomiting 09/11/2016 Erythromycin Nausea and/or Vomiting 09/11/2016 documented as of this encounter (statuses as of 02/14/2020) Medications Medication Sig Dispensed Refills Start Date [...] mouth daily. CALCIUM Take by mouth. 0 Acti ve CARBONATE/VITAMIN D3 (CALCIUM 500 + D, D3, ORAL) VIT Take by mouth. 0 Acti ve C/E/ZN/COPPR/LUTEIN/ZEAX AN (PRESERVISION AREDS 2 ORAL) documented as of this encounter (statuses as of 02/14/2020) Active Problems Not on filedocumented as of this encounter (statuses as of 02/14/2020) Social History Tobacco Use Types Packs/Day Years Used Date Never Smoker Sex Assigned at Date Recorded Not on file COVID-19 Exposure Response Date Recorded In the last month, have you been in contact with No / Unsure 02/14/2020 3:29 PM CERTIFIER someone who was confirmed or suspected to have Coronavirus / COVID-19? documented as of this encounter Last Filed Vital Signs Not on filedocumented in this encounter Nursing Notes Ines Tyson - 02/14/2020 3:30 PM CSTcovid documented in this encounter Plan of Treatment Name Type Priority Associated Diagnoses Date/Ti me COVID-19 (MOLECULAR LAB Routine COVID-19 ruled out 3:49 PM CERTIFIER TESTING NUCLEIC ACID AMPLIFICATION) Name Type Priority Associated Diagnoses Order S chedule COVID-19 (MOLECULAR LAB Routine COVID-19 ruled out Ex pected: 02/14/2020, TESTING Expires: 021 NUCLEIC ACID AMPLIFICATION) Health Maintenance Due Date Last Done Comments HEPATITIS C (HCV) SCREEN 1945 Depression Screening 1956 DTaP,Tdap,and Td Vaccines (1 - Tdap) 1963 Breast Cancer Screening (MAMMOGRAM) 1984 COLON CANCER SCREENING ANNUAL FIT/FOBT 1994 COLON CANCER SCREENING FIT DNA EVERY 3 YEARS 1994 COLON CANCER SCREENING SIGMOIDOSCOPY EVERY 5 YEARS 1994 COLONOSCOPY 1994 Colorectal Cancer Screening 1994 Zoster Recombinant Vaccine (SHINGRIX) (1 of 2) 1994 Medicare Wellness Visit 2009 Osteoporosis Screening 2009 PNEUMOCOCCAL VACCINES 65+ (1 of 1 - PPSV23) 2009 INFLUENZA VACCINE (#1) 2019 documented as of this encounter Results Not on filedocumented in this encounter Visit Diagnoses Diagnosis COVID-19 ruled out - Primary documented in this encounter Additional Health Concerns Infection Onset Date Last Indicated Resolved Time COVID-19 Rule Out 02/14/2020 02/14/2020 documented as of this encounter Insurance Payer Benefit Plan / Subscriber ID Effective Phone Address T ype Group Dates MEDICARE MEDICARE PART A [id number] 2009-Pres [phone] Medicare & B ent [phone] [place] [phone] BCBS OF BCBS [id number] 2016-Pres [phone] [facility] TRADITIONAL ent [phone] [place] [address] documented as of this encounter
--- OUTSIDE RECORDS SUMMARY | 2020-02-24 13:30 | XMS REPORT | Continuity of Care Document ---
:1945 Author Organization [facility] t Address [address] [place] [address] Care Team Providers Name Role Phone Jonny Her MD Primary Care Physician Valentine BRADFORD Attending Clinician Vlad BRADFORD, Y.H. Attending Clinician Only, Test Attending Clinician Unavailable Meredith De Paz MD Attending Clinician Jane Goldstein NP Attending Clinician Layo Goss MD Attending Clinician Jaspal Young Attending Clinician Unavailable Salomon BRADFORD Attending Clinician Jena RN, T Attending Clinician Unavailable Lab, Fam Pob I Attending Clinician Unavailable Doctor Unassigned, Name Attending Clinician Unavailable Elizabeth PATRICK Attending Clinician Unavailable Gisel JACKMAN Attending Clinician Unavailable Elma RN Attending Clinician Unavailable Uri Rutherford MD Attending Clinician Nik Headley MD Attending Clinician Eric CHU Attending Clinician 1, Lab Attending Clinician Unavailable VLAD Admitting Clinician Unavailable DE PAZ Admitting Clinician Unavailable Payers Payer Name Policy Type Policy Effective Date Expiration Date Sour ce Number MEDICAREMEDICARE PART [id number] 2009 Ken Burr AND 00:00:00 [place] [id number] 2009- AngelSERVANDO [id number]/TRAD [id number] 2016 [place] [id number] 0 00:00:00 Met valarie 017-PresentIndemnity Problems Condition Condition Condition Status Onset Resolution Last Treating Co mments Source Name Details Category Date Date Treatment Clinician Date LAD LAD Disease Active Overview: Yelena n (lymphaden (lymphaden 9- Added Me thodi opathy), opathy), 00:00: automatic st hilar hilar 00 ally from request for surgery [id number] Lung Lung Disease Active Overview: Yelena n nodules nodules 9-25 Added Methodi 00:00: automatic st 00 ally from request for surgery [id number] Personal Personal Disease Active Overview: Ken moncada history of history of 9-25 Added Me thodi lung lung 00:00: automatic st cancer cancer 00 ally from request for surgery [id number] 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-27 Method i malignant malignant 00:00: st 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 Follow-up Follow-up Disease Active Marcelo preston examinatio examinatio 4-13 Me thodi n n 00:00: st following following 00 surgery surgery 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 3-24 Me thodi 00:00: st 00 Personal Personal Disease Active 2018 [place] on history of history of 4-26 Me thodi breast breast 00:00: st cancer cancer 00 Malignant Malignant Disease Active Overview: Al neoplasm neoplasm 4-26 Diagnosed Met felicitasi of upper of upper 00:00: 2017 st lobe of lobe of 00 left lung left lung Allergies, Adverse Reactions, Alerts Allergy Allergy Status Severity Reaction(s) Onset Inactive Treating Comm ents Source Name Type Date Date Clinician No Known DA Active U 2019-03 [facility]21 [place] [facility] [place] Active [place] 2019-03 [facility] 2[facility] [place] 00:[facility]: [facility] erythrom DA Active [place] 2020-1 [facility] ycin 2-21 [place] base 00:00: [facility] adhesive DA Active MO 2020-1 [facility] tape 2-21 [place] 00:00: [facility]ope 00 [facility] No Known DA Active U 2020- [facility] 1-25 [place] Allergie 00:00: [facility] 00 [facility] codeine DA Active MO 2020-1 [facility] 1-25 [place] 00:00: [facility] 00 [facility] erythrom DA Active MO 2020-1 [facility] ycin 1-25 Clear base 00:00: [facility] 00 [facility] adhesive DA Active MO 2020-1 [facility] tape 1-25 Clear 00:00: [facility] 00 [facility] codeine DA Active MO 2019-1 [facility] 1-12 [place] 00:00: Orthope 00 [facility] erythrom DA Active MO 2019-1 [facility] ycin 1-12 [facility] 00:00: Orthope 00 [facility] adhesive DA Active MO 2019-1 [facility] tape 1-12 [place] 00:00: Orthope 00 [facility] adhesive DA Active MO 2019-1 [facility] tape 1-08 [place] 00:00: Orthope 00 [facility] codeine DA Active MO 2019-1 [facility] 1-06 Clear 00:00: [facility] 00 [facility] erythrom DA Active MO 2019-1 [facility] ycin 1-06 Clear base 00:00: [facility] 00 [facility] Codeine Propensi Active [place] ty to 10-07 Methodi adverse 00:00: st reaction 00 s to drug Erythrom Propensi Active [place] ycin ty to 10-07 Methodi adverse 00:00: st reaction 00 s to drug Family History Family Member Diagnosis Comments Start Date Stop Date Source Natural brother Basal cell carcinoma [place] Natural brother Breast cancer [place] Natural brother Heart disease [place] Natural brother Prostate cancer [place] Natural brother Stomach cancer [place] Natural father Brain cancer [place] Natural mother Colon cancer [place] Natural mother Colon polyps [place] Natural mother Hypertension [place] Social History Social Habit Start Date Stop Date Quantity Comments Source Sex Assigned At [facility] ethodist Cigarettes smoked 2019-12-08 2019-12-08 [place] current (pack per 00:00:00 00:00:00 day) - Reported Cigarette 2019-12-08 2019-12-08 Servando Laruent ist pack-years 00:00:00 00:00:00 Tobacco use and 2019-12-08 2019-12-08 Never used Servando Bolanos ethodist exposure 00:00:00 00:00:00 Alcohol intake 2019-12-08 2019-12-08 Current drinker [place] Mormon 00:00:00 00:00:00 of alcohol (finding) History of tobacco 1969-11-19 1994-04-16 Current smoker [place] use 00:00:00 00:00:00 Smoking Status Start Date Stop Date Source Former smoker 2019-12-08 00:00:00 2019-12-08 00:00:00 Servando Mormon Medications Ordered Filled Start Stop Current Ordering Indication Dosage Frequency Signature Comments Components Source Medication Medication Date Date Medication? Clinician (SIG) Name Name venlafaxine 2019-03 Yes 150mg QD Take 150 [place] XR 0-06 mg by Methodi (EFFEXOR-XR 15:31: mouth st ) 150 MG 24 42 daily. hr capsule PRIMIDONE 2019-03 Yes 250mg Q.5D Take 250 Marcelo ston ORAL 0-06 mg by Methodi 15:31: mouth 2 st 42 (two) times a day. metoprolol 2019-03 Yes 100mg QD Take 100 [place] succinate 0-06 mg by Methodi XL 15:31: mouth st (TOPROL-XL) 42 daily. 100 mg 24 hr tablet omeprazole 2019-03 Yes 20mg QD Take 20 mg [place] (PriLOSEC) 0-06 by mouth Metho di 20 MG 15:31: daily. st capsule 42 losartan 2019-03 Yes 100mg QD Take 100 [place] (COZAAR) 0-06 mg by Methodi 100 MG 15:31: mouth st tablet 42 daily. rosuvastati 2019-03 Yes 40mg QD Take 40 mg Al n (CRESTOR) 0-06 by mouth Meth colleen 10 MG 15:31: daily. st tablet 42 levothyroxi 2019-03 Yes 75ug QD Take 75 Marcelo ston ne 0-06 mcg by Methodi (SYNTHROID, 15:31: mouth st LEVOXYL) 75 42 every mcg tablet morning. calcium 2019-03 Yes 1{tbl} Q.5D Take 1 [place] carbonate-v 0-06 tablet by Met [place] itamin D3 15:31: mouth 2 st 500 mg-200 42 (two) unit per times a tablet day with meals. ARIPiprazol 2019-03 Yes 5mg QD Take 5 mg [place] e (ABILIFY) 0-06 by mouth Meth colleen 5 MG tablet 15:31: daily. Pt s t 42 take it in the evening topiramate 2019-03 Yes 50mg Q.5D Take 50 mg [place] (TOPAMAX) 0-06 by mouth 2 Meth colleen 25 MG 15:31: (two) st tablet 42 times a day. One in the morning , one at night cholecalcif 2019-03 Yes 2000U QD Take 2,000 Al mario, 0-06 Units by Methodi vitamin D3, 15:31: mouth st 400 unit 42 daily. tablet letrozole 2019-03 Yes QD Take by [place] (FEMARA) 0-06 mouth Methodi 2.5 mg 15:31: daily. st chemo 42 tablet LORAZepam 2019-03 Yes .5mg Q6H Take 0.5 [place] (ATIVAN) 0-06 mg by Methodi 0.5 MG 15:31: mouth st tablet 42 every 6 (six) hours as needed for anxiety. vit A/vit 2019-03 Yes Take by [place] C/vit 0-06 mouth. Methodi E/zinc/stephanie 15:31: st er (ICAPS 42 AREDS ORAL) gabapentin 2019-03 Yes 100mg Q.[id number] Take 100 Al (NEURONTIN) 0-06 [id number] mg by Cici ethodi 100 mg 15:31: 3D mouth 3 st capsule 42 (three) times a day. ramelteon 2020- No 8mg QD Take 1 [place] (Rozerem) 8 5-12 05-12 tablet (8 Me thodi mg tablet 00:00: 23:59 mg total) st 00 :00 by mouth nightly. LORAZepam 2020- No .5mg Q6H Take 0.5 Marcelo ston (ATIVAN) 4-27 04-27 mg by Methodi 0.5 MG 12:20: 00:[address] tablet 26 :00 every 6 (six) hours as needed for anxiety. One tab Two times daily as needed ANASTROZOLE 2019- No 1mg QD Take 1 mg Al ORAL 06-26 by mouth Methodi 12:19: 00:[address] 25 :00 LORAZepam 2019-2019- No .5mg Q6H Take 1 [place] (ATIVAN) 06-26 tablet Methodi 0.5 MG 00:00: 23:59 (0.[address] tablet 00 :00 total) by mouth every 6 (six) hours as needed for anxiety for up to 10 doses. One tab Two times daily as needed amLODIPine 2019- No 10mg QD Take 1 [place] (NORVASC) 06-01 tablet (10 Met hodi 10 mg 00:00: 23:59 mg total) st tablet 00 :00 by mouth daily for 30 days. amLODIPine 2019- No 5mg QD Take 5 mg [place] (NORVASC) 05-31 by mouth Metho di 2.5 mg 17:16: 00:[address] tablet 04 :00 butalbital- Yes 1{tbl} Q6H Take 1 [place] acetaminoph 05-31 tablet by Met hodi en-caff 00:00: mouth st (FIORICET) 00 every 6 50-325-40 (six) mg per hours as tablet needed for headaches. levETIRAcet 2019- No 500mg Q.5D Take 1 [place] am (KEPPRA) 05-31 tablet Metho di 500 MG 00:00: 23:59 ([address] tablet 00 :00 total) by mouth every 12 (twelve) hours for 30 days. methylPREDN 2019- No follow Marcelo ston ISolone 05-31 package Methodi (Medrol, 00:00: 23:[address] Lemuel,) 4 mg 00 :00 tablet aspirin 2019-2019- No 81mg QD Take 81 mg Marcelo ston (ECOTRIN) 05-23 03-24 by mouth Metho di 81 MG 23:05: 00:[address] enteric 31 :00 06/17/17 coated tablet doxycycline 2019-2019- No 100mg Q.5D Take 100 Al (VIBRAMYCIN - 03-24 mg by Method i ) 100 MG 22:59: 00:[address] oral dosage 17 :00 (two) form times a day. rosuvastati 2019- No 10mg QD Take 10 mg Servando n (CRESTOR) 05-23 by mouth Met hodi 10 MG 22:58: 00:[address] tablet 37 :00 VIT A/VIT 2019- No Take by [place] C/VIT 05-23 mouth. Methodi E/ZINC/STEPHANIE 22:58: 00:00 st ER (ICAPS 16 :00 AREDS ORAL) topiramate No 50 mg = 1 [place] (TOPAMAX) 06-30 09-25 tab, PO, Metho di 50 MG 00:00: 00:00 Daily, # st tablet 00 :00 90 tab, 2 Refill(s), other amLODIPine Yes 10mg 10 mg. [place] (NORVASC) 425 Methodi 2.5 mg 00:00: st tablet 00 Vital Signs Vital Name Observation Time Observation Value Comments Source Systolic blood 2019-12-06 14:30:00 140 mm[Hg] [place] pressure Diastolic blood 2019-12-06 14:30:00 66 mm[Hg] [place] pressure Heart rate 2019-12-06 14:30:00 71 /min Servando Aguiar Body temperature 2019-12-06 14:30:00 36.33 Antoinette Uche Aguiar Respiratory rate 2019-12-06 14:30:00 18 /min Uche Aguiar Oxygen saturation in 2019-12-06 14:30:00 92 /min Servando Aguiar Arterial blood by Pulse oximetry Body height 2019-12-06 06:44:00 165.1 cm Seravndo Aguiar Body weight 2019-12-06 06:44:00 99.338 kg Servando Aguira BMI 2019-12-06 06:44:00 36.44 kg/m2 Servando Aguiar Procedures Procedure Date / Time Performing Clinician Source Performed CT ABDOMEN PELVIS WO 2020-02-09 00:00:00 Provider, Historical Ken Aguiar CONTRAST CT CHEST EXTERNAL STUDY 2020-02-01 10:43:[address] CHEST WO CONTRAST 2020-02-01 00:00:00 Provider, Historical Ken Laurentist CYTOLOGY 2019-12-06 10:19:00 Adolfo Park Nd yemiodist (NON-GYNECOLOGICAL) REQUEST CYTOLOGY 2019-12-06 10:13:00 Adolfo Park Nd thodist (NON-GYNECOLOGICAL) REQUEST XR CHEST 1 VW PORTABLE 2019-12-06 10:10:00 Shaun Sainz CYTOLOGY 2019-12-06 10:04:00 Adolfo Park Nd yemiodist (NON-GYNECOLOGICAL) REQUEST FUNGUS CULTURE 2019-12-06 09:51:00 Adolfo Park Nd yemiodist AFB CULTURE 2019-12-06 09:51:00 Adolfo Park Nd yemiodi ANAEROBIC CULTURE 2019-12-06 08:51:00 Adolfo Park AEROBIC CULTURE 2019-12-06 08:51:00 Adolfo Park Nd yemiodist GRAM STAIN 2019-12-06 08:51:00 Adolfo Park Nd yemiodi AFB STAIN 2019-12-06 08:51:00 Adolfo Park Nd clement RI AN ELECTIVE ENDOTRACHEAL 2019-12-06 08:11:32 Anusha Loera AIRWAY [place] COVID-19 QUALITATIVE PCR 2019-12-02 11:27:00 Adolfo Park PARTIAL THROMBOPLASTIN TIME 2019-12-02 11:27:00 Adolfo Park (PTT) PROTHROMBIN TIME WITH INR 2019-12-02 11:27:00 Adolfo Park COMPREHENSIVE METABOLIC 2019-12-02 11:27:00 Adolfo Park PANEL HC COMPLETE BLD COUNT 2019-12-02 11:27:00 Adolfo Park W/AUTO DIFF ESTIMATED GFR 2019-12-02 11:27:00 Adolfo Park Nd clement PET CT WHOLE BODY EXTERNAL 2019-12-01 08:51:00 Wade Layne STUDY PET CT SKULL BASE TO MID 2019-12-01 00:00:[address] CHEST EXTERNAL STUDY 2019-11-23 14:10:[address] CHEST W CONTRAST 2019-11-23 00:00:00 Provider, Susan Aguiar MRI BRAIN W WO CONTRAST 2019-11-08 00:00:[address] SKULL BASE TO MID 2019-07-13 00:00:00 ProviderAj THIGH POC GLUCOSE 2019-06-01 12:13:00 Kian Rutherford odist POC GLUCOSE 2019-06-01 07:42:00 Kian Rutherford odist POC GLUCOSE 2019-06-01 06:06:00 Kian Rutherford CANCER ANTIGEN 125 2019-06-01 04:00:00 Wade Layne ethodist CARCINOEMBRYONIC ANTIGEN 2019-06-01 04:00:00 Wade Layne (CEA) CANCER ANTIGEN 19-9 2019-06-01 04:00:00 Wade Layne CANCER ANTIGEN 15-3 2019-06-01 04:00:00 Wade Layne POC GLUCOSE 2019-05-31 21:00:00 Kian Rutherford odist POC GLUCOSE 2019-05-31 18:03:00 Kian Rutherford odist POC GLUCOSE 2019-05-31 17:17:00 Kian Rutherford US DUPLEX VENOUS UPPER 2019-05-31 13:27:28 Lilo Alexander EXTREMITY RIGHT POC GLUCOSE 2019-05-31 11:57:00 Kian Rutherford odist POC GLUCOSE 2019-05-31 07:43:00 Linh De Paz odist POC GLUCOSE 2019-05-31 06:16:00 Linh De Paz odsusan BASIC METABOLIC PANEL 2019-05-31 04:54:00 Kian Rutherford PHOSPHORUS LEVEL 2019-05-31 04:54:00 Kian Rutherford MAGNESIUM LEVEL 2019-05-31 04:54:00 Kian Rutherford HEMOGLOBIN A1C 2019-05-31 04:54:00 Kian Rutherford ESTIMATED GFR 2019-05-31 04:54:00 Kian Rutherford Meth odist POC GLUCOSE 2019-05-30 20:55:00 Linh De Paz Meth odist POC GLUCOSE 2019-05-30 18:47:00 Linh De Paz Meth odist POC GLUCOSE 2019-05-30 12:01:00 Linh De Paz Meth odist POC GLUCOSE 2019-05-30 07:43:00 Linh De Paz Meth odist POC GLUCOSE 2019-05-30 04:52:00 Linh De Paz Meth odist POC GLUCOSE 2019-05-30 01:09:00 Linh De Paz Meth odist POC GLUCOSE 2019-05-29 21:12:00 Linh De Paz Meth odist POC GLUCOSE 2019-05-29 17:00:00 Linh De Paz Meth odist POC GLUCOSE 2019-05-29 12:30:[address] P[address] odist [address] HEAD WO CONTRAST 2019-05-29 11:29:38 Lillian Cardona Mormon POC GLUCOSE 2019-05-29 08:12:00 Linh De Paz Meth odist POC GLUCOSE 2019-05-29 04:11:00 Linh De Paz odist POC GLUCOSE 2019-05-28 23:30:00 Linh De Paz Meth odist CBC HEMOGRAM 2019-05-28 19:35:00 Linh De Paz Meth odist POC GLUCOSE 2019-05-28 19:24:00 Linh De Paz Meth odist POC GLUCOSE 2019-05-28 15:46:00 Linh De Paz Meth odist POC GLUCOSE 2019-05-28 11:47:00 Linh De Paz Meth odist POC GLUCOSE 2019-05-28 07:40:00 Linh De Paz Meth odist CBC WITH PLATELET AND 2019-05-28 06:30:00 Vi Bailon Mormon DIFFERENTIAL POC GLUCOSE 2019-05-28 04:57:00 Linh De Paz Meth odist BASIC METABOLIC PANEL 2019-05-28 04:00:00 Vi [place]ailon Mormon IONIZED CALCIUM 2019-05-28 04:00:00 Adamaris Vi Al Meth odist MAGNESIUM LEVEL 2019-05-28 04:00:00 Adamaris Vi Al Meth odist PHOSPHORUS LEVEL 2019-05-28 04:00:00 Adamaris Vi Al Met hodist ESTIMATED GFR 2019-05-28 04:00:00 Linh De Paz Meth odist POC GLUCOSE 2019-05-28 00:06:00 Linh De Paz Meth odist POC GLUCOSE 2019-05-27 20:49:00 Linh De Paz Meth odist POC GLUCOSE 2019-05-27 18:18:00 Linh De Paz Meth odist POC GLUCOSE 2019-05-27 16:25:00 Linh De Paz Meth odist POC GLUCOSE 2019-05-27 11:37:00 Linh De Paz Meth odist BASIC METABOLIC PANEL 2019-05-27 11:25:00 Manolo Velez [place] LACTIC ACID LEVEL 2019-05-27 11:25:00 Manolo Velez Me thodist [place] ESTIMATED GFR 2019-05-27 11:25:00 Manolo Velez odist [place] IONIZED CALCIUM 2019-05-27 11:25:00 Manolo Velez odist [place] HEPATIC FUNCTION PANEL 2019-05-27 11:25:00 Manolo Velez on Mormon [place] POC GLUCOSE 2019-05-27 07:39:00 Linh De Paz Meth odist POC GLUCOSE 2019-05-27 04:22:00 Linh De Paz Meth odist HC COMPLETE BLD COUNT 2019-05-27 04:00:00 Linh De Pazist W/AUTO DIFF CT HEAD WO CONTRAST 2019-05-27 02:45:20 Marito Varela on Mormon XR CHEST 1 VW PORTABLE 2019-05-27 02:33:05 Michaela Linares MRI BRAIN W WO CONTRAST 2019-05-27 02:03:00 Marito Varela BASIC METABOLIC PANEL 2019-05-27 01:21:00 Milagros Michaela Aguiar IONIZED CALCIUM 2019-05-27 01:21:00 Michaela Linares Servando Bolanos ethodist MAGNESIUM LEVEL 2019-05-27 01:21:00 Michaela Linares Servando Cici ethodist PHOSPHORUS LEVEL 2019-05-27 01:21:00 Milagros, Michaela Servando Aguiar ESTIMATED GFR 2019-05-27 01:21:00 Michaela Linares Al Cici ethodist CBC HEMOGRAM 2019-05-27 00:55:00 Milagros Michaela Servando Bolanos ethodist POC GLUCOSE 2019-05-27 00:15:00 Linh De Paz Meth odist POC GLUCOSE 2019-05-26 19:54:00 Linh De Paz Meth odist POC GLUCOSE 2019-05-26 15:28:00 Linh De Paz Meth odist POC GLUCOSE 2019-05-26 14:12:[address] HEAD WO CONTRAST 2019-05-26 12:36:51 Marito Varela BASIC METABOLIC PANEL 2019-05-26 11:40:00 Marito Varela HC COMPLETE BLD COUNT 2019-05-26 11:40:00 Marito Varela W/AUTO DIFF PARTIAL THROMBOPLASTIN TIME 2019-05-26 11:40:00 Marito Varela (PTT) PROTHROMBIN TIME WITH INR 2019-05-26 11:40:00 Marito Varela ESTIMATED GFR 2019-05-26 11:40:00 Linh De Paz MISCELLANEOUS REFERRAL TEST 2019-05-26 10:00:00 Linh De Paz SURGICAL PATHOLOGY REQUEST 2019-05-26 09:11:00 Linh De Paz RI AN ELECTIVE ENDOTRACHEAL 2019-05-26 08:18:47 Edward Doip AIRWAY ARTERIAL LINE 2019-05-26 08:01:54 Raisa Worthy CRANIOTOMY 2019-05-26 07:23:00 Linh De Paz Meth odist FOLATE LEVEL 2019-05-26 04:55:00 Kian Rutherford Meth odist FERRITIN LEVEL 2019-05-26 04:55:00 Kian Rutherford Meth odist VITAMIN B12 LEVEL 2019-05-26 04:55:00 Kian Rutherford Me thodist THYROID STIMULATING HORMONE 2019-05-26 04:55:00 Kian Rutherford Mormon MAGNESIUM LEVEL 2019-05-26 04:55:00 DanishKian Meth odist LIPID PANEL 2019-05-26 04:55:00 DanishKian Meth odist PHOSPHORUS LEVEL 2019-05-26 04:55:00 Kian Rutherford Met hodist HC COMPLETE BLD COUNT 2019-05-25 18:15:00 Indy Pena Mormon W/AUTO DIFF Wanjiru BASIC METABOLIC PANEL 2019-05-25 18:15:00 Indy Pena Mormon Wanjiru ESTIMATED GFR 2019-05-25 18:15:00 Indy Pena Meth odist Wanjiru MRI BRAIN W WO CONTRAST 2019-05-25 16:15:00 Koby [address] Mormon Sheetzer CT CHEST W CONTRAST ABDOMEN 2019-05-25 14:52:34 Raj Peres W WO CONTRAST PELVIS W CONTRAST XR CHEST 1 VW PORTABLE 2019-05-25 13:05:00 Koby Roche on Mormon Sheetzer ECG 12-LEAD 2019-05-25 12:53:53 Kian Rutherford Meth odist POC GLUCOSE 2019-05-25 12:16:00 Linh De Paz Meth odist US DUPLEX VENOUS LOWER 2019-05-25 11:00:00 Koby Roche on Mormon EXTREMITY BILATERAL Sheetzer BASIC METABOLIC PANEL 2019-05-24 23:30:00 Raj Peres HC COMPLETE BLD COUNT 2019-05-24 23:30:00 Raj Peres W/AUTO DIFF PARTIAL THROMBOPLASTIN TIME 2019-05-24 23:30:00 Raj Peres (PTT) PROTHROMBIN TIME WITH INR 2019-05-24 23:30:00 Raj Peres Ra ESTIMATED GFR 2019-05-24 23:30:00 Linh De Paz Meth odist TYPE AND SCREEN 2019-05-24 23:30:00 Linh De Paz Meth odist MRI HEAD EXTERNAL STUDY 2019-05-24 12:42:[address] CHEST EXTERNAL STUDY 2019-05-02 14:00:00 Linh De Paz Plan of Care Planned Activity Planned Date Details Comments Source Future Scheduled 2019-10-01 INFLUENZA VACCINE [place] Test 00:00:00 [code = INFLUENZA VACCINE] Future Scheduled 2017-06-12 BREAST CANCER [place] Me thodist Test 00:00:00 SCREENING [code = BREAST CANCER SCREENING] Future Scheduled 1994 COLONOSCOPY SCREENING [place] Test 00:00:00 [code = COLONOSCOPY SCREENING] Future Scheduled 1994 SHINGLES VACCINES [place] Test 00:00:00 (#1) [code = SHINGLES VACCINES (#1)] Future Scheduled 1960 COVID-19 VACCINE (#1) [place] Test 00:00:00 [code = COVID-19 VACCINE (#1)] Encounters Start End Encounter Admission Attending Care Care Encounter Source Date/Time Date/Time Type Type Clinicians Facility Department ID 2020-02-17 2020-02-17 Outpatient [facility] [id number] [place] 00:00:00 00:00:00 EDWARD [address] 2020-02-14 2020-02-14 Laboratory Only, Adc [facility] [id number] 15:29:26 15:44:26 Only Test [place] [id number] [place] [id number] [place] [id number] 2020-01-02 2020-01-02 Outpatient [facility] [id number] [place] 00:00:00 00:00:00 LINH [address] 2019-12-06 2019-12-06 Outpatient [facility] [id number] [place] 00:00:00 00:00:00 EDWARD [address] 2019-12-05 2019-12-05 Outpatient WADE LAYNE [facility] [id number] [place] 00:00:00 00:00:[address] 2019-12-05 2019-12-05 Outpatient WADE LAYNE [facility] [id number] [place] 00:00:00 00:00:[address] 2019-12-02 2019-12-02 Outpatient VLAD, [facility] [id number] [place] 00:00:00 00:00:00 EDWARD [address] 2019-11-25 2019-11-25 Outpatient PARK, [facility] [id number] [place] 00:00:00 00:00:00 EDWARD [address] 2019-11-25 2019-11-25 Outpatient PARK, [facility] [id number] [place] 00:00:00 00:00:00 EDWARD [address] 2019-11-05 2019-11-05 Letter JONNY Bella [id number] 00:00:00 00:00:00 (Out) Rose Marie BARNES [id number] [facility] [id number] 2019-11-04 2019-11-04 Laboratory Lab, [facility] [id number] 10:17:33 10:37:33 Only Fam Pob I Health [id number] [place] [id number] Professio [id number] nal 0[address] One 2019-11-04 2019-11-04 Letter Doctor FULLER [id number] 00:00:00 00:00:00 (Out) UnassMOLLY easton [id number] [facility] [id number] 2019-07-12 2019-07-12 Outpatient WADE LAYNE [facility] [id number] [place] 00:00:00 00:00:[address] 2019-06-27 2019-06-27 Outpatient WADE LAYNE [facility] [id number] [place] 00:00:00 00:00:[address] 2019-06-13 2019-06-13 Outpatient DE PAZ, [facility] [id number] [place] 00:00:00 00:00:00 LINH 719 Method i 2019-05-24 2019-06-01 Inpatient KIAN RUTHERFORD [facility] [id number] [place] 00:00:00 00:00:00 942 Method i 2018-11-03 2018-11-03 Plumber Helper 1, Adc Lab [facility] [id number] 14:27:18 14:42:18 Visit Andre [id number] [place] [id number] [place] [id number] [facility] 2018-11-03 2018-11-03 Orders Doctor JONNY [id number] 00:00:00 00:00:00 Only Unassigned, MOLLY [id number] [facility] [id number] [id number] Results Test Description Test Time Test Comments Results Result Comments Source HGB HCT 2020-02-23 06:00:00 Test Item Value Reference Range Interpretation Comme nts HEMOGLOBIN (test code = HGB) 10.8 g/dL 12-16 L HEMATOCRIT (test code = HCT) 34.5 % 37-47 L HGB [id number] 05:54:00 Test Item Value Reference Range Interpretation Comments HEMOGLOBIN (test code = HGB) 10.7 g/dL 12-16 L HEMATOCRIT (test code = HCT) 33.3 % 37-47 L HGB [id number] 06:02:00 Test Item Value Reference Range Interpretation Comments HEMOGLOBIN (test code = HGB) 12.1 g/dL 12-16 N HEMATOCRIT (test code = HCT) 38.1 % 37-[address] Chest External [id number] 14:59:55This exam was not acquired at a [facility] facility and has not been interpreted by a [employer] Provider. The exam was imported into our imaging system.[facility] 2020-01-25 19:47:00 Test Item Value Reference Range Interpretation Comments SODIUM (test code = 139 mmol/L 136-145 N NA) POTASSIUM (test code = 4.0 mmol/L 3.5-5.1 N K) CHLORIDE (test code = 103.0 mmol/L 98-107 N CL) CARBON DIOXIDE (test 26.9 mmol/L 21-32 N code = CO2) GLUCOSE (test code = 101 mg/dL 70-110 N GLU) BLOOD UREA NITROGEN 20 mg/dL 7-18 H (test code = BUN) GLOMERULAR FILTRATION 65.2 >60 Unit o f measure: RATE (test code = GFR) mL/mi n/1.73 [id number] Range:Healthy Adults >90 mL/min/1.73 m2 For Chronic Kidney Disease: St age II Mild Decrease in GFR 60-90 St age III Moderate Decrease in GFR 30-59 Stage IV Severe Decre ase in GFR 15- 29 Stage V Kidney Failure <15 CREATININE (test code 0.85 mg/dL 0.55-1.30 N = CREAT) CALCIUM (test code = 8.5 mg/dL 8.2-10.1 N CA) PROTHROMBIN [id number] 18:28:00 Test Item Value Reference Range Interpretation Comments PROTHROMBIN TIME 11.6 secs 10.1-12.5 N PATIENT (test code = PTP) INTERNATIONAL NORMAL 1.04 <2.0 RECOMME NDED THERAPEUTIC RATIO (test code = RANGE FOR ORAL INR) ANTICOAGULANTTR EATMENT: CONDI TION INRProphylaxis of venous thrombos is in 2.0 - 3.0 high-risk medic al or surgical patientsTreatme nt of venous thrombos is 2.0 - 3.0Prevention o f embolism 2.0 - 3.0Prevention o f recurrent embol ism, or 3.0 - 4. 5 patients with mechanical pros thetic intravascular v oro IS PATIENT ON ANTICOAGULANTS ? NHas Lab been notified if Patient is on Heparin Drip? NOIf Yes, orderCBC, OCCULT BLOOD, PT every other day NTHROMBOPLASTIN TIME [id number] 18:28:00 Test Item Value Reference Range Interpretation Comments PTT ACTIVATED (test code = APTT) 32.8 secs 24.9-37.0 N IS PATIENT ON ANTICOAGULANTS ? NHas Lab been notified if Patient is on Heparin Drip? NOIf Yes, orderCBC, OCCULT BLOOD, PT every other day NCBC W/AUTO DIFF 2020-01-25 18:27:00 Test Item Value Reference Range Interpretation Comments WHITE BLOOD CELL (test code = WBC) 4.2 K/mm3 5.8-11.0 L RED BLOOD CELL (test code = RBC) 4.28 M/mm3 4.2-5.4 N HEMOGLOBIN (test code = HGB) 13.1 g/dL 12-16 N HEMATOCRIT (test code = HCT) 40.2 % 37-47 N MEAN CELL VOLUME (test code = MCV) 94 fL 80-98 N MEAN CELL HGB (test code = MCH) 30.6 pg 27-34 N MEAN CELL HGB CONCENTRATION (test 32.6 g/dL 30.8-34.1 N code = MCHC) RED CELL DISTRIBUTION WIDTH (test 14.6 % 11-16 N code = RDW) PLT (test code = PLT) 135 K/mm3 130-400 N MEAN PLATELET VOLUME (test code = 11.8 fL 8.9-12.1 N MPV) NEUTROPHIL % (test code = NT%) 61.9 % 45-70 N LYMPHOCYTE % (test code = LY%) 21.0 % 20-40 N MONOCYTE % (test code = MO%) 11.8 % 3-10 H EOSINOPHIL % (test code = EO%) 3.6 % 1-5 N BASOPHIL % (test code = BA%) 1.2 % 0.0-1.1 H NEUTROPHIL # (test code = NT#) 2.57 K/mm3 2.00-7.50 N LYMPHOCYTE # (test code = LY#) 0.87 K/mm3 1.50-4.00 L MONOCYTE # (test code = MO#) 0.49 K/mm3 0.2-0.8 N EOSINOPHIL # (test code = EO#) 0.15 K/mm3 0.04-0.4 N BASOPHIL # (test code = BA#) 0.05 K/mm3 0.02-0.10 N MANUAL DIFF REQUIRED (test code = NO MANUAL DIFF MDIFF) NUCLEATED RED BLOOD CELL (test 0 % 0-0 N code = NRBC) - MRI L-SPINE W/O [id number] 11:24:00 [facility] : 1945 Sex: F Patient Name: ODALIS RUVALCABA Unit No: [id number] EXAMS: CPT CODE: [id number] MRI L-SPINE W/O CONT 62432 DIAGNOSIS: 1. At L1-2 there is 2 mm of disc bulging with annular fissuring and slight retrolisthesis. Mild left foraminal narrowing is seen without right-sided stenosis. Mild central canal stenosis is present with facet and ligamentum flavum hypertrophic and degenerative change. 2. At L2-3 there is 2 mm of left posterior lateral a nd foraminal disc bulging with mild left foraminal narrowing without right-sided stenosis. Moderate constriction of the thecal sac is seen due to facet and ligamentum flavum hypertrophic and degenerative change and prominent posterior epidural fat. 3. At L3-4 there is 2mm of disc bulging in the foramina with slight narrowing. Moderate constriction of the thecalsac is seen due to facet and ligamentum flavum hypertrophic and degenerative change and epidural lipomatosis. 4. At L4-5 there is no evidence for disc bulge or herniation. Mild right foraminal narrowing is seen without left-sided stenosis. Marked canal stenosis is present due to facet and ligamentum flavum hypertrophic and degenerative change and epidural lipomatosis. 5. At L5-S1 there is posterior annular fissuring without bulging or protrusion ofthe disc contour. No foraminal narrowing is seen. There is mild narrowing of the central canal with facet and ligamentum flavum hypertrophic and degenerative change. COMMENT: COMPARISON: No prior exams available. Scans were performed in the sagittal and axial planes utilizing T1, T2 and inversion recovery images. Signal intensities in the lumbar vertebra are within normal limits. The discs are desiccated. There is a mild scoliosis convex left. Disc configurations are as described. Spondylitic changes are as noted. The conus is in the expected location. The description these findings assumes a normal count of 5 lumbar type vertebra. at 1124 Reported and signed by: Peter Muro MD CC: Kian Hansen MD Technologist: GERTRUDIS ARREDONDO RT(R) Transcribed D/ (112) [facility] OD[facility] RUVALCABA [address] [facility] PHYS: Kian Harmon Veronica Cici : 1945 AGE: 74 SEX: F [place] [address] LOC: Y.MRI PHONE #: [phone] EXAM DATE: 01/25/2020 STATUS: REG CLI FAX #: [phone] RAD #: D/C DT PAGE 1 Signed Report Patient Name: ODALIS RUVALCABA Unit No: [id number] EXAMS: CPT CODE: [id number] MRI L- SPINE W/O CONT 82908 <Continued> Orig Print D/T: S: 01/25/2020 (112) [facility] NAME[facility]ABABARBERT[facility]ITALShavon [address] [facility] PHYS: Kian Harmon Veronica Cici : 1945 AGE: 74 SEX: F [place] [address] LOC: Y.MRI PHONE #: [phone] EXAM DATE: 01/25/2020 STATUS: REG CLI FAX #: [phone] RAD #: D/C DT PAGE 2 Signed ReportAFB [id number] 12:13:09 Test Item Value Reference Range Interpretation Comments AFB culture No growth Specimen isolate (test after 6 weeks InformationSp ecimen code = 543-9) of Source: FluidS pecimen incubation. Site: Lun R Serv[facility] MethodistFungus [id number] 12:15:09 Test Item Value Reference Range Interpretation Comments Fungus culture No growth Specimen isolate (test after 4 weeks InformationSp ecimen code = 1441) of Source: FluidSp ecimen incubation. Site: Lun R [facility] MethodistAnaerobic [id number] 09:47:41 Test Item Value Reference Range Interpretation Comments Anaerobic No anaerobic Specimen culture isolate organisms InformationS pecimen (test code = isolated. Source: FluidSp ecimen 552) Site: Lun R Servando MethodistAFB [id number] 14:21:55 Test Item Value Reference Range Interpretation Comments AFB stain No acid fast Specimen (test code = bacilli (AFB) InformationSpe cimen 676-7) seen. Source: FluidSp ecimen Site: Lun R Al MethodistAerobic [id number] 14:21:55 Test Item Value Reference Range Interpretation Comments Aerobic culture No growth Specimen isolate (test after 3 days. InformationSp ecimen code = 498) Source: FluidSp ecimen Site: Lun R Serv[facility] MethodistFungus [id number] 14:21:55 Test Item Value Reference Range Interpretation Comments Fungus smear No fungi Specimen (test code = observed. InformationSpec imen Source: 1443) FluidSpecimen S ite: Lun R Servando aLurentistGram [id number] 14:21:55Gram stain isolateRare WBC'sNo organisms seen Comment: Specimen InformationSpecimen Source: FluidSpecimen Site: Lun R [facility] MethodistCytology (non- gynecological) [id number] 14:27:18 Test Item Value Reference Range Interpretation Comments Case number (test code = [id number]) Cytology See link below for (non-gynecological) PDF Lab Report report (test code = 1178) Result status (test code This is Final Report = [id number]) for [id number] [facility] 1 Vw [id number] 10:19:02Hm Interface, Radiology Results Incoming - 12/06/2019 10:22 AM CDTEXAMINATION: XR CHEST 1 VW PORTABLEHISTORY: post biopsyCOMPARISON: PET/CT 12/01/2019IMPRESSION: Support Devices: None.Mediastinum: Unchanged prominence of cardiomediastinal silhouette.Lungs: Multifocal linear opacities at left mid lungand both lung bases suggestive of atelectasis or postbiopsy change. Relative lucency at left midlungcontains interstitial markings, unlikely to represent pneumothorax. No convincing pneumothorax. No pleural effusion. Bones/Other: Metallic clips overlie right axilla.1D2RAD_PS02[place] DzftnlottBnypqb9118-15-35 08:11:32 Anusha Loera 12/06/2019 8:14 AMAirway Date/Time: 12/06/2019 8:08 AMPerformed by: Anusha Loerauthorized by: Sophie Goss MD Location: ORUrgency: ElectiveAnesthesiologist: Sophie Goss, MDResident/DOCUMENTATION CONSULTANT/AA: Anusha Loera Anesthesia Staff: Gabriel Young EPerformed by: other anesthesia staffPreoxygenated with 100% O2: Yes C-spine Precautions Maintained Throughout: Yes Mask Ventilation: Easy maskFinal Airway Type: Endotracheal airwayFinal Endotracheal Airway: ETTCuffed: Yes Technique Used: Video laryngoscopyDevices/Methods Used in Placement: Intubating styletInsertion Site: OralBlade type: Glidescope.Laryngoscope Blade/Videolaryngoscope Blade Size: 3ETT Size (mm): 9.0Cuff at minimum occlusion pressure: Yes Measured from: LipsETT to Lips (cm): 23Placement Verified by: CO2 detection and equal breath sounds Laryngoscopic view: Grade I - full view of glottisRapid Sequence Induction (RSI): No Modified RSI: No Number of Attempts at Approach: 1 Preoxygenation on 100% FiO2. Smooth IV induction. Eyes taped. Easy mask ventilation with OPA. Glidescope 2 used with grade 1 view. ETT passed atraumatically through vocal cords. Cuff to seal. Absent gurgling over epigastrium, positive chest rise, positive EtCO2. Taped to secure.No damage to lips, teeth, or gums. VSS.[facility] MethodistPET/CT Whole Body External [id number] 20:34:18This exam was not acquired at a [facility] facility and has not been interpreted by a [facility] Provider. The exam was imported into our imaging system.[facility] Surgical pathology [id number] 11:24:09 Test Item Value Reference Range Interpretation Comments Case number (test [id number] code = 2493112) Surgical pathology See link below for PDF report (test code = Lab Report 2255) Result status (test This is Supplemental code = 0088789) Report for [id number] MARC (test code = MARC) BRAIN TUMOR #2ARUP TEST #[id number] SOLID TUMOR MUTATION [id number] MethodistMiscellaneous referral [id number] 09:03:42 Test Item Value Reference Range Interpretation Comments Misc test name ZAN SOLID TUMOR (test code = PANEL 2566) Misc test SEE NOTE Solid Tumor Mut ation result (test Panel by Next G eneration code = 1730) Sequencing ARUP test code 5526198 So lid Tumor Panel By NGS Interpretation See Note SAMPLE SOURCE: Brain, right frontal lobeCLINICAL HI STORY: Metastatic adenocarcinoma, favor invasive ductal carcinoma of th e breast I. TIER 1: Acti onable (FDA Approved T herapies in Patient Tumo r Type, Established [place] gnostic or Prognostic Significance) N one Detected II. T IER 2: Potentially Act ionable (FDA Approved T herapies in another Tumo r Type, Potential Diagn ostic or Prognostic Sign ificance) 1. 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 This particular miss ense mutation (p.Daniela 132Arg) is presumed to alter the normal function of the tumor suppresso r p53 (2). This varia nt has been reported i n a variety of canc er types, including breas t cancer (3, 4). Clinica l trials for VZ97-yfvsvc d breast cancers are cur rently underway (clinicaltrials .gov). III. TIER 3: Va riants of Unknown Signifi cance (VUS) None Dete cted IV. Low coverage re gions: This list conta ins regions where t he average sequenc ing depth (number of time s a particular posi tion is sequenced) for 20% or more of the reg ion is below our strin gent cutoff of 300X. Sensitivity for detection of lo w allelic frequency mutat ions may be reduced in a reas with low depth of co verage. The sequencing reads from these salma ons were manually review ed. If high quality va riants are detected in these regions, they w ill be listed above in Tier 1, Tier 2, or Tier 3. NONE REFERENCES:1.N. Cancer Genome [place], Comprehensive m olecular portraits of chidi messer breast tumours. Nature 2012. PMID: 02888304.2.IARC TP53 database websit e: http://p53.iarc .fr/TP53G eneVariations.a spx3.COSM IC database web site: http://cancer.s [facility].ac. uk/cancergenome /projects /cosmic/4.cBioP ortal database websit e: http://www.cbio portal.or g/5.Sagar Martínez et al., Standards and G uidelines for the Interpr etation and Reporting o f Sequence Varian ts in Cancer: A Joint Consensus Recom mendation of the Associat ion for Molecular Patho logy, [place] Societ y of Clinical Oncolo gy, and College of Amer [facility] Pathologists. T baylee Journal of mole cular diagnostics : Margo BRADFORD 2017. PMID: 84202561. This result has been reviewed and approved by Desirae Davis M.D.BA CKGROUND INFORMATION: So lid Tumor Mutation Panel by Next Generation SequencingCHARA CTERISTIC S: Specific alpesh atic variants have b een discovered in m ultiple cancer-related genes and have diagnostic , therapeutic and /or prognostic util ity in several cancer types. Targeted next g eneration sequencing is u tilized in this test fo r the detection of ho tspot variants within 44 cancer-related genes and includes extend ed BRITTON variant detecti on. The personalized va riant profile may be useful for prediction of patient diagnos is, prognosis and/o r response to tar geted therapies in so lid tumors includin g, melanoma, gastrointestina l stromal tumors (GIST), colorectal canc ers, bladder cancers , and hepatocellular cancers.GENES T ESTED: AKT1, ALK, APC, SILVANA, BRAF, CDH1, CDK N2A, CTNNB1, DDR2, E GFR, ERBB2, ERBB4, E ZH2, FBXW7, FGFR1, F GFR2, FGFR3, GNA11, G NAQ, GNAS, HRAS, IDH 1, IDH2, KDR, KIT, KRAS, MAP2K1, MET, MTOR, NOTC H1, NRAS, NTRK1, PDGFRA, PIK3CA, PTEN, RB1, RET, ROS1, SMAD4, SMO, STK 11, TERT promoter, TP53, VHL. A full list of ta rgeted regions within the above genes is availa ble through this li nk: http://ltd.[employer].Stand Offer/T ests/Pdf/375.ME THODOLOGY : Genomic DNA i s isolated from microscopically -guided dissection of t umor tissue and then enriched for the targete d regions of the tested g tyrell. The variant status of the 44 targeted genes is determined by m assively parallel sequen cing (next [facility] hospital[facility] n sequencing). Th e hg19 (GRCh37) refere nce sequence is use d as a reference for identifying gen etic variants.LIMITA TIONS: This test will not detect variants in areas outside the tar geted genomic regions or below the limit of de tection. Copy number alt erations, translocations, microsatellite instability, an d tumor mutational camille en will not be detected . If clinical indica tion is lung cancer, ad ditional clinical evalua tion may be considered f or complete geneti c analysis includ ing, detection of translocations or gene rearrangements. This test is not int ended to detect minimal residual disease. This t est evaluates for v ariants in tumor tissue only and cannot distingu cynthia between somatic and germline varian ts. Therefore, if a hereditary/fami lial cancer is of cl inical concern, consid er additional clin ical evaluation and genetic counseling prio r to additional test ing. In some cases, milan iants may not be identifi ed due to technical limit ations in the presence of known pseudogenes, ho mologous regions and/or low mapability salma ons. This includes varian ts in PTEN exons 1, 2 , 4, 5, 6, 7, 8 and 9; MAP2K1 exons 2, 7 and 11; CDKN2A exon 2, PIK3CA exons 10 and 14 ; GNAQ exon 5; EZH2 ex on 18; and BRAF exon 1 1. It is also possible t hat some large insertion /deletion variants (espec ially those greater t montana 60bp) may not be dete cted. Tissue samples yielding at least 10ng a re acceptable but may yield suboptimal resu lts if yield is less t montana 50ng.LIMIT OF D ETECTION: 5 percent mutan t allele for single nucl eotide variants (SNV), small to medium sized multi-nucleotid e variants (MNV) (less than 60bp).ANAL YTICAL SENSITIVITY (PP A): Analytical sens itivity for all variant classes available throu this link: http://ltd.[employer]/T ests/Pdf/375.CL INICAL DISCLAIMER: Res ults of this test must always be interpreted wit hin the clinical contex t and other relevant data and should not be u sed alone for a diagnosis of malignancy. Thi s test is not intended to detect minimal residua l disease.Test de veloped and characteris tics determined by A [facility]. S ee Compliance Stat ement B: [employer]/CS- - - - - - - - - - - - - - - - - - - - - - - - - - - - - -EER Solid Tumo r Panel by NGS EERUnava ilable - - - - - - - - - - - - - - - - - - - - - - - - - - - - - -Solid Tumor Panel by NGS Bl ock ID [id number] B3 - - - - - - - - - - - - - - - - - - - -Order comments Solid Tumor Mutation Panel by Next Generation SequencingBRAIN TUMOR #2ARUP TEST #20 [id number] SOLID TUMOR MUT ATION [id number] B3 ========= ========= Te st performed by:[employer] [place] [address] MARC (test code BRAIN TUMOR = MARC) #2ARUP TEST #[id number] SOLID TUMOR MUTATION [id number] [facility] [id number] 12:14:36 Test Item Value Reference Range Interpretation Comments POC glucose (test code 178 mg/dL 65-99 H Opera tor Name: = 13261-6) Shahla DeseriaDevice I D: [id number] able: [facility] Notified model maker plaster Interpretation Abnormal (test code = 80228-9) Servando MethodistCarcinoembryonic antigen (CEA)2019-06-01 07:01:10 Test Item Value Reference Range Interpretation Comments CEA (test code = 2.7 ng/mL 0-3.8 Reference r david for heavy 2038-07) smokers: 0.0 - 5.5 ng/mLThe FREDI Eladio 8000 CEA immunoassay was used. Results obtaine d with different assay methods or kits should not be used interchangeably and may be different. [facility] MethodistCancer antigen [id number] 07:00:42 Test Item Value Reference Range Interpretation Comments CA 125 (test code 28 U/mL 0-35 The Fredi Eladio 8000 CA125 = 08152-4) immunoassay was used. Results obtaine d with different assay methods or kits should not be used interchangeably and may be different. [facility] MethodistCancer antigen [id number] 07:00:42 Test Item Value Reference Range Interpretation Comments CA 15-3 (test code 22 U/mL 0-25 The Fredi Eladio 8000 CA153 = 1005) immunoassay was used. Results obtaine d with different assay methods or kits should not be used interchangeably and may be different. [facility] MethodistCancer antigen [id number] 07:00:42 Test Item Value Reference Range Interpretation Comments CA 19-9 (test code 12 U/mL 0-35 The Fredi Eladio 8000 CA19-9 = 1006) immunoassay was used. Results obtaine d with different assay methods or kits should not be used interchangeably and may be different. [facility] MormonUs duplex venous upper rsvwpyinx9397-86-11 15:18:00Interface, Radiology Results In - 05/31/2019 3:18 PM CDT Vascular Ultrasound Laboratory Upper Extremity Venous [id number] [address] Pat.Name: ODALIS RUVALCABA Pat.ID: [id number] .Date: 05/31/2019 Refer.MD: LILO ALEXANDER MD Exam Time: 12:53:00 PM Study Type:UE Venous Height: 66in Age: 2 1945,74Y Sex: FEMALE Sonogrphr: ELLY Ferreira, ETHAN Pat. Stat.:Inpatient Room: [address] Tape Vol: JM, CPT - 4: 60962 Echo Event ID:[id number] Order ID: [id number] Reason for Study:RUE swelling or pain, DVT suspected. S/p rightfrontotemporal craniotomy for excision of tumor on 05/26/19. PMH ofbreast cancer s/p bilateral mastectomy followed by adjuvantchemoradiation, lung cancer s/p XRT, both in remission, generalizedanxiety disorder, osteoarthritis s/p bilateral hip replacements in , AMAN, HTN, HLD, essential tremor,Procedures: Colorflow, Grayscale/2D, Pulsed wave DopplerRace: C SUMMARY: DUPLEX SCAN OBSERVATIONS Right LeftIJ Normal Subclavian Normal NormalAxillary Normal Brachial Normal Basilic Obstructed Cephalic Normal RIGHT: The basilic vein at the antecubital fossa is non compressiblewith echogenic material filling the lumen, color flow and Dopplersignals are absent. The remaining visualized veins are patent.LEFT: There is normal compressibility and no evidence of echogenicmaterial noted within the lumen of the subclavian vein. Colorflow andDoppler signals are normal.PRELIMINARY FINDINGS1. 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 No evidence of deep vein thrombosis in the visualized veins.*Preliminary result reported to CINTHIA Jonas @ 2545 on 05/31/19.PHYSICIAN INTERPRETATION Venous examination of the right upper extremity and neck demonstratedno evidence of deep venous thrombosis. Total superficial vein thrombosis in right basilic vein at theantecubital f sofya. FINDINGS: ------Signed 05/31/2019 03:18 Marsha Erwin MD, RPVIOsseo Mormon Hemoglobin [id number] 07:30:18 Test Item Value Reference Range Interpretation Comments Hemoglobin A1C (test 6.9 % 4-5.6 H HbA1c c utoffs for code = 13230-1) diagnosing diabetes:4.0% - 5.6% = normal5.7% - 6.4% = increased risk for diabetes (prediabetes)9> =6.5% = kavallyq5Hrtx s for glycemic contro l (ADA 2016)< 7.0% Ta rget for non adults with elgin betes. More or less stringent targe ts may be appropriate for individual naomi ents. <7.5% Target for Children and adolescents wit h type 1 diabetes. Lab Interpretation (test Abnormal code = 97765-8) [facility]se[facility] MethodistBasic metabolic [id number] 05:38:21 Test Item Value Reference Range Interpretation Comments Sodium (test code = 2951-2) 139 135- 148 mEq/L Potassium (test code = 2823-3) 4.7 3.5- 5.0 mEq/L Chloride (test code = 2075-0) 102 98- 112 mEq/L CO2 (test code = 8-9) 25 24- 31 mEq/L Anion gap (test code = 12932-6) 12@ANIO 7- 15 mEq/L BUN (test code = 3094-0) 21 mg/dL 8-23 Creatinine (test code = 2160-0) 0.71 mg/dL 0.5-0.9 Glucose (test code = 2345-7) 178 mg/dL 65-99 H Calcium (test code = 21644-5) 9.0 mg/dL 8.8-10.2 Lab Interpretation (test code = Abnormal 75740-2) [facility] MethodistMagnesium [id number] 05:38:21 Test Item Value Reference Range Interpretation Comments Magnesium (test code = 49256-5) 2.4 mg/dL 1.6-2.4 [facility] MethodistPhosphorus [id number] 05:38:20 Test Item Value Reference Range Interpretation Comments Phosphorus (test code = 2777-1) 3.0 mg/dL 2.4-4.5 Os[facility] MethodistCT Head Wo [id number] 11:38:30Hm Interface, Radiology Results Incoming - 05/29/2019 11:41 AM CDTEXAMINATION: CT HEAD WO CONTRASTCT IMAGING WAS PERFORMED WITH ITERATIVE RECONSTRUCTION TECHNIQUE AND/OR AUTOMATED EXPOSURE CONTROL TO REDUCE RADIATION DOSE.CLINICAL HISTORY: f u craniCOMPARISON: CT brain May 27, 2019FINDINGS:Acute postoperative changes again noted with a right frontotemporal craniotomy. There is a mild (6 mm thic kness) extra-axial collection of a hemorrhage, cerebral spinal fluid and air over the superior lateral frontal convexity on the right side with the air decreased. There is a mild to moderate amount of subdural hemorrhage along the falx superiorly on the right side which is slightly diminished. There is an approximately 2 cm air filled operative defect in the anterior superior right frontal lobe similar that seen on the prior study. There is a marked amount of vasogenic edema in the right frontal lobe which is unchanged. There is mild continued right hemispheric mass effect with approximately 6 mm mm shift of the midline structures to the left..IMPRESSION:Evolving postop changes.[facility]-8YF23217ZYHokeldu MethodistCBC irjccakc7806-34-79 21:49:27 Test Item Value Reference Range Interpretation Comments WBC (test code = 59800-8) 8.29 4.50- 11.00 k/uL RBC (test code = 07628-2) 3.77 m/uL 4.2-5.5 L HGB (test code = 718-7) 11.6 g/dL 12-16 L HCT (test code = 4544-3) 36.5 % 37-47 L MCV (test code = 787-2) 96.8 fL 82-100 MCH (test code = 785-6) 30.8 pg 27-34 MCHC (test code = 786-4) 31.8 g/dL 31-37 RDW - SD (test code = 81808-7) 47.4 fL 37-55 MPV (test code = 71557-6) 12.5 fL 8.8-13.2 Platelet count (test code = 153 150- 400 k/uL 06511-4) Nucleated RBC (test code = 0.00 /100 WBC 46626-4) Lab Interpretation (test code = Abnormal 33972-6) [facility] ozajnfj9671-29-78 08:20:42 Test Item Value Reference Range Interpretation Comments pH (test code = 2753-2) 7.57 Ionized calcium (test code = 1.06 mmol/L 1.11-1.32 L ) Lab Interpretation (test code = Abnormal 19344-4) [facility] MethodistHepatic function [id number] 12:22:03 Test Item Value Reference Range Interpretation Comments Albumin (test code = 3.6 g/dL 3.5-5 1751-7) Total bilirubin (test code <0.2 0-1.2 = 1974-) Bilirubin direct (test <0.2 0-0.3 code = 1967-) Alkaline phosphatase (test 108 U/L 35-104 H code = 6768-6) Protein (test code = 6.8 g/dL 6.3-8.3 -[place] n 2885-2) 4.6-7.0 g /dL1 week 4.4-7.6 g/dL 7 months-1year 5.1-7.3 g/dL 1-2 years 5.6-7.5 g/dL>3 years 6.0-8.0 g/sV71-696 6.3-8. 3 g/dL ALT (test code = 1742-6) 17 U/L 5-50 AST (test code = 1920-8) 21 U/L 10-35 Lab Interpretation (test Abnormal code = 38803-8) [facility] MethodistLactic acid [id number] 12:17:19 Test Item Value Reference Range Interpretation Comments Lactic acid (test code = 76161-3) 2.3 mmol/L 0.5-2.2 H Lab Interpretation (test code = Abnormal 78358-2) Al [id number] 08:18:47Edward Diop Jr. 05/26/2019 8:20 AMAirwayDate/Time: 05/26/2019 7:44 AMPerformed by: Edward Diop Jr.Authorized by: Sudhir Headley MD Location: ORUrgency: ElectiveDifficult Airway: No Anesthesiologist: Sudhir Headley MDResiarpitat/DOCUMENTATION CONSULTANT/AA: Edward Diop Jr.Performed by: anesthesiologistPreoxygenated with 100% O2: Yes Mask Ventilation: Not attemptedFinal Airway Type: Endotracheal airwayFinal Endotracheal Airway: ETTCuffed: Yes Technique Used: Video laryngoscopy ( glidescope 3)Insertion Site: OralLaryngoscope Blade/Videolaryngoscope Blade Size: 3ETT Size (mm):7.0Cuff at minimum occlusion pressure: Yes Measured from: TeethETT to Teeth (cm): 22Placement Verified by: CO2 detection and direct visualization Laryngoscopic view: Grade I - full view of glottisRapid Sequence Induction (RSI): No Modified RSI: Yes Number of Attempts at Approach: 1 Eyes tapedclosed at LOC and prior to airway manipulation. Atraumatic ETT insertion att x 1 by DOCUMENTATION CONSULTANT. +EtCO2, +BBS. Dentition unchanged. Patient intubated by Dr Headley with PAPR on.Servando MethodistArterial [id number] 08:01:54Edward Diop Jr. 05/26/2019 8:03 AMArterial linePerformed by: Raisa Worthy MDAuthorized by: Sudhir Headley MD Patient Location: ORStart Time: 05/26/2019 7:58 AMEnd Time: 05/26/2019 8:00 AMStaff: Anesthesiologist: Raisa Worthy MD Performed by: AnesthesiologistPre-procedure: patient identified, IV checked, site and side verified, procedure verified, patient position confirmed, monitors and equipment checked and pre-op evaluation complete MSBT: antisepticused, hand hygiene performed and cap/gown used by other personnel Indications: Indications: hemodynamic monitoring Anesthesia: Anesthesia: GeneralProcedure Details: Arterial Line placement: Placed post induction Line placement site: RadialLine placement side: Left Arterial line gauge: 20 GNumber of attempts: 1Ultrasound guidance used: No Post-procedure: Post-procedure: Sterile dressing applied Post procedure circulation, sensation, movement: Unable to assess Patient tolerance: Patient tolerated the procedure well with no immediate complicationsServando AguiarVitamin B12 level 2019-05-26 06:03:33 Test Item Value Reference Range Interpretation Comments Vitamin B12 (test 282 pg/mL 211-946 Significan t overlap code = 2132-9) exists betwee n normal and deficiency states.However, most patients with deficiencies wi ll have Serum B12 <2 00 pg/mL. Servando AguairFolate [id number] 06:03:33 Test Item Value Reference Range Interpretation Comments Folate (test code = 2284-8) 9.3 ng/mL 4.8-24.2 Al MethodistThyroid stimulating [id number] 05:53:28 Test Item Value Reference Range Interpretation Comments TSH (test code = 3016-3) 0.98 0.27- 4.20 uIU/mL Al MethodistFerritin [id number] 05:51:03 Test Item Value Reference Range Interpretation Comments Ferritin level (test code = 2276-4) 60 ng/mL 13-150 [facility] MethodistLipid [id number] 05:48:53 Test Item Value Reference Interpretation Comments Range Cholesterol (test 310 mg/dL <200 H code = 2093-3) Triglycerides (test 103 mg/dL <150 code = 2571-8) HDL cholesterol 58 mg/dL >40 (test code = 2085-9) LDL cholesterol 239 mg/dL <100 H Result obtai yoni by direct (test code = 2089-1) LDL kimberly surement Lipid panel SeeBelow Total Cholester ol (mg/dL) interpretation (test < 200 code = 39875-7) Desirable 200-239 Borderline -high >=240 Hi gh Triglyceri nikolay (mg/dL) <150 No rmal 150-199 Borderline-high 200-499 High >=500 Very high HDL Choles terol (mg/dL) <40 Low (male) < 40 Low (female) L DL Cholesterol (mg /dL) <100 Optimal 1 00-129 Near or above o ptimal 130-159 Borderline-high 160-189 High >=190 Very high Risk Cat ergories that modify LDL goals.Risk Catergories LDL goal (mg/dL )CHD and CHD risk equiva lent <100 (10-year risk >20%)Multiple ( 2+) risk factors < 130 (10-year risk = <20%)0-1 risk factors <160 (<10-ye ar risk) Defining levels of lipids in metabolic syndromeTriglyc erides > =150 mg/dLHDL Choles terol Men <40 mg/dL Women <40 mg/dL Non-HDL cholest mario is a second target f or therapy in personswith high triglycerides ( >=200 mg/dL) Lab Interpretation Abnormal (test code = 01871-9) Al MethodistECG 12 [id number] 21:20:38 Test Item Value Reference Range Interpretation Comments Ventricular rate (test 79 code = 253) Atrial rate (test code 79 = 255) RI interval (test code 136 = 266) QRSD interval (test 70 code = 260) QT interval (test code 404 = 264) QTC interval (test code 463 = 265) P axis 1 (test code = 47 267) QRS axis 1 (test code = -2 268) T wave axis (test code 34 = 270) EKG impression (test Normal sinus code = 273) rhythm-Normal ECG-In automated comparison with ECG of 15-JUN-2015 15:46,-QT has lengthened-Electronica lly Signed By Mike Buchanan MD ([id number]) on 05/25/2019 9:20:32 PM [facility] MethodistCT Chest W Contrast Abdomen W Wo Contrast Pelvis W Contrast 2019-05-25 15:08:27Hm Interface, Radiology Results 05/25/2019 3:11 PM CDTEXAMINATION: CT CHEST W CONTRAST ABDOMEN W WO CONTRAST PELVIS W CONTRASTCLINICAL HISTORY: metastatic workupTECHNIQUE: Axial images ofthe abdomen were obtained prior to intravenous contrast administration. Multiple axial images of thechest, abdomen, and pelvis were obtained following intravenous administration of iodinated contrast.Sagittal and coronal computerized reformatted images were obtained.CT imaging was performed with iter ative reconstruction techniques and/or automated exposure control to reduce radiation dose. COMPARISON: Chest CT 05/02/2019FINDINGS:Chest: 1. There is stable linear scar in the left upper lobe. A tiny juxtapleural scarlike 4 mm nodule is stable since 2017.2.There is a subsolid 1 cm nodule in the left lower lobe that has not substantially grown since 2017.3.The right lung is clear.4.There is no pleural or pericardial effusion.5.No thoracic lymphadenopathy is seen.6.Heart size is normal.Abdomen and Pelvis:1. The liver, spleen, pancreas, gallbladder, and adrenals are normal.2.A couple of subcentimeterbilateral renal cysts are present. There is no hydronephrosis. The urinary bladder is normal.3.Thereis sigmoid diverticulosis. No small or large bowel obstruction or inflammation is seen. The stomachand appendix are within normal limits.4.No lymphadenopathy or ascites is seen.5.The uterus is absent. 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 There is no acute or aggressive skeletal finding.IMPRESSION:No signs of metastatic disease.Stable groundglass nodule in the left lower lobe, differential including postinflammatory scarring or indolent adenomatous lesion such as in situ or minimally invasive adenocarcinoma.[id number] MethodistUs duplex venous lower extremity 2019-05-25 12:06:00Interface, Radiology Results In - 05/25/2019 12:07 PM CDT [facility] Lower Extremity Venous [address] [place] [address] Pat.Name: ODALIS RUVALCABA Pat.ID: [id number] .Date: 05/25/2019 Refer.MD: LINH DE PAZ MD Exam Time: 10:19:00 AM Study Type:LE Venous Height: 66in Weight: 201lb BSA: 2.01 m2 Age: 2 1945,74Y Sex: FEMALE Sonogrphr: Nighat Cabezas RVT Pat. Stat.:Inpatient Room: [address] Vol: LN, CPT - 4: [address]607 Echo Event ID:[id number] Order ID: [id number] Reason for Study:Leg swelling and pain. History of HTN, HLD, breastcancer s/p mastectomyProcedures: Colorflow, Grayscale/2D, Pulsed wave Doppler SUMMARY:-------- DUPLEX SCAN OBSERVATIONS Deep Veins Superficial Veins Right Left Right LeftEIV GSV (prox) Normal NormalCFV Normal Normal (above knee)Femoral Normal Normal GSV (dist)Normal NormalProfunda Normal Normal (below knee)Popliteal Normal NormalPT (prox) Normal Normal SSV Normal NormalPT (dist) Normal Normal Peroneal Normal Normal Gastrocs Normal Normal RIGHT: There is normal compressibility with no evidence of echogenicmaterial noted within the lumen of the visualized veins. Colorflow andDoppler signals are normal.LEFT: There is normal compressibility with no evidence of echogenicmaterial noted within the lumen of the visualized veins. Colorflow andDoppler signals are normal. PRELIMINARY FINDINGS1. No evidence of venous thrombosis in the visualized veins.PHYSICIAN INTERPRETATION Venous examination of the both lower extremities demonstrated noevidence of venous thrombosis in the visualized veins. Normalcompressibility and augmentation of all veins visualized.--- FINDINGS: Si gned 05/25/2019 12:06 Marsha Erwin MD, VIOsseo MethodistMRI Head External [id number] 01:10:30This exam was not acquired at a [facility] facility and has not been interpreted by a [facility] Provider. The exam was imported into our imaging system.[facility]se[facility] MethodistType and [id number] 00:59:00 Test Item Value Reference Range Interpretation Comments ABO grouping (test code = 883-9) O Rh type (test code = 79971-8) POS Antibody screen (gel) (test code = NEG 890-4) [facility]- XR PELVIS 1/2 [id number] 09:43:00 Patient Name: ODALIS RUVALCABA Unit No: [id number] EXAMS: CPT CODE: [id number] XR PELVIS 1/2 VIEWS 76569 AP VIEW OF THE PELVIS. COMMENT: In progress total left hip arthroplasty. AP view of the pelvis COMMENT: COMPARISON: No prior exams available. Completed total left hip arthroplasty. Prosthesis a ppears to be in good position. at 0943 Reported and signed by: Sudhir Kirby M.D. CC: Jessee Santiago MD Technologist: ESTEFANIA WHITE (RT.R) Transcribed D/T: 01/12 (0943) [facility] NAME: ODALIS RUVALCABA [address] [facility] PHYS: MATVA.01 - Jessee Santiago : 1945 AGE: 73 SEX: F [place] [address] LOC: Y.501 A PHONE #: [phone] EXAM DATE: 01/11/2019 STATUS: ADM IN FAX #: [phone] RAD #: D/C DT PAGE 1 Signed Report Patient Name: ODALIS RUVALCABA Unit No: [id number] EXAMS: CPT CODE: [id number] XR PELVIS 1/2 VIEWS 43646 <Continued> Orig Print D/T: S: 01/12/2019 (0947) [facility] NAME: ODALIS RUVALCABA [address] PHYS: MATVA. - Jessee Santiago : 1945 AGE: 73 SEX: Dawit [place] [address] LOC: Y.501 A PHONE #: [phone] EXAM DATE: 01/11/2019 STATUS: ADM IN FAX #: [phone] RAD #: D/C DT PAGE 2 Signed Report- XR PELVIS 1/2 [id number] 09:43:00 Patient Name: ODALIS RUVALCABA Unit No: [id number] EXAMS: CPT CODE: [id number] XR PELVIS 1/2 VIEWS 61691 AP VIEW OF THE PELVIS. COMMENT: In progress total left hip arthroplasty. AP view of the pelvis COMMENT: COMPARISON: No prior exams available. Completed total left hip arthroplasty. Prosthesis appears to be in good position. at 0943 Reported and signed by: Sudhir Kirby M.D. CC: Jessee Santiago MD Technologist: ESTEFANIA WHITE (RT.R) Transcribed D/ (0943) [facility] NAME: ODALIS RUVALCABA[address] PHYS: MATVA.Helen - Jessee Santiago : 1945 AGE: 73 SEX: Dawit [place] [address] LOC: Y.501 A PHONE #: [phone] EXAM DATE: 01/11/2019 STATUS: ADM IN FAX #: [phone] RAD #: D/C DT PAGE 1 Signed Report Patient Name: ODALIS RUVALCABA Unit No: [id number] EXAMS: CPT CODE: [id number] XR PELVIS 1/2 VIEWS 06017 <Continued> Orig Print D/T: S: 01/12/2019 (0947) [facility] NAME: ODALIS RUVALCABA [address] [facility] PHYS: JERARDO.Helen - Jessee Santiago : 1945 AGE: 73 SEX: F [place], [place] [address] LOC: Y.501 A PHONE #: [phone] EXAM DATE: 01/11/2019 STATUS: ADM IN FAX #: [phone] RAD #: D/C DT PAGE 2 Signed ReportBASIC METABOLIC [id number] 07:12:00 Test Item Value Reference Range Interpretation Comments SODIUM (test code = 143 mmol/L 136-145 N NA) POTASSIUM (test code = 4.6 mmol/L 3.5-5.1 N K) CHLORIDE (test code = 108.0 mmol/L 98-107 H CL) CARBON DIOXIDE (test 26.4 mmol/L 21-32 N code = CO2) GLUCOSE (test code = 115 mg/dL 70-110 H GLU) BLOOD UREA NITROGEN 22 mg/dL 7-18 H (test code = BUN) GLOMERULAR FILTRATION 53.0 >60 Unit o f measure: RATE (test code = GFR) mL/mi n/1.73 [id number] Range:Healthy Adults >90 mL/min/1.73 m2 For Chronic Kidney Disease: St age II Mild Decrease in GFR 60-90 St age III Moderate Decrease in GFR 30-59 Stage IV Severe Decre ase in GFR 15- 29 Stage V Kidney Failure <15 CREATININE (test code 1.02 mg/dL 0.55-1.30 N = CREAT) CALCIUM (test code = 8.3 mg/dL 8.2-10.1 N CA) HGB [id number] 05:59:00 Test Item Value Reference Range Interpretation Comments HEMOGLOBIN (test code = HGB) 11.0 g/dL 12-16 L HEMATOCRIT (test code = HCT) 34.0 % 37-47 L COMPREHENSIVE METABOLIC [id number] 20:53:00 Test Item Value Reference Range Interpretation Comments SODIUM (test code = 144 mmol/L 136-145 N NA) POTASSIUM (test code = 4.1 mmol/L 3.5-5.1 N K) CHLORIDE (test code = 107.0 mmol/L 98-107 N CL) CARBON DIOXIDE (test 27.9 mmol/L 21-32 N code = CO2) GLUCOSE (test code = 81 mg/dL 70-110 N GLU) BLOOD UREA NITROGEN 15 mg/dL 7-18 N (test code = BUN) GLOMERULAR FILTRATION 72.2 >60 Unit o f measure: RATE (test code = GFR) mL/mi n/1.73 [id number] Range:Healthy Adults >90 mL/min/1.73 m2 For Chronic Kidney Disease: St age II Mild Decrease in GFR 60-90 St age III Moderate Decrease in GFR 30-59 Stage IV Severe Decre ase in GFR 15- 29 Stage V Kidney Failure <15 CREATININE (test code 0.78 mg/dL 0.55-1.30 N = CREAT) TOTAL PROTEIN (test 6.6 g/dL 6.4-8.2 N code = PROT) ALBUMIN (test code = 3.5 g/dL 3.4-5.0 N ALB) GLOBULIN (test code = 3.1 g/dL 2.2-4.2 N GLOB) ALBUMIN/GLOBULIN RATIO 1.1 0.7-2.0 N (test code = A/G) CALCIUM (test code = 9.0 mg/dL 8.2-10.1 N CA) BILIRUBIN TOTAL (test 0.26 mg/dL 0.2-1.00 N code = BILT) SGOT/AST (test code = 33.0 U/L 15-37 N AST) SGPT/ALT (test code = 57.0 U/L 12-78 N Please note new ALT) normal range. ALKALINE PHOSPHATASE 146 U/L 46-116 H TOTAL (test code = ALKP) CBC W/AUTO [id number] 20:31:00 Test Item Value Reference Range Interpretation Comments WHITE BLOOD CELL (test code = WBC) 3.6 K/mm3 5.8-11.0 L RED BLOOD CELL (test code = RBC) 3.98 M/mm3 4.2-5.4 L HEMOGLOBIN (test code = HGB) 12.7 g/dL 12-16 N HEMATOCRIT (test code = HCT) 38.1 % 37-47 N MEAN CELL VOLUME (test code = MCV) 96 fL 80-98 N MEAN CELL HGB (test code = MCH) 31.9 pg 27-34 N MEAN CELL HGB CONCENTRATION (test 33.3 g/dL 30.8-34.1 N code = MCHC) RED CELL DISTRIBUTION WIDTH (test 13.7 % 11-16 N code = RDW) PLT (test code = PLT) 129 K/mm3 130-400 L MEAN PLATELET VOLUME (test code = 12.3 fL 8.9-12.1 H MPV) NEUTROPHIL % (test code = NT%) 62.1 % 45-70 N LYMPHOCYTE % (test code = LY%) 19.1 % 20-40 L MONOCYTE % (test code = MO%) 14.1 % 3-10 H EOSINOPHIL % (test code = EO%) 3.3 % 1-5 N BASOPHIL % (test code = BA%) 0.8 % 0.0-1.1 N NEUTROPHIL # (test code = NT#) 2.25 K/mm3 2.00-7.50 N LYMPHOCYTE # (test code = LY#) 0.69 K/mm3 1.50-4.00 L MONOCYTE # (test code = MO#) 0.51 K/mm3 0.2-0.8 N EOSINOPHIL # (test code = EO#) 0.12 K/mm3 0.04-0.4 N BASOPHIL # (test code = BA#) 0.03 K/mm3 0.02-0.10 N MANUAL DIFF REQUIRED (test code = NO MANUAL DIFF MDIFF) NUCLEATED RED BLOOD CELL (test 0 % 0-0 N code = NRBC) PROTHROMBIN [id number] 20:26:00 Test Item Value Reference Range Interpretation Comments PROTHROMBIN TIME 11.1 secs 10.1-12.5 N PATIENT (test code = PTP) INTERNATIONAL NORMAL 0.99 <2.0 RECOMME NDED THERAPEUTIC RATIO (test code = RANGE FOR ORAL INR) ANTICOAGULANTTR EATMENT: CONDI TION INRProphylaxis of venous thrombos is in 2.0 - 3.0 high-risk medic al or surgical patientsTreatme nt of venous thrombos is 2.0 - 3.0Prevention o f embolism 2.0 - 3.0Prevention o f recurrent embol ism, or 3.0 - 4. 5 patients with mechanical pros thetic intravascular v oro IS PATIENT ON ANTICOAGULANTS ? [facility] been notified if Patient is on Heparin Drip? NOTHROMBOPLASTIN TIME [id number] 20:26:00 Test Item Value Reference Range Interpretation Comments PTT ACTIVATED (test code = APTT) 32.1 secs 24.9-37.0 N IS PATIENT ON ANTICOAGULANTS ? [facility] been notified if Patient is on Heparin Drip? NO
[2020-02-24 14:59] LABS: Absolute Lymphocytes (CBC) 0.6 K/uL (0.7-4.9); Basophils % 0.6 % (0-1.3); Hematocrit 35.1 % (36.0-45.0); Lymphocytes % 12.1 % (15.3-44.8); MPV 9.9 fL (7.6-11.3); RBC Red Blood Cell Count 3.72 M/uL (3.86-4.86)
[2020-02-24] MEDS ORDERED: MORPHINE 4 MG/ML SYR ONE (15:29)
--- NOTE | 2020-02-24 15:32 | RAD REPORT ---
EXAM DESCRIPTION: CT - Spine Lumbar W/Cont - 02/24/2020 3:03 pm CLINICAL HISTORY: Radiculopathy. abscess COMPARISON: Abdomen Pelvis Wo Contrast dated 02/09/2020; Abdomen Pelvis W Contrast dated 02/07/20 20 TECHNIQUE: Axial noncontrast CT imaging of the lumbar spine was performed with coronal and sagittal re-formatted images. All CT scans are performed using dose optimization technique as appropriate and may include automated exposure control or mA/KV adjustment according to patient size. FINDINGS: No acute lumbar spine fracture seen. No aggressive marrow pattern or malalignment. Postsur gical changes are present at L4-5 with laminectomy. Paraspinal tissues are normal in thickness. No paraspinal abscess or hematoma seen. Moderate multilevel degenerative changes are present throughout the lumbar levels with moderate centr al canal narrowing. Full intra-canal details are limited by CT. IMPRESSION: Postsurgical changes are present spanning L4-5. No CT evidence of an abscess identified. Consider contrast enhanced MRI follow-up evaluation on a nonemergent basis.
[2020-02-24] MEDS ORDERED: HYDROMORPHONE HCL 1 MG/ML INJ ONE (17:13)
--- NOTE | 2020-02-24 17:18 | EDPHYS ---
Physician Documentation [facility] Name: Khushbu Keith Age: 74 yrs Sex: Female : 1945 Arrival Date: 02/24/2020 Time: 13:35 Bed 2 Private MD: ED Physician Manolo Zheng HPI: 02/23 15:00 This 74 yrs old Female presents to ER via EMS with complaints of Back Pain. pm1 15:00 The patient presents with pain that is acute. The symptoms are located in the low back. pm1 Onset: The symptoms/episode began/occurred today. The pain radiates to the right leg and left leg. Associated signs and symptoms: Pertinent negatives: abdominal pain, constipation, dysuria, fever, headache, incontinence, numbness, tingling, urinary retention, vomiting. The problem was sustained Patient with fusion L4 and L% at [facility] on Thursday. Patient reports pain was manageable on discharge. Today reports severe back spasms radiating to buttocks and down the posterior aspect of both legs to the heels. Patient has been taking prescribed [place] and Flexeril without any relief. Historical: - Allergies: 13:39 Codeine; aa5 13:39 Erythromycin; aa5 - Home Meds: 13:49 venlafaxine 150 mg oral cp24 twice a day [Active]; primidone 250 mg Oral tab twice a aa5 day [Active]; metoprolol succinate 100 mg oral Tb24 once daily [Active]; omeprazole 20 mg Oral cpDR 1 cap once daily [Active]; amlodipine 10 mg tab once daily [Active]; levothyroxine 75 mcg tab once daily [Active]; rosuvastatin 40 mg oral tab once daily [Active]; lorazepam 0.5 mg Oral tab once a day [Active]; aripiprazole 5 mg oral tab once daily [Active]; aripiprazole 5 mg oral tab once daily [Active]; ramelteon oral 8mg nightly oral [Active]; gabapentin 100 mg oral cap 1-3 caps daily [Active]; Vitamin D3 2,000 unit oral cap daily [Active]; topiramate 50 mg oral tab daily [Active]; 13:51 Hydrocodone-Acetaminophen Oral [Active]; Flexeril Oral [Active]; aa5 - PMHx: 13:39 bilateral mastectomy 2016; breast cancer; Hyperlipidemia; Hypertension; left hip aa5 sciatica; metastatic breast cancer, brain and lung; right plantar fascitis; 13:49 Anxiety; 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 - Social history:: Smoking status: Patient denies any tobacco usage or history of. ROS: 15:00 Constitutional: Negative for fever, chills, and weight loss, Cardiovascular: Negative pm1 for chest pain, palpitations, and edema, Respiratory: Negative for shortness of breath, cough, wheezing, and pleuritic chest pain, Abdomen/GI: Negative for abdominal pain, nausea, vomiting, diarrhea, and constipation. 15:00 : Negative for injury, bleeding, discharge, and swelling, MS/Extremity: Negative for injury and deformity, Skin: Negative for injury, rash, and discoloration, Neuro: Negative for headache, weakness, numbness, tingling, and seizure. 15:00 Back: Positive for of the lumbar area, Pain. Exam: 15:00 Constitutional: This is a well developed, well nourished patient who is awake, alert, pm1 and in no acute distress. Head/Face: Normocephalic, atraumatic. Neck: Trachea midline, no thyromegaly or masses palpated, and no cervical lymphadenopathy. Supple, full range of motion without nuchal rigidity, or vertebral point tenderness. No Meningismus. 15:00 Cardiovascular: Rate: normal, Rhythm: regular, Pulses: no pulse deficits are appreciated, Edema: is not appreciated. 15:00 Respiratory: Exam negative for acute changes, respiratory distress, shortness of breath. 15:00 Back: vertebral tenderness, is not appreciated, muscle spasm, is appreciated in the left low back and right low back, dressing present over surgical scar. No signs of discharge, dehiscence, cellulitis, or abscess. 15:00 Neuro: Orientation: is normal, Mentation: is normal, Motor: is normal, moves all fours, pm1 Sensation: is normal, no obvious gross deficits. Vital Signs: 13:35 BP 162 / 93; Pulse 74; Resp 18 S; Temp 98.8(O); Pulse Ox 99% on R/A; Weight 97.52 kg aa5 (R); Height 5 ft. 5 in. (165.10 cm) (R); Pain 10/10; 15:47 BP 181 / 83; Pulse 81; Resp 18; Pulse Ox 97% on R/A; em 16:22 BP 175 / 69; Pulse 79; Resp 18; Pulse Ox 98% on R/A; Pain 8/10; em 17:30 BP 171 / 71; Pulse 68; Resp 16; Pulse Ox 95% on R/A; Pain 2/10; em 13:35 Body Mass Index 35.78 (97.52 kg, 165.10 cm) aa5 MDM: 13:58 Patient medically screened. pm1 15:09 ED course: Patient reports minimal improvement with initial morphine. Pain worse with pm1 imaging studies. Will order additional pain medications . 15:15 Data reviewed: vital signs. pm1 16:15 Counseling: I had a detailed discussion with the patient and/or guardian regarding: lab pm1 results, radiology results. 17:16 ED course: Pain level 1-2 with medications given in the ER. Patient said she is ready pm1 to go home. 17:16 Counseling: I had a detailed discussion with the patient and/or guardian regarding: the pm1 historical points, exam findings, and any diagnostic results supporting the discharge/admit diagnosis, the need for outpatient follow up, to return to the emergency department if symptoms worsen or persist or if there are any questions or concerns that arise at home. 17:16 ED course: Patient has hydrocodone at home. pm1 02/23 14:00 Order name: CBC with Diff; Complete Time: 15:03 pm1 02/23 14:00 Order name: BMP; Complete Time: 14:59 pm1 02/23 14:03 Order name: Spine Lumbar W/Cont; Complete Time: 15:34 EDMS 02/23 15:29 Order name: CREATININE WHOLE BLOOD; Complete Time: 15:30 EDMS 02/23 14:00 Order name: IV Saline Lock; Complete Time: 14:35 pm1 Administered Medications: 14:28 Drug: Zofran (Ondansetron) 4 mg Route: IVP; Site: right antecubital; em 15:00 Follow up: Response: No adverse reaction em 14:30 Drug: morphine 4 mg Route: IVP; Site: right antecubital; em 15:00 Follow up: Response: No adverse reaction; Marked relief of symptoms em 15:25 Drug: morphine 4 mg Route: IVP; Site: right antecubital; iw 16:20 Follow up: Response: No adverse reaction; Marked relief of symptoms; Pain is decreased em 17:01 Drug: Dilaudid 1 mg Route: IVP; Site: right antecubital; em 17:36 Follow up: Response: No adverse reaction; Marked relief of symptoms; Pain is decreased; em RASS: Drowsy (-1) Disposition: 18:02 Co-signature as Attending Physician, Manolo Zheng MD I agree with the assessment and kdr plan of care. Disposition: 02/24/20 17:17 Discharged to Home. Impression: Low back pain - post surgical. - Condition is Stable. - Discharge Instructions: Back Pain, Adult, Back Injury Prevention, [id number]. - Medication Reconciliation Form, Thank You Letter, Antibiotic Education, Prescription Opioid Use form. - Follow up: Emergency Department; When: As needed; Reason: Worsening of condition. Follow up: Private Physician; When: 2 - 3 days; Reason: Recheck today's complaints, Continuance of care, Re-evaluation by your physician. - Problem is new. - Symptoms have improved. Signatures: Dispatcher [employer] EDManolo Plunkett MD MD [facility] Simeon Norris RN RN Samantha Glover RN RN Tiffany Aguirre RN RN aa5 Shawn Patel NP [employer] pm1 Corrections: (The following items were deleted from the chart) 17:42 17:17 02/24/2020 17:17 Discharged to Home. Impression: Low back pain - post surgical. em Condition is Stable. Forms are Medication Reconciliation Form, Thank You Letter, Antibiotic Education, Prescription Opioid Use. Follow up: Emergency Department; When: As needed; Reason: Worsening of condition. Follow up: Private Physician; When: 2 - 3 days; Reason: Recheck today's complaints, Continuance of care, Re-evaluation by your physician. Problem is new. Symptoms have improved. pm1
--- NOTE | 2020-02-24 17:18 | ER ---
Nurse's Notes [facility] Name: Khushbu Keith Age: 74 yrs Sex: Female : 1945 Arrival Date: 02/24/2020 Time: 13:35 Bed 2 Private MD: Diagnosis: Low back pain-post surgical Presentation: 02/23 13:35 Chief complaint: Patient states: Back surgery at [facility] on Thursday evening aa5 and severe back spasms to buttocks radiating down to both legs today. Pt reports she took [place], Flexeril, and 1000 mg Tylenol earlier today without improvement. Coronavirus screen: Client denies travel out of the [place] in the last 14 days. At this time, the client does not indicate any symptoms associated with coronavirus-19. The client reports previous COVID testing was negative. Date of collection: February 17, 2020. Ebola Screen: Patient negative for fever greater than or equal to 101.5 degrees Fahrenheit, and additional compatible Ebola Virus Disease symptoms. Initial Sepsis Screen: Does the patient meet any 2 criteria? No. Patient's initial sepsis screen is negative. Does the patient have a suspected source of infection? No. Patient's initial sepsis screen is negative. Risk Assessment: Do you want to hurt yourself or someone else? Patient reports no desire to harm self or others. Onset of symptoms was February 24, 2020. 13:35 Acuity: CONCHA 3 aa5 13:35 Method Of Arrival: EMS: [facility] aa5 Historical: - Allergies: 13:39 Codeine; aa5 13:39 Erythromycin; aa5 - Home Meds: 13:49 venlafaxine 150 mg oral cp24 twice a day [Active]; primidone 250 mg Oral tab twice a aa5 day [Active]; metoprolol succinate 100 mg oral Tb24 once daily [Active]; omeprazole 20 mg Oral cpDR 1 cap once daily [Active]; amlodipine 10 mg tab once daily [Active]; levothyroxine 75 mcg tab once daily [Active]; rosuvastatin 40 mg oral tab once daily [Active]; lorazepam 0.5 mg Oral tab once a day [Active]; aripiprazole 5 mg oral tab once daily [Active]; aripiprazole 5 mg oral tab once daily [Active]; ramelteon oral 8mg nightly oral [Active]; gabapentin 100 mg oral cap 1-3 caps daily [Active]; Vitamin D3 2,000 unit oral cap daily [Active]; topiramate 50 mg oral tab daily [Active]; 13:51 Hydrocodone-Acetaminophen Oral [Active]; Flexeril Oral [Active]; aa5 - PMHx: 13:39 bilateral mastectomy 2016; breast cancer; Hyperlipidemia; Hypertension; left hip aa5 sciatica; metastatic breast cancer, brain and lung; right plantar fascitis; 13:49 Anxiety; 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 - Social history:: Smoking status: Patient denies any tobacco usage or history of. Screenin:20 Abuse screen: Denies threats or abuse. Nutritional screening: No deficits noted. em Tuberculosis screening: No symptoms or risk factors identified. Fall Risk None identified. Assessment: 14:20 General: Appears in no apparent distress. uncomfortable, Behavior is calm, cooperative, em appropriate for age, Denies fever. Pain: Complains of pain in coccyx Pain currently is 10 out of 10 on a pain scale. Neuro: Level of Consciousness is awake, alert, obeys commands, Oriented to person, place, time, situation, Appropriate for age. Cardiovascular: Capillary refill < 3 seconds Patient's skin is warm and dry. Respiratory: Airway is patent Respiratory effort is even, unlabored, Respiratory pattern is regular, symmetrical. Derm: Skin is pink, warm \T\ dry. Musculoskeletal: Capillary refill < 3 seconds, Range of motion: intact in all extremities. 15:47 Reassessment: Patient and/or family updated on plan of care and expected duration. Pain iw level reassessed. pt assisted to bedside commode, placed back in bed by , VSS, pt has been medicated for pain. 16:25 Reassessment: reports pain is 8/10, would like more pain medication, provider notified, em received new medication orders to give 1 mg Dilaudid IVP x 1. 17:30 Reassessment: Patient appears in no apparent distress at this time. Patient and/or em family updated on plan of care and expected duration. Pain level reassessed. Patient is alert, oriented x 3, equal unlabored respirations, skin warm/dry/pink. Vital Signs: 13:35 BP 162 / 93; Pulse 74; Resp 18 S; Temp 98.8(O); Pulse Ox 99% on R/A; Weight 97.52 kg aa5 (R); Height 5 ft. 5 in. (165.10 cm) (R); Pain 10/10; 15:47 BP 181 / 83; Pulse 81; Resp 18; Pulse Ox 97% on R/A; em 16:22 BP 175 / 69; Pulse 79; Resp 18; Pulse Ox 98% on R/A; Pain 8/10; em 17:30 BP 171 / 71; Pulse 68; Resp 16; Pulse Ox 95% on R/A; Pain 2/10; em 13:35 Body Mass Index 35.78 (97.52 kg, 165.10 cm) aa5 ED Course: 13:35 Patient arrived in ED. aa5 13:35 Arm band placed on. aa5 13:37 Triage completed. aa5 13:46 Shawn Patel NP is PHCP. pm1 13:46 Manolo Zheng MD is Attending Physician. pm1 14:20 Patient has correct armband on for positive identification. Bed in low position. Call em light in reach. Side rails up X2. Pulse ox on. NIBP on. 14:20 Initial lab(s) drawn, by ED staff, sent to lab. Inserted saline lock: 20 gauge in right iw antecubital area, using aseptic technique. IV inserted by Simeon Norris RN. 14:34 Simeon Norris RN is Primary Nurse. em 15:03 Spine Lumbar W/Cont In Process Unspecified. EDMS 17:38 No provider procedures requiring assistance completed. IV discontinued, intact, em bleeding controlled, No redness/swelling at site. Pressure dressing applied. Administered Medications: 14:28 Drug: Zofran (Ondansetron) 4 mg Route: IVP; Site: right antecubital; em 15:00 Follow up: Response: No adverse reaction em 14:30 Drug: morphine 4 mg Route: IVP; Site: right antecubital; em 15:00 Follow up: Response: No adverse reaction; Marked relief of symptoms em 15:25 Drug: morphine 4 mg Route: IVP; Site: right antecubital; iw 16:20 Follow up: Response: No adverse reaction; Marked relief of symptoms; Pain is decreased em 17:01 Drug: Dilaudid 1 mg Route: IVP; Site: right antecubital; em 17:36 Follow up: Response: No adverse reaction; Marked relief of symptoms; Pain is decreased; em RASS: Drowsy (-1) Outcome: 17:17 Discharge ordered by MD. pm1 17:38 Discharged to home via wheelchair, with family. em 17:38 Condition: good 17:38 Discharge instructions given to patient, family, Instructed on discharge instructions, follow up and referral plans. Demonstrated understanding of instructions, follow-up care. 17:42 Patient left the ED. em Signatures: Dispatcher [employer] Simeon Topete RN RN em Williams, Irene, RN RN iw Calderon, Audri, RN RN aa5 Shawn Patel, [employer] pm1
[2020-02-24 17:47] VITALS: TEMP 98.8
[2020-02-24 17:51] VITALS: BP 171/71; O2SAT 95
== END 2020-02-24 17:42 | disposition home or self-care (01) ==
LOC: ER 13:25
DX: G89.18 Other acute postprocedural pain (principal); Z98.890 Other specified postprocedural states; I10 Essential (primary) hypertension; E78.5 Hyperlipidemia, unspecified; F41.9 Anxiety disorder, unspecified; Z88.3 Allergy status to other anti-infective agents; Z88.5 Allergy status to narcotic agent; Z85.3 Personal history of malignant neoplasm of breast; Z85.118 Personal history of other malignant neoplasm of bronchus and lung; Z85.841 Personal history of malignant neoplasm of brain
CPT/HCPCS: 85025; 80048; 36415; 82565; 72132; 96375; 96374; 99284; J1170

== ENCOUNTER 2020-02-29 21:05 | Emergency (ER) | payer OTHER, BC ==
--- OUTSIDE RECORDS SUMMARY | 2020-02-29 21:10 | XMS REPORT | Clinical Summary ---
:1945 Author Organization [facility] Address [address] [place] [address] Care Team Providers Name Role Phone Solo [...] Added automatically from request for ha cotton [id number] Lung nodules 11/25/2019 Overview: Added automatically from request for ha cotton [id number] Personal history of lung cancer 11/25/2019 Overview: Added automatically from request for ha lula [id number] Triple negative malignant neoplasm of breast 0 [...] Linh De Paz, Brain metas gurinder [place] ([facility]) (Primary Dx) 01/02/2020 Travel 12/21/2019 Travel 12/12/2019 [...] 12/05/2019 Telephone Cardiothoracic Moni Goldstein Surgery Jane, SALVAGE MECHANIC 12/02/2019 Telephone Cardiothoracic Moni Goldstein Surgery Jane, SALVAGE MECHANIC 12/02/2019 Travel 11/25/2019 Office Visit Cardiothoracic Adolfo [...] 06/01/2019 Bernardo Chaves MD 05/24/2019 Travel after 02/28/2019 Surgical History Surgery Date Site/Laterality Comments EYE SURGERY 2915 Cataract TUBAL LIGATION HYSTERECTOMY COLONOSCOPY LYMPH NODE BIOPSY MASTECTOMY 03/02/2015 - 03/01/2016 Bilateral mastectomy BRONCHOSCOPY 11/12/2016 Bilateral Procedure: FLEXI BLE BRONCHOSCOPY, ; Surgeon: Cici Ybarra; Location: [facility] OR; Service: Thoraci c; Laterality: Bila teral; EGD, INTRAOPERATIVE 11/12/2016 N/A Procedure: EBUS WITH BIOPSY; Surgeon : Adolfo Park MD; Locat ion: [facility] OR; Ser vice: Thoracic; Later ality: N/A; BREAST SURGERY 03/02/2009 - 03/01/2010 Left lumpectomy CRANIOTOMY 05/26/2019 Head/Right Procedure: RIGHT FRONTO TEMPORAL CRANIOT COURT FOR EXCISION OF TUMO R; Surgeon: Linh De Paz MD; Location: [facility]; Service: Neurosu rgery; Laterality: Righ t; Medical devices from this surgery are in t he Implants section. HIP SURGERY 12/31/2018 - Left total left hip r eplacement 01/29/2019 US, ENDOBRONCHIAL 12/06/2019 N/A Procedure: EBU S WITH BIOPSY; Surgeon: Adolfo Park MD; Location: [facility]; Service: oracic; Laterality: N/A; BRONCHOSCOPY 12/06/2019 N/A Procedure: [facility] HOSCOPY; Surgeon: Jaspal Park MD; Location: [facility]; Service: oracic; Laterality: N/A; Medical History Medical [...] VACCINE Completed 03/24/2018 Implants Implanted Type Area Construction Foreman Device Shelf Model / Identifier Expiration Serial / Date Lot Plate Midface [place] Hol 1.5x0.5x18.5mm [place] - [id number] Crania l N/A: BUSHRA CHAMBERS [id number] / Implanted: Qty: 4 on 05/26/2019 by Linh De Paz MD at [facility] Plate or Bur N/A [employer] / Hole Cover Screw Bone Hitrqe Slf-Drl 1.5x4mm - [id number] Cranial N/A: FARHAD FREDERICK [id number] / Implanted: Qty: 18 on 05/26/2019 by Linh De Paz M Colin at [facility] Plate or Bur N/A [employer] / Hole Cover Matrix Dural Duragen Plus 3x3in Regnrtn - [id number] Human Tissue N/A : INTEGRA 04/01/2022 [id number] / Implanted: Qty: 1 on 05/26/2019 by Linh De Paz MD at [facility] Implants N/A L[employer] / NEURO [id number] Hard Cross For Hip Replacement Explanted Type Area Construction Foreman Device Shelf Model / Identifier Expiration Serial / Date Lot Screw Bone Hitrqe Slf-Drl 1.5x4mm - [id number] Cranial N/A: N/A FARHAD FREDERICK [id number] / Implanted: 05/26/2019 (Quantity not on file) Plate or [employer] SHAAN [employer] / Explanted: Qty: 1 on 05/26/2019 at [facility] Bur Hole Cover Procedures Procedure Name Priority Date/Time Associated Comments Diagnosis CT ABDOMEN PELVIS WO Routine 02/09/[address] CHEST EXTERNAL STUDY Routine 02/01/2020 10:43 Results for this AM MANUFACTURING BAKER procedure are i n the results section. [...] history of breast cancer Brain metastases (HCC) DC AN ELECTIVE Routine 12/06/2019 8:11 Results f [...] procedure are i n the results section. DC AN ELECTIVE Routine 05/26/2019 8:18 Results f [...] CHEST EXTERNAL STUDY Routine 05/02/2019 2:00 PM MANUFACTURING BAKER Results for this procedure are i n the results section . after 02/28/[address] Abdomen Pelvis Wo Contrast (02/09/2020) Narrative Performed At This result has an attachment that is no t available. CT Chest External Study (02/01/2020 10:43 AM MANUFACTURING BAKER)Only the most recent of3 resultswithin the time period is included. Specimen Narrative Performed At This exam was not acquired at a Methodis t facility and has not been RADIANT interpreted by a [facility] Provider. T he exam was imported into our imaging system. Performing Organization Address City/[facility]/ZIP [facility] Phon e Number RADIANT [address] [place] [address] CT Chest Wo Contrast (02/01/2020) Narrative Performed At This result has an attachment that is no t available. Cytology (non-gynecological) request (12/06/2019 10:19 AM CDT)Only the most recent of3 resultswithin the time period is included. [facility] DEPARTMENT OF PATHOLOGY AND GENOMIC MEDICINE Cytology See link below [facility] DEPARTMENT OF (non-gynecological) for PDF Lab PATHOLOGY AND report Report GENOMIC MEDICINE Result status This is Final [facility] DEPARTMENT OF Report for PATHOLOGY AND [id number] GENOMIC MEDICINE Specimen Performing Organization Address City/State/ZIP Code Phon e Number [facility] DEPARTMENT OF PATHOLOGY AND [address] [place] [phone] GENOMIC MEDICINE XR Chest 1 [...] righ t axilla. [id number] Performing Organization Address City/[facility]/ZIP Code Phon e Number HM RADIANT [address] [place] [phone] AFB culture (12/06/2019 9:51 AM CDT) AFB culture No growth after 6 weeks of incubation. KAREN HOPPER isolate Comment: HOSPITAL Specimen Information Specimen Source: Fluid Specimen Site: Lun R Specimen Tissue - Lung Performing Organization Address City/[facility]/ZIP Code Phon e Number [facility] DEPARTMENT OF PATHOLOGY AND [address] [place] [phone] GENOMIC MEDICINE [address] [address] Fungus culture (12/06/2019 9:51 AM CDT) Fungus culture No growth after 4 weeks of incubation. WARD PENTECOSTAL isolate Comment: HOSPITAL Specimen Information Specimen Source: Fluid Specimen Site: Lun R Specimen Tissue - Lung Performing Organization Address City/[facility]/ZIP [facility] Phon e Number [facility] DEPARTMENT OF PATHOLOGY AND [address] [place] [address] [phone] [address] Fungus smear (12/06/2019 8:51 AM CDT) Pathologist Sig nature Fungus smear No fungi observed. ED HOPPER Comment: HOSPITAL Specimen Information Specimen Source: Fluid Specimen Site: Lun R Specimen Performing Organization Address City/[facility] Phon e Number [facility] DEPARTMENT OF PATHOLOGY AND [address] [place] [address] [phone] [address] Aerobic culture (12/06/2019 8:51 AM CDT) Aerobic culture No growth after 3 days. ED PETERS IST isolate Comment: HOSPITAL Specimen Information Specimen Source: Fluid Specimen Site: Lun R Specimen Tissue - Lung Performing Organization Address [facility] Phon e Number [facility] DEPARTMENT OF PATHOLOGY AND [address] [place] [address] [phone] [address] Gram stain (12/06/2019 8:51 AM CDT) Gram stain isolate Rare WBC's [facility] No organisms seen HOSPITAL Comment: Specimen Information Specimen Source: Fluid Specimen Site: Lun R Specimen Performing Organization Address City/[facility] Phon e Number [facility] DEPARTMENT OF PATHOLOGY AND [address] [place] [address] [phone] [address] AFB stain (12/06/2019 8:51 AM CDT) Pathologist Sig nature AFB stain No acid fast bacilli (AFB) seen. ED HOPPER Comment: HOSPITAL Specimen Information Specimen Source: Fluid Specimen Site: Lun R Specimen Performing Organization Address City/[facility]/ZIP [facility] Phon e Number [facility] DEPARTMENT OF PATHOLOGY AND [address] [place] [address] [phone] [address] Anaerobic culture (12/06/2019 8:51 AM CDT) Anaerobic culture No anaerobic organisms isolated. LINDA HOPPER isolate Comment: HOSPITAL Specimen Information Specimen Source: Fluid Specimen Site: Lun R Specimen Tissue - Lung Performing Organization Address City/State/ZIP Code Phon e Number [facility] DEPARTMENT OF PATHOLOGY AND [address], [place] [phone] GENOMIC MEDICINE [facility] [address] [place] [address] Airway (12/06/2019 8:11 AM CDT) Narrative Performed At Anusha Loera 12/06/2019 8:14 AM Airway Date/Time: 12/06/2019 8:08 AM Performed by: Anusha Loera Authorized by: Sophie Goss MD Location: OR Urgency: Elective Anesthesiologist: Sophie Goss MD Resident/FORM TAMPER OPERATOR/AA: Anusha Loera Other Anesthesia Staff: Gabriel [...] of8 resultswithin the time period is included. [facility] Estimated GFR 72 mL/min/1.73 [facility] Comment: m2 CLEAR GÓMEZ Catergory Units Interpretation [...] published in 2014. Specimen Performing Organization Address City/[facility] Phon e Number [facility] DEPARTMENT OF PATHOLOGY AND [id number] [place] [address] [place] [address] COVID-19 qualitative PCR (12/02/2019 11:27 AM CDT) Interpretation Negative results do not prec lude 2019-nCoV infection and should not be used as the sole basis for treatment or other patient management decisions. Negative results must be combined with clinical observations, patient history, and epidemiological [facility]ECT[facility]Y information. [facility] COVID-19 qualitative Not-Detected Not-Detecte [facility]ECT[facility]Y PCR result d [facility] qualitative See link below for SCHENECTADY PCR PDF Lab PENTECOSTAL ReportComment: Case HOSPITAL Number: [id number] Specimen Nasopharyngeal swab Performing Organization Address [facility] Phon e Number [facility] DEPARTMENT OF PATHOLOGY AND [address], [place] [phone] [address] [facility] Partial thromboplastin time, activated (12/02/2019 11:27 AM CDT)Only the most recent of3 resultswithin the time period is included. PTT 29.1 23.0 - 36.0 [facility] Comment: sec ESCONDIDO PTT therapeutic range for unfractionated heparin is HOSPITAL 61.0-112.0 seconds which corresponds to Anti-Xa 0.3-0.7 U/ml. Specimen Blood Performing Organization Address City/[facility] Phon e Number [facility] DEPARTMENT OF PATHOLOGY AND [address] [place] [address] [place] [address] Prothrombin time with INR (12/02/2019 11:27 AM CDT)Only the most recent of3 resultswithin the time period is included. Prothrombin time 13.7 11.5 - 14.5 [facility] INR 1.0 SCHENECTADY Comment: [facility] International Normalized Ratio (INR) is a [facility] monitoring tool for patients who are stable on oral anticoagulant therapy. An INR of 2.0-3.0 is suggested for deep vein thrombosis/pulmonary embolism. Specimen Blood Performing Organization Address City/State/ZIP Code Phon e Number [facility] DEPARTMENT OF PATHOLOGY AND [address] [place] [address] GENOMIC MEDICINE [facility] [address] [place], [place] [address] [place] [address] CBC with platelet and differential (12/02/2019 11:27 AM CDT)Only the most recent of6 resultswithin the time period is included. Pathologist Sig nature WBC 4.86 4.50 - 11.00 k/uL [facility] RBC 4.25 4.20 - 5.50 m/uL [facility] HGB 12.9 12.0 - 16.0 g/dL [facility] HCT 40.6 37.0 - 47.0 % [facility] MCV 95.5 82.0 - 100.0 fL [facility] MCH 30.4 27.0 - 34.0 pg [facility] MCHC 31.8 31.0 - 37.0 g/dL [facility] RDW - SD 50.4 37.0 - 55.0 fL [facility] MPV 11.1 8.8 - 13.2 fL [facility] Platelet count 132 (L) 150 - 400 k/uL [facility] Nucleated RBC 0.00 /100 WBC [facility] Neutrophils 67.1 39.0 - 69.0 % [facility] Lymphocytes 16.7 (L) 25.0 - 45.0 % [facility] Monocytes 10.9 (H) 0.0 - 10.0 % [facility] Eosinophils 4.3 0.0 - 5.0 % [facility] Basophils 0.8 0.0 - 1.0 % [facility] Specimen Blood Performing Organization Address City/[facility] Phon e Number [facility] DEPARTMENT OF PATHOLOGY AND [address] [place] [address] GENOMIC MEDICINE [facility] [place] [address] Comprehensive metabolic panel (12/02/2019 11:27 AM CDT) Sodium 142 135 - 148 [facility] mEq/L [facility] Potassium 4.8 3.5 - 5.0 [facility] mEq/L [facility] Chloride 106 98 - 112 [facility] mEq/L [facility] CO2 25 24 - 31 mEq/L [facility] Anion gap 11@ANIO 7 - 15 mEq/L [facility] BUN 21 8 - 23 mg/dL [facility] Creatinine 0.80 0.50 - 0.90 [facility] mg/dL [facility] Glucose 120 (H) 65 - 99 mg/dL [facility] Calcium 9.3 8.8 - 10.2 [facility] mg/dL [facility] Protein 7.0 6.3 - 8.3 [facility] Comment: g/dL [facility] 4.6-7.0 g/dL 1 week 4.4-7.6 g/dL 7 months-1year 5.1-7.3 g/dL 1-2 years 5.6-7.5 g/dL >3 years 6.0-8.0 g/dL 18-150 6.3-8.3 g/dL Albumin 4.1 3.5 - 5.0 [facility] g/dL [facility] A/G ratio 1.4 0.7 - 3.8 [facility] Alkaline phosphatase 189 (H) 35 - 104 U/L [facility] AST 18 10 - 35 U/L [facility] ALT 22 5 - 50 U/L [facility] Total bilirubin 0.2 0.0 - 1.2 [facility] mg/dL [facility] Specimen Blood Performing Organization Address City/State/[facility] Phon e Number [facility] DEPARTMENT OF PATHOLOGY AND [address] [place] [address] GENOMIC MEDICINE [facility] [address] [place] [address] [facility] PET/CT Whole Body External Study (12/01/2019 8:51 AM CDT) Specimen Narrative Performed At This exam [facility] and has not been RADIANT interpreted by a [facility] Provider. T he exam was imported into our imaging system. Performing Organization Address City/[facility] Code Phon e Number RADIANT [address] [place] [address] PET/CT Skull Base To Mid Thigh (12/01/2019)Only [...] glucose 178 (H) 65 - 99 mg/dL [facility] Comment: HOSPITAL Charger Tester Name: Shahla Velaandreea Device ID: [id number] Chartable: [facility] Notified RN Specimen Blood Performing Organization Address City/[facility] Phon e Number [facility] DEPARTMENT OF PATHOLOGY AND [address] [place] [address] [phone] [address] Cancer antigen 19-9 (06/01/2019 4:00 AM CDT) CA 19-9 12 0 - 35 U/mL [facility] Comment: HOSPITAL The Fredi Eladio 8000 CA19-9 immunoassay was used. Results obtained with different assay methods or kits should not be used interchangeably and may be differen t. Specimen Blood Performing Organization Address City/[facility] Phon e Number [facility] DEPARTMENT OF PATHOLOGY AND [address] [place] [address] [phone] [address] Cancer antigen 15-3 (06/01/2019 4:00 AM CDT) CA 15-3 22 0 - 25 U/mL [facility] Comment: HOSPITAL The Fredi [address] CA153 immunoassay was used. Results obtained with different assay methods or kits should not be used interchangeably and may be differen t. Specimen Blood Performing Organization Address [facility] Phon e Number [facility] DEPARTMENT OF PATHOLOGY AND [address] [place] [address] Cancer antigen 125 (06/01/2019 4:00 AM CDT) CA 125 28 0 - 35 U/mL [facility] Comment: HOSPITAL The [address] CA125 immunoassay was used. Results obtained with different assay methods or kits should not be used interchangeably and may be differen t. Specimen Blood Performing Organization Address [facility] Phon e Number [facility] DEPARTMENT OF PATHOLOGY AND [address] [place] [address] Carcinoembryonic antigen (CEA) (06/01/2019 4:00 AM CDT) Pathologist [facility] CEA 2.7 0.0 - 3.8 [facility] Comment: ng/mL HOSPITAL Reference range for heavy smokers: 0.0 - 5.5 ng/mL The FREDI Eladio 8000 CEA immunoassay was used. Results obtained with different assay methods or kits should not be used interchangeably and may be differen t. Specimen Serum Performing Organization Address [facility] Phon e Number [facility] DEPARTMENT OF PATHOLOGY AND [address] [place] [address] Us duplex venous upper extremity (05/31/2019 1:27 PM CDT) Specimen Narrative Performed At [facility] Upper Extr emity Venous Report [address] [place] [address] Pat.Name: KHUSHBU KEITH Pat.ID: [id number]Date: 05/31/2019 Refer.MD: PRIYANKA ALEXANDER MD Exam Time: 12:53:00 PM Study Type:UE Venous Height: 66in A ge: 1945,74Y Sex: FEMALE Sonogrp hr: Jake Manio, RVS, RCS Pat. Stat.:Inpatient Room: [address] Tape Vol: AMARJIT, CPT - 4: 53030 Echo Event ID:[id number] Order ID: [id number] Reason for Study:RUE swelling or pain, D [...] *Preliminary result reported to CINTHIA Jonas @ 9199 on 05/31/19. PHYSICIAN INTERPRETATION Venous examination of the right upper ex tremity and neck demonstrated no evidence of deep venous thrombosis. Total superficial [facility] bas[facility] vein at the antecubital fossa. FINDINGS: Signed 05/31/2019 03:18 PM Kael Erwin MD, RPVI Procedure Note Interface, Radiology Results In - 2019 3:18 PM CDT [facility] Upper Extremity Veno us Report [id number] [address] Pat.Name: KHUSHBU KEITH Pat.I D: [id number] St.Date: 05/31/2019 Refer .MD: PRIYANKA ALEXANDER MD Exam Time: 12:53:00 PM Study Type:UE Venous Height: 66in Age: 2 1945,74Y Sex: FEMALE Sonog rphr: Jake Valle, RVS, RCS Pat. Stat.:Inpatient Room: [address] Tape Vol: , CPT - 4: 71273 Echo Event ID:[id number] Order ID: [id number] Reason for Study:RUE swelling or pain, D [...] *Preliminary result reported to CINTHIA Jonas @ 4651 on 05/31/19. PHYSICIAN INTERPRETATION Venous examination of the right upper ex tremity and neck demonstrated no evidence of deep venous thrombosis. 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 FINDINGS: Signed 05/31/2019 03:18 PM Kael Erwin MD, RPVI Performing Organization Address City/[facility] Phon e Number [facility] [address] [place] [address] Phosphorus level (05/31/2019 4:54 AM CDT)Only the most recent of4 resultswithin the time period is included. Pathologist Sig nature Phosphorus 3.0 2.4 - 4.5 mg/dL [facility] Specimen Blood Performing Organization Address [facility] Phon e Number [facility] DEPARTMENT OF PATHOLOGY AND [address] [place] [address] [phone] [address] Magnesium level (05/31/2019 4:54 AM CDT)Only the most recent of4 resultswithin the time period is included. Pathologist Sig nature Magnesium 2.4 1.6 - 2.4 mg/dL [facility] Specimen Blood Performing Organization Address [facility] Phon e Number [facility] DEPARTMENT OF PATHOLOGY AND [address] [place] [address] [phone] [address] Hemoglobin A1c (05/31/2019 4:54 AM CDT) Hemoglobin A1C 6.9 (H) 4.0 - 5.6 % [facility] Comment: HOSPITAL HbA1c cutoffs for diagnosing diabetes: [...] 1 diabetes. Specimen Blood Performing Organization Address [facility] Phon e Number [facility] DEPARTMENT OF PATHOLOGY AND [address] [place] [phone] [place] [phone] Basic metabolic panel (05/31/2019 4:54 AM CDT)Only the most recent of7 results within the time period is included. Pathologist Sig nature Sodium 139 135 - 148 mEq/L [facility] Potassium 4.7 3.5 - 5.0 mEq/L [facility] Chloride 102 98 - 112 mEq/L [facility] CO2 25 24 - 31 mEq/L [facility] Anion gap 12@ANIO 7 - 15 mEq/L [facility] BUN 21 8 - 23 mg/dL [facility] Creatinine 0.71 0.50 - 0.90 mg/dL [facility] YARELI Glucose 178 (H) 65 - 99 mg/dL [facility] Calcium 9.0 8.8 - 10.2 mg/dL [facility] Specimen Blood Performing Organization Address [facility] Phon e Number [facility] DEPARTMENT OF PATHOLOGY AND [address] [place], [place] [phone] [address] [address] [address] Head Wo Contrast (05/29/2019 11:29 AM [...] to the left.. IMPRESSION: Evolving postop changes. [facility]-[id number] Procedure Note Hm Interface, Radiology Results Incoming [...] to the left.. IMPRESSION: Evolving postop changes. [facility]-[id number] Performing Organization Address City/State/ZIP Code Phon e Number [facility] [address] [place] [address] CBC hemogram (05/28/2019 7:35 PM CDT)Only the most recent of2 resultswithin the time period is included. Pathologist Sig nature WBC 8.29 4.50 - 11.00 k/uL [facility] RBC 3.77 (L) 4.20 - 5.50 m/uL [facility] HGB 11.6 (L) 12.0 - 16.0 g/dL [facility] [facility] HCT 36.5 (L) 37.0 - 47.0 % [facility] MCV 96.8 82.0 - 100.0 fL [facility] MCH 30.8 27.0 - 34.0 pg [facility] MCHC 31.8 31.0 - 37.0 g/dL [facility] RDW - SD 47.4 37.0 - 55.0 fL [facility] MPV 12.5 8.8 - 13.2 fL [facility] Platelet count 153 150 - 400 k/uL [facility] Nucleated RBC 0.00 /100 WBC [facility] Specimen Performing Organization Address [facility] Phon e Number [facility] DEPARTMENT OF PATHOLOGY AND [address] [place] [address] [address] [address] Ionized calcium (05/28/2019 4:00 AM CDT)Only the most recent of3 resultswithin the time period is included. Pathologist Sig nature pH 7.57 [facility] Ionized calcium 1.06 (L) 1.11 - 1.32 [facility] mmol/L HOSPITAL Specimen Blood Performing Organization Address [facility] Phon e Number [facility] DEPARTMENT OF PATHOLOGY AND [address] [place], [place] [phone] [address] [address] Lactic acid level (05/27/2019 11:25 AM CDT) Pathologist Sig nature Lactic acid 2.3 (H) 0.5 - 2.2 mmol/L [facility] [place] Specimen Blood Performing Organization Address City/[facility] Phon e Number [facility] DEPARTMENT OF PATHOLOGY AND [address] [place] [address] [phone] [address] Hepatic function panel (05/27/2019 11:25 AM CDT) Albumin 3.6 3.5 - 5.0 [facility] g/dL [facility] Total bilirubin <0.2 0.0 - 1.2 [facility] mg/dL [facility] Bilirubin direct <0.2 0.0 - 0.3 [facility] mg/dL HOSPITAL Alkaline phosphatase 108 (H) 35 - 104 U/L [facility] Protein 6.8 6.3 - 8.3 [facility] Comment: g/dL HOSPITAL - 4.6-7.0 g/dL 1 week 4.4-7.6 g/dL 7 months-1year 5.1-7.3 g/dL 1-2 years 5.6-7.5 g/dL >3 years 6.0-8.0 g/dL 18-150 6.3-8.3 g/dL ALT 17 5 - 50 U/L [facility] AST 21 10 - 35 U/L [facility] Specimen Blood Performing Organization Address City/State/ZIP Code Phon e Number [facility] DEPARTMENT OF PATHOLOGY AND [address] [place], [place] [address] GENOMIC MEDICINE [facility] [address] [place] [address] Miscellaneous referral test (05/26/2019 10:00 AM CDT) [facility] test name [facility] SOLID TUMOR PANEL SHOWN ABOVE [facility] test result SEE NOTE SHOWN ABOVE Comment: Solid Tumor Mutation Panel by Next Generation Sequfadii julia [facility] test code [id number] Solid Tumor Panel By NGS Interpretation See [...] Diagnostic or Prognostic Significance) 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 This particular missense mutation (p.[id number]) is presumed to alter the normal function [...] Tier 3. NONE REFERENCES: 1.N. Cancer Genome [place], Comprehensive molecular port raits of human breast tumours. Nature 2012. PMID: 25275367. 2.IARC TP53 database website: http://p53.iarc.fr/EA69EadkDerotppfhp.aspx 3.COSMIC database website: http://cancer.laney.ac.uk/cancergenome/projects/cosmi c/ 4.cBioPortal database website: http://www.cbioportal.o rg/ 5.Sagar Martínez et al., Standards and Guidelines for the Interpretation and Reporting of Sequence Variants in C ancer: A Joint Consensus Recommendation of the Association for Molecular Pathology, [place] Society of Clinical Oncology, and College of [place] Pathologists. The Journal of molecular diagno stics : JMD 2017. PMID: 09255701. This result has been reviewed and approved [...] genes is availabl e through this link: http://[employer]/Tests/Pdf/375. METHODOLOGY: Genomic DNA is isolated from microscopica lly-guided dissection of tumor tissue and then enriched for the t argeted regions of the tested genes. The variant status of the 44 targeted genes is determined by massively parallel seq uencing (next generation sequencing). The hg19 (GRCh37) refere [facility] sequence is used as a reference [...] all variant classes available through this link: http://ltd.[facility]/Tests/Pdf/375. CLINICAL DISCLAIMER: Results of this test must always be interpreted within the clinical context and other rele vant data and should not be used alone for a diagnosis of malign sandi. This test is not intended to detect minimal residual diseas e. Test developed and characteristics determined by [employer]. See Compliance Statement B: [facility]/ CS - - - - - - [...] Solid Tumor Panel by NGS Block ID [id number] - - - - - - - - - - - - - - - - - - - - Order comments Solid Tumor Mutation Panel by Next Generation Sequenci ng BRAIN TUMOR #2 [facility] TEST #[id number] SOLID TUMOR MUTATION PANEL [facility]-20-7732 B3 ===== Test performed by: [facility] [address] [place] [address] Specimen Narrative Performed At BRAIN TUMOR #2 [facility] DEPARTMENT OF PATHOLOGY AND GENOMIC IAUP TEST #[id number] SOLID TUMOR MUTATION MEDICINE PANEL [facility]-20-7732 B3 Performing Organization Address City/State/[facility] Phon e Number [facility] DEPARTMENT OF PATHOLOGY AND [address] [place] [address] 0 GENOMIC MEDICINE SHOWN ABOVE Surgical pathology request (05/26/2019 9:11 AM CDT)Only the most recent of4 resultswithin the time period is included. [facility] DEPARTMENT OF PATHOLOGY AND GENOMIC MEDICINE Surgical pathology See link below for [facility] DEPARTMENT O F report PDF Lab Report PATHOLOGY AND GENOMIC MEDICINE Result status This is Supplemental [facility] DEPARTMENT OF Report for PATHOLOGY AND [id number] GENOMIC MEDICINE Specimen Narrative Performed At BRAIN TUMOR #2 [facility] DEPARTMENT OF PATHOLOGY AND GENOMIC ARUP TEST #[id number] SOLID TUMOR MUTATION MEDICINE PANEL [facility]-20-7732 B3 Performing Organization Address City/[facility] Phon e Number [facility] DEPARTMENT OF PATHOLOGY AND [address] [place], [place] [address] 0 GENOMIC MEDICINE Airway (05/26/2019 8:18 AM CDT) Narrative Performed At Edward Diop Jr. 05/26/2019 8:2 0 AM Airway Date/Time: 05/26/2019 7:44 AM Performed by: Edward Diop Jr. Authorized by: Sudhir Headley MD Location: OR Urgency: Elective Difficult Airway: No Anesthesiologist: Sudhir Headley MD Resident/FORM TAMPER OPERATOR/AA: Edward Diop Jr. Performed by: anesthesiologist [...] Atraumatic ETT insertion att x 1 by FORM TAMPER OPERATOR. +EtCO2, +BBS. Dentition unchanged. Patient intubated [...] nature TSH 0.98 0.27 - 4.20 uIU/mL [facility] Specimen Blood Performing Organization Address City/[facility] Phon e Number [facility] DEPARTMENT OF PATHOLOGY AND [address] [place] [address] [phone] [address] Folate level (05/26/2019 4:55 AM CDT) Pathologist Sig nature Folate 9.3 4.8 - 24.2 ng/mL [facility] Specimen Serum Performing Organization Address City/[facility] Phon e Number [facility] DEPARTMENT OF PATHOLOGY AND [address] [place] [address] [phone] [address] Ferritin level (05/26/2019 4:55 AM CDT) Pathologist Sig formerly [facility] Ferritin level 60 13 - 150 ng/mL [facility] Specimen Blood Performing Organization Address City/[facility] Phon e Number [facility] DEPARTMENT OF PATHOLOGY AND [address] [place] [address] [phone] [address] Vitamin B12 level (05/26/2019 4:55 AM CDT) Vitamin B12 282 211 - 946 [facility] Comment: pg/mL HOSPITAL Significant overlap exists between normal and deficien cy states. However, most patients with deficiencies will have Ser um B12 <200 pg/mL. Specimen Serum Performing Organization Address City/[facility] Phon e Number [facility] DEPARTMENT OF PATHOLOGY AND [address] [place] [address] Lipid panel (05/26/2019 4:55 AM CDT) Cholesterol 310 (H) <200 mg/dL [facility] Triglycerides 103 <150 mg/dL [facility] HDL cholesterol 58 >40 mg/dL [facility] LDL cholesterol 239 (H)Comment: <100 mg/dL [facility] Result obtained by [facility] direct [facility] measurement Lipid panel [facility] interpretation Comment: [facility] Total Cholesterol (mg/dL) HOSPIT ID <200 Desirable 200-239 Borderline-high >=240 High Triglycerides [...] Organization Address City/State/ZIP Code Phon e Number [facility] DEPARTMENT OF PATHOLOGY AND [address] [place] [phone] GENOMIC MEDICINE [facility] [address] [place] [address] Chest W Contrast Abdomen W Wo [...] as in situ or minimally invasive adenocarcinoma. [id number] Procedure Note Hm Interface, Radiology Results Incoming [...] as in situ or minimally invasive adenocarcinoma. [id number] Performing Organization Address [facility]/ZIP Code Phon e Number [facility] [address] [place] [address] ECG 12 lead (05/25/2019 12:53 PM CDT) Pathologist Sig nature Ventricular rate 79 [facility] Atrial rate 79 [facility] DC interval 136 [facility] QRSD interval 70 [facility] QT interval 404 [facility] QTC interval 463 [facility] P axis 1 47 [facility] QRS axis 1 -2 [facility] T wave axis 34 [facility] EKG impression Normal sinus [facility] M[facility] rhythm-Normal ECG-In automated comparison with ECG of 15-JUN-2015 15:46,-QT has lengthened-Electronical ly Signed By Mike Buchanan MD ([id number]) on 05/25/2019 9:20:32 PM Specimen Narrative Performed At This result has an attachment that is no t available. Performing Organization Address [facility] Phon e Number [facility] MUSE [address] duplex venous lower extremity (05/25/2019 11:00 AM CDT) Specimen Narrative Performed At [facility] Lower Extr emity Venous Report [address] [place] [address] Pat.Name: KHUSHBU KEITH Pat.ID: [id number] .Date: 05/25/2019 Refer.MD: LINH DE PAZ MD Exam Time: 10:19:00 AM Study Type:LE Venous Height: 66in Weight: 201lb BSA: 2.01 m2 Ag e: 1945,74Y Sex: FEMALE Sonogrp hr: Nighat Cabezas RVT Pat. Stat.:Inpatient Room: [id number] Tape Vol: LN, CPT - 4: 90893 Echo Event ID:[id number] Order ID: [id number] Reason for Study:Leg swelling and pain. History [...] Ultrasound Laboratory Lower Extremity Veno us Report [address] [address] , [place] [address] Pat.Name: KHUSHBU KEITH Pat.I D: [id number] .Date: 05/25/2019 Refer .MD: LINH DE PAZ MD Exam Time: 10:19:00 AM Study Type:LE Venous Height: 66in Weigh t: 201lb BSA: 2.01 m2 Age: 2 1945,74Y Sex: FEMALE Sonog rphr: Nighat Cabezas, RVBobo Pat. Stat.:Inpatient Room: [address] Tape Vol: LN, CPT - 4: [address] Echo Event ID:[id number] Order ID: [id number] Reason for Study:Leg swelling and pain. History [...] City/State/ZIP Code Phon e Number [facility] [address] [place] [address] Type and screen (05/24/2019 11:30 PM CDT) Pathologist Sig nature ABO grouping O [facility] Rh type POS [facility] Antibody screen (gel) NEG [facility] Specimen Blood Performing Organization Address City/State/ZIP Code Phon e Number [facility] DEPARTMENT OF PATHOLOGY AND [address] [place], [place] [address] GENOMIC MEDICINE [facility] [address] [place] [address] MRI Head External Study (05/24/2019 12:42 PM CDT) Specimen Narrative Performed At This exam was not acquired at a [facility] t facility and has not been [facility] interpreted by a [facility] Provider. T he exam was imported into our imaging system. 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
--- OUTSIDE RECORDS SUMMARY | 2020-02-29 21:12 | XMS REPORT | Continuity of Care Document ---
:1945 Author Organization [facility] t Address [address] [place] [address] Care Team Providers Name Role Phone Jonny [...] Expiration Date Sour ce Number MEDICAREMEDICARE PART [id number] 2009 Ken Burr AND 00:00:00 Nondenominational [id number] 2009- AngelSERVANDO TXMedicare BCBSBCBS PAR/TRAD [id number] 2016 [place] AOJUwslyuxma86611/03/03 0 00:00:00 Met valarie 017-PresentIndemnity Problems Condition Condition Condition Status Onset Resolution Last Treating Co mments Source Name Details Category Date Date Treatment Clinician Date LAD LAD Disease Active Overview: Yelena n (lymphaden (lymphaden 9- Added Me thodi opathy), opathy), 00:00: automatic st hilar hilar 00 ally from request for surgery [id number] Lung Lung Disease Active Overview: Yelena n nodules nodules 9-25 Added Methodi 00:00: automatic st 00 ally from request for surgery [id number] Personal Personal Disease Active Overview: Ken moncada history of history of 9-25 Added Me thodi lung lung 00:00: automatic st cancer cancer 00 ally from request for surgery [id number] 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 negative [...] [facility] DA Active [place] 2019-03 [facility] 2-21 [place] 00:[facility]: [facility]ope [facility] erythrom DA Active CA 2020-1 [facility] ycin 2-21 [place] base 00:00: Orthope 00 [facility] adhesive DA Active MO 2020-1 [facility] tape 2-21 [place] 00:00: Orthope 00 [facility] No Known DA Active U 2020- [facility] Drug 1-25 Clear Allergie 00:00: Cox [facility] 00 [facility] codeine DA Active MO 2020-1 [facility] 1-25 Clear 00:00: Cox 00 [facility] erythrom DA Active MO 2020-1 [facility] ycin 1-25 Clear base 00:00: Cox 00 [facility] adhesive DA Active MO 2020-1 [facility] tape 1-25 Clear 00:00: Cox 00 [facility] codeine DA Active MO 2019-1 [facility] 1-12 [place] 00:00: Orthope 00 [facility] erythrom DA Active MO 2019-1 [facility] ycin 1-12 [facility] 00:00: Orthope 00 [facility] adhesive DA Active MO 2019-1 [facility] tape 1-12 [place] 00:00: Orthope 00 [facility] adhesive DA Active MO 2019-1 [facility] tape 1-08 [place] 00:00: Orthope 00 [facility] codeine DA Active MO 2019-1 [facility] 1-06 Clear 00:00: Cox 00 [facility] erythrom DA Active MO 2019-1 [facility] ycin 1-06 Clear base 00:00: Cox 00 [facility] Codeine Propensi Active [place] ty to 10-07 Methodi adverse 00:00: st reaction 00 s to drug Erythrom Propensi Active [place] ycin ty to 10-07 Methodi adverse 00:00: st reaction 00 s to drug Family History Family Member Diagnosis Comments Start Date Stop Date Source Natural brother Basal cell carcinoma [place] Nondenominational Natural brother Breast cancer [place] Natural brother Heart disease [place] Natural brother Prostate cancer [place]ondenominational Natural brother Stomach cancer [place]omin[place] Natural father Brain cancer [place] Nondenominational Natural mother Colon cancer [place] Nondenominational Natural mother Colon polyps [place] Nondenominational Natural mother Hypertension [place] Nondenominational Social History Social Habit Start Date Stop Date Quantity Comments Source Sex Assigned At [facility] ethodist Cigarettes smoked 2019-12-08 2019-12-08 [place] Nondenominational current (pack per 00:00:00 00:00:00 day) - Reported Cigarette 2019-12-08 2019-12-08 Servando Laurent ist pack-years 00:00:00 00:00:00 Tobacco use and 2019-12-08 2019-12-08 Never used Seravndo Bolanos ethodist exposure 00:00:00 00:00:00 Alcohol intake 2019-12-08 2019-12-08 Current drinker Marlene on Nondenominational 00:00:00 00:00:00 of alcohol (finding) History of tobacco 1969-11-19 1994-04-16 Current smoker [place]ominational use 00:00:00 00:00:00 Smoking Status Start Date Stop Date Source Former smoker 2019-12-08 00:00:00 2019-12-08 00:00:00 Servando Nondenominational Medications Ordered Filled Start Stop Current Ordering [...] 42 AREDS ORAL) gabapentin 2019-03 Yes 100mg Q.[id number] Take 100 Al (NEURONTIN) 0-06 [id number] mg by Cici ethodi 100 mg 15:31: [...] blood 2019-12-06 14:30:00 140 mm[Hg] [place] Nondenominational pressure Diastolic blood 2019-12-06 14:30:00 66 mm[Hg] [place] Nondenominational pressure Heart rate 2019-12-06 14:30:00 71 /min Servando Aguiar Body temperature 2019-12-06 14:30:00 36.33 Antoinette Uche Aguiar Respiratory rate 2019-12-06 14:30:00 18 /min Uche Aguiar Oxygen saturation in 2019-12-06 14:30:00 92 /min Servando Aguiar Arterial blood by Pulse oximetry Body height 2019-12-06 06:44:00 165.1 cm Servando Aguiar Body weight 2019-12-06 06:44:00 99.338 kg Servando Aguiar BMI 2019-12-06 06:44:00 36.44 kg/m2 Servando gAuiar Procedures Procedure Date / Time Performing Clinician Source Performed CT ABDOMEN PELVIS WO 2020-02-09 00:00:00 Provider, Historical Ken Aguiar CONTRAST CT CHEST EXTERNAL STUDY 2020-02-01 10:43:[address] CHEST WO CONTRAST 2020-02-01 00:00:00 Provider, Historical Ken Laurentist CYTOLOGY 2019-12-06 10:19:00 Adolfo Park Ca yemiodist (NON-GYNECOLOGICAL) REQUEST CYTOLOGY 2019-12-06 10:13:00 Adolfo Park Ca thodist (NON-GYNECOLOGICAL) REQUEST XR CHEST 1 VW PORTABLE 2019-12-06 10:10:00 Shaun Sainz CYTOLOGY 2019-12-06 10:04:00 [place]fo [place] Ca yemiodist (NON-GYNECOLOGICAL) REQUEST FUNGUS CULTURE 2019-12-06 09:51:00 Adolfo Park Ca yemiodist AFB CULTURE 2019-12-06 09:51:00 Adolfo Park Ca yemiodi ANAEROBIC CULTURE 2019-12-06 08:51:00 Ad[place]fo Park AEROBIC CULTURE 2019-12-06 08:51:00 Adolfo Park Ca yemiodist GRAM STAIN 2019-12-06 08:51:00 Adolfo Park Ca yemiodi AFB STAIN 2019-12-06 08:51:00 Adolfo Park Ca clement AK AN ELECTIVE ENDOTRACHEAL 2019-12-06 08:11:32 Anusha Loera AIRWAY [place] COVID-19 QUALITATIVE PCR 2019-12-02 11:27:00 Ad[place]fo [place] PARTIAL THROMBOPLASTIN TIME 2019-12-02 11:27:00 [place]fo [place] (PTT) PROTHROMBIN TIME WITH INR 2019-12-02 11:27:00 Ad[place]fo Park COMPREHENSIVE METABOLIC 2019-12-02 11:27:00 Adolfo Park PANEL HC COMPLETE BLD COUNT 2019-12-02 11:27:00 Adolfo Park W/AUTO DIFF ESTIMATED GFR 2019-12-02 11:27:00 Ad[place]fo Park Ca clement PET CT WHOLE BODY EXTERNAL 2019-12-01 08:51:00 Wade Layne STUDY PET CT SKULL BASE TO MID 2019-12-01 00:00:[address] CHEST EXTERNAL STUDY 2019-11-23 14:10:[address] CHEST W CONTRAST 2019-11-23 00:00:00 [...] HEAD WO CONTRAST 2019-05-29 11:29:38 Lillian Cardona Nondenominational POC GLUCOSE 2019-05-29 08:12:00 Linh De Paz [...] WITH PLATELET AND 2019-05-28 06:30:00 Vi Bailon Nondenominational DIFFERENTIAL POC GLUCOSE 2019-05-28 04:57:00 Linh De Paz Meth odist BASIC METABOLIC PANEL 2019-05-28 04:00:00 Vi Bailon Nondenominational IONIZED CALCIUM 2019-05-28 04:00:00 Adamaris Vi Al [...] FUNCTION PANEL 2019-05-27 11:25:00 Manolo Velez on Nondenominational Emitseilu POC GLUCOSE 2019-05-27 07:39:00 Linh De Paz Meth odist POC GLUCOSE 2019-05-27 04:22:00 Linh De Paz Meth odist HC COMPLETE BLD COUNT 2019-05-27 04:00:00 Linh De Pazist W/AUTO DIFF CT HEAD WO CONTRAST 2019-05-27 02:45:20 Marito Varela on Nondenominational XR CHEST 1 VW PORTABLE 2019-05-27 02:33:05 [...] PATHOLOGY REQUEST 2019-05-26 09:11:00 Linh De Paz AK AN ELECTIVE ENDOTRACHEAL 2019-05-26 08:18:47 Edward Diop AIRWAY ARTERIAL LINE 2019-05-26 08:01:54 Raisa Worthy CRANIOTOMY 2019-05-26 07:23:00 Linh De Paz Meth odist FOLATE LEVEL 2019-05-26 04:55:00 Kian Rutherford Meth odist FERRITIN LEVEL 2019-05-26 04:55:00 Kian Rutherford Meth odist VITAMIN B12 LEVEL 2019-05-26 04:55:00 Kian Rutherford Me thodist THYROID STIMULATING HORMONE 2019-05-26 04:55:00 Kian Rutherford Nondenominational MAGNESIUM LEVEL 2019-05-26 04:55:00 ItalianKian Meth odist LIPID PANEL 2019-05-26 04:55:00 ItalianKian Meth odist PHOSPHORUS LEVEL 2019-05-26 04:55:00 Kian Rutherford Met hodist HC COMPLETE BLD COUNT 2019-05-25 18:15:00 Indy Pena Nondenominational W/AUTO DIFF Wanjiru BASIC METABOLIC PANEL 2019-05-25 18:15:00 Indy Pena Nondenominational Wanjiru ESTIMATED GFR 2019-05-25 18:15:00 Indy Pena Meth odist Wanjiru MRI BRAIN W WO CONTRAST 2019-05-25 16:15:00 Koby Roche Nondenominational Sheetzer CT CHEST W CONTRAST ABDOMEN 2019-05-25 14:52:34 Raj Peres W WO CONTRAST PELVIS W CONTRAST XR CHEST 1 VW PORTABLE 2019-05-25 13:05:00 Koby Roche on Nondenominational Sheetzer ECG 12-LEAD 2019-05-25 12:53:53 Kian Rutherford Meth odist POC GLUCOSE 2019-05-25 12:16:00 Linh De Paz Meth odist US DUPLEX VENOUS LOWER 2019-05-25 11:00:00 Koby Roche on Nondenominational EXTREMITY BILATERAL Sheetzer BASIC METABOLIC PANEL 2019-05-24 [...] Future Scheduled 2019-10-01 INFLUENZA VACCINE [place] Test 00:00:00 [code = INFLUENZA VACCINE] Future Scheduled 2017-06-12 BREAST CANCER [place] Me thodist Test 00:00:00 SCREENING [code = BREAST CANCER SCREENING] Future Scheduled 1994 COLONOSCOPY SCREENING [place]enominational Test 00:00:00 [code = COLONOSCOPY SCREENING] Future Scheduled 1994 SHINGLES VACCINES [place] N[place]enominational Test 00:00:00 (#1) [code = SHINGLES VACCINES (#1)] Future Scheduled 1960 COVID-19 VACCINE (#1) [place]enominational Test 00:00:00 [code = COVID-19 VACCINE (#1)] Encounters Start End Encounter Admission Attending Care Care Encounter Source Date/Time Date/Time Type Type Clinicians Facility Department ID 2020-02-17 2020-02-17 Outpatient [facility] [id number] [place] 00:00:00 00:00:00 EDWARD [address] 2020-02-14 2020-02-14 Laboratory Only, Adc [facility] [id number] 15:29:26 15:44:26 Only [place] 350.1.13.10 [place] 4.2.7.2.686 [place] [id number] 2020-01-02 2020-01-02 Outpatient [facility] [id number] [place] 00:00:00 00:00:00 LINH [address] 2019-12-06 2019-12-06 Outpatient [facility] [id number] [place] 00:00:00 00:00:00 EDWARD [address] 2019-12-05 2019-12-05 Outpatient WADE LAYNE [facility] [id number] [place] 00:00:00 00:00:[address] 2019-12-05 2019-12-05 Outpatient WADE LAYNE [facility] [id number] [place] 00:00:00 00:00:[address] 2019-12-02 2019-12-02 Outpatient VLAD, [facility] [id number] [place] 00:00:00 00:00:00 EDWARD [address] 2019-11-25 2019-11-25 Outpatient PARK, [facility] [id number] [place] 00:00:00 00:00:00 EDWARD [address] 2019-11-25 2019-11-25 Outpatient PARK, [facility] [id number] [place] 00:00:00 00:00:00 EDWARD [address] 2019-11-05 2019-11-05 Letter JONNY [place] 1.2.840.114 [id number] 00:00:00 00:00:00 (Out) Rose Marie BARNES 350.1.13.10 [facility] 4.2.7.2.686 [id number] 2019-11-04 2019-11-04 Laboratory Lab, [facility] 1.2.840.114 [id number] 10:17:33 10:37:33 Only Fam Pob I Health 350.1.13.10 [place] 4.2.7.2.686 Professio [id number] nal 0[address] One 2019-11-04 2019-11-04 Letter Doctor FULLER 1.2.840.114 [id number] 00:00:00 00:00:00 (Out) UnassMOLLY easton 350.1.13.10 [facility] 4.2.7.2.686 [id number] 2019-07-12 2019-07-12 Outpatient WADE LAYNE [facility] [id number] [place] 00:00:00 00:00:[address] 2019-06-27 2019-06-27 Outpatient WADE LAYNE [facility] [id number] [place] 00:00:00 00:00:[address] 2019-06-13 2019-06-13 Outpatient DE PAZ, [facility] [id number] [place] 00:00:00 00:00:00 LINH 719 Method i 2019-05-24 2019-06-01 Inpatient KIAN [facility]ORD [facility] [id number] [place] 00:00:00 00:00:00 942 Method i 2018-11-03 2018-11-03 Surgical Aides Teacher 1, Adc Lab [facility] 1.2.840.114 [id number] 14:27:18 14:42:18 Visit Andre 350.1.13.10 [place] 4.2.7.2.686 [place] [id number] [facility] 2018-11-03 2018-11-03 Orders Doctor JONNY 1.2.840.114 [id number] 00:00:00 00:00:00 Only Unassigned, MOLLY 350.1.13.10 [place] [facility] 4.2.7.2.686 [id number] Results Test Description Test Time Test Comments Results Result Comments Source HGB HCT 2020-02-23 06:00:00 Test Item Value Reference Range Interpretation Comme nts HEMOGLOBIN (test code = HGB) 10.8 g/dL 12-16 L HEMATOCRIT (test code = HCT) 34.5 % 37-47 L HGB [id number] 05:54:00 Test Item Value Reference Range Interpretation Comments HEMOGLOBIN (test code = HGB) 10.7 g/dL 12-16 L HEMATOCRIT (test code = HCT) 33.3 % 37-47 L HGB [id number] 06:02:00 Test Item Value Reference Range Interpretation Comments HEMOGLOBIN (test code = HGB) 12.1 g/dL 12-16 N HEMATOCRIT (test code = HCT) 38.1 % 37-[address] Chest External [id number] 14:59:55This exam was not acquired at a Nondenominational facility and has not been interpreted by a Nondenominational Provider. The exam was imported into our imaging system.[place] MethodistBASI METABOLIC PANEL 2020-01-25 19:47:00 Test Item [...] RATE (test code = GFR) mL/mi n/1.73 l7Eckavoggm Range:Healthy Adults >90 mL/min/1.73 m2 For Chronic Kidney Disease: St age II Mild Decrease in GFR 60-90 St age III Moderate Decrease in GFR 30-59 Stage IV Severe Decre ase in GFR 15- 29 Stage V Kidney Failure <15 CREATININE (test code 0.85 mg/dL 0.55-1.30 N = CREAT) CALCIUM (test code = 8.5 mg/dL 8.2-10.1 N CA) PROTHROMBIN [id number] 18:28:00 Test Item Value Reference Range Interpretation [...] BLOOD, PT every other day NTHROMBOPLASTIN TIME [id number] 18:28:00 Test Item Value Reference Range Interpretation [...] code = NRBC) - MRI L-SPINE W/O [id number] 11:24:00 [facility] 1945 Sex: F Patient Name: ODALIS RUVALCABA Unit No: [id number] EXAMS: CPT CODE: [id number] MRI L-SPINE W/O CONT 23416 DIAGNOSIS: 1. At L1-2 there is 2 [...] GERTRUDIS ARREDONDO RT(R) Transcribed D/ (112) [place] [facility] NAME: ODALIS RUVALCABA [address] [facility] PHYS: Kian Harmon Veronica Cici : 1945 AGE: 74 SEX: F [place] [address] LOC: Y.MRI PHONE #: [phone] EXAM DATE: 01/25/2020 STATUS: REG CLI FAX #: [phone] RAD #: D/C DT PAGE 1 Signed Report Patient Name: ODALIS RUVALCABA Unit No: [id number] EXAMS: CPT CODE: [id number] MRI L- SPINE W/O CONT 18987 <Continued> Orig Print D/T: S: 01/25/2020 (112) [facility] NAME: ODALIS RUVALCABAGALION HOSPITALShavon [address] [facility] PHYS: Kian Harmon Veronica Cici : 1945 AGE: 74 SEX: F [place] [address] LOC: Y.MRI PHONE #: [phone] EXAM DATE: 01/25/2020 STATUS: REG CLI FAX #: [phone] RAD #: D/C DT PAGE 2 Signed ReportAFB [id number] 12:13:09 Test Item Value Reference Range Interpretation Comments AFB culture No growth Specimen isolate (test after 6 weeks InformationSp ecimen code = 543-9) of Source: FluidS pecimen incubation. Site: Lun R Servando MethodistFungus [id number] 12:15:09 Test Item Value Reference Range Interpretation Comments Fungus culture No growth Specimen isolate (test after 4 weeks InformationSp ecimen code = 1441) of Source: FluidSp ecimen incubation. Site: Lun R Servando MethodistAnaerobic [id number] 09:47:41 Test Item Value Reference Range Interpretation Comments Anaerobic No anaerobic Specimen culture isolate organisms InformationS pecimen (test code = isolated. Source: FluidSp ecimen 552) Site: Lun R Servando MethodistAFB [id number] 14:21:55 Test Item Value Reference Range Interpretation Comments AFB stain No acid fast Specimen (test code = bacilli (AFB) InformationSpe cimen 676-7) seen. Source: FluidSp ecimen Site: Lun R Al MethodistAerobic [id number] 14:21:55 Test Item Value Reference Range Interpretation Comments Aerobic culture No growth Specimen isolate (test after 3 days. InformationSp ecimen code = 498) Source: FluidSp ecimen Site: Lun R Servando MethodistFungus [id number] 14:21:55 Test Item Value Reference Range Interpretation Comments Fungus smear No fungi Specimen (test code = observed. InformationSpec imen Source: 1443) FluidSpecimen S ite: Lun R Servando LaurentistGram [id number] 14:21:55Gram stain isolateRare WBC'sNo organisms seen Comment: Specimen InformationSpecimen Source: FluidSpecimen Site: Lun R [facility] MethodistCytology (non- gynecological) [id number] 14:27:18 Test Item Value Reference Range Interpretation Comments Case number (test code = [id number]) Cytology See link below for (non-gynecological) PDF Lab Report report (test code = 1178) Result status (test code This is Final Report = [id number]) [facility] [id number] [facility] Vw [id number] 10:19:02Hm Interface, Radiology Results Incoming - 12/06/2019 [...] effusion. Bones/Other: Metallic clips overlie right axilla.1D2RAD_PS02[place] KukafbkrePycvrv9294-05-71 08:11:32 Anusha Loera 12/06/2019 8:14 AMAirway Date/Time: 12/06/2019 8:08 AMPerformed by: Anusha Loerauthorized by: Sophie Goss MD Location: ORUrgency: ElectiveAnesthesiologist: Sophie Goss, MDResident/KICK PRESS OPERATOR/AA: Anusha Loera Anesthesia Staff: Gabriel Young EPerformed [...] secure.No damage to lips, teeth, or gums. VSS.[place] MethodistPET/CT Whole Body External [id number] 20:34:18This exam was not acquired at a Nondenominational facility and has not been interpreted by a Nondenominational Provider. The exam was imported into our imaging system.[place] Nondenominational Surgical pathology [id number] 11:24:09 Test Item Value Reference Range Interpretation Comments Case number (test [id number] code = 3019489) Surgical pathology See link below for PDF report (test code = Lab Report 2255) Result status (test This is Supplemental code = 3859545) Report for [id number] MARC (test code = MARC) BRAIN TUMOR #2ARUP TEST #[id number] SOLID TUMOR MUTATION [id number] MethodistMiscellaneous referral [id number] 09:03:42 Test Item Value Reference Range Interpretation Comments Misc test name ZAN SOLID TUMOR (test code = PANEL 2566) Misc test SEE NOTE Solid Tumor Mut ation result (test Panel by Next G eneration code = 1730) Sequencing ARUP test code 0829761 So lid Tumor Panel By NGS Interpretation [...] Prognostic Sign ificance) 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 Clinica l trials for ZK86-slvice d breast cancers are cur rently underway [...] or Tier 3. NONE REFERENCES:1.N. Cancer Genome Ollie, Comprehensive m olecular portraits of chidi messer breast tumours. Nature 2012. PMID: 86336333.2.IARC TP53 database websit e: http://p53.iarc .fr/TP53G eneVariations.a spx3.COSM IC database web site: http://cancer.s [facility].ac. uk/cancergenome /projects /cosmic/4.cBioP ortal database websit e: http://www.cbio portal.or g/5.Sagar Martínez et al., Standards and G uidelines for the Interpr etation and Reporting o f Sequence Varian ts in Cancer: A Joint Consensus Recom mendation of the Associat ion for Molecular Patho logy, [place] Societ y of Clinical Oncolo gy, and College of Amer [facility] Pathologists. T baylee Journal of mole cular diagnostics : Margo BRADFORD 2017. PMID: 25483273. This result has been reviewed and approved [...] is availa ble through this li nk: http://ltd.Snugg Home.WebAction/T ests/Pdf/375.ME THODOLOGY : Genomic DNA i s [...] all variant classes available throu this link: http://ltd.Derivix/T ests/Pdf/375.CL INICAL DISCLAIMER: Res ults of this test must always be interpreted wit hin the clinical contex t and other relevant data and should not be u sed alone for a diagnosis of malignancy. Thi s test is not intended to detect minimal residua l disease.Test de veloped and characteris tics determined by A [facility]. S ee Compliance Stat ement B: [employer]/CS- - - - - - - - [...] Tumor Panel by NGS Bl ock ID [id number] B3 - - - - - - - - - - - - - - - - - - - -Order comments Solid Tumor Mutation Panel by Next Generation SequencingBRAIN TUMOR #2ARUP TEST #[id number] SOLID TUMOR MUT ATION [id number] B3 ========= ========= Te st performed by:[facility] [place] [address] MARC (test code BRAIN TUMOR = MARC) #2ARUP TEST #[id number] SOLID TUMOR MUTATION [id number] B3 [facility] [id number] 12:14:36 Test Item Value Reference Range Interpretation Comments POC glucose (test code 178 mg/dL 65-99 H Opera tor Name: = 47379-9) Shahla DeseriaDevice I D: [id number] able: [facility] Notified resaw machine operator Interpretation Abnormal (test code = 52119-9) Servando MethodistCarcinoembryonic antigen (CEA)2019-06-01 07:01:10 Test Item Value Reference Range Interpretation Comments CEA (test code = 2.7 ng/mL 0-3.8 Reference r david for heavy 2038-07) smokers: 0.0 - 5.5 ng/mLThe FREDI Eladio 8000 CEA immunoassay was used. Results obtaine d with different assay methods or kits should not be used interchangeably and may be different. [place] MethodistCancer antigen [id number] 07:00:42 Test Item Value Reference Range Interpretation Comments CA 125 (test code 28 U/mL 0-35 The Fredi Eladio 8000 CA125 = 58333-6) immunoassay was used. Results obtaine d with different assay methods or kits should not be used interchangeably and may be different. [place] MethodistCancer antigen [id number] 07:00:42 Test Item Value Reference Range Interpretation Comments CA 15-3 (test code 22 U/mL 0-25 The Fredi Eladio 8000 CA153 = 1005) immunoassay was used. Results obtaine d with different assay methods or kits should not be used interchangeably and may be different. [place] MethodistCancer antigen [id number] 07:00:42 Test Item Value Reference Range Interpretation Comments CA 19-9 (test code 12 U/mL 0-35 The Fredi Eladio 8000 CA19-9 = 1006) immunoassay was used. Results obtaine d with different assay methods or kits should not be used interchangeably and may be different. [place] NondenominationalUs duplex venous upper [id number] 15:18:00Interface, Radiology Results In - 05/31/2019 3:18 PM CDT Vascular Ultrasound Laboratory Upper Extremity Venous Ljaygn6542 [address] [address] Pat.Name: ODALIS RUVALCABA Pat.ID: [id number] .Date: 05/31/2019 Refer.MD: LILO ALEXANDER MD Exam Time: 12:53:00 PM Study Type:UE Venous Height: 66in Age: 2 1945,74Y Sex: FEMALE Sonogrphr: ELLY Ferreira, ETHAN Pat. Stat.:Inpatient Room: [address] Tape Vol: JM, CPT - 4: 32726 Echo Event ID:[id number] Order ID: [id number] Reason for Study:RUE swelling or pain, DVT [...] veins.*Preliminary result reported to CINTHIA Jonas @ 2266 on 05/31/19.PHYSICIAN INTERPRETATION Venous examination of the right upper extremity and neck demonstratedno evidence of deep venous thrombosis. Total superficial vein thrombosis in right basilic vein at theantecubital f sofya. FINDINGS: ------Signed 05/31/2019 03:18 Marsha Erwin MD, RPVIHot [place] Nondenominational Hemoglobin [id number] 07:30:18 Test Item Value Reference Range Interpretation Comments Hemoglobin A1C (test 6.9 % 4-5.6 H HbA1c c utoffs for code = 75826-7) diagnosing diabetes:4.0% - 5.6% = normal5.7% - 6.4% = increased risk for diabetes (prediabetes)9> =6.5% = zhbtasqs2Gyty s for glycemic contro l (ADA 2016)< 7.0% Ta rget for non adults with elgin betes. More or less stringent targe ts may be appropriate for individual naomi ents. <7.5% Target for Children and adolescents wit h type 1 diabetes. Lab Interpretation (test Abnormal code = 81331-4) [place] MethodistBasic metabolic [id number] 05:38:21 Test Item Value Reference Range Interpretation Comments Sodium (test code = 2951-2) 139 135- 148 mEq/L Potassium (test code = 2823-3) 4.7 3.5- 5.0 mEq/L Chloride (test code = 2075-0) 102 98- 112 mEq/L CO2 (test code = 8-9) 25 24- 31 mEq/L Anion gap (test code = 46527-9) 12@ANIO 7- 15 mEq/L BUN (test code = 3094-0) 21 mg/dL 8-23 Creatinine (test code = 2160-0) 0.71 mg/dL 0.5-0.9 Glucose (test code = 2345-7) 178 mg/dL 65-99 H Calcium (test code = 13575-0) 9.0 mg/dL 8.8-10.2 Lab Interpretation (test code = Abnormal 71903-4) [place] MethodistMagnesium [id number] 05:38:21 Test Item Value Reference Range Interpretation Comments Magnesium (test code = 82609-2) 2.4 mg/dL 1.6-2.4 [place] MethodistPhosphorus [id number] 05:38:20 Test Item Value Reference Range Interpretation Comments Phosphorus (test code = 2777-1) 3.0 mg/dL 2.4-4.5 [place] MethodistCT Head Wo [id number] 11:38:30Hm Interface, Radiology Results Incoming - 05/29/2019 [...] the midline structures to the left..IMPRESSION:Evolving postop changes.[facility]-[id number] MethodistCBC [id number] 21:49:27 Test Item Value Reference Range Interpretation Comments WBC (test code = 47092-5) 8.29 4.50- 11.00 k/uL RBC (test code = 74685-7) 3.77 m/uL 4.2-5.5 L HGB (test code = 718-7) 11.6 g/dL 12-16 L HCT (test code = 4544-3) 36.5 % 37-47 L MCV (test code = 787-2) 96.8 fL 82-100 MCH (test code = 785-6) 30.8 pg 27-34 MCHC (test code = 786-4) 31.8 g/dL 31-37 RDW - SD (test code = 52529-4) 47.4 fL 37-55 MPV (test code = 07476-5) 12.5 fL 8.8-13.2 Platelet count (test code = 153 150- 400 k/uL 81565-6) Nucleated RBC (test code = 0.00 /100 WBC 68061-3) Lab Interpretation (test code = Abnormal 82008-3) [facility] [id number] 08:20:42 Test Item Value Reference Range Interpretation Comments pH (test code = 2753-2) 7.57 Ionized calcium (test code = 1.06 mmol/L 1.11-1.32 L ) Lab Interpretation (test code = Abnormal 87375-1) [place] MethodistHepatic function [id number] 12:22:03 Test Item Value Reference Range Interpretation [...] g/dL 1-2 years 5.6-7.5 g/dL>3 years 6.0-8.0 g/tX05-477 6.3-8. 3 g/dL ALT (test code = 1742-6) 17 U/L 5-50 AST (test code = 1920-8) 21 U/L 10-35 Lab Interpretation (test Abnormal code = 32256-6) [place] MethodistLactic acid [id number] 12:17:19 Test Item Value Reference Range Interpretation Comments Lactic acid (test code = 66739-9) 2.3 mmol/L 0.5-2.2 H Lab Interpretation (test code = Abnormal 01606-3) Al XmozyieugOsosbb8589-53-47 08:18:47Edward Diop Jr. 05/26/2019 8:20 AMAirwayDate/Time: 05/26/2019 7:44 AMPerformed by: Edward Diop Jr.Authorized by: Sudhir Headley MD Location: ORUrgency: ElectiveDifficult Airway: No Anesthesiologist: Sudhir Headley MDResiarpitat/KICK PRESS OPERATOR/AA: Edward Diop Jr.Performed by: anesthesiologistPreoxygenated with 100% [...] Atraumatic ETT insertion att x 1 by KICK PRESS OPERATOR. +EtCO2, +BBS. Dentition unchanged. Patient intubated by Dr Headley with PAPR on.[facility] MethodistArterial [id number] 08:01:54Edward Diop Jr. 05/26/2019 8:03 AMArterial linePerformed [...] have Serum B12 <2 00 pg/mL. [facility] AguiarFolate [id number] 06:03:33 Test Item Value Reference Range Interpretation Comments Folate (test code = 2284-8) 9.3 ng/mL 4.8-24.2 Al MethodistThyroid stimulating [id number] 05:53:28 Test Item Value Reference Range Interpretation Comments TSH (test code = 3016-3) 0.98 0.27- 4.20 uIU/mL Al MethodistFerritin [id number] 05:51:03 Test Item Value Reference Range Interpretation Comments Ferritin level (test code = 2276-4) 60 ng/mL 13-150 [place] MethodistLipid [id number] 05:48:53 Test Item Value Reference Interpretation Comments [...] (mg/dL) interpretation (test < 200 code = 45775-1) Desirable 200-239 Borderline -high >=240 Hi gh [...] mg/dL) Lab Interpretation Abnormal (test code = 93091-5) Al MethodistECG 12 [id number] 21:20:38 Test Item Value Reference Range Interpretation Comments Ventricular rate (test 79 code = 253) Atrial rate (test code 79 = 255) AK interval (test code 136 = 266) QRSD [...] Buchanan MD ([id number]) on 05/25/2019 9:20:32 PM [place] MethodistCT Chest W Contrast Abdomen W Wo [...] such as in situ or minimally invasive adenocarcinoma.[id number] MethodistUs duplex venous lower extremity 2019-05-25 12:06:00Interface, Radiology Results In - 05/25/2019 12:07 PM CDT Vascular Ultrasound Laboratory Lower Extremity Venous [address] [place] [address] Pat.Name: ODALIS RUVALCABA Pat.ID: [id number] .Date: 05/25/2019 Refer.MD: LINH DE PAZ MD Exam Time: 10:19:00 AM Study Type:LE Venous Height: 66in Weight: 201lb BSA: 2.01 m2 Age: 2 1945,74Y Sex: FEMALE Sonogrphr: Nighat Cabezas RVT Pat. Stat.:Inpatient Room: [address] Vol: LN, CPT - 4: 63539 Echo Event ID:[id number] Order ID: [id number] Reason for Study:Leg swelling and pain. History [...] Si gned 05/25/2019 12:06 Marsha Erwin MD, VIHot Springs MethodistMRI Head External Iosfd9811-05-38 01:10:30This exam was not acquired at a Nondenominational facility and has not been interpreted by a Nondenominational Provider. The exam was imported into our imaging system.[place] MethodistType and [id number] 00:59:00 Test Item Value Reference Range Interpretation Comments ABO grouping (test code = 883-9) O Rh type (test code = 80980-2) POS Antibody screen (gel) (test code = NEG 890-4) [place] [facility]- XR PELVIS 1/2 [id number] 09:43:00 Patient Name: ODALIS RUVALCABA Unit No: [id number] EXAMS: CPT CODE: [id number] XR PELVIS 1/2 VIEWS 87003 AP VIEW OF THE PELVIS. COMMENT: In progress total left hip arthroplasty. AP view of the pelvis COMMENT: COMPARISON: No prior exams available. Completed total left hip arthroplasty. Prosthesis a ppears to be in good position. at 0943 Reported and signed by: Sudhir Kirby M.D. CC: Jessee Santiago MD Technologist: ESTEFANIA WHITE (RT.R) Transcribed D/T: 01/12 (0943) [place] NAME: ODALIS RUVALCABA [address] [facility] PHYS: MATVA.01 - Jessee Santiago : 1945 AGE: 73 SEX: F [place] [address] LOC: Y.501 A PHONE #: [phone] EXAM DATE: 01/11/2019 STATUS: ADM IN FAX #: [phone] RAD #: D/C DT PAGE 1 Signed Report Patient Name: ODALIS RUVALCABA Unit No: [id number] EXAMS: CPT CODE: [id number] XR PELVIS 1/2 VIEWS 88384 <Continued> Orig Print D/T: S: 01/12/2019 (0947) [facility] NAME: ODALIS RUVALCABA [address] PHYS: MATVA. - Jessee Santiago : 1945 AGE: 73 SEX: Daw[place] [address] LOC: Y.501 A PHONE #: [phone] EXAM DATE: 01/11/2019 STATUS: ADM IN FAX #: [phone] RAD #: D/C DT PAGE 2 Signed Report- XR PELVIS 1/2 [id number] 09:43:00 Patient Name: ODALIS RUVALCABA Unit No: [id number] EXAMS: CPT CODE: [id number] XR PELVIS 1/2 VIEWS 56693 AP VIEW OF THE PELVIS. COMMENT: In progress total left hip arthroplasty. AP view of the pelvis COMMENT: COMPARISON: No prior exams available. Completed total left hip arthroplasty. Prosthesis appears to be in good position. at 0943 Reported and signed by: Sudhir Kirby M.D. CC: Jessee Santiago MD Technologist: ESTEFANIA WHITE (RT.R) Transcribed D/ (0943) [facility] NAME: ODALIS RUVALCABA[address] PHYS: MATVA.Helen - Jessee Santiago : 1945 AGE: 73 SEX: Daw[place] [address] LOC: Y.501 A PHONE #: [phone] EXAM DATE: 01/11/2019 STATUS: ADM IN FAX #: [phone] RAD #: D/C DT PAGE 1 Signed Report Patient Name: ODALIS RUVALCABA Unit No: [id number] EXAMS: CPT CODE: [id number] XR PELVIS 1/2 VIEWS 49824 <Continued> Orig Print D/T: S: 01/12/2019 (0947) [facility] NAME: ODALIS RUVALCABA [address] [facility] PHYS: JERARDO.Helen - Jessee Santiago : 1945 AGE: 73 SEX: F [place], [place] [address] LOC: Y.501 A PHONE #: [phone] EXAM DATE: 01/11/2019 STATUS: ADM IN FAX #: [phone] RAD #: D/C DT PAGE 2 Signed ReportBASIC METABOLIC [id number] 07:12:00 Test Item Value Reference Range Interpretation [...] RATE (test code = GFR) mL/mi n/1.73 [id number] Range:Healthy Adults >90 mL/min/1.73 m2 For Chronic Kidney Disease: St age II Mild Decrease in GFR 60-90 St age III Moderate Decrease in GFR 30-59 Stage IV Severe Decre ase in GFR 15- 29 Stage V Kidney Failure <15 CREATININE (test code 1.02 mg/dL 0.55-1.30 N = CREAT) CALCIUM (test code = 8.3 mg/dL 8.2-10.1 N CA) HGB [id number] 05:59:00 Test Item Value Reference Range Interpretation Comments HEMOGLOBIN (test code = HGB) 11.0 g/dL 12-16 L HEMATOCRIT (test code = HCT) 34.0 % 37-47 L COMPREHENSIVE METABOLIC [id number] 20:53:00 Test Item Value Reference Range Interpretation [...] RATE (test code = GFR) mL/mi n/1.73 [id number] Range:Healthy Adults >90 mL/min/1.73 m2 For Chronic [...] TOTAL (test code = ALKP) CBC W/AUTO [id number] 20:31:00 Test Item Value Reference Range Interpretation [...] % 0-0 N code = NRBC) PROTHROMBIN [id number] 20:26:00 Test Item Value Reference Range Interpretation [...] v oro IS PATIENT ON ANTICOAGULANTS ? [facility] been notified if Patient is on Heparin Drip? NOTHROMBOPLASTIN TIME [id number] 20:26:00 Test Item Value Reference Range Interpretation Comments PTT ACTIVATED (test code = APTT) 32.1 secs 24.9-37.0 N IS PATIENT ON ANTICOAGULANTS ? [facility] been notified if Patient is on Heparin Drip? NO
[2020-03-01] MEDS ORDERED: MORPHINE 2 MG/ML SYR ONE (01:47)
[2020-03-01] MEDS ORDERED: ONDANSETRON 4 MG/2 ML VIAL ONE (01:48)
[2020-03-01] MEDS ORDERED: MORPHINE 4 MG/ML SYR ONE (02:20)
[2020-03-01 02:25] LABS: Absolute Lymphocytes (CBC) 0.8 K/uL (0.7-4.9); Basophils % 1.4 % (0-1.3); Hematocrit 38.1 % (36.0-45.0); MPV 9.5 fL (7.6-11.3); RBC Red Blood Cell Count 4.07 M/uL (3.86-4.86)
[2020-03-01 02:27] LABS: Protime INR 1.03
[2020-03-01 02:35] LABS: ALT/SGPT 27 U/L (12-78); AST/SGOT 25 U/L (15-37); Albumin 3.3 g/dL (3.4-5.0); Alkaline Phosphatase 186 U/L (45-117); BUN Blood Urea Nitrogen 17 mg/dL (7-18); Bicarbonate 27 mmol/L (21-32); Bilirubin Direct < 0.1 mg/dL (0-0.2); Bilirubin Total 0.2 mg/dL (0.2-1.0); Glucose Level 113 mg/dL (74-106); Potassium 3.9 mmol/L (3.5-5.1); Protein, Total 7.6 g/dL (6.4-8.2); Sodium Level 142 mmol/L (136-145)
[2020-03-01] MEDS ORDERED: HYDROMORPHONE HCL 1 MG/ML INJ ONE (05:26)
--- NOTE | 2020-03-01 05:30 | EDPHYS ---
Physician Documentation [facility] Name: Khushbu Keith Age: 74 yrs Sex: Female : 1945 Arrival Date: 02/29/2020 Time: 21:07 Bed 19 Private MD: ED Physician Rashel Mckinney HPI: 03/01 03:47 This 74 yrs old Female presents to ER via Wheelchair with complaints of Back mh7 Pain, Leg Numbness. 03:47 The patient presents with pain that is acute, Post operative lower back pain. The mh7 symptoms are located in the low back. Onset: The symptoms/episode began/occurred 6 day(s) ago. The pain radiates to the left leg. 03:49 Associated signs and symptoms: Pertinent positives: numbness, tingling, Pertinent mh7 negatives: abdominal pain, chest pain, constipation, dysuria, fever, headache, hematuria, incontinence, nausea, urinary retention, vomiting, weakness. The problem was sustained lower back surgery 9 days ago. Modifying factors: The patient symptoms are alleviated by nothing, the patient symptoms are aggravated by movement, standing. Severity of symptoms: At their worst the symptoms were moderate, 5 day(s) ago, in the emergency department the symptoms are unchanged. The patient has been recently seen at the [facility], last week. Historical: - Allergies: 02/28 21:33 Codeine; ss 21:33 Erythromycin; ss - PMHx: 21:33 Anxiety; bilateral mastectomy 2016; breast cancer; Osteoarthritis to hands; metastatic ss breast cancer, brain and lung; left hip sciatica; Hypertension; Hyperlipidemia; right plantar fascitis; - PSHx: 21:33 Hysterectomy; Hip - Left; Back sx; ss - Immunization history:: Adult Immunizations up to date. - Social history:: Smoking status: Patient denies any tobacco usage or history of. ROS: 03/01 03:49 Constitutional: Negative for fever, chills, and weight loss, Eyes: Negative for injury, mh7 pain, redness, and discharge, ENT: Negative for injury, pain, and discharge, Neck: Negative for injury, pain, and swelling, Cardiovascular: Negative for chest pain, palpitations, and edema, Respiratory: Negative for shortness of breath, cough, wheezing, and pleuritic chest pain, Abdomen/GI: Negative for abdominal pain, nausea, vomiting, diarrhea, and constipation, : Negative for injury, bleeding, discharge, and swelling, Skin: Negative for injury, rash, and discoloration, Psych: Negative for depression, anxiety, suicide ideation, homicidal ideation, and hallucinations, Allergy/Immunology: Negative for hives, rash, and allergies, Endocrine: Negative for neck swelling, polydipsia, polyuria, polyphagia, and marked weight changes, Hematologic/Lymphatic: Negative for swollen nodes, abnormal bleeding, and unusual bruising. Exam: 03:49 Constitutional: This is a well developed, well nourished patient who is awake, alert, mh7 and in no acute distress. Head/Face: Normocephalic, atraumatic. Eyes: Pupils equal round and reactive to light, extra-ocular motions intact. Lids and lashes normal. Conjunctiva and sclera are non-icteric and not injected. Cornea within normal limits. Periorbital areas with no swelling, redness, or edema. Neck: Trachea midline, no thyromegaly or masses palpated, and no cervical lymphadenopathy. Supple, full range of motion without nuchal rigidity, or vertebral point tenderness. No Meningismus. Chest/axilla: Normal chest wall appearance and motion. Nontender with no deformity. No lesions are appreciated. Cardiovascular: Regular rate and rhythm with a normal S1 and S2. No gallops, murmurs, or rubs. Normal PMI, no JVD. No pulse deficits. Respiratory: Lungs have equal breath sounds bilaterally, clear to auscultation and percussion. No rales, rhonchi or wheezes noted. No increased work of breathing, no retractions or nasal flaring. Abdomen/GI: Soft, non-tender, with normal bowel sounds. No distension or tympany. No guarding or rebound. No evidence of tenderness throughout. 03:49 Skin: Warm, dry with normal turgor. Normal color with no rashes, no lesions, and no evidence of cellulitis. Neuro: Awake and alert, GCS 15, oriented to person, place, time, and situation. Cranial nerves II-XII grossly intact. Motor strength 5/5 in all extremities. Sensory grossly intact. Cerebellar exam normal. Normal gait. Psych: Awake, alert, with orientation to person, place and time. Behavior, mood, and affect are within normal limits. 03:49 Back: pain, that is moderate, of the lumbar area, ROM is painful, with all movement, normal spinal alignment noted, CVA tenderness, is absent, vertebral tenderness, is not appreciated, muscle spasm, is not present, Straight leg raises: of both lower extremities does not illicit pain, lumbar surgical scars clean/dry/intact without erythema, swelling, induration, or discharge. Vital Signs: 02/28 21:27 BP 155 / 73; Pulse 76; Resp 16; Temp 98.4; Pulse Ox 98% on R/A; Weight 97.52 kg; Height ss 5 ft. 5 in. (165.10 cm); Pain 8; 21: Body Mass Index 35.78 (97.52 kg, 165.10 cm) ss MDM: 03/01 05:27 Differential diagnosis: chronic back pain, Fracture Osteoarthritis ruptured disc, mh7 spinal injury, vertebral fracture, Post operative back pain. Data reviewed: vital signs, nurses notes, old medical records, lab test result(s), CBC, electrolytes, radiologic studies, CT scan. Data interpreted: Pulse oximetry: on room air is 98 %. Interpretation: normal. Counseling: I had a detailed discussion with the patient and/or guardian regarding: the historical points, exam findings, and any diagnostic results supporting the discharge/admit diagnosis, the presence of at least one elevated blood pressure reading (>120/80) during this emergency department visit, lab results, radiology results, the need for outpatient follow up, to return to the emergency department if symptoms worsen or persist or if there are any questions or concerns that arise at home. Response to treatment: the patient's symptoms have markedly improved after treatment. 05:29 Patient medically screened. [facility] 03/01 01:22 Order name: CBC with Diff; Complete Time: 02:40 [facility] 03/01 01:22 Order name: Basic Metabolic Panel; Complete Time: 02:40 [facility] 03/01 01:22 Order name: LFT's; Complete Time: 02:40 [facility] 03/01 01:22 Order name: Protime (+inr); Complete Time: 02:40 [facility] 03/01 01:22 Order name: Ptt, Activated; Complete Time: 02:40 [facility] 03/01 02:46 Order name: Spine Lumbar W/Cont EDMS 03/01 01:27 Order name: IV Saline Lock; Complete Time: 02:02 dm5 Administered Medications: 02:02 Drug: Zofran (Ondansetron) 4 mg Route: IVP; Site: right antecubital; ss 05:20 Follow up: Response: No adverse reaction dm5 02:15 Drug: morphine 4 mg Route: IVP; Site: right antecubital; dm5 02:45 Follow up: Response: No adverse reaction; Pain is decreased dm5 05:17 Drug: Dilaudid 1 mg Route: IVP; Site: right forearm; dm5 Disposition: 03/01/20 05:29 Discharged to Home. Impression: Post Operative Lumbar Back Pain. - Condition is Stable. - Discharge Instructions: Back Pain, Adult, Qlhk-ca-Jngf, Lumbar Laminectomy, Care After. - Prescriptions for Valium 5 mg Oral Tablet - take 1 tablet by ORAL route every 8 hours As needed; 12 tablet. - Medication Reconciliation Form, Thank You Letter, Antibiotic Education, Prescription Opioid Use form. - Follow up: Private Physician; When: 1 - 2 days; Reason: Worsening of condition, Recheck today's complaints, Continuance of care, Re-evaluation by your physician. - Problem is an ongoing problem. - Symptoms have improved. Signatures: Dispatcher [employer] EDIN Tia Chun RN RN dm5 Dolores Olivares RN RN Rashel Mckinney MD MD mh7 Corrections: (The following items were deleted from the chart) 06:08 05:29 03/01/2020 05:29 Discharged to Home. Impression: Post Operative Lumbar Back Pain. dm5 Condition is Stable. Forms are Medication Reconciliation Form, Thank You Letter, Antibiotic Education, Prescription Opioid Use. Follow up: Private Physician; When: 1 - 2 days; Reason: Worsening of condition, Recheck today's complaints, Continuance of care, Re-evaluation by your physician. Problem is an ongoing problem. Symptoms have improved. mh7
--- NOTE | 2020-03-01 05:30 | ER ---
Nurse's Notes [facility] Name: Khushbu Keith Age: 74 yrs Sex: Female : 1945 Arrival Date: 02/29/2020 Time: 21:07 Bed 19 Private MD: Diagnosis: Post Operative Lumbar Back Pain Presentation: 02/28 21:27 Chief complaint: Patient states: L hip pain that radiates down L leg with decreased ROM ss that began after back surgery on 02/20/20. Pt was seen in ER on 02/23 but reports that nothing seems to be helping. Coronavirus screen: Client denies travel out of the [place] in the last 14 days. Ebola Screen: Patient denies exposure to infectious person. Patient denies travel to an Ebola-affected area in the 21 days before illness onset. Initial Sepsis Screen: Does the patient meet any 2 criteria? No. Patient's initial sepsis screen is negative. Does the patient have a suspected source of infection? No. Patient's initial sepsis screen is negative. Risk Assessment: Do you want to hurt yourself or someone else? Patient reports no desire to harm self or others. Onset of symptoms was February 20, 2020. 21:27 Method Of Arrival: Wheelchair ss 21:27 Acuity: CONCHA 3 ss Historical: - Allergies: 21:33 Codeine; ss 21:33 Erythromycin; ss - PMHx: 21:33 Anxiety; bilateral mastectomy 2015; breast cancer; Osteoarthritis to hands; metastatic ss breast cancer, brain and lung; left hip sciatica; Hypertension; Hyperlipidemia; right plantar fascitis; - PSHx: 21:33 Hysterectomy; Hip - Left; Back sx; ss - Immunization history:: Adult Immunizations up to date. - Social history:: Smoking status: Patient denies any tobacco usage or history of. Screenin/31 01:17 Abuse screen: Denies threats or abuse. Denies injuries from another. Nutritional dm5 screening: No deficits noted. Tuberculosis screening: No symptoms or risk factors identified. Fall Risk No fall in past 12 months (0 pts). Secondary diagnosis (15 points) impaired mobility, IV access (20 points). Ambulatory Aid- None/Bed Rest/Nurse Assist (0 pts). Gait- Impaired (20 pts.). Mental Status- Oriented to own ability (0 pts). Total Cui Fall Scale indicates High Risk Score (45 or more points). Fall prevention measures have been instituted. Side Rails Up X 2 Placed Close to Nursing Station Frequent Obs/Assessments Occuring Family Present and informed to notify staff if the need to leave the bedside As available patient and family educated on Fall Prevention Program and Strategies. Assessment: 01:17 Reassessment: No changes from previously documented assessment. Patient and/or family dm5 updated on plan of care and expected duration. Pain level reassessed. Patient is alert, oriented x 3, equal unlabored respirations, skin warm/dry/pink. Patient states symptoms have not improved. Pain: Complains of pain in back, buttocks, right leg and left leg Pain currently is 10 out of 10 on a pain scale. Pain began since surgery and discharge from [facility] on 02/23/20. Neuro: Level of Consciousness is awake, alert, obeys commands, Oriented to person, place, time, situation, in left foot/feet. Vital Signs: 02/28 21:27 BP 155 / 73; Pulse 76; Resp 16; Temp 98.4; Pulse Ox 98% on R/A; Weight 97.52 kg; Height ss 5 ft. 5 in. (165.10 cm); Pain 8/10; 21:27 Body Mass Index 35.78 (97.52 kg, 165.10 cm) ED Course: 21:07 Patient arrived in ED. cl3 21:32 Triage completed. 21:33 Arm band placed on left wrist. 03/01 01:00 Rashel Mckinney MD is Attending Physician. [facility] 01:17 Tia Chun, RN is Primary Nurse. dm5 01:17 Patient has correct armband on for positive identification. Bed in low position. Call dm5 light in reach. Side rails up X2. Adult w/ patient. 01:45 Missed attempt(s): 20 gauge in right antecubital area. Bleeding controlled, band aid dm5 applied, catheter tip intact. 01:45 Missed attempt(s): 24 gauge in right hand. Bleeding controlled, band aid applied, dm5 catheter tip intact. 02:02 Inserted saline lock: 22 gauge in right antecubital area, using aseptic technique. Blood collected. 04:11 Spine Lumbar W/Cont In Process Unspecified. EDMS 06:07 IV discontinued, intact, bleeding controlled, No redness/swelling at site. Pressure dm5 dressing applied. Administered Medications: 02:02 Drug: Zofran (Ondansetron) 4 mg Route: IVP; Site: right antecubital; ss 05:20 Follow up: Response: No adverse reaction dm5 02:15 Drug: morphine 4 mg Route: IVP; Site: right antecubital; dm5 02:45 Follow up: Response: No adverse reaction; Pain is decreased dm5 05:17 Drug: Dilaudid 1 mg Route: IVP; Site: right forearm; dm5 Outcome: 05:29 Discharge ordered by MD. almanza 06:08 Patient left the ED. dm5 Signatures: Dispatcher [employer] EDTia Griffin RN RN dm5 Dolores Olivares RN RN ss Lewis, Charde cl3 Rasehl Mckinney MD MD 7 Corrections: (The following items were deleted from the chart) 02:20 01:45 Missed attempt(s): 20 gauge in left antecubital area. Bleeding controlled, band dm5 aid applied, catheter tip intact. dm5 02:21 02:15 morphine 4 mg IVP in left antecubital dm5 dm5
[2020-03-01 06:12] VITALS: BP 155/73; TEMP 98.4; O2SAT 98
--- NOTE | 2020-03-01 15:35 | RAD REPORT ---
EXAM DESCRIPTION: ADDENDUM #1 Addendum: CT abdomen and pelvis images from February 09, 2020 reviewed. The lumbar surgery has been p erformed since February 09, 2020. No psoas fluid collection or abscess. Electronically signed by: Sophie Baker MD 03/01/2020 5:07 AM COLLEGE [employer] BUSINESS MANAGER End of Addendum EXAM DESCRIPTION: CT Lumbar Spine With Intravenous Contrast CLINICAL HISTORY: The patient is 74 years old and is Female; back pain, leg numbness TECHNIQUE: Axial computed tomography images of the lumbar spine with intravenous contrast. Sagitta l and coronal reformatted images were created and reviewed. This CT exam was performed using one or more of the following dose reduction techniques: automated exposure control, adjustment of the mA and/or kV according to patient size, and/or use of iterative reconstruction technique. COMPARISON: No relevant prior studies available. FINDINGS: Vertebrae: Previous laminectomy with posterior fusion hardware at L4 and L5 with interbo dy device. Multilevel degenerative changes in the lumbar facet joints. No acute fracture visualized. Discs/spinal canal/neural foramina: L4-5 left preforaminal/foraminal calcification or ossificatio n with moderate left neural foraminal narrowing. Degenerative changes in the SI joints. Soft tissues: Edema in the subcutaneous posterior paraspinal soft tissues. No soft tissue abscess visualized. IMPRESSION: 1. Previous laminectomy with posterior fusion hardware at L4 and L5 with interbody dev ice. 2. L4-5 left preforaminal/foraminal calcification or ossification with moderate left neural foramin al narrowing. 3. Additional non-emergent findings as above. Electronically signed by: Sophie Baker MD 03/01/2020 4:37 AM COLLEGE OR UNIVERSITY BUSINESS MANAGER Due to temporary technical issues with the PACS/Fluency reporting system, reports are being signed by the in house radiologists without review as a courtesy to insure prompt reporting. The interpreting radiologist is fully responsible for the content of the report
== END 2020-03-01 06:08 | disposition home or self-care (01) ==
LOC: ER 21:05
DX: G89.18 Other acute postprocedural pain (principal); I10 Essential (primary) hypertension; Z85.3 Personal history of malignant neoplasm of breast; Z85.841 Personal history of malignant neoplasm of brain; Z85.118 Personal history of other malignant neoplasm of bronchus and lung; Z88.3 Allergy status to other anti-infective agents; Z88.5 Allergy status to narcotic agent
CPT/HCPCS: 85025; 80048; 36415; 85610; 80076; 85730; 72132; 99284; Q9967; J1170; J2405; J2270

== ENCOUNTER 2020-04-08 09:27 | Emergency (ER) | payer OTHER, BC ==
--- OUTSIDE RECORDS SUMMARY | 2020-04-08 09:32 | XMS REPORT | Clinical Summary ---
:1945 Author Organization [facility] Address [address] [place] [address] Care Team Providers Name Role Phone Solo [...] 0 Active 20 MG capsule mouth daily. rosuvastatin (CRESTOR) Take 40 mg [...] 400 unit Units by mouth tablet daily. ramelteon (Rozerem) 8 Take 1 tablet 30 tablet 11 06/30 2/2 Active mg tablet (8 mg total) 0 021 by mouth nightly. amLODIPine (NORVASC) 10 mg. 0 04/25/201 Active 2.5 mg tablet 7 LORAZepam (ATIVAN) 0.5 Take 0.5 mg by 0 Active MG tablet mouth every 6 (six) hours as needed for anxiety. vit A/vit C/vit Take by mouth. 0 Active E/zinc/copper (ICAPS AREDS ORAL) gabapentin (NEURONTIN) Take 100 mg by 0 Active 100 mg capsule mouth 3 (three) times a day. losartan (COZAAR) 100 Take 100 mg by 0 05/01 Discontinued MG tablet mouth daily. 021 amLODIPine (NORVASC) Take 5 mg by 0 [...] 020 by mouth daily for 30 days. butalbital-acetaminoph Take 1 tablet 40 tablet 0 05/01 Discontinued en-caff (FIORICET) by mouth every 0 021 50-325-40 mg per 6 (six) hours tablet as needed for headaches. levETIRAcetam (KEPPRA) Take 1 tablet 60 tablet [...] One tab Two times daily as needed letrozole (FEMARA) 2.5 Take by mouth 0 05/01 Discontinued mg chemo tablet daily. 021 topiramate (TOPAMAX) 50 mg = 1 tab, 0 11/01 Discontinued 50 MG tablet PO, Daily, # 9 020 (Dup licate 90 tab, 2 order) Refill(s), other Active Problems Problem Noted Date LAD (lymphadenopathy), hilar 11/25/2019 Overview: Added automatically from request for ha lula [id number] Lung nodules 11/25/2019 Overview: Added automatically from request for ha lula [id number] Personal history of lung cancer 11/25/2019 Overview: Added automatically from request for ha lula [id number] Triple negative malignant neoplasm of breast 0 Follow-up examination following surgery 06/13/2019 Brain metastases 05/24/2019 Personal history of breast cancer 06/25/2017 Malignant neoplasm of upper lobe of left lung 06/26/19 18 Overview: Diagnosed 2017 Encounters Date Type Specialty Care Team Description 04/06/2020 Travel 04/06/2020 Telephone Cardiothoracic Moni Goldstein Surgery KIMBERLEY Lara 04/04/2020 Surgery Cardiothoracic Adolfo Park FLEXIBLE Surgery MD Edgar BRONCHOSCOPY, V MALATHI ELECTROMAGNETIC NAVIGATIONAL BRONCHOSCOPY WI TH BIOPSY, AND BRO NCHIAL ALVEOLAR LAVAGE 04/04/2020 Anesthesia Event Cardiothoracic Koby Sutton Surgery CCristian Chung, Christy Dean, GUSTAVO 04/04/2020 Hospital Encounter Cardiothoracic Adolfo Park Lung minda slater; Surgery MD Edgar Personal histor y of lung cancer 04/04/2020 Travel 04/03/2020 Telephone Cardiothoracic Moni Goldstein Surgery KIMBERLEY Lara 04/03/2020 Telephone General Surgery Adolfo Park MD 04/02/2020 Travel 03/30/2020 Travel 03/29/2020 Orders Only Neurosurgery Linh De Paz Internal fixati on device (pin, keith, or screw) mechanical complication, sequela; MD Meredith Mechanical comp lication of internal fixation device such as nail, plate or keith, initial encounter (HCC) 03/29/2020 Telephone Neurosurgery Linh De Paz MD 03/22/2020 Hospital Encounter Radiology Adolfo Park Lung nodu les; MD Edgar Personal histor y of lung cancer; Pre-op testing 03/22/2020 Lab Lab Adolfo Park Lung nodules; MD Edgar Personal histor y of lung cancer; Pre-op testing 03/22/2020 Hospital Encounter Radiology Adolfo Park Canceled (Jocy Hernández MD Order Error) 03/22/2020 Hospital Encounter Radiology Adolfo Park MD 03/22/2020 Office Visit Cardiothoracic Adolfo Park Lung nodules (Primary Dx); Surgery MD Edgar Personal histor y of lung cancer; Pre-op testing 03/22/2020 Travel 02/22/2020 Orders Only Cardiothoracic Provider, Eris Davis MD 02/22/2020 Orders Only Cardiothoracic Provider, Surgery MD Susan 02/17/2020 Hospital Encounter Radiology Adolfo Park MD 02/16/2020 Telephone General Surgery Adolfo Park MD 01/02/2020 Office Visit Linh Tucker Brain metastase celina Harpre MD ([facility]) (Primary Dx) 01/02/2020 Travel 12/21/2019 Travel 12/12/2019 Telephone Cardiovascular Adolfo Park MD 12/08/2019 Telephone Cardiothoracic Moni Goldstein Surgery Jane, LEARNING TECHNOLOGIST 12/06/2019 Surgery Cardiothoracic Adolfo Park WITH BIO PSY Surgery MD Edgar 12/06/2019 Anesthesia Event Cardiothoracic Sophie Goss Surgery MD Hector Vasques Ridele E 12/06/2019 [...] 12/05/2019 Travel 12/05/2019 Orders Only Cardiothoracic Provider, Surgery MD Susan 12/05/2019 Telephone Cardiothoracic Moni Goldstein Surgery Jane, LEARNING TECHNOLOGIST 12/02/2019 Telephone Cardiothoracic Moni Goldstein Surgery Jane, LEARNING TECHNOLOGIST 12/02/2019 Travel 11/25/2019 Office Visit Cardiothoracic Adolfo [...] lung (HCC) 06/27/2019 Orders Only Oncology Francy Batres MA 06/24/2019 Orders Only Oncology Diego Latif MD 06/13/2019 Office Visit Neurosurgery Linh De Paz Brain mass (Meli theresa Dx); MD Meredith Follow-up ye salazar following surgery; Personal histor y of breast cancer 06/13/2019 Travel 06/06/2019 Travel 06/02/2019 Patient Outreach Jennifer Foote RN 06/02/2019 Travel 05/26/2019 Surgery General Surgery Linh De Paz RIGHT FRONTO TEMPORAL MD Meredith CRANIOTOMY FOR EXCISION OF BRIAN OR 05/26/2019 Anesthesia Event General Surgery Sudhir Headley MD Crawley, Teri, NP 05/24/2019 Hospital Encounter Neurosurgery Linh De Paz Brain mas s (Primary Dx); Lisa Harper MD Compression of brain (HCC) 06/01/2019 Bernardo Chaves MD 05/24/2019 Travel after 04/08/2019 Surgical History Surgery Date Site/Laterality Comments EYE SURGERY 2915 Cataract TUBAL LIGATION HYSTERECTOMY COLONOSCOPY LYMPH NODE BIOPSY MASTECTOMY 03/02/2015 - Bilateral mastec williams 03/01/2016 BRONCHOSCOPY 11/12/2016 Bilateral Procedure: FLEXI BLE BRONCHOSCOPY, ; Surgeon: Cici Ybarra; Location: [facility] OR; Service: Thoraci c; Laterality: Bila teral; EGD, INTRAOPERATIVE 11/12/2016 N/A Procedure: EBUS WITH BIOPSY; Surgeon : Adolfo Park MD; Locat ion: [facility] OR; Ser vice: Thoracic; Later ality: N/A; BREAST SURGERY 03/02/2009 - Left lumpectomy 03/01/2010 CRANIOTOMY 05/26/2019 Head/Right Procedure: RIGHT FRONTO TEMPORAL CRANIOT COURT FOR EXCISION OF TUMO R; Surgeon: Linh De Paz MD; Location: [facility] OR; Service: Neurosurgery; L aterality: Right; Medical devices from this surgery are in t he Implants section . HIP SURGERY 12/31/2018 - Left total left hip r eplacement 01/29/2019 US, ENDOBRONCHIAL 12/06/2019 N/A Procedure: EBU S WITH BIOPSY; Surgeon : Adolfo Park MD; Location: [facility] OR; Service: Thoraci c; Laterality: N/A; BRONCHOSCOPY 12/06/2019 N/A Procedure: [facility] H[facility]COPY; Surgeon: Jaspal Park MD; Locat ion: [facility] OR; Serv ice: Thoracic; Later ality: N/A; BRONCHOSCOPY, USING 04/04/2020 Chest/N/A Procedure: F LEXIBLE ELECTROMAGNETIC NAVIGATION [facility] HOSCOPY, VERAN ELECTROMAGNETIC NAVIGATIONAL BRO NCHOSCOPY WITH BIOPSY, AND BRONCHIAL ALVEOLAR LAVAGE; Surgeon: Adolfo Park MD; Location: [facility] OR; Service: Thoraci c; Laterality: N/A; US, ENDOBRONCHIAL 04/04/2020 N/A Procedure: END OBRONCHIAL ULTRASOUND WITH BIOPSY; Surgeon: Jaspal Park MD; Locat ion: [facility] OR; Serv ice: Thoracic; Later ality: N/A; Medical History Medical History Date Comments [...] Bruce Brain cancer Father Colon cancer Mother Theresa Alvarez Age 78 Colon polyps Mother Theresa Alvarez Hypertension Mother Theresa Alvarez Relation Name Status Comments Brother Deniz Brother Sky Alive Brother Bruce Alive Father Mother Theresa Alvarez Social History Tobacco Use Types Packs/Day Years Used Date Former Smoker Cigarettes 1 25 11/19/1969 - 0 04/16/1994 Smokeless Tobacco: Never Used Tobacco Cessation: Counseling Given: No Alcohol Use Drinks/Week oz/Week Comments Yes 14 Glasses of wine 14.0 Sex Assigned at Date Recorded Not on file Job Start Date Occupation Industry Not on file Not on file Not on file COVID-19 Exposure Response Date Recorded In the last month, have you been in contact with No / Unsure 04/06/2020 8:43 AM COFFEE URN ATTENDANT someone who was confirmed or suspected to have Coronavirus / COVID-19? Last Filed Vital Signs Vital Sign Reading Time Taken Comments Blood Pressure 133/63 04/04/2020 6:07 PM COFFEE URN ATTENDANT Pulse 74 04/04/2020 6:07 PM COFFEE URN ATTENDANT Temperature 36.4 C (97.6 F) 04/04/2020 6:07 PM COFFEE URN ATTENDANT Respiratory Rate 20 04/04/2020 6:07 PM COFFEE URN ATTENDANT Oxygen Saturation 95% 04/04/2020 6:07 PM COFFEE URN ATTENDANT Inhaled Oxygen Concentration - - Weight 97.5 kg (215 lb) 04/04/2020 10:31 AM COFFEE URN ATTENDANT Height 165.1 cm (5' 5") 04/04/2020 10:31 AM COFFEE URN ATTENDANT Body Mass Index 35.78 04/04/2020 10:31 AM COFFEE URN ATTENDANT Plan of Treatment Date Type Specialty Care Team Description 04/09/2020 Appointment Radiology Lnih De Paz MD [address] [place], [place] [address] [phone] 04/09/2020 Office Visit Neurosurgery Linh De Paz MD [address] [place], [place] [address] [phone] 04/26/2020 Office Visit Cardiothoracic Surgery Susi Park MD [address] [place], [place] [address] [phone] Health Maintenance Due Date Last Done Comments COVID-19 VACCINE (1 of 2) 1960 HEPATITIS C SCREENING 1962 COLONOSCOPY SCREENING 1994 SHINGLES VACCINES (#1) 1994 BREAST CANCER SCREENING 06/12/2017 06/13/2015, 06/13/2015, 09/21/2009 INFLUENZA VACCINE 10/01/2019 03/24/2018 65+ PNEUMOCOCCAL VACCINE Completed 03/24/2018 Implants Implanted Type Area Microbiology Director Device Shelf Model / Identifier Expiration Serial / Date Lot Plate Midface Brandt Hol 1.5x0.5x18.5mm [place] - [id number] Crania l N/A: [employer] [id number] / Implanted: Qty: 4 on 05/26/2019 by Linh De Paz MD at [facility] Plate or Bur N/A [employer] / Hole Cover Screw Bone Hitrqe Slf-Drl 1.5x4mm - [id number] Cranial N/A: FARHAD FREDERICK [id number] / Implanted: Qty: 18 on 05/26/2019 by Linh De Paz M D at [facility] Plate or Bur N/A [employer] / Hole Cover Matrix Dural Duragen Plus 3x3in Regnrtn - [id number] Human Tissue N/A : [employer] 04/01/2022 [id number] / Implanted: Qty: 1 on 05/26/2019 by Linh De Paz MD at [facility] Implants N/A [employer] / NEURO [id number] Hard Cross For Hip Replacement Explanted Type Area Microbiology Director Device Shelf Model / Identifier Expiration Serial / Date Lot Screw Bone Hitrqe Slf-Drl 1.5x4mm - [id number] Cranial N/A: N/A FARHAD FREDERICK [id number] / Implanted: 05/26/2019 (Quantity not on file) Plate or [employer] / Explanted: Qty: 1 on 05/26/2019 at [facility] Bur Hole Cover Procedures Procedure Name Priority Date/Time Associated Comments Diagnosis XR CHEST 1 VW PORTABLE STAT 04/04/2020 3:30 R esults for this PM COFFEE URN ATTENDANT procedure are i n the results section. WI AN ELECTIVE Routine 04/04/2020 12:58 Results f or this ENDOTRACHEAL AIRWAY PM COFFEE URN ATTENDANT procedur e are in the results section. COVID-19 QUALITATIVE PCR Routine 03/30/2020 10:39 Lung n odules Results for this AM COFFEE URN ATTENDANT Personal history of procedur e are in lung cancer the results Pre-op testing section. CT CHEST WO CONTRAST Routine 03/22/2020 2:04 Lung nodul es Results for this PM COFFEE URN ATTENDANT Personal history of procedur e are in lung cancer the results Pre-op testing section. ESTIMATED GFR Routine 03/22/2020 12:26 Results fo r this PM COFFEE URN ATTENDANT procedure are i n the results section. TYPE AND SCREEN Routine 03/22/2020 12:26 Lung nodules Results for this PM COFFEE URN ATTENDANT Personal history of procedur e are in lung cancer the results Pre-op testing section. PROTHROMBIN TIME WITH Routine 03/22/2020 12:26 Lung nodu les Results for this INR PM COFFEE URN ATTENDANT Personal history of procedur e are in lung cancer the results Pre-op testing section. PARTIAL THROMBOPLASTIN Routine 03/22/2020 12:26 Lung nod ules Results for this TIME (PTT) PM COFFEE URN ATTENDANT Personal history of procedur e are in lung cancer the results Pre-op testing section. COMPREHENSIVE METABOLIC Routine 03/22/2020 12:26 Lung no dules Results for this PANEL PM COFFEE URN ATTENDANT Personal history of procedur e are in lung cancer the results Pre-op testing section. HC COMPLETE BLD COUNT Routine 03/22/2020 12:26 Lung nodu les Results for this W/AUTO DIFF PM COFFEE URN ATTENDANT Personal history of procedur e are in lung cancer the results Pre-op testing section. CT ABDOMEN PELVIS WO Routine 02/09/[address] CHEST EXTERNAL STUDY Routine 02/01/2020 10:43 Results for this AM COFFEE URN ATTENDANT procedure are i n the results section. [...] history of breast cancer Brain metastases (HCC) WI AN ELECTIVE Routine 12/06/2019 8:11 Results f [...] are in the results section. PET CT WHOLE BODY Routine 12/01/2019 8:51 [...] procedure are i n the results section. WI AN ELECTIVE Routine 05/26/2019 8:18 Results f [...] CHEST EXTERNAL STUDY Routine 05/02/2019 2:00 PM COFFEE URN ATTENDANT Results for this procedure are i n the results section . after 04/08/2019 Results XR Chest 1 Vw Portable (04/04/2020 3:30 PM COFFEE URN ATTENDANT)Only the most recent of4 results within the time period is included. Specimen Narrative Performed At EXAMINATION: XR CHEST 1 VW PORTABLE [facility] CLINICAL HISTORY: Post bronchoscopy an d biopsy COMPARISON: Most Recent Prior at [facility] IMPRESSION: Lines: None Lungs and pleura: Linear opacity at the left upper lob e is unchanged. No effusion or pneumothorax. Nodular opacities are charac terized better advantage on prior CT. Heart and mediastinum: Stable appearance of cardiomedi astinal silhouette. Bones: No suspicious osseous lesions. [id number] Procedure Note Interface, Radiology Results Incoming - 04/04/2020 4:45 PM COFFEE URN ATTENDANT EXAMINATION: XR CHEST 1 VW PORTABLE CLINICAL HISTORY: Post bronchoscopy and biopsy COMPARISON: Most Recent Prior at [facility] IMPRESSION: Lines: None Lungs and pleura: Linear opacity at the left upper lobe is unchanged. No effusion or pneumothorax. Nodular opacities are characterized better advantage on prior CT. Heart and mediastinum: Stable appearance of cardiomediastinal silhouette. Bones: No suspicious osseous lesions. [id number] Performing Organization Address City/State/ZIP Code Phon e Number [facility] [address] [place] [address] Airway (04/04/2020 12:58 PM COFFEE URN ATTENDANT) Narrative Performed At Christy Singh CRNA 04/04/2020 1:00 PM Airway Date/Time: 04/04/2020 12:58 PM Location: OR Performed by: anesthesiologist Anesthesiologist: Koby Sutton Jr., MD Other Staff: Josue Damico Authorized by: Koby Sutton Jr., M D Urgency: Elective Difficult Airway: No Preoxygenated with 100% O2: Yes Mask Ventilation: Assisted mask (OPA) Final Airway Type: Endotracheal airway Final Endotracheal Airway: ETT Cuffed: Yes Technique Used: Video laryngoscopy Devices/Methods Used in Placement: Int ubating stylet Insertion Site: Oral Blade type: Glidescope. Laryngoscope Blade/Videolaryngoscope Salvador de Size: 3 ETT Size (mm): 8.5 Cuff at minimum occlusion pressure: Yes Measured from: Lips ETT to Lips (cm): 24 Placement Verified by: CO2 detection and direct visualization Laryngoscopic view: Grade I - full vie w of glottis Rapid Sequence Induction (RSI): No Modified RSI: No Number of Attempts at Approach: 1 Difficult to insert ETT passed vocal folds; able to p ass after torquing the tube COVID-19 qualitative PCR (03/30/2020 10:39 AM COFFEE URN ATTENDANT)Only the most recent of2 resultswithin the time period is included. Interpretation Negative results do not prec lude 2019-nCoV infection and should not be used as the sole basis for treatment or other patient management decisions. Negative results must be combined with clinical observations, patient history, and epidemiological WARD information. [facility] COVID-19 qualitative Not-Detected Not-Detecte [employer] PCR result d [facility] COVID-19 qualitative See link below for [employer] PCR PDF Lab ORTH[facility] ReportComment: Case HOSPITAL Number: [id number] Specimen Nasopharyngeal swab Performing Organization Address City/State/ZIP Code Phon e Number [facility] DEPARTMENT OF PATHOLOGY AND [address] [place], [place] [address] GENOMIC MEDICINE [facility] [address] [place] [address] [facility] CT Chest Wo Contrast (03/22/2020 2:04 PM COFFEE URN ATTENDANT)Only the most recent of2 results within the time period is included. Specimen Narrative Performed At EXAMINATION: [facility] CT CHEST WO CONTRAST CLINICAL HISTORY: R91.8 Other nonspecific abnormal finding of lung field , Z85.118 Personal history of other malignant neoplasm of b ronchus and lung, lung nodules TECHNIQUE: Multiple axial images of the chest were obtained witho ut intravenous contrast. The lack of intravenous contrast reduces the sensitivity of detecting solid organ disease and evaluating vasculatu re. Sagittal and coronal computerized reformatted images were also obtained. CT imaging was performed with iterative reconstruction techniques and/or automated exposure control to reduce rad iation dose. COMPARISON: November 23, 2019 and February 01, 2020 CT scan FINDINGS: 1.There are scattered bilateral pulmonary nodules. The largest nodule is in the anterior segment of the right lower lobe and me asures 16 x 14 mm; previously 8 x 9 mm and 5 x 4 mm). Smaller right upper lobe nodule now measures 11 x 11 mm; most recently 6 x 6 mm. 2.Irregular linear density in left upper lobe related to scarring similar in appearance to the prior study . 3.Left lower lobe nodule similar to the prior exams. 4.No pleural or pericardial effusions. 5.Thoracic aorta is of normal caliber. No enlarged med iastinal or hilar lymph nodes 6.Limited scans to the upper abdomen dem onstrate small gallstones.. 7.There are postoperative changes in bot h breasts. IMPRESSION: Increasing size of right pulmonary metas tasis since prior study. [facility]-[id number] Procedure Note Interface, Radiology Results Incoming - 03/22/2020 5:07 PM COFFEE URN ATTENDANT EXAMINATION: CT CHEST WO CONTRAST CLINICAL HISTORY: R91.8 Other nonspecific abnormal finding of lung field, Z85.118 Personal history of other malignant neoplasm of bronchus and lung, lung nodules TECHNIQUE: Multiple axial images of the chest were obtained without intravenous contrast. The lack of intravenous contrast reduces the sensitivity of detecting solid organ disease and evaluating vasculature. Sagittal and coronal computerized reformatted images were also obtained. CT imaging was performed with iterative reconstruction techniques and/or automated exposure control to reduce radiation dose. COMPARISON: November 23, 2019 and February 01, 2020 CT scan FINDINGS: 1.There are scattered bilateral pulmonar y nodules. The largest nodule is in the anterior segment of the right lower lobe and measures 16 x 14 mm; previously 8 x 9 mm and 5 x 4 mm). Smaller right upper lobe nodule now measures 11 x 11 mm; most recently 6 x 6 mm. 2.Irregular linear density in left upper lobe related to scarring similar in appearance to the prior study. 3.Left lower lobe nodule similar to the prior exams. 4.No pleural or pericardial effusions. 5.Thoracic aorta is of normal caliber. N o enlarged mediastinal or hilar lymph nodes 6.Limited scans to the upper abdomen dem onstrate small gallstones.. 7.There are postoperative changes in bot h breasts. IMPRESSION: Increasing size of right pulmonary metas tasis since prior study. [facility]-[id number] Performing Organization Address City/State/ZIP Code Phon e Number [facility] [address] [place] [address] Estimated GFR (03/22/2020 12:26 PM COFFEE URN ATTENDANT)Only the most recent of9 resultswithin the time period is included. Estimated GFR 71 mL/min/1.73 [employer] [facility] Comment: m2 HOSPITAL Catergory Units Interpretation G1 >=90 Normal or high G2 60-89 [...] lity Initiative ([id number]) published in 2014. Specimen Plasma Performing Organization Address [facility] Phon e Number [facility] DEPARTMENT OF PATHOLOGY AND [address] [place], [place] [phone] Partial thromboplastin time, activated (03/22/2020 12:26 PM COFFEE URN ATTENDANT)Only the most recent of4 resultswithin the time period is included. PTT 29.7 23.0 - 36.0 [facility] Comment: [facility] PTT therapeutic range for unfractionated heparin is 61.0-112.0 seconds which corresponds to Anti-Xa 0.3-0.7 U/ml. Specimen Blood Performing Organization Address [facility] Phon e Number [facility] DEPARTMENT OF PATHOLOGY AND [address] [place] [id number] Prothrombin time with INR (03/22/2020 12:26 PM COFFEE URN ATTENDANT)Only the most recent of4 resultswithin the time period is included. Pathologist [facility] Prothrombin time 13.5 11.5 - 14.5 [facility] INR 1.0 [employer] Comment: ORTH[facility]OX The International Normalized Ratio (INR) is a therapeu [facility] HOSPITAL monitoring tool for patients who are stable on oral anticoagulant therapy. An INR of 2.0-3.0 is suggested for deep vein thrombosis/pulmonary embolism. Specimen Blood Performing Organization Address [facility] Phon e Number [facility] DEPARTMENT OF PATHOLOGY AND [address] [place] [id number] CBC with platelet and differential (03/22/2020 12:26 PM COFFEE URN ATTENDANT)Only the most recent of7 resultswithin the time period is included. WBC 4.16 (L) 4.50 - 11.00 [facility] RBC 3.63 (L) 4.20 - 5.50 [facility] m/[facility] HGB 11.0 (L) 12.0 - 16.0 [facility] g/dL HOSPITAL HCT 35.2 (L) 37.0 - 47.0 % [facility] MCV 97.0 82.0 - 100.0 [facility] MCH 30.3 27.0 - 34.0 pg [facility] MCHC 31.3 31.0 - 37.0 [facility] g/dL [facility] RDW - SD 48.5 37.0 - 55.0 fL [facility] MPV 11.2 8.8 - 13.2 fL [facility] Platelet count 145 (L) 150 - 400 k/uL [facility] Nucleated RBC 0.00 /100 WBC [facility] Neutrophils 57.2 39.0 - 69.0 % [facility] Lymphocytes 19.0 (L) 25.0 - 45.0 % [facility] Monocytes 12.7 (H) 0.0 - 10.0 % [facility] Eosinophils 9.9 (H) 0.0 - 5.0 % [facility] Basophils 1.0 0.0 - 1.0 % [facility] Immature granulocytes 0.2Comment: 0.0 - 1.0 % [facility] "Immature [facility] granulocytes" (promyelocytes , myelocytes, metamyelocytes ) Specimen Plasma Performing Organization Address City/[facility] Phon e Number [facility] DEPARTMENT OF PATHOLOGY AND [address] [place] [address] 0 [place] [phone] Type and screen (03/22/2020 12:26 PM COFFEE URN ATTENDANT)Only the most recent of2 resultswithin the time period is included. Pathologist Sig nature ABO grouping O [facility] Rh type POS [facility] Antibody screen (gel) NEG [facility] Specimen Plasma Performing Organization Address City/[facility] Phon e Number [facility] DEPARTMENT OF PATHOLOGY AND [address] [place], [place] [phone] 0 [place] [phone] Comprehensive metabolic panel (03/22/2020 12:26 PM COFFEE URN ATTENDANT)Only the most recent of2 resultswithin the time period is included. Sodium 141 135 - 148 [facility] mEq/L [facility] Potassium 4.6 3.5 - 5.0 [facility] mEq/L [facility] Chloride 108 98 - 112 [facility] mEq/L [facility] CO2 25 24 - 31 mEq/L [facility] Anion gap 8@ANIO 7 - 15 mEq/L [facility] BUN 15 8 - 23 mg/dL [facility] Creatinine 0.81 0.50 - 0.90 [facility] mg/dL [facility] Glucose 112 (H) 65 - 99 mg/dL [facility] Calcium 9.4 8.8 - 10.2 [facility] mg/dL [facility] Protein 6.8 6.3 - 8.3 [facility] Comment: g/dL [facility] [place] 4.6-7.0 g/dL 1 week 4.4-7.6 g/dL 7 months-1year 5.1-7.3 g/dL 1-2 years 5.6-7.5 g/dL >3 years 6.0-8.0 g/dL 18-150 6.3-8.3 g/dL Albumin 3.4 (L) 3.5 - 5.0 [facility] g/dL [facility] A/G ratio 1.0 0.7 - 3.8 [facility] Alkaline phosphatase 184 (H) 35 - 104 U/L [facility] AST 22 10 - 35 U/L [facility] ALT 17 5 - 50 U/L [facility] Total bilirubin <0.2 0.0 - 1.2 [facility] mg/dL [facility] Specimen Plasma Performing Organization Address City/[facility] Phon e Number [facility] DEPARTMENT OF PATHOLOGY AND [address] [place], [place] [address] GENOMIC MEDICINE [facility] [address] [place] [address] Abdomen Pelvis Wo Contrast (02/09/2020) Narrative Performed At This result has an attachment that is no t available. CT Chest External Study (02/01/2020 10:43 AM COFFEE URN ATTENDANT)Only the most recent of3 resultswithin the time period is included. Specimen Narrative Performed At This exam was not acquired at a Method t facility and has not been RADIANT interpreted by a Yazdanism Provider. T he exam was imported into our imaging system. Performing Organization Address City/[facility] Phon e Number [facility] [address] [place] [address] Cytology (non-gynecological) request (12/06/2019 10:19 AM CDT)Only the most recent of3 resultswithin the time period is included. [facility] DEPARTMENT OF PATHOLOGY AND GENOMIC MEDICINE Cytology See link below [facility] DEPARTMENT OF (non-gynecological) for PDF Lab PATHOLOGY AND report Report GENOMIC MEDICINE Result status This is Final [facility] DEPARTMENT OF Report for PATHOLOGY AND [id number] GENOMIC MEDICINE Specimen Performing Organization Address City/[facility]/ZIP [facility] Phon e Number [facility] DEPARTMENT OF PATHOLOGY AND [address] [place] [address] 0 [facility] MEDICINE AFB culture (12/06/2019 9:51 AM CDT) AFB culture No growth after 6 weeks of incubation. KAREN HOPPER isolate Comment: HOSPITAL Specimen Information Specimen Source: Fluid Specimen Site: Lun R Specimen Tissue - Lung Performing Organization Address [facility] Phon e Number [facility] DEPARTMENT OF PATHOLOGY AND [address] [place] [address] [phone] [address] Fungus culture (12/06/2019 9:51 AM CDT) Fungus culture No growth after 4 weeks of incubation. ED [facility]ST isolate Comment: HOSPITAL Specimen Information Specimen Source: Fluid Specimen Site: Lun R Specimen Tissue - Lung Performing Organization Address [facility] Phon e Number [facility] DEPARTMENT OF PATHOLOGY AND [address] [place] [address] [phone] [address] Fungus smear (12/06/2019 8:51 AM CDT) Pathologist Sig nature Fungus smear No fungi observed. [facility] Comment: HOSPITAL Specimen Information Specimen Source: Fluid Specimen Site: Lun R Specimen Performing Organization Address City/[facility]/ZIP [facility] Phon e Number [facility] DEPARTMENT OF PATHOLOGY AND [address] [place] [address] [phone] [address] Aerobic culture (12/06/2019 8:51 AM CDT) Aerobic culture No growth after 3 days. ED PETERS IST isolate Comment: HOSPITAL Specimen Information Specimen Source: Fluid Specimen Site: Lun R Specimen Tissue - Lung Performing Organization Address City/[facility]/ZIP [facility] Phon e Number [facility] DEPARTMENT OF PATHOLOGY AND [address] [place] [address] [phone] [address] Gram stain (12/06/2019 8:51 AM CDT) Gram stain isolate Rare WBC's [facility] No organisms seen HOSPITAL Comment: Specimen Information Specimen Source: Fluid Specimen Site: Lun R Specimen Performing Organization Address City/[facility] Phon e Number [facility] DEPARTMENT OF PATHOLOGY AND [address] [place] [address] [phone] [address] AFB stain (12/06/2019 8:51 AM CDT) Pathologist Sig nature AFB stain No acid fast bacilli (AFB) seen. [facility] Comment: HOSPITAL Specimen Information Specimen Source: Fluid Specimen Site: Lun R Specimen Performing Organization Address [facility] Phon e Number [facility] DEPARTMENT OF PATHOLOGY AND [address] [place] [address] [phone] [address] Anaerobic culture (12/06/2019 8:51 AM CDT) Anaerobic culture No anaerobic organisms isolated. LINDA SOTO [facility] isolate Comment: HOSPITAL Specimen Information Specimen Source: Fluid Specimen Site: Lun R Specimen Tissue - Lung Performing Organization Address City/[facility] Phon e Number [facility] DEPARTMENT OF PATHOLOGY AND [address] [place] [address] [phone] [address] Airway (12/06/2019 8:11 AM CDT) Narrative Performed At Anusha Loera 12/06/2019 8:14 AM Airway Date/Time: 12/06/2019 8:08 AM Performed by: Anusha Loera Authorized by: Sophie Goss MD Location: OR Urgency: Elective Anesthesiologist: Sophie Goss MD Resident/CLERICAL TRANSCRIBER/AA: Anusha Loera Other Anesthesia Staff: Gabriel Young Performed by: other anesthesia staff Preoxygenated with 100% O2: Yes C-spine Precautions Maintained Throughou t: Yes Mask Ventilation: Easy mask Final Airway Type: Endotracheal airway Final Endotracheal Airway: ETT Cuffed: Yes Technique Used: Video laryngoscopy Devices/Methods Used in Placement: Int ubating stylet Insertion Site: Oral Blade type: Glidescope. Laryngoscope Blade/Videolaryngoscope Salvador mccall Size: 3 ETT Size (mm): 9.0 Cuff [...] damage to lips, teeth, or gums. VSS. PET/CT Whole Body External Study (12/01/2019 8:51 AM CDT)Only the most recent of2 resultswithin the time period is included. Specimen Narrative Performed At This exam was not acquired at a Methodis t facility and has not been RADIANT interpreted by a Yazdanism Provider. T he exam was imported into our imaging system. Performing Organization Address City/State/ZIP Code [facility]on [facility] Number [facility] [address] [place] [address] PET/CT Skull Base To Mid Thigh (12/01/2019)Only [...] glucose 178 (H) 65 - 99 mg/dL [facility] Comment: HOSPITAL Associate Professor Of Church Music Name: Shahla Shea Device ID: [id number] Chartable: [facility] Notified RN Specimen Blood Performing Organization Address City/[facility] Phon e Number [facility] DEPARTMENT OF PATHOLOGY AND [address] [place] [address] [phone] [address] Cancer antigen 19-9 (06/01/2019 4:00 AM CDT) CA 19-9 12 0 - 35 U/mL [facility] Comment: HOSPITAL The Fredi El[address] 8000 CA19-9 immunoassay was used. Results obtained with different assay methods or kits should not be used interchangeably and may be differen t. Specimen Blood Performing Organization Address [facility] Phon e Number [facility] DEPARTMENT OF PATHOLOGY AND [address] [place] [address] [phone] [address] Cancer antigen 15-3 (06/01/2019 4:00 AM CDT) CA 15-3 22 0 - 25 U/mL [facility] Comment: HOSPITAL The [address] 8000 CA153 immunoassay was used. Results obtained with different assay methods or kits should not be used interchangeably and may be differen t. Specimen Blood Performing Organization Address [facility] Phon e Number [facility] DEPARTMENT OF PATHOLOGY AND [address] [place] [address] [phone] [address] Cancer antigen 125 (06/01/2019 4:00 AM CDT) CA 125 28 0 - 35 U/mL [facility] Comment: HOSPITAL The [address] CA125 immunoassay was used. Results obtained with different assay methods or kits should not be used interchangeably and may be differen t. Specimen Blood Performing Organization Address [facility] Phon e Number [facility] DEPARTMENT OF PATHOLOGY AND [address] [place] [address] [phone] [address] Carcinoembryonic antigen (CEA) (06/01/2019 4:00 AM CDT) CEA 2.7 0.0 - 3.8 [facility] Comment: ng/mL HOSPITAL Reference range for heavy smokers: 0.0 - 5.5 ng/mL The FREDI [address] 8000 CEA immunoassay was used. Results obtained with different assay methods or kits should not be used interchangeably and may be differen t. Specimen Serum Performing Organization Address City/State/ZIP Code Phon e Number [facility] DEPARTMENT OF PATHOLOGY AND [address] [place] [phone] GENOMIC MEDICINE [facility] [address] [place] [address] Us duplex venous upper extremity (05/31/2019 1:27 PM CDT) Specimen Narrative Performed At [facility] U ltrasound Laboratory Upper Extr emity Venous Report [address] [facility], [address], [place] [address] Pat.Name: KHUSHBU KEITH Pat.ID: [id number]Date: 05/31/2019 Refer.MD: PRIYANKA ALEXANDER MD Exam Time: 12:53:00 PM Study Type:UE Venous Height: 66in A ge: 1945,74Y Sex: FEMALE Sonogrp hr: Jake Leonard, RVS, RCS Pat. Stat.:Inpatient Room: [address] Tape Vol: JM, CPT - 4: 12163 Echo Event ID:[id number] Order ID: [id number] Reason for Study:RUE swelling or pain, D [...] *Preliminary result reported to CINTHIA Jonas @ 1340 on 05/31/19. PHYSICIAN INTERPRETATION Venous examination of the right upper ex tremity and neck demonstrated no evidence of deep venous thrombosis. 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 FINDINGS: Signed 05/31/2019 03:18 PM Kael Erwin MD, RPVI Procedure Note Interface, Radiology Results In - 2019 3:18 PM CDT [facility] Ul[facility]ound Laboratory Upper Extremity Veno us Report [address] [place] [address] Pat.Name: KHUSHBU KEITH Pat.I D: [id number] .Date: 05/31/2019 Refer .MD: PRIYANKA ALEXANDER MD Exam Time: 12:53:00 PM Study Type:UE Venous Height: 66in Age: 2 1945,74Y Sex: FEMALE Sonog rphr: ELLY Ferreira, ETHAN Pat. Stat.:Inpatient Room: [address] Tape Vol: JM, CPT - 4: 88837 Echo Event ID:[id number] Order ID: [id number] Reason for Study:RUE swelling or pain, D [...] *Preliminary result reported to CINTHIA Jonas @ 8309 on 05/31/19. PHYSICIAN INTERPRETATION Venous examination of the right upper ex tremity and neck demonstrated no evidence of deep venous thrombosis. 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 FINDINGS: Signed 05/31/2019 03:18 PM Kael Erwin MD, RPVI Performing Organization Address City/[facility]/ZIP Code Phon e Number [facility] [address] [place] [address] Phosphorus level (05/31/2019 4:54 AM CDT)Only the most recent of4 resultswithin the time period is included. Pathologist [facility] Phosphorus 3.0 2.4 - 4.5 mg/dL [facility] Specimen Blood Performing Organization Address [facility]/ZIP Code Phon e Number [facility] DEPARTMENT OF PATHOLOGY AND [address] [place], [place] [address] [address] Magnesium level (05/31/2019 4:54 AM CDT)Only the most recent of4 resultswithin the time period is included. Pathologist Sig nature Magnesium 2.4 1.6 - 2.4 mg/dL [facility] L Specimen Blood Performing Organization Address City/[facility] Phon e Number [facility] DEPARTMENT OF PATHOLOGY AND [address] [place], [place] [phone] [address] [address] Hemoglobin A1c (05/31/2019 4:54 AM CDT) Hemoglobin A1C 6.9 (H) 4.0 - 5.6 % [facility] Comment: HOSPITAL HbA1c cutoffs for diagnosing [...] 1 diabetes. Specimen Blood Performing Organization Address City/[facility] Phon e Number [facility] DEPARTMENT OF PATHOLOGY AND [address] [place] [address] [address] Basic metabolic panel (05/31/2019 4:54 AM CDT)Only the most recent of7 results within the time period is included. Pathologist Sig nature Sodium 139 135 - 148 mEq/L [facility] Potassium 4.7 3.5 - 5.0 mEq/L [facility] Chloride 102 98 - 112 mEq/L [facility] CO2 25 24 - 31 mEq/L [facility] Anion gap 12@ANIO 7 - 15 mEq/L [facility] BUN 21 8 - 23 mg/dL [facility] Creatinine 0.71 0.50 - 0.90 mg/dL [facility] YARELI Glucose 178 (H) 65 - 99 mg/dL [facility] Calcium 9.0 8.8 - 10.2 mg/dL [facility] Specimen Blood Performing Organization Address City/State/ZIP Code Phon e Number [facility] DEPARTMENT OF PATHOLOGY AND [address] [place], [place] [address] GENOMIC MEDICINE [facility] [address] [place] [address] CT Head Wo Contrast (05/29/2019 11:29 AM [...] to the left.. IMPRESSION: Evolving postop changes. [facility]-[id number] Procedure Note Interface, Radiology Results Incoming - 05/29/2019 11:41 [...] to the left.. IMPRESSION: Evolving postop changes. [facility]-[id number] Performing Organization Address City/[facility] Phon e Number [facility] [address] [place] [phone] CBC hemogram (05/28/2019 7:35 PM CDT)Only the most recent of2 resultswithin the time period is included. Pathologist Sig nature WBC 8.29 4.50 - 11.00 k/uL [facility] RBC 3.77 (L) 4.20 - 5.50 m/uL [facility] HGB 11.6 (L) 12.0 - 16.0 g/dL [facility] HCT 36.5 (L) 37.0 - 47.0 % [facility] MCV 96.8 82.0 - 100.0 fL [facility] MCH 30.8 27.0 - 34.0 pg [facility] MCHC 31.8 31.0 - 37.0 g/dL [facility] RDW - SD 47.4 37.0 - 55.0 fL [facility] MPV 12.5 8.8 - 13.2 fL [facility] Platelet count 153 150 - 400 k/uL [facility] Nucleated RBC 0.00 /100 WBC [facility] Specimen Performing Organization Address [facility] Phon e Number [facility] DEPARTMENT OF PATHOLOGY AND [address] [place] [address] [phone] [address] Ionized calcium (05/28/2019 4:00 AM CDT)Only the most recent of3 resultswithin the time period is included. Pathologist Sig nature pH 7.57 [facility] Ionized calcium 1.06 (L) 1.11 - 1.32 [facility] mmol/L HOSPITAL Specimen Blood Performing Organization Address City/[facility] Phon e Number [facility] DEPARTMENT OF PATHOLOGY AND [address] [place] [address] [phone] [address] Lactic acid level (05/27/2019 11:25 AM CDT) Pathologist Sig nature Lactic acid 2.3 (H) 0.5 - 2.2 mmol/L [facility] Specimen Blood Performing Organization Address City/[facility] Phon e Number [facility] DEPARTMENT OF PATHOLOGY AND [address] [phone] [address] Hepatic function panel (05/27/2019 11:25 AM CDT) Albumin 3.6 3.5 - 5.0 [facility] g/dL [facility] Total bilirubin <0.2 0.0 - 1.2 [facility] mg/dL [facility] Bilirubin direct <0.2 0.0 - 0.3 [facility] mg/dL [facility] Alkaline phosphatase 108 (H) 35 - 104 U/L [facility] Protein 6.8 6.3 - 8.3 [facility] Comment: g/dL HOSPITAL - 4.6-7.0 g/dL 1 week 4.4-7.6 g/dL 7 months-1year 5.1-7.3 g/dL 1-2 years 5.6-7.5 g/dL >3 years 6.0-8.0 g/dL 18-150 6.3-8.3 g/dL ALT 17 5 - 50 U/L [facility] AST 21 10 - 35 U/L [facility] Specimen Blood Performing Organization Address City/[facility] Phon e Number [facility] DEPARTMENT OF PATHOLOGY AND [address] [phone] [address] Miscellaneous referral test (05/26/2019 10:00 AM CDT) [facility] test name [facility] SOLID TUMOR PANEL SHOWN ABOVE [facility] test result SEE NOTE SHOWN ABOVE Comment: Solid Tumor Mutation Panel by Next Generation [place] [facility] test code [id number] Solid Tumor Panel By NGS Interpretation See [...] Diagnostic or Prognostic Significance) 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 This particular missense mutation (p.[id number]) is presumed to alter the normal function [...] Tier 3. NONE REFERENCES: 1.N. Cancer Genome [place], Comprehensive molecular port raits of human breast tumours. Nature 2012. PMID: 23880419. 2.IARC TP53 database website: http://p53.iarc.fr/AS95HfkoKgczxhmtue.aspx 3.COSMIC database website: http://cancer.laney.ac.uk/cancergenome/projects/cosmi c/ 4.cBioPortal database website: http://www.cbioportal.o rg/ 5.Sagar Martínez et al., Standards and Guidelines for the Interpretation and Reporting of Sequence Variants in C ancer: A Joint Consensus Recommendation of the Association for Molecular Pathology, [place] Society of Clinical Oncology, and College of [place] Pathologists. The Journal of molecular diagno stics : JMD 2017. PMID: 13646173. This result has been reviewed and approved [...] genes is availabl e through this link: http://PLAYD8.Rent My Items/Tests/Pdf/375. METHODOLOGY: Genomic DNA is isolated from microscopica lly-guided dissection of tumor tissue and then enriched for the t argeted regions of the tested genes. The variant status of the 44 targeted genes is determined by massively parallel seq uencing (next generation sequencing). The hg19 (GRCh37) refere [facility] sequence is used as a reference [...] all variant classes available through this link: http://ltd.Rent My Items/Tests/Pdf/375. CLINICAL DISCLAIMER: Results of this test must always be interpreted within the clinical context and other rele vant data and should not be used alone for a diagnosis of malign sandi. This test is not intended to detect minimal residual diseas e. Test developed and characteristics determined by [employer]. See Compliance Statement B: [employer] Items/ CS - - - - - - [...] Solid Tumor Panel by NGS Block ID [id number] B3 - - - - - - - - - - - - - - - - - - - - Order comments Solid Tumor Mutation Panel by Next Generation Sequenci ng BRAIN TUMOR #2 [place] TEST #[id number] SOLID TUMOR MUTATION PANEL [id number] ===== Test performed by: [employer] [address] [place], [place] [address] Specimen Narrative Performed At BRAIN TUMOR #2 [facility] DEPARTMENT OF PATHOLOGY AND GENOMIC [place] TEST #[id number] SOLID TUMOR MUTATION MEDICINE PANEL [id number] B3 Performing Organization Address City/State/ZIP Code Phon e Number [facility] DEPARTMENT OF PATHOLOGY AND [address] [place], [place] [address] GENOMIC MEDICINE SHOWN ABOVE Surgical pathology request (05/26/2019 9:11 AM CDT)Only the most recent of4 resultswithin the time period is included. [facility] DEPARTMENT OF PATHOLOGY AND GENOMIC MEDICINE Surgical pathology See link below for [facility] DEPARTMENT O F report PDF Lab Report PATHOLOGY AND GENOMIC MEDICINE Result status This is Supplemental [facility] DEPARTMENT OF Report for PATHOLOGY AND [id number] GENOMIC MEDICINE Specimen Narrative Performed At BRAIN TUMOR #2 [facility] DEPARTMENT OF PATHOLOGY AND GENOMIC [place] TEST #[id number] SOLID TUMOR MUTATION MEDICINE PANEL [facility]-[id number] B3 Performing Organization Address City/State/ZIP Code Phon e Number [facility] DEPARTMENT OF PATHOLOGY AND [address] [place], [place] [address] GENOMIC MEDICINE Airway (05/26/2019 8:18 AM CDT) Narrative Performed At Edward Diop Jr. 05/26/2019 8:2 0 AM Airway Date/Time: 05/26/2019 7:44 AM Performed by: Edward Diop Jr. Authorized by: Sudhir Headley MD Location: OR Urgency: Elective Difficult Airway: No Anesthesiologist: Sudhir Headley MD Resident/CLERICAL TRANSCRIBER/AA: Edward Diop Jr. Performed by: anesthesiologist Preoxygenated [...] Atraumatic ETT insertion att x 1 by CLERICAL TRANSCRIBER. +EtCO2, +BBS. Dentition unchanged. Patient intubated by Dr Headley with PAP R on. Arterial line (05/26/2019 8:01 AM CDT) Narrative Performed At Edward Diop Jr. 05/26/2019 8:0 3 AM Arterial line [...] nature TSH 0.98 0.27 - 4.20 uIU/mL [facility] Specimen Blood Performing Organization Address [facility] Phon e Number [facility] DEPARTMENT OF PATHOLOGY AND [address] [place] [address] [phone] [address] Folate level (05/26/2019 4:55 AM CDT) Pathologist Sig nature Folate 9.3 4.8 - 24.2 ng/mL [facility] Specimen Serum Performing Organization Address [facility] Phon e Number [facility] DEPARTMENT OF PATHOLOGY AND [address] [place] [address] [phone] [address] Ferritin level (05/26/2019 4:55 AM CDT) Pathologist Sig nature Ferritin level 60 13 - 150 ng/mL [facility] Specimen Blood Performing Organization Address [facility] Phon e Number [facility] DEPARTMENT OF PATHOLOGY AND [address] [place] [address] [phone] [address] Vitamin B12 level (05/26/2019 4:55 AM CDT) Vitamin B12 282 211 - 946 [facility] Comment: pg/mL HOSPITAL Significant overlap exists between normal and deficien cy states. However, most patients with deficiencies will have Ser um B12 <200 pg/mL. Specimen Serum Performing Organization Address [facility] Phon e Number [facility] DEPARTMENT OF PATHOLOGY AND [address] [place] [address] [phone] [address] Lipid panel (05/26/2019 4:55 AM CDT) Cholesterol 310 (H) <200 mg/dL [facility] Triglycerides 103 <150 mg/dL [facility] HDL cholesterol 58 >40 mg/dL [facility] LDL cholesterol 239 (H)Comment: <100 mg/dL [employer] Result obtained by [facility] direct [facility] measurement [facility] Comment: [facility] Total Cholesterol (mg/dL) [facility] <200 Desirable 200-239 Borderline-high >=240 High Triglycerides [...] (>=200 mg/dL) Specimen Blood Performing Organization Address City/[facility] Phon e Number [facility] DEPARTMENT OF PATHOLOGY AND [address] [place], [place] [phone] [address] [address] Chest W Contrast Abdomen W Wo Contrast Pelvis W Contrast (05/25/2019 2:52 PM CDT) Specimen Narrative Performed At EXAMINATION: CT CHEST W CONTRAST ABDOMEN W WO CONTRA ST PELVIS W [facility] CONTRAST CLINICAL HISTORY: metastatic workup TECHNIQUE: [...] as in situ or minimally invasive adenocarcinoma. [id number] Procedure Note Hm Interface, Radiology Results Incoming [...] as in situ or minimally invasive adenocarcinoma. [id number] Performing Organization Address City/State/ZIP Code Phon e Number [facility] [address] [place] [address] ECG 12 lead (05/25/2019 12:53 PM CDT) Pathologist Sig nature Ventricular rate 79 [facility] Atrial rate 79 [facility] WI interval 136 [facility] QRSD interval 70 [facility] QT interval 404 [facility] QTC interval 463 [facility] P axis 1 47 [facility] QRS axis 1 -2 [facility] T wave axis 34 [facility] EKG impression Normal sinus [facility] MUSE rhythm-Normal ECG-In automated comparison with ECG of 15-JUN-2015 15:46,-QT has lengthened-Electronical ly Signed By Mike Buchanan MD ([id number]) on 05/25/2019 9:20:32 PM Specimen Narrative Performed At This result has an attachment that is no t available. Performing Organization Address City/State/ZIP Code Phon e Number [facility] MUSE [address] [place] [address] Us duplex venous lower extremity (05/25/2019 11:00 AM CDT) Specimen Narrative Performed At [facility] Vascular U ltrasound Laboratory Lower Extr emity Venous Report [address] [facility], [facility] [address], [place] [address] Pat.Name: KHUSHBU KEITH Pat.ID: [id number]Date: 05/25/2019 Refer.MD: LINH DE PAZ MD Exam Time: 10:19:00 AM Study Type:LE Venous Height: 66in Weight: 201lb BSA: 2.01 m2 Ag e: 1945,74Y Sex: FEMALE Sonogrp hr: Nighat Cabezas, ROHITT Pat. Stat.:Inpatient Room: [address] Tape Vol: LN, CPT - 4: 45905 Echo Event ID:[id number] Order ID: [id number] Reason for Study:Leg swelling and pain. History [...] Ultrasound Laboratory Lower Extremity Veno us Report [address] [place] [address] Pat.Name: KHUSHBU KEITH Pat.I D: [id number] St.Date: 05/25/2019 Refer .MD: LINH DE PAZ MD Exam Time: 10:19:00 AM Study Type:LE Venous Height: 66in Weigh t: 201lb BSA: 2.01 m2 Age: 2 1945,74Y Sex: FEMALE Sonog rphr: Nighat Cabezas RVT Pat. Stat.:Inpatient Room: [address] Tape Vol: LN, CPT - 4: 74202 Echo Event ID:[id number] Order ID: [id number] Reason for Study:Leg swelling and pain. History [...] Address City/State/ZIP Code Phon e Number [facility] [address] [place] [address] MRI Head External Study (05/24/2019 12:42 PM CDT) Specimen Narrative Performed At This exam was not acquired at a Methodis t facility and has not been [facility] interpreted by a [employer] Provider. T he exam was imported into our imaging system. 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
--- OUTSIDE RECORDS SUMMARY | 2020-04-08 09:34 | XMS REPORT | Continuity of Care Document ---
:1945 Author Organization [facility] t Address [address] [place] [address] Care Team Providers Name Role Phone Taina BRADFORD, Jonny Primary Care Physician Angelita CHU, Jane Attending Clinician Vlad BRADFORD, Y.H. Attending Clinician Herman BRADFORD C. Attending Clinician Francisco CHEN Attending Clinician Grey De Paz MD. Attending Clinician Valentine BRADFORD Attending Clinician Only, Test Attending Clinician Unavailable Layo Goss MD Attending Clinician Jaspal Young Attending Clinician Unavailable Salomon BRADFORD Attending Clinician Jena VICENTE, T Attending Clinician Unavailable Lab, Fam Pob I Attending Clinician Unavailable Doctor Unassigned, Name Attending Clinician Unavailable Elizabeth VARMAN Attending Clinician Unavailable Gisel JACKMAN Attending Clinician Unavailable Elma RN Attending Clinician Unavailable Uri Rutherford MD Attending Clinician Nik Headley MD Attending Clinician Eric CHU Attending Clinician 1, Lab Attending Clinician Unavailable VLAD Admitting Clinician Unavailable BALDEV Admitting Clinician Unavailable Payers Payer Name Policy Type Policy Effective Date Expiration Date Sour ce Number MEDICAREMEDICARE PART [id number] 2009 Ken moncada A AND 00:00:00 Ten[place]ism [id number] 2009- [id number]AD [id number] 2016 [place] [id number] 0 00:00:00 Met felicitasist 017-PresentIndemnity Problems Condition Condition Condition Status Onset Resolution Last Treating Co mments Source Name Details Category Date Date Treatment Clinician Date LAD LAD Disease Active Overview: [place] n (lymphaden (lymphaden 9- Added Me thodi opathy), opathy), 00:00: automatic st hilar hilar 00 ally from request for surgery [id number] Lung Lung Disease Active Overview: [place] nodules nodules 9-25 Added Methodi 00:00: automatic st 00 ally from request for surgery [id number] Personal Personal Disease Active Overview: Ken moncada history of history of 9-25 Added Me thodi lung lung 00:00: automatic st cancer cancer 00 ally from request for surgery [id number] 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 4-27 Method i malignant malignant 00:00: st 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 Follow-up Follow-up Disease Active Marcelo preston examinatio examinatio 4-13 Me thodi n n 00:00: st following following 00 surgery surgery Brain Brain Disease Active 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 3-24 Me thodi 00:00: st 00 Personal Personal Disease Active 2018 [place] history of history of 4-26 Me thodi breast breast 00:00: st cancer cancer 00 Malignant Malignant Disease Active Overview: 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 Allergies, Adverse Reactions, Alerts Allergy Allergy Status Severity Reaction(s) Onset Inactive Treating Comm ents Source Name Type Date Date Clinician No Known DA Active U 2019-03 [facility] 2[facility]21 Clear Allergie 00:00: [facility] 00 [facility] codeine DA Active [place] 2020-1 [facility] 2-21 Clear 00:00: [facility] 00 [facility] erythrom DA Active [place] 2020-1 [facility] ycin 2-21 Clear base 00:00: [facility] 00 [facility] adhesive DA Active [place] 2020-1 [facility] tape 2-21 Clear 00:00: [facility] 00 [facility] No Known DA Active U 2020-1 [facility] Drug 1-25 Clear Allergie 00:00: [facility] s 00 [facility] codeine DA Active MO 2020-1 [facility] 1-25 Clear 00:00: [facility] 00 [facility] erythrom DA Active MO 2020-1 [facility] ycin 1-25 Clear base 00:00: [facility] 00 [facility] adhesive DA Active MO 2020-1 [facility] tape 1-25 Clear 00:00: [facility] 00 [facility] codeine DA Active MO 2019-1 [facility] 1-12 [place] [facility] erythrom [facility] Active [place] 2019-1 [facility] ycin 1-12 [place] base 00:00: [facility] adhesive DA Active MO 2019-1 [facility] tape 1-12 [place] 00:00: [facility] adhesive DA Active [place] 2019-1 [facility] tape 1-08 [place] 00:00: [facility] codeine DA Active [place] 2019-1 [facility] 1-06 Clear 00:00: [facility] 00 [facility] erythrom DA Active MO 2019-1 [facility] ycin 1-06 Clear base 00:00: [facility] 00 [facility] Codeine Propensi Active [place] ty to 10-07 Methodi adverse 00:00: st reaction 00 s to drug Erythrom Propensi Active [place] ycin ty to 10-07 Methodi adverse 00:00: st reaction 00 s to drug Family History Family Member Diagnosis Comments Start Date Stop Date Source Natural brother Basal cell carcinoma [place] Tenriism Natural brother Breast cancer [place] Natural brother Heart disease [place] Natural brother Prostate cancer [place] Natural brother Stomach cancer [place] Natural father Brain cancer [place] Tenriism Natural mother Colon cancer [place] Tenriism Natural mother Colon polyps [place] Tenriism Natural mother Hypertension [place] Tenriism Social History Social Habit Start Date Stop Date Quantity Comments Source Sex Assigned At [facility] ethodist Exposure to Not sure [place] Metho dist SARS-CoV-2 (event) Cigarettes smoked 2020-04-06 2020-04-06 Servando Aguiar current (pack per 00:00:00 00:00:00 day) - Reported Cigarette 2020-04-06 2020-04-06 Servando Laurent ist pack-years 00:00:00 00:00:00 Tobacco use and 2020-04-06 2020-04-06 Never used Al Cici ethodist exposure 00:00:00 00:00:00 Alcohol intake 2020-04-06 2020-04-06 Current drinker [place] Tenriism 00:00:00 00:00:00 of alcohol (finding) History of tobacco 1969-11-19 1994-04-16 Current smoker [place] use 00:00:00 00:00:00 Smoking Status Start Date Stop Date Source Former smoker 2020-04-06 00:00:00 2020-04-06 00:00:00 Servando Aguiar Medications Ordered Filled Start Stop Current Ordering Indication Dosage Frequency Signature Comments Components Source Medication Medication Date Date Medication? Clinician (SIG) Name Name venlafaxine Yes 150mg QD Take 150 [place] XR 2-03 mg by Methodi (EFFEXOR-XR 19:28: mouth st ) 150 MG 24 35 daily. hr capsule PRIMIDONE Yes 250mg Q.5D Take 250 Marcelo ston ORAL 2-03 mg by Methodi 19:28: mouth 2 st 35 (two) times a day. metoprolol Yes 100mg QD Take 100 [place] succinate 2-03 mg by Methodi XL 19:28: mouth st (TOPROL-XL) 35 daily. 100 mg 24 hr tablet omeprazole Yes 20mg QD Take 20 mg [place] (PriLOSEC) 2-03 by mouth Metho di 20 MG 19:28: daily. st capsule 35 rosuvastati Yes 40mg QD Take 40 mg Al n (CRESTOR) 2-03 by mouth Meth colleen 10 MG 19:28: daily. st tablet 35 levothyroxi Yes 75ug QD Take 75 Marcelo ston ne 2-03 mcg by Methodi (SYNTHROID, 19:28: mouth st LEVOXYL) 75 35 every mcg tablet morning. calcium Yes 1{tbl} Q.5D Take 1 [place] carbonate-v 2-03 tablet by Met harrison itamin D3 19:28: mouth 2 st 500 mg-200 35 (two) unit per times a tablet day with meals. ARIPiprazol Yes 5mg QD Take 5 mg [place] e (ABILIFY) 2-03 by mouth Meth colleen 5 MG tablet 19:28: daily. Pt s t 35 take it in the evening topiramate Yes 50mg Q.5D Take 50 mg [place] (TOPAMAX) 2-03 by mouth 2 Meth colleen 25 MG 19:28: (two) st tablet 35 times a day. One in the morning , one at night cholecalcif Yes 2000U QD Take 2,000 Al mario, 2-03 Units by Quinn vitamin D3, 19:28: mouth st 400 unit 35 daily. tablet LORAZepam Yes .5mg Q6H Take 0.5 [place] (ATIVAN) 2-03 mg by Methodi 0.5 MG 19:28: mouth st tablet 35 every 6 (six) hours as needed for anxiety. vit A/vit Yes Take by Marlene on C/vit 2-03 mouth. Methodi E/zinc/stephanie 19:28: st er (ICAPS 35 AREDS ORAL) gabapentin Yes 100mg Q.[id number] Take 100 Al (NEURONTIN) 2-03 [id number] mg by Cici baez 100 mg 19:28: 3D mouth 3 st capsule 35 (three) times a day. losartan 2020-0 2020- No 100mg QD Take 100 Marcelo ston (COZAAR) 2-03 02-03 mg by Methodi 100 MG 10:43: 00:[address] tablet 34 :00 daily. letrozole 2020-0 2020- No QD Take by Uche weaver (FEMARA) 2-03 02-03 mouth Methodi 2.5 mg 10:43: 00:[address] chemo 03 :00 tablet ramelteon 2020- No 8mg QD Take 1 Marlene on (Rozerem) 8 5-12 05-12 tablet (8 Me thodi mg tablet 00:00: 23:59 mg total) st 00 :00 by mouth nightly. LORAZepam 2019- No .5mg Q6H Take 0.5 Marcelo ston (ATIVAN) 06-26-27 mg by Methodi 0.5 MG 12:20: 00:[address] tablet 26 :00 every 6 (six) hours as needed for anxiety. One tab Two times daily as needed ANASTROZOLE No 1mg QD Take 1 mg Al ORAL 06-26 by mouth Methodi 12:19: 00:[address] 25 :00 LORAZepam No .5mg Q6H Take 1 [place] (ATIVAN) 06-26 tablet Methodi 0.5 MG 00:00: 23:59 (0.[address] tablet 00 :00 total) by mouth every 6 (six) hours as needed for anxiety for up to 10 doses. One tab Two times daily as needed amLODIPine No 10mg QD Take 1 [place] (NORVASC) 06-01 tablet (10 Met hodi 10 mg 00:00: 23:59 mg total) st tablet 00 :00 by mouth daily for 30 days. amLODIPine No 5mg QD Take 5 mg [place] (NORVASC) 05-31 by mouth Metho di 2.5 mg 17:16: 00:[address] tablet 04 :00 butalbital- No 1{tbl} Q6H Take 1 [place] acetaminoph 05-31 tablet by Me thodi en-caff 00:00: 00:[address] (FIORICET) 00 :00 every 6 50-325-40 (six) mg per hours as tablet needed for headaches. levETIRAcet No 500mg Q.5D Take 1 [place] am (KEPPRA) 05-31 tablet Metho di 500 MG 00:00: 23:59 ([address] tablet 00 :00 total) by mouth every 12 (twelve) hours for 30 days. methylPREDN No follow Marcelo ston ISolone 05-31 package Methodi (Medrol, 00:00: 23:[address] Lemuel,) 4 mg 00 :00 tablet aspirin 2019- No 81mg QD Take 81 mg Marcelo ston (ECOTRIN) 05-23 by mouth Metho di 81 MG 23:05: 00:[address] enteric 31 :00 06/17/17 coated tablet doxycycline 2019- No 100mg Q.5D Take 100 Al (VIBRAMYCIN 05-23 mg by Method i ) 100 MG 22:59: 00:[address] oral dosage 17 :00 (two) form times a day. rosuvastati 2019- No 10mg QD Take 10 mg Al n (CRESTOR) 05-23 by mouth Met hodi 10 MG 22:58: 00:[address] tablet 37 :00 VIT A/VIT 2019- No Take by Uche weaver C/VIT 05-23 mouth. Methodi E/ZINC/STEPHANIE 22:58: 00:00 st ER (ICAPS 16 :00 AREDS ORAL) topiramate 2019- No 50 mg = 1 [place] (TOPAMAX) 06-30 09-25 tab, PO, Metho di 50 MG 00:00: 00:00 Daily, # st tablet 00 :00 90 tab, 2 Refill(s), other amLODIPine Yes 10mg 10 mg. Marlene on (NORVASC) 425 Methodi 2.5 mg 00:00: st tablet 00 Vital Signs Vital Name Observation Time Observation Value Comments Source Systolic blood 2020-04-04 18:07:00 133 mm[Hg] Yelena n Tenriism pressure Diastolic blood 2020-04-04 18:07:00 63 mm[Hg] [place] Tenriism pressure Heart rate 2020-04-04 18:07:00 74 /min Servando Aguiar Body temperature 2020-04-04 18:07:00 36.44 Antoinette Uche Aguiar Respiratory rate 2020-04-04 18:07:00 20 /min Uche Aguiar Oxygen saturation in 2020-04-04 18:07:00 95 /min Servando Aguiar Arterial blood by Pulse oximetry Body height 2020-04-04 10:31:00 165.1 cm Servando Aguiar Body weight 2020-04-04 10:31:00 97.523 kg Servando Aguiar BMI 2020-04-04 10:31:00 35.78 kg/m2 Servando Aguiar Procedures Procedure Date / Time Performing Clinician Source Performed XR CHEST 1 VW PORTABLE 2020-04-04 15:30:00 Moises Lutz on Tenriism LA AN ELECTIVE ENDOTRACHEAL 2020-04-04 12:58:52 Alfonso Singh AIRWAY COVID-19 QUALITATIVE PCR 2020-03-30 10:39:[address] CHEST WO CONTRAST 2020-03-22 14:04:35 Adolfo Park on Tenriism HC COMPLETE BLD COUNT 2020-03-22 12:26:00 Adolfo Park W/AUTO DIFF COMPREHENSIVE METABOLIC 2020-03-22 12:26:00 Adolfo Park PANEL PARTIAL THROMBOPLASTIN TIME 2020-03-22 12:26:00 Adolfo Park (PTT) PROTHROMBIN TIME WITH INR 2020-03-22 12:26:00 Adolfo Park TYPE AND SCREEN 2020-03-22 12:26:00 Adolfo Park Me thodist ESTIMATED GFR 2020-03-22 12:26:[address] [address] ABDOMEN PELVIS WO 2020-02-09 00:00:00 Provider, Historical Ken Aguiar CONTRAST CT CHEST EXTERNAL STUDY 2020-02-01 10:43:[address] CHEST WO CONTRAST 2020-02-01 00:00:00 Provider, Historical Ken Aguiar CYTOLOGY 2019-12-06 10:19:00 Adolfo Park Me thodist (NON-GYNECOLOGICAL) REQUEST CYTOLOGY 2019-12-06 10:13:00 Adolfo Park Me thodist (NON-GYNECOLOGICAL) REQUEST XR CHEST 1 VW PORTABLE 2019-12-06 10:10:00 Shaun Sainz CYTOLOGY 2019-12-06 10:04:00 Adolfo Park Me thodist (NON-GYNECOLOGICAL) REQUEST FUNGUS CULTURE 2019-12-06 09:51:00 Adolfo Park Vt yemiodist AFB CULTURE 2019-12-06 09:51:00 Adolfo Park Vt thodist ANAEROBIC CULTURE 2019-12-06 08:51:00 Adolfo Park AEROBIC CULTURE 2019-12-06 08:51:00 Adolfo Park Vt thodist GRAM STAIN 2019-12-06 08:51:00 Adolfo Park Vt thodist AFB STAIN 2019-12-06 08:51:00 Adolfo Park Vt clement LA AN ELECTIVE ENDOTRACHEAL 2019-12-06 08:11:32 Anusha Loera AIRWAY [place] COVID-19 QUALITATIVE PCR 2019-12-02 11:27:00 Adolfo Park PARTIAL THROMBOPLASTIN TIME 2019-12-02 11:27:00 Adolfo Park (PTT) PROTHROMBIN TIME WITH INR 2019-12-02 11:27:00 Adolfo Park COMPREHENSIVE METABOLIC 2019-12-02 11:27:00 Adolfo Park PANEL HC COMPLETE BLD COUNT 2019-12-02 11:27:00 Adolfo Park W/AUTO DIFF ESTIMATED GFR 2019-12-02 11:27:00 Adolfo Park Vt yemiodi PET CT WHOLE BODY EXTERNAL 2019-12-01 08:51:00 Adolfo Park STUDY PET CT SKULL BASE TO MID 2019-12-01 00:00:[address] CHEST EXTERNAL STUDY 2019-11-23 14:10:[address] CHEST W CONTRAST 2019-11-23 00:00:00 Susan Grijalva MRI BRAIN W WO CONTRAST 2019-11-08 00:00:[address] SKULL BASE TO MID 2019-07-13 00:00:00 Aj Grijalva THIGH POC GLUCOSE 2019-06-01 12:13:00 Kian Rutherford Meth odist POC GLUCOSE 2019-06-01 07:42:00 Kian Rutherford Meth odist POC GLUCOSE 2019-06-01 06:06:00 Kian Rutherford Meth odist CANCER ANTIGEN 125 2019-06-01 04:00:00 Wade Layne ethodist CARCINOEMBRYONIC ANTIGEN 2019-06-01 04:00:00 Wade Layne (CEA) CANCER ANTIGEN 19-9 2019-06-01 04:00:00 Wade Layne CANCER ANTIGEN 15-3 2019-06-01 04:00:00 Wade Layne Tenriism POC GLUCOSE 2019-05-31 21:00:00 Kian Rutherford odist POC GLUCOSE 2019-05-31 18:03:00 Kian Rutherford Meth odist POC GLUCOSE 2019-05-31 17:17:00 Kian Rutherford US DUPLEX VENOUS UPPER 2019-05-31 13:27:28 Lilo Alexander EXTREMITY RIGHT POC GLUCOSE 2019-05-31 11:57:00 Kian Rutherford odist POC GLUCOSE 2019-05-31 07:43:00 Linh De Paz Meth odist POC GLUCOSE 2019-05-31 06:16:00 Linh De Paz odist BASIC METABOLIC PANEL 2019-05-31 04:54:00 Kian Rutherford PHOSPHORUS LEVEL 2019-05-31 04:54:00 Kian Rutherford Met hodist MAGNESIUM LEVEL 2019-05-31 04:54:00 Kian Rutherford odist HEMOGLOBIN A1C 2019-05-31 04:54:00 Kian Rutherford odist ESTIMATED GFR 2019-05-31 04:54:00 Kian Rutherford odist POC GLUCOSE 2019-05-30 20:55:00 Linh De Paz Meth odist POC GLUCOSE 2019-05-30 18:47:00 Linh De Paz odist POC GLUCOSE 2019-05-30 12:01:00 Linh De [...] HEAD WO CONTRAST 2019-05-29 11:29:38 Lillian Cardona Tenriism POC GLUCOSE 2019-05-29 08:12:00 Linh De Paz odist POC GLUCOSE 2019-05-29 04:11:00 Linh De Paz Meth odist POC GLUCOSE 2019-05-28 23:30:00 Linh De Paz Meth odist CBC HEMOGRAM 2019-05-28 19:35:00 Linh De Paz Meth odist POC GLUCOSE 2019-05-28 19:24:00 Linh De Paz Meth odist POC GLUCOSE 2019-05-28 15:46:00 Linh De Paz Meth odist POC GLUCOSE 2019-05-28 11:47:00 Linh De Paz odist POC GLUCOSE 2019-05-28 07:40:00 Linh De Paz odist CBC WITH PLATELET AND 2019-05-28 06:30:00 Vi Bailon Tenriism DIFFERENTIAL POC GLUCOSE 2019-05-28 04:57:00 Linh De Paz Meth odist BASIC METABOLIC PANEL 2019-05-28 04:00:00 Vi [place] Tenriism IONIZED CALCIUM 2019-05-28 04:00:00 Vi Bailon odist MAGNESIUM LEVEL 2019-05-28 04:00:00 Vi Bailon Meth odist PHOSPHORUS LEVEL 2019-05-28 04:00:00 Vi Bailon Met hodist ESTIMATED GFR 2019-05-28 04:00:00 Linh De Paz Meth odist POC GLUCOSE 2019-05-28 00:06:00 Linh De Paz Meth odist POC GLUCOSE 2019-05-27 20:49:00 Linh De Paz Meth odist POC GLUCOSE 2019-05-27 18:18:00 Linh De Paz Meth odist POC GLUCOSE 2019-05-27 16:25:00 Linh De Paz Meth odist POC GLUCOSE 2019-05-27 11:37:00 Linh De Paz Meth odist BASIC METABOLIC PANEL 2019-05-27 11:25:00 Manolo Velez Tenriism [place] LACTIC ACID LEVEL 2019-05-27 11:25:00 Manolo Velez Me thodist [place] ESTIMATED GFR 2019-05-27 11:25:00 Manolo Velez odist [place] IONIZED CALCIUM 2019-05-27 11:25:00 Manolo Velez Meth odist [place] HEPATIC FUNCTION PANEL 2019-05-27 11:25:00 Manolo Velez on Tenriism [place] POC GLUCOSE 2019-05-27 07:39:00 Linh De Paz Meth odist POC GLUCOSE 2019-05-27 04:22:00 Linh De Paz Meth odist HC COMPLETE BLD COUNT 2019-05-27 04:00:00 Linh De Paz Tenriism W/AUTO DIFF CT HEAD WO CONTRAST 2019-05-27 02:45:20 Marito Varela on Tenriism XR CHEST 1 VW PORTABLE 2019-05-27 02:33:05 Michaela Linares Tenriism MRI BRAIN W WO CONTRAST 2019-05-27 02:03:00 Marito Varela Tenriism BASIC METABOLIC PANEL 2019-05-27 01:21:00 Michaela Linares Tenriism IONIZED CALCIUM 2019-05-27 01:21:00 Michaela Linares ethodist MAGNESIUM LEVEL 2019-05-27 01:21:00 Michaela Linares ethodist PHOSPHORUS LEVEL 2019-05-27 01:21:00 Milagros, Michaela Aguiar ESTIMATED GFR 2019-05-27 01:21:00 Milagros, Michaeladeondre Al Cici ethodist CBC HEMOGRAM 2019-05-27 00:55:00 Milagros, Michaela Al Cici ethodist POC GLUCOSE 2019-05-27 00:15:00 Linh De Paz Meth odist POC GLUCOSE 2019-05-26 19:54:00 Linh De Paz odist POC GLUCOSE 2019-05-26 15:28:00 Linh De [...] PATHOLOGY REQUEST 2019-05-26 09:11:00 Linh De Paz LA AN ELECTIVE ENDOTRACHEAL 2019-05-26 08:18:47 Edward Diop AIRWAY ARTERIAL LINE 2019-05-26 08:01:54 Raisa Worthy ethodi Eileen CRANIOTOMY 2019-05-26 07:23:00 Linh De Paz FOLATE LEVEL 2019-05-26 04:55:00 Kian Rutherford odist FERRITIN LEVEL 2019-05-26 04:55:00 Kian Rutherford VITAMIN B12 LEVEL 2019-05-26 04:55:00 Kian Rutherford Me thodist THYROID STIMULATING HORMONE 2019-05-26 04:55:00 Kian Rutherford MAGNESIUM LEVEL 2019-05-26 04:55:00 Kian Rutherford odist LIPID PANEL 2019-05-26 04:55:00 Kian Rutherford odist PHOSPHORUS LEVEL 2019-05-26 04:55:00 Kian Rutherford Met hodist HC COMPLETE BLD COUNT 2019-05-25 18:15:00 Indy Pena Tenriism W/AUTO DIFF Wanjiru BASIC METABOLIC PANEL 2019-05-25 18:15:00 Indy Pena n Tenriism Wanjiru ESTIMATED GFR 2019-05-25 18:15:00 Indy Pena Meth odist Wanjiru MRI BRAIN W WO CONTRAST 2019-05-25 16:15:00 Koby Roche Tenriism Sheetzer CT CHEST W CONTRAST ABDOMEN 2019-05-25 14:52:34 Raj Peres W WO CONTRAST PELVIS W CONTRAST XR CHEST 1 VW PORTABLE 2019-05-25 13:05:00 Koby Roche on Tenriism Sheetzer ECG 12-LEAD 2019-05-25 12:53:53 Kian Rutherford POC GLUCOSE 2019-05-25 12:16:00 Linh De Paz US DUPLEX VENOUS LOWER 2019-05-25 11:00:00 Koby Roche on Tenriism EXTREMITY BILATERAL Sheetzer BASIC METABOLIC PANEL 2019-05-24 23:30:00 Raj Peres HC COMPLETE BLD COUNT 2019-05-24 23:30:00 Raj Peres W/AUTO DIFF PARTIAL THROMBOPLASTIN TIME 2019-05-24 23:30:00 Raj Peres (PTT) PROTHROMBIN TIME WITH INR 2019-05-24 23:30:00 Raj Peres Ra ESTIMATED GFR 2019-05-24 23:30:00 Linh De Paz TYPE AND SCREEN 2019-05-24 23:30:00 Linh De Paz MRI HEAD EXTERNAL STUDY 2019-05-24 12:42:[address] CHEST EXTERNAL STUDY 2019-05-02 14:00:00 Linh De Paz Tenriism Plan of Care Planned Activity Planned Date Details Comments Source Future Scheduled 2019-10-01 INFLUENZA VACCINE [place] [facility] Test 00:00:00 [code = INFLUENZA VACCINE] Future Scheduled 2017-06-12 BREAST CANCER Al Me thodist Test 00:00:00 SCREENING [code = BREAST CANCER SCREENING] Future Scheduled 1994 COLONOSCOPY SCREENING [place] [facility] Test 00:00:00 [code = COLONOSCOPY SCREENING] Future Scheduled 1994 SHINGLES VACCINES [place] [facility] Test 00:00:00 (#1) [code = SHINGLES VACCINES (#1)] Future Scheduled 1962 Hepatitis C screening [place] [facility] Test 00:00:00 (procedure) [code = 133589931] Future Scheduled 1960 COVID-19 VACCINE (1 [place] Tenriism Test 00:00:00 of 2) [code = COVID-19 VACCINE (1 of 2)] Encounters Start End Encounter Admission Attending Care Care Encounter Source Date/Time Date/Time Type Type Clinicians Facility Department ID 2020-04-04 2020-04-04 Outpatient [facility], [facility] 002 [id number] [place] 00:00:00 00:00:00 EDWARD [address] 2020-03-30 2020-03-30 Outpatient [place], [facility] [id number] [place] 00:00:00 00:00:00 EDWARD [address] 2020-03-22 2020-03-22 Outpatient [place], [facility] [id number] [place] 00:00:00 00:00:00 EDWARD [address] 2020-03-22 2020-03-22 Outpatient [place], [facility] [id number] [place] 00:00:00 00:00:00 EDWARD [address] 2020-03-22 2020-03-22 Outpatient [place], [facility] [id number] [place] 00:00:00 00:00:00 EDWARD [address] 2020-03-22 2020-03-22 Outpatient [place], [facility] [id number] [place] 00:00:00 00:00:00 EDWARD [address] 2020-03-22 2020-03-22 Outpatient [place], [facility] [id number] [place] 00:00:00 00:00:00 EDWARD [address] 2020-02-17 2020-02-17 Outpatient [place], [facility] [id number] [place] 00:00:00 00:00:00 EDWARD [address] 2020-02-14 2020-02-14 Laboratory Only, [facility] [id number] 15:29:26 15:44:[address] [id number] [place] [id number] [place] [id number] 2020-01-02 2020-01-02 Outpatient DE PAZ, [facility] [id number] [place] 00:00:00 00:00:00 LINH [address] 2019-12-06 2019-12-06 Outpatient [place], [facility] [id number] [place] 00:00:00 00:00:00 EDWARD [address] 2019-12-05 2019-12-05 Outpatient WADE LAYNE [facility] [id number] [place] 00:00:00 00:00:00 895 Method i 2019-12-05 2019-12-05 Outpatient WADE LAYNE [facility] [id number] [place] 00:00:00 00:00:[address] 2019-12-02 2019-12-02 Outpatient P[place], [facility] [id number] [place] 00:00:00 00:00:00 EDWARD [address] 2019-11-25 2019-11-25 Outpatient [place], [facility] [id number] [place] 00:00:00 00:00:00 EDWARD [address] 2019-11-25 2019-11-25 Outpatient [place], [facility] [id number] [place] 00:00:00 00:00:00 EDWARD 902 Method i 2019-11-05 2019-11-05 Letter JONNY Bella [id number] 00:00:00 00:00:00 (Out) Rose Marie BARNES [id number] [facility] [id number] 2019-11-04 2019-11-04 Laboratory Lab, [facility] [place] [id number] 10:17:33 10:37:33 Only Fam Pob [facility] Health [id number] [id number] [facility] [phone] nal 0[address] One 2019-11-04 2019-11-04 Letter Doctor JONNY [id number] 00:00:00 00:00:00 (Out) Unassigned, MOLLY [id number] [place] [id number] 2019-07-12 2019-07-12 Outpatient WADE LAYNE [facility] [id number] [place] 00:00:00 00:00:[address] 2019-06-27 2019-06-27 Outpatient WADE LAYNE [facility] [id number] [place] 00:00:00 00:00:[address] 2019-06-13 2019-06-13 Outpatient DE PAZ, [facility] [id number] [place] 00:00:00 00:00:00 LINH [address] 2019-05-24 2019-06-01 Inpatient KIAN RUTHERFORD [facility] [id number] [place] 00:00:00 00:00:[address] 2018-11-03 2018-11-03 Gym Instructor 1, [facility] Lab [facility] [id number] 14:27:18 14:42:[address] [id number] [place] [id number] [place] [id number] 2018-11-03 2018-11-03 Orders Doctor JONNY [id number] 00:00:00 00:00:00 Only Unassigned, MOLLY [id number] [id number] [phone] [id number] Results Test Description Test Time Test Comments Results Result [facility] e Comments XR Chest 1 Vw [facility] Portable [address] 16:42:30 - 04/04/2020 4:45 PM CSTEXAMINATION: XR CHEST 1 PORTABLECLINICAL HISTORY: Post bronchoscopy and biopsyCOMPARISON: [facility]:Lines: NoneLungs and pleura: Linear opacity at the left upper lobe is unchanged. No effusion or pneumothorax. Nodular opacities are characterized better advantage on prior CT.Heart and mediastinum: Stable appearance of cardiomediastinal silhouette. Bones: No suspicious osseous lesions. 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 TEST ENGINEER 04/04/[address] 12:58:52 1:00 PMAirway Date/Time: 04/04/2020 12:58 PM Location: OR Performed by: anesthesiologistAnesth esiologist: Koby Sutton Jr., MDOther Staff: Margarette Damicosaint joseph hospital of kirkwoodorized by: Koby Sutton Jr., MD Urgency: ElectiveDifficult Airway: No Preoxygenated with 100% O2: Yes Mask Ventilation: Assisted mask (OPA)Final Airway Type: Endotracheal airwayFinal Endotracheal Airway: ETTCuffed: Yes Technique Used: Video laryngoscopyDevices/Me thods Used in Placement: Intubating styletInsertion Site: OralBlade type: Glidescope.Laryngoscop e Blade/Videolaryngoscop e Blade Size: 3ETT Size (mm): 8.5Cuff at minimum occlusion pressure: Yes Measured from: LipsETT to Lips (cm): 24Placement Verified by: CO2 detection and direct visualization Laryngoscopic view: Grade I - full view of glottisRapid Sequence Induction (RSI): No Modified RSI: No Number of Attempts at Approach: 1 Difficult to insert ETT passed vocal folds; able to pass after torquing the tube CT Chest Wo 2020-03-2 [facility] Contrast [address] 17:04:34 Incoming - 03/22/2020 5:07 PM CSTEXAMINATION:CT CHEST WO CONTRASTCLINICAL HISTORY:R91.8 Other nonspecific abnormal finding of lung field, Z85.118 Personal history of other malignant neoplasm of bronchus and lung, lung nodulesTECHNIQUE:Multi ple axial images of the chest were obtained without intravenous contrast. The lack of intravenous contrast reduces the sensitivity of detecting solid organ disease and evaluating vasculature. Sagittal and coronal computerized reformatted images were also obtained.CT imaging was performed with iterative reconstruction techniques and/or automated exposure control to reduce radiation dose.COMPARISON:Septem 2019 and February 01, 2020 CT scanFINDINGS:1.There are scattered bilateral pulmonary nodules. The largest nodule is in the anterior segment of the right lower lobe and measures 16 x 14 mm; previously 8 x 9 mm and 5 x 4 mm). Smaller right upper lobe nodule now measures 11 x 11 mm; most recently 6 x 6 mm.2.Irregular linear density in left upper lobe related to scarring similar in appearance to the prior study.3.Left lower lobe nodule similar to the prior exams.4.No pleural or pericardial effusions.5.Thoracic aorta is of normal caliber. 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 since prior study.[facility]-[id number] Type and screen 2020-03-22 14:19:00 Test Item Value Reference Range Interpretation Comme nts ABO grouping (test code = 883-9) O Rh type (test code = 22407-0) POS Antibody screen (gel) (test code = 890-4) NEG Randolph MethodistComprehensive metabolic ifyiw6962-57-80 13:54:18 Test Item Value Reference Range Interpretation Comments Sodium (test code = 141 135- 148 mEq/L 2951-2) Potassium (test code = 4.6 3.5- 5.0 mEq/L 2823-3) Chloride (test code = 108 98- 112 mEq/L 2074-0) CO2 (test code = 2027-) 25 24- 31 mEq/L Anion gap (test code = 8@ANIO 7- 15 mEq/L 43720-9) BUN (test code = 3094-0) 15 mg/dL 8-23 Creatinine (test code = 0.81 mg/dL 0.5-0.9 0-0) Glucose (test code = 112 mg/dL 65-99 H 2345-7) Calcium (test code = 9.4 mg/dL 8.8-10.2 28502-6) Protein (test code = 6.8 g/dL 6.3-8.3 -[place] n 2885-2) 4.6-7.0 g/dL1 week 4.4-7 .6 g/dL7 months-1y ear 5.1-7 .3 g/dL1-2 years 5.6-7 .5 g/dL>3 years 6.0-8 .0 g/dY86-592 6.3-8 .3 g/dL Albumin (test code = 3.4 g/dL 3.5-5 L 1751-7) A/G ratio (test code = 1.0 0.7-3.8 1759-0) Alkaline phosphatase 184 U/L 35-104 H (test code = 6768-6) AST (test code = 1920-8) 22 U/L 10-35 ALT (test code = 1742-6) 17 U/L 5-50 Total bilirubin (test <0.2 0-1.2 code = 1974-2) Lab Interpretation (test Abnormal code = 77224-4) Servando MethodistEstimated [id number] 13:54:18 Test Item Value Reference Range Interpretation Comments Estimated GFR (test 71 mL/min/1.73 m2 Caterg ory Units code = 5488) InterpretationG 1 >=90 Normal or highG2 60-89 Mildly vvpolahoaB8v 45-59 Mildly to mode rately vzjjasffcJ4o 30-44 Moderately to severely decreasedG4 15-29 Severely decre asedG5 <15 Kidn ey failureThe eGFR was calculated usin g the Chronic Kidney Disease Epidemiology Co llaboration (CKD-EPI) equat ion. Interpretation is based on recommendations of the National Kidney Foundation-Kidn ey Disease Outcomes Qualit y Initiative (NKF-KDOQI) pub lished in 2014. Servando MethodistPartial thromboplastin time, nkkyskjqg4734-39-93 13:37:08 Test Item Value Reference Range Interpretation Comments PTT (test code = 29.7 23.0- 36.0 [place] [address]-9) unfractionated heparin is61.0-112.0 se conds which corresponds to Anti-Xa0.3-0.7 U/ml. Servando MethodistProthrombin time with MOP2133-83-71 13:37:00 Test Item Value Reference Range Interpretation Comments Prothrombin time (test 13.5 11.5- 14.5 sec code = 5902-2) INR (test code = 1.0 The [facility] 21496-6) Normalized Rati o (INR) is a therapeutic m onitoring tool for patien ts who are stable on oral anticoagulant t herapy. An INR of 2.0-3.0 is suggested for d eep vein thrombosis/pulm onary embolism. Randolph MethodistCBC with platelet and sruwvrxommsd4338-44-05 13:23:46 Test Item Value Reference Range Interpretation Comments WBC (test code = 25345-9) 4.16 4.50- 11.00 k/uL L RBC (test code = 42054-9) 3.63 m/uL 4.2-5.5 L HGB (test code = 718-7) 11.0 g/dL 12-16 L HCT (test code = 4544-3) 35.2 % 37-47 L MCV (test code = 787-2) 97.0 fL 82-100 MCH (test code = 785-6) 30.3 pg 27-34 MCHC (test code = 786-4) 31.3 g/dL 31-37 RDW - SD (test code = 48.5 fL 37-55 47895-3) MPV (test code = 63483-0) 11.2 fL 8.8-13.2 Platelet count (test code 145 150- 400 k/uL L = 48326-4) Nucleated RBC (test code 0.00 /100 WBC = 19361-0) Neutrophils (test code = 57.2 % 39-69 81621-1) Lymphocytes (test code = 19.0 % 25-45 L 90558-7) Monocytes (test code = 12.7 % 0-10 H 17377-7) Eosinophils (test code = 9.9 % 0-5 H 52086-4) Basophils (test code = 1.0 % 0-1 07357-0) Immature granulocytes 0.2 % 0-1 "Immat ure (test code = 36177-7) granul ocytes" (promyelocytes, myelocytes, metamyelocytes) Lab Interpretation (test Abnormal code = 99304-3) Randolph MethodistPET/CT Whole Body External Iazxi4489-47-51 12:56:59This exam was not acquired at a [facility] facility and has not been interpreted by a [facility] Provider. The exam was imported into our imaging system.Al [facility]- CT L-SPINE W/O [id number] 12:05:00 [facility] : 1945 Sex: F Patient Name: ODALIS RUVALCABA Unit No: [id number] EXAMS: CPT CODE: [id number] CT L-SPINE W/O CONTRAST 00574 TECHNIQUE: Multiplanar CT images were obtained of the lumbar spine without IV contrast. COMPARISON: MR dated 01/25/2020 INDICATION: LBP FINDINGS: Interval postoperative changes of L4-L5 posterior instrumented fusion demonstrated with intact hardware. The interbody graft is without evidence of healing. A hyperdense mass within the left L4-L5 neural foramen measures 10 mm, possibly graft material, likely impinging the exiting left L4 nerve. Alignment: Grade 1 spondylosis of L4-L5 Fracture: None present. Paraspinal Soft Tissues/ Retroperitoneum: Unremarkable. L1/2: A disc bulge is better visualized on prior MRI. Bilateral facet degeneration is present. There is mild central canal stenosis without significant foraminal stenosis visualized. L2/3: A disc bulge is present as well as bilateralfacet hypertrophy. No definite foraminal or central canal stenosis. L3/4: Facet hypertrophy and ligamentum flavum thickening contribute to mild to moderate central canal stenosis. No significant foraminal stenosis. L4/5: Grade 1 spondylolisthesis. Discectomy with interbody graft, without evidence of fusion. Hyperdense material within the left neural foramen measures 10 mm and likely impinges the exiting left L4 nerve. This area may represent graft material. The central canal is decompressed. Marked left, teqf-pj-abugnurj right foraminal stenosis is present. L5/S1: No significant disc bulge or herniation. Bilateral facet hypertrophy is present. No definite foraminal or central canal stenosis. IMPRESSION: Interval postoperative changes of L4-L5 posterior instrumented fusion. A hyperdense mass within the left L4-L5 neural foramen may represent graft material and likely impinges the left L4 nerve. [facility] NAME: ODALIS RUVALCABA [address] [facility] PHYS: Tom Harmon : 1945 AGE: 74 SEX: F Randolph [id number] LOC: Y.RAD PHONE #: [phone] EXAM DATE: 03/07/2020 STATUS: DEP CLI FAX #: [phone] RAD #: D/C DT PAGE 1 Signed Report (CONTINUED) Patient Name: ODALIS RUVALCABA Unit No: [id number] EXAMS: CPT CODE: [id number] CT L-SPINE W/O CONTRAST 87063 <Continued> at 1205 Reported and signed by: Sudhir Villagomez M.D. CC: Kian Hansen MD Technologist: Alisa Hannah RT(R); Shawn Live CTDI: DLP: Trnscrpt: 03/21/2020 (1205) t .SDR.SLJ/t.SDR.SLJ [facility] NAME: ODALIS RUVALCABA [address] [facility] PHYS: Kian Harmon Veronica Cici : 1945 AGE: 74 SEX: F [place], [place] [address] LOC: Y.RAD PHONE #: [phone] EXAM DATE: 03/07/2020 STATUS:DEP CLI FAX #: [phone] RAD #: D/C DT PAGE 2 Signed Report Patient Name: ODALIS RUVALCABA Unit No: [id number] EXAMS: CPT CODE: [id number] CT L-SPINE W/O CONTRAST 22181 <Continued> Orig Print D/T: S: 03/21/2020 (1208) [facility] NAME: ODALIS RUVALCABA [address] [facility] PHYS: Kian Harmon : 1945 AGE: 74 SEX: F [place], [place] [address] LOC: SMITH PHONE #: [phone] EXAM DATE: 03/07/2020 STATUS: DEP CLI FAX #: [phone] RAD #: D/C DT PAGE 3 Signed ReportHGB [id number] 07:19:00 Test Item Value Reference Range Interpretation Comments HEMOGLOBIN (test code = HGB) 10.2 g/dL 12-16 L HEMATOCRIT (test code = HCT) 33.0 % 37-47 L BASIC METABOLIC [id number] 06:22:00 Test Item Value Reference Range Interpretation Comments SODIUM (test code = 143 mmol/L 136-145 N NA) POTASSIUM (test code = 4.4 mmol/L 3.5-5.1 N K) CHLORIDE (test code = 108.0 mmol/L 98-107 H CL) CARBON DIOXIDE (test 27.4 mmol/L 21-32 N code = CO2) GLUCOSE (test code = 143 mg/dL 70-110 H GLU) BLOOD UREA NITROGEN 11 mg/dL 7-18 N (test code = BUN) GLOMERULAR FILTRATION 75.3 >60 Unit o f measure: RATE (test code = GFR) mL/mi n/1.73 e8Eckngcpkc Range:Healthy Adults >90 mL/min/1.73 m2 For Chronic Kidney Disease: St age II Mild Decrease in GFR 60-90 St age III Moderate Decrease in GFR 30-59 Stage IV Severe Decre ase in GFR 15- 29 Stage V Kidney Failure <15 CREATININE (test code 0.75 mg/dL 0.55-1.30 N = CREAT) CALCIUM (test code = 8.4 mg/dL 8.2-10.1 N CA) HGB [id number] 05:57:00 Test Item Value Reference Range Interpretation Comments HEMOGLOBIN (test code = HGB) 10.3 g/dL 12-16 L HEMATOCRIT (test code = HCT) 32.2 % 37-47 L BASIC METABOLIC [id number] 19:33:00 Test Item Value Reference Range Interpretation Comments SODIUM (test code = 144 mmol/L 136-145 N NA) POTASSIUM (test code = 4.7 mmol/L 3.5-5.1 N K) CHLORIDE (test code = 106.0 mmol/L 98-107 N CL) CARBON DIOXIDE (test 28.7 mmol/L 21-32 N code = CO2) GLUCOSE (test code = 151 mg/dL 70-110 H GLU) BLOOD UREA NITROGEN 16 mg/dL 7-18 N (test code = BUN) GLOMERULAR FILTRATION 68.0 >60 Unit o f measure: RATE (test code = GFR) mL/mi n/1.73 f0Ttqmajpjm Range:Healthy Adults >90 mL/min/1.73 m2 For Chronic Kidney Disease: St age II Mild Decrease in GFR 60-90 St age III Moderate Decrease in GFR 30-59 Stage IV Severe Decre ase in GFR 15- 29 Stage V Kidney Failure <15 CREATININE (test code 0.82 mg/dL 0.55-1.30 N = CREAT) CALCIUM (test code = 8.9 mg/dL 8.2-10.1 N CA) PROTHROMBIN [id number] 19:29:00 Test Item Value Reference Range Interpretation Comments PROTHROMBIN TIME 11.4 secs 10.1-12.5 N PATIENT (test code = PTP) INTERNATIONAL NORMAL 1.00 <2.0 RECOMME NDED THERAPEUTIC RATIO (test code [...] orderCBC, OCCULT BLOOD, PT every other day NSPECIMEN COMMENT: N THROMBOPLASTIN TIME [id number] 19:29:00 Test Item Value Reference Range Interpretation Comments PTT ACTIVATED (test code = APTT) 33.7 secs 24.9-37.0 N IS PATIENT ON ANTICOAGULANTS ? NHas Lab been notified if Patient is on Heparin Drip? NOIf Yes, orderCBC, OCCULT BLOOD, PT every other day NSPECIMEN COMMENT: N CBC W/AUTO [id number] 18:39:00 Test Item Value Reference Range Interpretation Comments WHITE BLOOD CELL (test code = WBC) 4.1 K/mm3 5.8-11.0 L RED BLOOD CELL (test code = RBC) 3.84 M/mm3 4.2-5.4 L HEMOGLOBIN (test code = HGB) 11.9 g/dL 12-16 L HEMATOCRIT (test code = HCT) 37.0 % 37-47 N MEAN CELL VOLUME (test code = MCV) 96 fL 80-98 N MEAN CELL HGB (test code = MCH) 31.0 pg 27-34 N MEAN CELL HGB CONCENTRATION (test 32.2 g/dL 30.8-34.1 N code = MCHC) RED CELL DISTRIBUTION WIDTH (test 13.7 % 11-16 N code = RDW) PLT (test code = PLT) 196 K/mm3 130-400 N MEAN PLATELET VOLUME (test code = 10.8 fL 8.9-12.1 N MPV) NEUTROPHIL % (test code = NT%) 59.2 % 45-70 N LYMPHOCYTE % (test code = LY%) 20.5 % 20-40 N MONOCYTE % (test code = MO%) 9.5 % 3-10 N EOSINOPHIL % (test code = EO%) 8.8 % 1-5 H BASOPHIL % (test code = BA%) 1.5 % 0.0-1.1 H NEUTROPHIL # (test code = NT#) 2.42 K/mm3 2.00-7.50 N LYMPHOCYTE # (test code = LY#) 0.84 K/mm3 1.50-4.00 L MONOCYTE # (test code = MO#) 0.39 K/mm3 0.2-0.8 N EOSINOPHIL # (test code = EO#) 0.36 K/mm3 0.04-0.4 N BASOPHIL # (test code = BA#) 0.06 K/mm3 0.02-0.10 N MANUAL DIFF REQUIRED (test code = NO MANUAL DIFF MDIFF) NUCLEATED RED BLOOD CELL (test 0 % 0-0 N code = NRBC) COVID 19 Asymptomatic IH [id number] 18:32:00 Test Item Value Reference Range Interpretation Comments COVID 19 Asymptomatic IH AG (test NEGATIVE NEGATIVE code = COVNONPUIAG) SPECIMEN COMMENT: NASALHGB [id number] 06:00:00 Test Item Value Reference Range Interpretation Comments HEMOGLOBIN (test code = HGB) 10.8 g/dL 12-16 L HEMATOCRIT (test code = HCT) 34.5 % 37-47 L HGB [id number] 05:54:00 Test Item Value Reference Range Interpretation Comments HEMOGLOBIN (test code = HGB) 10.7 g/dL 12-16 L HEMATOCRIT (test code = HCT) 33.3 % 37-47 L HGB [id number] 06:02:00 Test Item Value Reference Range Interpretation Comments HEMOGLOBIN (test code = HGB) 12.1 g/dL 12-16 N HEMATOCRIT (test code = HCT) 38.1 % 37-[address] Chest External [id number] 14:59:55This exam was not acquired at a [facility] facility and has not been interpreted by a [facility] Provider. The exam was imported into our imaging system.[facility] METABOLIC PANEL 2020-01-25 19:47:00 Test Item Value [...] RATE (test code = GFR) mL/mi n/1.73 q7Yjuoxtinz Range:Healthy Adults >90 mL/min/1.73 m2 For Chronic Kidney Disease: St age II Mild Decrease in GFR 60-90 St age III Moderate Decrease in GFR 30-59 Stage IV Severe Decre ase in GFR 15- 29 Stage V Kidney Failure <15 CREATININE (test code 0.85 mg/dL 0.55-1.30 N = CREAT) CALCIUM (test code = 8.5 mg/dL 8.2-10.1 N CA) PROTHROMBIN [id number] 18:28:00 Test Item Value Reference Range Interpretation [...] BLOOD, PT every other day NTHROMBOPLASTIN TIME [id number] 18:28:00 Test Item Value Reference Range Interpretation Comments PTT ACTIVATED (test code = APTT) 32.8 secs 24.9-37.0 N IS PATIENT ON ANTICOAGULANTS ? WIas Lab been notified if Patient is on [...] code = NRBC) - MRI L-SPINE W/O [id number] 11:24:00 [facility] : 1945 Sex: F Patient Name: ODALIS RUVALCABA Unit No: [id number] EXAMS: CPT CODE: [id number] MRI L-SPINE W/O CONT 84502 DIAGNOSIS: 1. At L1-2 there is 2 [...] MD Technologist: GERTRUDIS ARREDONDO RT(R) Transcribed D/ (1124) t.SDR.JCL [facility] NAME: ODALIS RUVALCABA [address] [facility] PHYS: Kian Harmon : 1945 AGE: 74 SEX: F [place], [place] [address] LOC: Y.MRI PHONE #: [phone] EXAM DATE: 01/25/2020 STATUS: REG CLI FAX #: [phone] RAD #: D/C DT PAGE 1 Signed Report Patient Name: ODALIS RUVALCABA Unit No: [id number] EXAMS: CPT CODE: [id number] MRI L- SPINE W/O CONT 13075 <Continued> Orig Print D/T: S: 01/25/2020 (1127) [facility] NAME: ODALIS RUVALCABACENTERVILLEShavon [address] PHYS: CARIDAD Lisa Kian Hansen : 1945 AGE: 74 SEX: [place] [address] LOC: Y.MRI PHONE #: [phone] EXAM DATE: 01/25/2020 STATUS: REG CLI FAX #: [phone] RAD #: D/C DT PAGE 2 Signed ReportAFB [id number] 12:13:09 Test Item Value Reference Range Interpretation Comments AFB culture No growth Specimen isolate (test after 6 weeks InformationSp ecimen code = 543-9) of Source: FluidS pecimen incubation. Site: Lun R Servando MethodistFungus [id number] 12:15:09 Test Item Value Reference Range Interpretation Comments Fungus culture No growth Specimen isolate (test after 4 weeks InformationSp ecimen code = 1441) of Source: FluidSp ecimen incubation. Site: Lun R Al MethodistAnaerobic [id number] 09:47:41 Test Item Value Reference Range Interpretation Comments Anaerobic No anaerobic Specimen culture isolate organisms InformationS pecimen (test code = isolated. Source: FluidSp ecimen 552) Site: Lun R Al MethodistAFB [id number] 14:21:55 Test Item Value Reference Range Interpretation Comments AFB stain No acid fast Specimen (test code = bacilli (AFB) InformationSpe [facility] 676-7) seen. Source: FluidSp ecimen Site: Lun R Al MethodistAerobic [id number] 14:21:55 Test Item Value Reference Range Interpretation Comments Aerobic culture No growth Specimen isolate (test after 3 days. InformationSp ecimen code = 498) Source: FluidSp ecimen Site: Lun R Al MethodistFungus [id number] 14:21:55 Test Item Value Reference Range Interpretation Comments Fungus smear No fungi Specimen (test code = observed. InformationSpec imen Source: 1443) FluidSpecimen S ite: Lun R La MethodistGram [id number] 14:21:55Gram stain isolateRare WBC'sNo organisms seen Comment: Specimen InformationSpecimen Source: FluidSpecimen Site: [facility] MethodistCytology (non- gynecological) [id number] 14:27:18 Test Item Value Reference Range Interpretation Comments Case number (test code = [id number]) Cytology See link below for (non-gynecological) PDF Lab Report report (test code = 1178) Result status (test code This is Final Report = [id number]) for [id number] Randolph [id number] 08:11:32Anusha Loera 12/06/2019 8:14 AMAirway Date/Time: 12/06/2019 8:08 AMPerformed by: Anusha Loerauthorized by: Sophie Goss MD Location: ORUrgency: ElectiveAnesthesiologist: Sophie Goss, MDResident/BATTERY TEST ENGINEER/AA: Anusha Loera Anesthesia Staff: Gabriel Young EPerformed by: other anesthesia staffPreoxygenated with 100% O2: Yes C-spine Precautions Maintained Throughout: Yes Mask Ventilation: Easy maskFinal Airway Type: Endotracheal airwayFinal Endotracheal Airway: ETTCuffed: Yes Technique Used: Video laryngoscopyDevices/Methods Used inPlacement: Intubating styletInsertion Site: OralBlade type: Glidescope.Laryngoscope Blade/Videolaryngoscope [...] Smooth IV induction. Eyes taped. Easy mask ventil ation with OPA. Glidescope 2 used with grade 1 view. ETT passed atraumatically through vocal cords. Cuff to seal. Absent gurgling over epigastrium, positive chest rise, positive EtCO2. Taped to secure.No damage to lips, teeth, or gums. VSS.[facility]Le[facility] Centerurgical pathology [id number] 11:24:09 Test Item Value Reference Range Interpretation Comments Case number (test [id number] code = 4152027) Surgical pathology See link below for PDF report (test code = Lab Report 2255) Result status (test This is Supplemental code = 9959145) Report for [id number] MARC (test code = MARC) BRAIN TUMOR #2ARUP TEST #[id number] SOLID TUMOR MUTATION [id number] B3 Randolph MethodistMiscellaneous referral [id number] 09:03:42 Test Item Value Reference Range Interpretation Comments Misc test name ARUP SOLID TUMOR (test code = PANEL 2566) Misc test SEE NOTE Solid Tumor Mut ation result (test Panel by Next G eneration code = 1730) Sequencing ARUP test code 6267157 So lid Tumor Panel By NGS Interpretation [...] Prognostic Sign ificance) 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 Clinica l trials for AN88-stvusk d breast cancers are cur rently underway [...] or Tier 3. NONE REFERENCES:1.N. Cancer Genome Finlayson, Comprehensive m olecular portraits of hu man breast tumours. Nature 2012. PMID: 85945046.2.IARC TP53 database websit e: http://p53.iarc .fr/TP53G eneVariations.a spx3.COSM IC database web site: http://cancer.[facility].ac. uk/cancergenome /projects /cosmic/4.cBioP ortal database websit e: http://www.cbio portal.or g/5.Sagar Martínez et al., Standards and G uidelines for the Interpr etation and Reporting o f Sequence Varian ts in Cancer: A Joint Consensus Recom mendation of the Associat ion for Molecular Patho logy, [place] Societ y of Clinical Oncolo gy, and College of [facility] Pathologists. T baylee Journal of mole cular diagnostics : Margo BRADFORD 2017. PMID: 14175681. This result has been reviewed and approved [...] is availa ble through this li nk: http://ltd.Federated Sample.Sumo Logic/T ests/Pdf/375.ME THODOLOGY : Genomic DNA i s isolated from microscopically -guided dissection of t umor tissue and then enriched for the targete d regions of the tested g tyrell. The variant status of the 44 targeted genes is determined by m assively parallel sequen cing (next Verdeecotio n sequencing). Th e hg19 (GRCh37) refere [...] all variant classes available throu this link: http://ltd.E-Duction/T ests/Pdf/375.CL INICAL DISCLAIMER: Res ults of this test must always be interpreted wit hin the clinical contex t and other relevant data and should not be u sed alone for a diagnosis of malignancy. Thi s test is not intended to detect minimal residua l disease.Test de veloped and characteris tics determined by [facility]. S ee Compliance Stat ement B: [employer]/CS- - - - - - - - [...] Tumor Panel by NGS Bl ock ID [id number] B3 - - - - - - - - - - - - - - - - - - - -Order comments Solid Tumor Mutation Panel by Next Generation SequencingBRAIN TUMOR #2ARUP TEST #[id number] SOLID TUMOR MUT ATION [id number] B3 ========= ========= Te st performed by:[employer] [place] [address] MARC (test code BRAIN TUMOR = MARC) #2ARUP TEST #[id number] SOLID TUMOR MUTATION [id number] [facility] [id number] 12:14:36 Test Item Value Reference Range Interpretation Comments POC glucose (test code 178 mg/dL 65-99 H Opera tor Name: = 94599-4) Shahla Schofield I D: [id number] able: [facility] Notified assistant housekeeping manager Interpretation Abnormal (test code = 31190-8) Servando AguiarCarcinoembryonic antigen (CEA)2019-06-01 07:01:10 Test Item Value Reference Range Interpretation Comments CEA (test code = 2.7 ng/mL 0-3.8 Reference r david for heavy 2038-07) smokers: 0.0 - 5.5 ng/mLThe FREDI Eladio 8000 CEA immunoassay was used. Results obtaine d with different assay methods or kits should not be used interchangeably and may be different. Randolph MethodistCancer antigen [id number] 07:00:42 Test Item Value Reference Range Interpretation Comments CA 125 (test code 28 U/mL 0-35 The Fredi Eladio 8000 CA125 = 96377-8) immunoassay was used. Results obtaine d with different assay methods or kits should not be used interchangeably and may be different. Randolph MethodistCancer antigen [id number] 07:00:42 Test Item Value Reference Range Interpretation Comments CA 15-3 (test code 22 U/mL 0-25 The Fredi Eladio 8000 CA153 = 1005) immunoassay was used. Results obtaine d with different assay methods or kits should not be used interchangeably and may be different. Randolph MethodistCancer antigen [id number] 07:00:42 Test Item Value Reference Range Interpretation Comments CA 19-9 (test code 12 U/mL 0-35 The Fredi Eladio 8000 CA19-9 = 1006) immunoassay was used. Results obtaine d with different assay methods or kits should not be used interchangeably and may be different. Randolph TenriismUs duplex venous upper [id number] 15:18:00Interface, Radiology Results In - 05/31/2019 3:18 PM CDT Vascular Ultrasound Laboratory Upper Extremity Venous [id number]Name: ODALIS RUVALCABA.ID: [id number] St.Date: 05/31/2019 Refer.MD: LILO ALEXANDER MD Exam Time: 12:53:00 PM Study Type:UE Venous Height: 66in Age: 2 1945,74Y Sex: FEMALE Sonogrphr: Jake Valle, RVS, RCS Pat. Stat.:Inpatient Room: [place] [address] [facility]7A Tape Vol: , CPT - 4: 15191 Echo Event ID:[id number] Order ID: [id number] Reason for Study:RUE swelling or pain, DVT [...] veins.*Preliminary result reported to CINTHIA Jonas @ 5567 on 05/31/19.PHYSICIAN INTERPRETATION Venous examination of the right upper extremity and neck demonstratedno evidence of deep venous thrombosis. Total superficial vein thrombosis in right basilic vein at theantecubital f sofya. FINDINGS: ------Signed 05/31/2019 03:18 Marsha Erwin MD, RPVIHouwestborough state hospital [facility] Hemoglobin [id number] 07:30:18 Test Item Value Reference Range Interpretation Comments Hemoglobin A1C (test 6.9 % 4-5.6 H HbA1c c utoffs for code = 07485-9) diagnosing diabetes:4.0% - 5.6% = normal5.7% - 6.4% = increased risk for diabetes (prediabetes)9> =6.5% = pwcsrpbt3Eiol s for glycemic contro l (ADA 2016)< 7.0% Ta rget for non adults with elgin betes. More or less stringent targe ts may be appropriate for individual naomi ents. <7.5% Target for Children and adolescents wit h type 1 diabetes. Lab Interpretation (test Abnormal code = 59489-8) Servando AgiuarBasic metabolic gkcwp7379-54-62 05:38:21 Test Item Value Reference Range Interpretation Comments Sodium (test code = 2951-2) 139 135- 148 mEq/L Potassium (test code = 2823-3) 4.7 3.5- 5.0 mEq/L Chloride (test code = 2075-0) 102 98- 112 mEq/L CO2 (test code = 2027-9) 25 24- 31 mEq/L Anion gap (test code = 21734-1) 12@ANIO 7- 15 mEq/L BUN (test code = 3094-0) 21 mg/dL 8-23 Creatinine (test code = 2160-0) 0.71 mg/dL 0.5-0.9 Glucose (test code = 2345-7) 178 mg/dL 65-99 H Calcium (test code = 73479-0) 9.0 mg/dL 8.8-10.2 Lab Interpretation (test code = Abnormal 13699-1) Servando AguiarMagnesium gwafj9517-21-06 05:38:21 Test Item Value Reference Range Interpretation Comments Magnesium (test code = 33843-0) 2.4 mg/dL 1.6-2.4 Servando LaurentistPhosphorus [id number] 05:38:20 Test Item Value Reference Range Interpretation Comments Phosphorus (test code = 2777-1) 3.0 mg/dL 2.4-4.5 [facility] MethodFormerly [facility] Head Wo Uilhvtig4967-13-34 11:38:30Hm Interface, Radiology Results 05/29/2019 11:41 AM CDTEXAMINATION: CT HEAD WO [...] the midline structures to the left..IMPRESSION:Evolving postop changes.[facility]-[id number] MethodistCBC tpeaqhfo4089-68-63 21:49:27 Test Item Value Reference Range Interpretation Comments WBC (test code = 68506-3) 8.29 4.50- 11.00 k/uL RBC (test code = 56422-0) 3.77 m/uL 4.2-5.5 L HGB (test code = 718-7) 11.6 g/dL 12-16 L HCT (test code = 4544-3) 36.5 % 37-47 L MCV (test code = 787-2) 96.8 fL 82-100 MCH (test code = 785-6) 30.8 pg 27-34 MCHC (test code = 786-4) 31.8 g/dL 31-37 RDW - SD (test code = 06960-8) 47.4 fL 37-55 MPV (test code = 40164-8) 12.5 fL 8.8-13.2 Platelet count (test code = 153 150- 400 k/uL 18630-4) Nucleated RBC (test code = 0.00 /100 WBC 50431-5) Lab Interpretation (test code = Abnormal 62591-7) Randolph MethodistIonized loisfts4014-73-74 08:20:42 Test Item Value Reference Range Interpretation Comments pH (test code = 2753-2) 7.57 Ionized calcium (test code = 1.06 mmol/L 1.11-1.32 L ) Lab Interpretation (test code = Abnormal 71756-9) Randolph MethodistHepatic function gltdk2085-11-49 12:22:03 Test Item Value Reference Range Interpretation Comments Albumin (test code = 3.6 g/dL 3.5-5 1750-7) Total bilirubin (test code <0.2 0-1.2 = 1974-) Bilirubin direct (test <0.2 0-0.3 code = 1967-08) Alkaline phosphatase (test 108 U/L 35-104 H code = 6768-6) Protein (test code = 6.8 g/dL 6.3-8.3 -[place] n 2885-2) 4.6-7.0 g /dL1 week 4.4-7.6 g/dL 7 months-1year 5.1-7.3 g/dL 1-2 years 5.6-7.5 g/dL>3 years 6.0-8.0 g/tJ72-831 6.3-8. 3 g/dL ALT (test code = 1742-6) 17 U/L 5-50 AST (test code = 1920-8) 21 U/L 10-35 Lab Interpretation (test Abnormal code = 22361-1) Randolph MethodistLactic acid cxywv8793-85-07 12:17:19 Test Item Value Reference Range Interpretation Comments Lactic acid (test code = 24274-7) 2.3 mmol/L 0.5-2.2 H Lab Interpretation (test code = Abnormal 66302-7) Randolph XcfskeeimRnboyi7457-60-67 08:18:47Edward Diop Jr. 05/26/2019 8:20 AMAirwayDate/Time: 05/26/2019 7:44 AMPerformed by: Edward Diop Jr.Authorized by: Sudhir Headley MD Location: ORUrgency: ElectiveDifficult Airway: No Anesthesiologist: Sudhir Headley MDResident/BATTERY TEST ENGINEER/AA: Edward Diop Jr.Performed by: anesthesiologistPreoxygenated with 100% [...] Atraumatic ETT insertion att x 1 by BATTERY TEST ENGINEER. +EtCO2, +BBS. Dentition unchanged. Patient intubated by Dr Headley with PAPR on.Randolph MethodistArterial xhzg2241-71-64 08:01:54Edward Diop Jr. 05/26/2019 8:03 AMArterial linePerformed [...] tolerated the procedure well with no immediate complicationsRandolph AnastasiiaistVitamin B12 level 2019-05-26 06:03:33 Test Item Value Reference Range Interpretation Comments Vitamin B12 (test 282 pg/mL 211-946 Significan t overlap code = 2132-9) exists betwee n normal and deficiency states.However, most patients with deficiencies wi ll have Serum B12 <2 00 pg/mL. Randolph MethodistFolate znqap4826-28-29 06:03:33 Test Item Value Reference Range Interpretation Comments Folate (test code = 2284-8) 9.3 ng/mL 4.8-24.2 Randolph MethodistThyroid stimulating kcvjrop4624-98-62 05:53:28 Test Item Value Reference Range Interpretation Comments TSH (test code = 3016-3) 0.98 0.27- 4.20 uIU/mL Randolph MethodistFerritin jyqcp3485-39-27 05:51:03 Test Item Value Reference Range Interpretation Comments Ferritin level (test code = 2276-4) 60 ng/mL 13-150 Randolph MethodistLipid olbtj8530-89-85 05:48:53 Test Item Value Reference Interpretation Comments [...] (mg/dL) interpretation (test < 200 code = 98939-3) Desirable 200-239 Borderline -high >=240 Hi gh [...] mg/dL) Lab Interpretation Abnormal (test code = 46231-3) Servando MethodistECG 12 tioq4261-34-56 21:20:38 Test Item Value Reference Range Interpretation Comments Ventricular rate (test 79 code = 253) Atrial rate (test code 79 = 255) LA interval (test code 136 = 266) QRSD [...] Buchanan MD ([id number]) on 05/25/2019 9:20:32 PM Randolph MethodistCT Chest W Contrast Abdomen W Wo [...] such as in situ or minimally invasive adenocarcinoma.[facility]-[id number] MethodPresbyterian [facility] duplex venous lower extremity 2019-05-25 12:06:00Interface, Radiology Results In 05/25/2019 12:07 PM CDT Vascular Ultrasound Laboratory Lower Extremity Venous [address] [place] [address] Pat.Name: ODALIS RUVALCABA Pat.ID: [id number] St.Date: 05/25/2019 Refer.MD: LINH DE PAZ MD Exam Time: 10:19:00 AM Study Type:LE Venous Height: 66in Weight: 201lb BSA: 2.01 m2 Age: 2 1945,74Y Sex: FEMALE Sonogrphr: Nighat Cabezas RVT Pat. Stat.:Inpatient Room: [address] Vol: LN, CPT - 4: 85992 Echo Event ID:[id number] Order ID: [id number] Reason for Study:Leg swelling and pain. History [...] Si gned 05/25/2019 12:06 Marsha Erwin MD, [facility] [[email or web address]] MethodLea Regional Medical CenterI Head External Snkar8565-05-65 01:10:30This exam was not acquired at a [facility] facility and has not been interpreted by a [facility] Provider. The exam was imported into our imaging system.[facility]- XR PELVIS 1/2 [id number] 09:43:00 Patient Name: ODALIS RUVALCABA Unit No: [id number] EXAMS: CPT CODE: [id number] XR PELVIS 1/2 VIEWS 26141 AP VIEW OF THE PELVIS. COMMENT: In progress total left hip arthroplasty. AP view of the pelvis COMMENT: COMPARISON: No prior exams available. Completed total left hip arthroplasty. Prosthesis appears to be in good position. at 0943 Reported and signed by: Sudhir Kirby M.D. CC: Jessee Santiago MD Technologist: ESTEFANIA WHITE (RT.R) Transcribed D/T: 01/12 (0943) [place].[facility] NAME: ODALIS RUVALCABA [address] [facility] PHYS: MATVA.01 - Jessee Santiago : 1945 AGE: 73 SEX: F [place] [address] LOC: Y.501 A PHONE #: [phone] EXAM DATE: 01/11/2019 STATUS: ADM IN FAX #: [phone] RAD #: D/C DT PAGE 1 Signed Report Patient Name: ODALIS RUVALCABA Unit No: [id number] EXAMS: CPT CODE: [id number] XR PELVIS 1/2 VIEWS 78501 <Continued> Orig Print D/T: S: 01/12/2019 (0947) [facility] NAME: ODALIS RUVALCABA[address] PHYS: MATVA. - Jessee Santiago : 1945 AGE: 73 SEX: F [place] [address] LOC: Y.501 A PHONE #: [phone] EXAM DATE: 01/11/2019 STATUS: ADM IN FAX #: [phone] RAD #: D/C DT PAGE 2 Signed Report- XR PELVIS 1/2 [id number] 09:43:00 Patient Name: ODALIS RUVALCABA Unit No: [id number] EXAMS: CPT CODE: [id number] XR PELVIS 1/2 VIEWS 86579 AP VIEW OF THE PELVIS. COMMENT: In progress total left hip arthroplasty. AP view of the pelvis COMMENT: COMPARISON: No prior exams available. Completed total left hip arthroplasty. Prosthesis appears to be in good position. at 0943 Reported and signed by: Sudhir Kirby M.D. CC: Jesese Santiago MD Technologist: ESTEFANIA WHITE (RT.R) Transcribed D/ (0943) Carlos Alberto [facility] NAME: ODALIS RUVALCABACENTERVILLEShavon [address] [place] [address] PHYS: MATPETE.Helen - Jessee Santiago : 1945 AGE: 73 SEX: F [place] [address] LOC: Y.501 A PHONE #: [phone] EXAM DATE: 01/11/2019 STATUS: ADM IN FAX #: [phone] RAD #: D/C DT PAGE 1 Signed Report Patient Name: ODALIS RUVALCABA Unit No: [id number] EXAMS: CPT CODE: [id number] XR PELVIS 1/2 VIEWS 67918 <Continued> Orig Print D/T: S: 01/12/2019 (0947) [facility] NAME: ODALIS RUVALCABA [address] [facility] PHYS: MATPETE.[email or web address] - Jessee Santiago : 1945 AGE: 73 SEX: F [place], [place] [address] LOC: Y.501 A PHONE #: [phone] EXAM DATE: 01/11/2019 STATUS: ADM IN FAX #: [phone] RAD #: D/C DT PAGE 2 Signed ReportBASIC METABOLIC [id number] 07:12:00 Test Item Value Reference Range Interpretation [...] RATE (test code = GFR) mL/mi n/1.73 n0Pehgojwaz Range:Healthy Adults >90 mL/min/1.73 m2 For Chronic Kidney Disease: St age II Mild Decrease in GFR 60-90 St age III Moderate Decrease in GFR 30-59 Stage IV Severe Decre ase in GFR 15- 29 Stage V Kidney Failure <15 CREATININE (test code 1.02 mg/dL 0.55-1.30 N = CREAT) CALCIUM (test code = 8.3 mg/dL 8.2-10.1 N CA) HGB [id number] 05:59:00 Test Item Value Reference Range Interpretation Comments HEMOGLOBIN (test code = HGB) 11.0 g/dL 12-16 L HEMATOCRIT (test code = HCT) 34.0 % 37-47 L COMPREHENSIVE METABOLIC [id number] 20:53:00 Test Item Value Reference Range Interpretation [...] RATE (test code = GFR) mL/mi n/1.73 [id number] Range:Healthy Adults >90 mL/min/1.73 m2 For Chronic [...] TOTAL (test code = ALKP) CBC W/AUTO [id number] 20:31:00 Test Item Value Reference Range Interpretation [...] % 0-0 N code = NRBC) PROTHROMBIN [id number] 20:26:00 Test Item Value Reference Range Interpretation [...] v oro IS PATIENT ON ANTICOAGULANTS ? WIas Lab been notified if Patient is on Heparin Drip? NOTHROMBOPLASTIN TIME [id number] 20:26:00 Test Item Value Reference Range Interpretation Comments PTT ACTIVATED (test code = APTT) 32.1 secs 24.9-37.0 N IS PATIENT ON ANTICOAGULANTS ? NHas Lab been notified if Patient is on Heparin Drip? NO
[2020-04-08] MEDS ORDERED: HYDROCODONE/CHLORPHEN 5 ML/OSYR ONE (10:38)
[2020-04-08] MEDS ORDERED: IPRATROPIUM BROM 0.5MG/2.5ML ONE (10:38)
[2020-04-08] MEDS ORDERED: predniSONE 20 MG TAB ONE (10:39)
[2020-04-08] MEDS ORDERED: ALBUTEROL 2.5 MG/3 ML NEB SOL ONE (10:39)
--- NOTE | 2020-04-08 10:43 | RAD REPORT ---
EXAM DESCRIPTION: RAD - Chest Single View - 04/08/2020 10:28 am CLINICAL HISTORY: Cough;SOB Chest pain. COMPARISON: Chest Pa And Lat (2 Views) dated 12/14/2019; Chest Pa And Lat (2 Views) dated 08/19/2018; Chest Pa And Lat (2 Views) dated 11/14/2016; Chest Single View dated 09/06/2015; Thorax W/ Con dated FINDINGS: Portable technique limits examination quality. Linear opacity is present in the left upper lobe likely atelectasis. No pneumothorax is seen. The hea rt is mildly enlarged in size.
[2020-04-08 11:51] LABS: SARS-COV-2 RT PCR NEGATIVE (NEGATIVE)
--- NOTE | 2020-04-08 12:04 | EDPHYS ---
Physician Documentation [facility] Name: Khushbu Keith Age: 74 yrs Sex: Female : 1945 Arrival Date: 04/08/2020 Time: 09:30 Bed 5 Private MD: Brendon Her ED Physician David Bennett HPI: 04/08 10:16 This 74 yrs old Female presents to ER via Ambulatory with complaints of Cough.pm1 10:16 The patient or guardian reports cough. pm1 10:16 Onset: The symptoms/episode began/occurred 4 day(s) ago. Severity of symptoms: in the pm1 emergency department the symptoms are actually worse. Modifying factors: The symptoms are alleviated by nebulizer treatment, after biopsy during recovery the symptoms are aggravated by nothing. Associated signs and symptoms: Pertinent positives: chest pain, with cough, sore throat, some blood in the sputum of her cough, shortness of breath, Pertinent negatives: diarrhea, ear ache, fever, nausea, vomiting. The patient has been recently seen by a physician: for biopsy of lung on Thursday. Historical: - Allergies: 10:16 Codeine; jd3 10:16 Erythromycin; jd3 - Home Meds: 10:16 amlodipine 10 mg tab once daily [Active]; aripiprazole 5 mg Oral tab once daily jd3 [Active]; gabapentin 100 mg Oral cap 1-3 caps daily [Active]; levothyroxine 75 mcg tab once daily [Active]; Hydrocodone-Acetaminophen Oral [Active]; Flexeril Oral [Active]; lorazepam 0.5 mg Oral tab once a day [Active]; metoprolol succinate 100 mg Oral Tb24 once daily [Active]; omeprazole 20 mg Oral cpDR 1 cap once daily [Active]; primidone 250 mg Oral tab twice a day [Active]; ramelteon 8mg nightly Oral [Active]; rosuvastatin 40 mg Oral tab once daily [Active]; venlafaxine 150 mg Oral cp24 twice a day [Active]; Vitamin D3 2,000 unit Oral cap daily [Active]; - PMHx: 10:16 Hypertension; 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 - Social history:: Smoking status: Patient/guardian denies using tobacco, but has a distant history of tobacco abuse. ROS: 10:16 Constitutional: Negative for fever, chills, and weight loss. pm1 10:16 Abdomen/GI: Negative for abdominal pain, nausea, vomiting, diarrhea, and constipation, pm1 Back: Negative for injury and pain, MS/Extremity: Negative for injury and deformity, Skin: Negative for injury, rash, and discoloration, Neuro: Negative for headache, weakness, numbness, tingling, and seizure. 10:16 ENT: Positive for sore throat, Negative for ear pain. 10:16 Cardiovascular: Positive for chest pain, with cough, Negative for edema, orthopnea, palpitations. 10:16 Respiratory: Positive for cough, with clear sputum, hemoptysis, shortness of breath, Negative for wheezing. Exam: 10:16 Constitutional: This is a well developed, well nourished patient who is awake, alert, pm1 and in no acute distress. Head/Face: Normocephalic, atraumatic. ENT: Nares patent. No nasal discharge, no septal abnormalities noted. Tympanic membranes are normal and external auditory canals are clear. Oropharynx with no redness, swelling, or masses, exudates, or evidence of obstruction, uvula midline. Mucous membranes moist. 10:16 Back: No spinal tenderness. No costovertebral tenderness. Full range of motion. Skin: Warm, dry with normal turgor. Normal color with no rashes, no lesions, and no evidence of cellulitis. MS/ Extremity: Pulses equal, no cyanosis. Neurovascular intact. Full, normal range of motion. 10:16 Cardiovascular: Exam negative for acute changes, Rate: normal, Rhythm: regular, Pulses: no pulse deficits are appreciated, Edema: is not appreciated. 10:16 Respiratory: Exam negative for acute changes, respiratory distress, shortness of breath, Breath sounds: are clear throughout. 10:16 Abdomen/GI: Exam negative for acute changes, Inspection: abdomen appears normal, Palpation: abdomen is soft and non-tender, in all quadrants. 10:16 Neuro: Exam negative for acute changes, Orientation: is normal, Mentation: is normal, Motor: is normal, moves all fours. Vital Signs: 10:11 BP 172 / 80; Pulse 80; Resp 19 S; Temp 98.9(O); Pulse Ox 97% on R/A; Weight 68.04 kg jd3 (R); Height 5 ft. 5 in. (165.10 cm) (R); Pain 5/10; 10:58 BP 145 / 71; Pulse 79; Resp 18 S; Pulse Ox 98% on R/A; jd3 12:21 BP 148 / 68; Pulse 73; Resp 17 S; Pulse Ox 98% on R/A; jd3 10:11 Body Mass Index 24.96 (68.04 kg, 165.10 cm) jd3 MDM: 09:56 Patient medically screened. pm1 12:02 Data reviewed: vital signs. Data interpreted: Pulse oximetry: on room air is 98 %. pm1 Interpretation: normal. Counseling: I had a detailed discussion with the patient and/or guardian regarding: the historical points, exam findings, and any diagnostic results supporting the discharge/admit diagnosis, lab results, radiology results, the need for outpatient follow up, to return to the emergency department if symptoms worsen or persist or if there are any questions or concerns that arise at home. 04/08 10:15 Order name: Flu pm1 04/08 10:15 Order name: Strep pm1 04/08 10:16 Order name: Group A Streptococcus Rapid Sc; Complete Time: 11:37 EDMS 04/08 10:21 Order name: COVID-19 : Document "Date of Symptom Onset" if Symptomatic. pm1 04/08 10:15 Order name: CXR XRAY; Complete Time: 10:46 pm1 04/08 10:15 Order name: Droplet/Contact Precautions; Complete Time: 10:20 pm1 04/08 10:15 Order name: Labs collected and sent; Complete Time: 10:38 pm1 04/08 11:34 Order name: Throat Culture EDMS 04/08 11:52 Order name: COVID-19/FLU A+B; Complete Time: 11:55 EDMS 04/08 10:15 Order name: O2 Per Protocol; Complete Time: 10:19 pm1 Administered Medications: 10:38 Drug: Tussionex Pennkinetic ER 5 ml Route: PO; jd3 11:30 Follow up: Response: No adverse reaction; RASS: Alert and Calm (0) jd3 10:38 Drug: predniSONE 60 mg Route: PO; jd3 11:30 Follow up: Response: No adverse reaction jd3 10:39 Drug: Albuterol - atroVENT (3:1) (2.5 mg - 0.5 mg) 3 ml Route: Nebulizer; jd3 11:30 Follow up: Response: No adverse reaction jd3 Disposition: 17:08 Co-signature as Attending Physician, David Bennett MD. rn Disposition: 04/08/20 12:03 Discharged to Home. Impression: Acute upper respiratory infection, unspecified. - Condition is Stable. - Discharge Instructions: How to Use an Inhaler, Upper Respiratory Infection, Adult. - Prescriptions for Tessalon Perles 100 mg Oral Capsule - take 1 capsule by ORAL route every 8 hours As needed; 15 capsule. Medrol (Lemuel) 4 mg Oral Tablets, Dose Pack - take 1 tablet by ORAL route as directed - follow package instructions; 1 packet. Albuterol Sulfate 90 mcg/actuation - inhale 1-2 puff by INHALATION route every 4-6 hours; 1 Inhaler. - Medication Reconciliation Form, Thank You Letter, Antibiotic Education, Prescription Opioid Use form. - Follow up: Emergency Department; When: As needed; Reason: Worsening of condition. Follow up: Private Physician; When: 2 - 3 days; Reason: Recheck today's complaints, Continuance of care, Re-evaluation by your physician. - Problem is new. - Symptoms have improved. Signatures: Dispatcher [employer] [facility] David Bennett MD MD rn Marinas, Patrick, NP POWER SYSTEM OPERATOR pm1 Jhony Aguiar RN RN jd3 Corrections: (The following items were deleted from the chart) 11:00 10:22 CORONAVIRUS ordered. [facility] EDDC 11:01 10:16 Influenza Screen (A ordered. [facility] EDDC 12:24 12:03 04/08/2020 12:03 Discharged to Home. Impression: Acute upper respiratory jd3 infection, unspecified. Condition is Stable. Forms are Medication Reconciliation Form, Thank You Letter, Antibiotic Education, Prescription Opioid Use. Follow up: Emergency Department; When: As needed; Reason: Worsening of condition. Follow up: Private Physician; When: 2 - 3 days; Reason: Recheck today's complaints, Continuance of care, Re-evaluation by your physician. Problem is new. Symptoms have improved. pm1
--- NOTE | 2020-04-08 12:04 | ER ---
Nurse's Notes [facility] Name: Khushbu Keith Age: 74 yrs Sex: Female : 1945 Arrival Date: 04/08/2020 Time: 09:30 Bed 5 Private MD: Brendon Her Diagnosis: Acute upper respiratory infection, unspecified Presentation: 04/08 10:07 Chief complaint: Patient states: "I had a worsening cough with since Thursday after a jd3 lung biopsy for lung cancer. with my cough I am coughing up blood as well and now ribs are starting to hurt as a result of the coughing with some shortness of breath. I think a breathing treatment and cough medication might go a long way to help.". Coronavirus screen: cough unrelated to allergies, Client presents with at least one sign or symptom that may indicate coronavirus-19. Standard/surgical mask placed on the client. Provider contacted for isolation considerations. Ebola Screen: Patient negative for fever greater than or equal to 101.5 degrees Fahrenheit, and additional compatible Ebola Virus Disease symptoms. Initial Sepsis Screen: Does the patient meet any 2 criteria? No. Patient's initial sepsis screen is negative. Does the patient have a suspected source of infection? No. Patient's initial sepsis screen is negative. Risk Assessment: Do you want to hurt yourself or someone else? Patient reports no desire to harm self or others. Onset of symptoms was April 04, 2020. 10:07 Method Of Arrival: Ambulatory jd3 10:07 Acuity: CONCHA 3 jd3 Historical: - Allergies: 10:16 Codeine; jd3 10:16 Erythromycin; jd3 - Home Meds: 10:16 amlodipine 10 mg tab once daily [Active]; aripiprazole 5 mg Oral tab once daily jd3 [Active]; gabapentin 100 mg Oral cap 1-3 caps daily [Active]; levothyroxine 75 mcg tab once daily [Active]; Hydrocodone-Acetaminophen Oral [Active]; Flexeril Oral [Active]; lorazepam 0.5 mg Oral tab once a day [Active]; metoprolol succinate 100 mg Oral Tb24 once daily [Active]; omeprazole 20 mg Oral cpDR 1 cap once daily [Active]; primidone 250 mg Oral tab twice a day [Active]; ramelteon 8mg nightly Oral [Active]; rosuvastatin 40 mg Oral tab once daily [Active]; venlafaxine 150 mg Oral cp24 twice a day [Active]; Vitamin D3 2,000 unit Oral cap daily [Active]; - PMHx: 10:16 Hypertension; Osteoarthritis to hands; metastatic breast cancer, brain and lung; jd3 Hyperlipidemia; breast cancer; left hip sciatica; bilateral mastectomy 2016; Anxiety; right plantar fascitis; - PSHx: 10:16 Hip - Left; Hysterectomy; Back sx; jd3 - Immunization history:: Adult Immunizations up to date. - Social history:: Smoking status: Patient/guardian denies using tobacco, but has a distant history of tobacco abuse. Screenin:18 Abuse screen: Denies threats or abuse. Nutritional screening: No deficits noted. jd3 Tuberculosis screening: No symptoms or risk factors identified. Fall Risk Ambulatory Aid- None/Bed Rest/Nurse Assist (0 pts). Gait- Normal/Bed Rest/Wheelchair (0 pts) Mental Status- Oriented to own ability (0 pts). Total Cui Fall Scale indicates No Risk (0-24 pts). Assessment: 10:16 General: Appears in no apparent distress. uncomfortable, Behavior is calm, cooperative, jd3 appropriate for age. Pain: Complains of pain in ribs Quality of pain is described as aching. Neuro: Level of Consciousness is awake, alert, obeys commands, Oriented to person, place, time, situation. Cardiovascular: Denies chest pain, Capillary refill < 3 seconds Patient's skin is warm and dry. Respiratory: Reports shortness of breath on exertion cough that is persistent Airway is patent Respiratory effort is even, unlabored, Respiratory pattern is regular, symmetrical, Breath sounds with wheezes bilaterally. GI: No signs and/or symptoms were reported involving the gastrointestinal system. : No signs and/or symptoms were reported regarding the genitourinary system. EENT: No signs and/or symptoms were reported regarding the EENT system. Derm: Skin is intact, Skin is dry, Skin is normal, Skin temperature is warm. Musculoskeletal: Circulation, motion, and sensation intact. Range of motion: intact in all extremities. 10:58 Reassessment: Patient appears in no apparent distress at this time. Patient and/or jd3 family updated on plan of care and expected duration. Pain level reassessed. Patient is alert, oriented x 3, equal unlabored respirations, skin warm/dry/pink. Patient states feeling better. 12:21 Reassessment: Patient appears in no apparent distress at this time. Patient and/or jd3 family updated on plan of care and expected duration. Pain level reassessed. Patient is alert, oriented x 3, equal unlabored respirations, skin warm/dry/pink. Patient states feeling better. Patient states symptoms have improved. Respiratory: Airway is patent Respiratory effort is even, unlabored, relaxed, Respiratory pattern is regular, symmetrical, Breath sounds with wheezes. Vital Signs: 10:11 BP 172 / 80; Pulse 80; Resp 19 S; Temp 98.9(O); Pulse Ox 97% on R/A; Weight 68.04 kg jd3 (R); Height 5 ft. 5 in. (165.10 cm) (R); Pain 5/10; 10:58 BP 145 / 71; Pulse 79; Resp 18 S; Pulse Ox 98% on R/A; jd3 12:21 BP 148 / 68; Pulse 73; Resp 17 S; Pulse Ox 98% on R/A; jd3 10:11 Body Mass Index 24.96 (68.04 kg, 165.10 cm) jd3 ED Course: 09:30 Patient arrived in ED. ag5 09:30 Brendon Her MD is Private Physician. ag5 09:56 [facility] pm1 09:56 David Bennett MD is Attending Physician. pm1 09:57 Jhony Aguiar, CINTHIA is Primary Nurse. jd3 10:11 Triage completed. jd3 10:12 Arm band placed on. jd3 10:18 Patient has correct armband on for positive identification. Bed in low position. Call jd3 light in reach. Side rails up X 1. Adult w/ patient. Pulse ox on. NIBP on. 10:28 CXR XRAY In Process Unspecified. EDMS 12:21 No provider procedures requiring assistance completed. Patient did not have IV access jd3 during this emergency room visit. Administered Medications: 10:38 Drug: Tussionex Pennkinetic ER 5 ml Route: PO; jd3 11:30 Follow up: Response: No adverse reaction; RASS: Alert and Calm (0) jd3 10:38 Drug: predniSONE 60 mg Route: PO; jd3 11:30 Follow up: Response: No adverse reaction jd3 10:39 Drug: Albuterol - atroVENT (3:1) (2.5 mg - 0.5 mg) 3 ml Route: Nebulizer; jd3 11:30 Follow up: Response: No adverse reaction jd3 Outcome: 12:03 Discharge ordered by . pm1 12:22 Discharged to home ambulatory. jd3 12:22 Condition: stable 12:22 Discharge instructions given to patient, Instructed on discharge instructions, follow up and referral plans. medication usage, Demonstrated understanding of instructions, follow-up care, medications, Prescriptions given X 3. 12:24 Patient left the ED. jd3 Signatures: Dispatcher [employer] EDShawn Andrews NP INDUCTION COORDINATION ENGINEER pm1 Jhony Aguiar RN RN jd3 Kiko Bond ag5
[2020-04-08 12:28] VITALS: TEMP 98.9
[2020-04-08 12:29] VITALS: O2SAT 98
[2020-04-08 12:30] VITALS: BP 148/68
== END 2020-04-08 12:24 | disposition home or self-care (01) ==
LOC: ER 09:27
DX: J06.9 Acute upper respiratory infection, unspecified (principal); Z20.822 Contact with and (suspected) exposure to COVID-19; I10 Essential (primary) hypertension; F41.9 Anxiety disorder, unspecified; E78.5 Hyperlipidemia, unspecified; Z85.3 Personal history of malignant neoplasm of breast; Z85.841 Personal history of malignant neoplasm of brain; Z85.118 Personal history of other malignant neoplasm of bronchus and lung; Z88.3 Allergy status to other anti-infective agents; Z88.5 Allergy status to narcotic agent
CPT/HCPCS: 87070; 87081; 0240U; 71045; 99284; J7512

== ENCOUNTER 2020-05-29 06:33 | Day surgery (SDC) | payer OTHER, BC ==
[2020-05-28 14:42] LABS: Absolute Lymphocytes (CBC) 0.7 K/uL (0.7-4.9); Hematocrit 37.9 % (36.0-45.0); Lymphocytes % 12.9 % (15.3-44.8); MPV 9.5 fL (7.6-11.3); RBC Red Blood Cell Count 4.28 M/uL (3.86-4.86)
[2020-05-29] MEDS ORDERED: NS 0.9% VIAL 20 ML ONE (07:28)
[2020-05-29] MEDS ORDERED: HEPARIN 5000 UNIT/ML 1 ML VIAL ONE (07:29)
[2020-05-29] MEDS ORDERED: LIDOCAINE 1% MPF 30 ML VIAL ONE (07:29)
[2020-05-29] MEDS ORDERED: propofoL 200 MG/20 ML VIAL IV ONE (09:05)
[2020-05-29] MEDS ORDERED: MIDAZOLAM HCL 2 MG/2 ML INJ ONE (09:05)
[2020-05-29] MEDS ORDERED: FENTANYL CITR 100 MCG/2 ML ONE (09:05)
[2020-05-29] MEDS ORDERED: LIDOCAINE 1% MPF 5 ML VIAL ONE (09:05)
[2020-05-29] MEDS ORDERED: GLYCOPYRROLATE 0.2 MG/ML SYR ONE (09:30)
[2020-05-29] MEDS ORDERED: dexAMETHasone 10 MG/ML VIAL ONE (09:32)
[2020-05-29] MEDS ORDERED: KETOROLAC 30 MG/ML INJ ONE (09:32)
[2020-05-29] MEDS ORDERED: ONDANSETRON 4 MG/2 ML VIAL ONE (09:32)
--- NOTE | 2020-05-29 09:46 | RAD REPORT ---
EXAM DESCRIPTION: RAD - Fluoroscopy <1 Hour - 05/29/2020 9:40 am CLINICAL HISTORY: Venous catheter insertion. PORTOCATH COMPARISON: [facility] ONLY dated 06/06/2016 FINDINGS: Fluoroscopy time: 0.3 minutes
--- NOTE | 2020-05-29 10:26 | RAD REPORT ---
EXAM DESCRIPTION: RAD - Chest Single View - 05/29/2020 10:05 am CLINICAL HISTORY: S/P PORT A CATH INSERTION Chest pain. COMPARISON: Chest Single View dated 04/08/2020; Chest Pa And Lat (2 Views) dated 12/14/2019; Chest Pa And Lat (2 Views) dated 08/19/2018; Chest Pa And Lat (2 Views) dated 11/14/2016 FINDINGS: Portable technique limits examination quality. Right-sided port catheter has its tip in the SVC near the junction with the right atrium. No postproc edure pneumothorax seen. Mild CHF again seen. IMPRESSION: No postprocedure pneumothorax seen.
--- NOTE | 2020-05-29 10:40 | OP ---
Date of Procedure: 05/29/2020 Surgeon: José Miguel Evans MD Lead Rider: None. Preoperative Diagnosis: Metastatic breast cancer. Postoperative Diagnosis: Metastatic breast cancer. Procedure: Placement of right IJ Port-A-Cath and interpretation of intraoperative fluoroscopy. Estimated Blood Loss: Minimal. Specimen: None. Findings: Normal anatomy. Anesthesia: General. Complications: None. Disposition: The patient tolerated the procedure in stable condition and taken to Recovery in good g eneral condition. Procedure In Detail: The patient was brought to the OR and placed in supine position. General anest hesia begun. The patient was prepped and draped in usual sterile fashion. Lidocaine 1% infiltrated locally. An 18-gauge needle was used to access the right IJ vein. Guidewire was passed. Position w as confirmed with fluoroscopy. A 2 cm counter incision made on the right anterior chest. Pocket cre ated. Tunneling device was used to tunnel the catheter between the 2 wounds and Seldinger technique used. Tip of the catheter placed in the SVC, right atrial junction under fluoroscopy. The catheter cut to appropriate size, attached to the Port-A-Cath device. Port-A-Cath device was attached to the subcutaneous tissue with 3-0 Vicryl and 3-0 chromic used for subcutaneous tissue and close the skin. Port flushed with heparin and packed with heparin with good blood flow. Sterile dressing was applie d. The patient was awakened and taken to Recovery in good general condition. Chest x-ray has been ordered. The patient will be discharged to home. Disposition: Home. Condition: Stable. Discharge Instructions: Resume home medications and diet. Activity as tolerated. No heavy lifting. Remove outer dressing in 2 days. Shower. Keep wound clean and dry. Keep Steri-Strips on at all t imes. [facility]up [facility] 1 week. Follow up in my office in 2 weeks. Ultracet 1 tablet p. o. q.4 p.r.n. pain. /MODL Voice ID: [id number] Report ID: [id number]
[2020-05-29 11:33] VITALS: BP 149/71; TEMP 96; O2SAT 100
== END 2020-05-29 11:28 | disposition home or self-care (01) ==
LOC: OR 06:33
PROVIDERS: ATTEND Surgery
PROC: 0JH60WZ Insertion of Totally Implantable Vascular Access Device into Chest Subcutaneous Tissue and Fascia, Open Approach (ICD-10-PCS; principal; 2020-05-29 08:00)
DX: C50.111 Malignant neoplasm of central portion of right female breast (principal); C34.12 Malignant neoplasm of upper lobe, left bronchus or lung; C79.31 Secondary malignant neoplasm of brain; Z20.822 Contact with and (suspected) exposure to COVID-19
CPT/HCPCS: 85025; 36415; 71045; 36561; U0003; J2704; J1644 ×2; J2250; J3010; J1100; J2405; C1788; 76000

== ENCOUNTER 2020-10-05 21:16 | Emergency (ER) | payer OTHER, BC ==
--- OUTSIDE RECORDS SUMMARY | 2020-10-05 21:20 | XMS REPORT | Continuity of Care Document ---
:1945 Author Organization [facility] t Address [address] [place] [address] Care Team Providers Name Role Phone Jonny Her MD Primary Care Physician Addison Perez Attending Clinician Gael Jeffrey MD Attending Clinician Salomon BRADFORD Attending Clinician Korin Morrow MD Attending Clinician Gisel JACKMAN Attending Clinician Unavailable Vlad BRADFORD, Y.H. Attending Clinician Meredith De Paz MD Attending Clinician Jane Goldstein NP Attending Clinician Harry Sutton MD. Attending Clinician Francisco CHEN Attending Clinician MD Donna PARK.H. Attending Clinician Unavailable Provider Attending Clinician Only, Test Attending Clinician Unavailable Layo Goss MD Attending Clinician Jaspal Young Attending Clinician Unavailable Jena VICENTE, T Attending Clinician Unavailable Lab, Fam Pob I Attending Clinician Unavailable Doctor Unassigned, Name Attending Clinician Unavailable KRISH Attending Clinician Unavailable 1, Lab Attending Clinician Unavailable VLAD Admitting Clinician Unavailable MD Edgar PARK Admitting Clinician Unavailable DE PAZ Admitting Clinician Unavailable Payers Payer Name Policy Type Policy Effective Date Expiration Date Sour ce Number MEDICAREMEDICARE PART [id number] 2009 [facility]ist A AND 00:00:00 [facility] [id number] 2009[id number]/TRAD [id number] 2016 Method ist [id number]/03 0 00:00:00 Hos pital 017-PresentIndemnity Problems Condition Condition Condition Status Onset Resolution Last Treating Co mments Source Name Details Category Date Date Treatment Clinician Date LAD LAD Disease Active Overview: Method i (lymphaden (lymphaden 9-[address] opathy), opathy), 00:00: g of this Hos zoila hilar hilar 00 note l might be different from the original. Added automatic ally from request for surgery [id number] Lung Lung Disease Active Overview: Method i metastases metastases 9-[address] 00:00: g of this Hospita 00 note l might be different from the original. Added automatic ally from request for surgery [id number] Personal Personal Disease Active Overview: Ia thodi history of history of 9-[address] lung lung 00:00: g of this Hospita cancer cancer 00 note l might be different from the original. 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 (disorder) Active Problem 08/24/2020 [facility] 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 Problem 08/24/2020 [facility] Essential Problem Active 2020-08-24 Me moria tremor 02:04:35 l (disorder) Marcus n Essential tremor (disorder) Active Problem 08/24/2020 [facility] Hyperlipid Problem Active 2020-08-24 M emoria emia 02:04:35 l (disorder) Marcus n Hyperlipid emia (disorder) Active Problem 08/24/2020 [facility] Hypertensi Problem Active 2020-08-24 M emoria ve 02:04:35 l disorder, Miguel Angel systemic Hypertensi arterial ve (disorder) disorder, systemic arterial (disorder) Active Problem 08/24/2020 [facility] Hypothyroi Problem Active 2020-08-24 M emoria dism 02:04:35 l (disorder) Marcus n Hypothyroi dism (disorder) Active Problem 08/24/2020 [facility] Lumbar Problem Active 2020-08-24 Memor ia radiculopa 02:04:35 l thy Lumbar Miguel Angel (disorder) radiculopa thy (disorder) Active Problem 08/24/2020 [facility] Paresthesi Problem Active 2020-08-24 M emoria a 02:04:35 l (finding) Miguel Angel Paresthesi a (finding) Active Problem 08/24/2020 [facility] Amnesia Problem Active 2020-08-24 Fred britta (finding) 02:04:35 l Amnesia Miguel Angel (finding) Active Problem 08/24/2020 [facility] Malignant Problem Active 2020-08-24 Me moria tumor of 02:04:35 l breast [place] (disorder) Malignant tumor of breast (disorder) Active Problem 08/24/2020 [facility] Allergies, Adverse Reactions, Alerts Allergy Allergy Status Severity Reaction(s) Onset Inactive Treating Comm ents Source Name Type Date Date Clinician No Known DA Active U 2020- [facility] Clear Allergie 00:00: [facility] codeine DA Active [place] 2020-1 [facility] 2-21 Clear 00:00: [facility] erythrom DA Active IA 2020-1 [facility] ycin 2-21 Clear base 00:00: [facility] adhesive DA Active MO 2019- [facility] tape 2-21 Clear 00:00: [facility] No Known DA Active U 2020-1 [facility] Drug 1-25 Clear Allergie 00:00: [facility] codeine DA Active MO 2020-1 [facility] 1-25 Clear 00:00: [facility] erythrom DA Active MO 2020-1 [facility] ycin 1-25 Clear base 00:00: [facility] adhesive DA Active MO 2020-1 [facility] tape 1-25 Clear 00:00: [facility] codeine DA Active MO 2019- [facility] 1- [place] 00:00: [facility] erythrom DA Active MO 2019- [facility] ycin - [place] base 00:00: [facility] 00 dic [facility] l adhesive DA Active MO 2018- [facility] tape 1- [place] 00:00: [facility] 00 dic [facility]ospita l adhesive DA Active MO 2018- [facility] tape 03-09 [place] 00:00: [facility] 00 dic [facility]ospita l codeine DA Active MO 2018-03 [facility] -06 Clear 00:00: [facility] erythrom DA Active MO 2018-03 [facility] ycin 03-07 Clear base 00:00: [facility] Codeine Propensi Active Methodi ty to 10-07 adverse 00:00: Hospita reaction 00 l s to drug Erythrom Propensi Active Method i ycin ty to 10-07 adverse 00:00: Hospita reaction 00 l s to drug codeine codeine Active Memoria phosphat phosphat l e e Miguel Angel erythrom erythrom Active Memori a ycin ycin l Miguel Angel Family History Family Member Diagnosis Comments Start Date Stop Date Source Natural brother Basal cell carcinoma [facility] Natural brother Breast cancer Method [facility] Natural brother Heart disease [facility] Natural brother Prostate cancer [facility] Natural brother Stomach cancer [facility] Natural father Brain cancer [facility] Natural mother Colon cancer [facility] Natural mother Colon polyps [facility] Natural mother Hypertension [facility] Social History Social Habit Start Date Stop Date Quantity Comments Source Cigarettes smoked 2020-04-06 2020-04-[address] current [facility] - [facility] Cigarette 2020-04-06 2020-04-06 [facility] pack-[facility] 00:00:00 00:00:00 Hospital Tobacco use and 2020-04-06 2020-04-06 Never used [facility] exposure 00:00:00 00:00:00 Hospital Alcohol intake 2020-04-06 2020-04-06 Current drinker Meth[facility] dist 00:00:00 00:00:00 of alcohol Hospital (finding) History of tobacco 1969-11-19 1994-04-16 Current smoker Me [facility]odist use 00:00:00 00:00:00 Hospital Sex [birth year] [facility] 00:00:00 00:00:00 Hospital Smoking Status Start Date Stop Date Source Former smoker 2020-04-06 00:00:00 2020-04-06 00:00:00 [facility] Medications Ordered Filled Start Stop Current Ordering Indication Dosage Frequency Signature Comments Components Source Medication Medication Date Date Medication? Clinician (SIG) Name Name elizaeon 8 Yes 8 mg = 1 Me moria mg oral 6-22 tab, PO, l tablet 20:00: Bedtime, # Mindy nn 00 30 tab, 1 Refill(s) ramelteon Yes TAKE 1 Method i (ROZEREM) 8 4-26 TABLET(8 st mg tablet 00:00: MG) BY Hospit a 00 MOUTH l EVERY NIGHT gabapentin Yes 800 mg = 2 M emoria 400 MG Oral 3-22 cap, PO, l Capsule 21:24: TID, # 540 Herm gabriel 00 cap, 2 Refill(s), Pharmacy: [facility], 162.56, cm, 05/17/19 11:00:00 CDT, Height, 96.818, kg, 05/21/20 16:00:00 CDT, Weight [place]DROcodone 2020- [place] [id number] 1{tbl} Q4H Take 1 Methodi -acetaminop 2-26 03-[address] hen ([place]) 00:00: 04:59 mouth Hosp daisy 10-325 mg 00 :00 every 4 l per tablet (four) hours as needed for moderate pain for up to 100 doses .chronic pain. Max Daily Amount: 6 tablets venlafaxine Yes 150mg QD Take 150 M ethodi XR 2-[address] (EFFEXOR-XR 01:28: mouth Hospi ta ) 150 MG 24 35 daily. l hr capsule PRIMIDONE Yes 250mg Q.5D Take 250 Met hodi ORAL 2-[address] 01:28: mouth 2 Hospita 35 (two) l times a day. metoprolol Yes 100mg QD Take 100 Me thodi succinate 2-[address] XL 01:28: mouth Hospita (TOPROL-XL) 35 daily. l 100 mg 24 hr tablet omeprazole Yes 20mg QD Take 20 mg M ethodi (PriLOSEC) 2-[address] 20 MG 01:28: daily. Hospita capsule 35 l rosuvastati Yes 40mg QD Take 40 mg Methodi n (CRESTOR) 2-[address] 10 MG 01:28: daily. Hospita tablet 35 l levothyroxi Yes 75ug QD Take 75 Met hodi ne 2-[address] (SYNTHROID, 01:28: mouth Hospi ta LEVOXYL) 75 35 every l mcg tablet morning. calcium Yes 1{tbl} Q.5D Take 1 Method i carbonate-v 2-[address] itamin D3 01:28: mouth 2 Hospi ta 500 mg-200 35 (two) l unit per times a tablet day with meals. ARIPiprazol Yes 5mg QD Take 5 mg M ethodi e (ABILIFY) 2-[address] 5 MG tablet 01:28: daily. Pt H ospita 35 take it in l the evening topiramate Yes 50mg Q.5D Take 50 mg M ethodi (TOPAMAX) 2-[address] 25 MG 01:28: (two) Hospita tablet 35 times a l day. One in the morning , one at night cholecalcif Yes 2000U QD Take 2,000 Methodi mario, 2-[address] vitamin D3, :28: mouth Hospi ta 400 unit 35 daily. l tablet LORAZepam Yes .5mg Q6H Take 0.5 Meth colleen (ATIVAN) 2-[address] 0.5 MG 01:28: mouth Hospita tablet 35 every 6 l (six) hours as needed for anxiety. vit A/vit Yes Take by Metho di C/vit 2-[address] E/zinc/ashlyn 01:28: Hospit a er (ICAPS 35 l AREDS ORAL) gabapentin Yes 100mg Q.[id number] Take 100 Methodi (NEURONTIN) 2-04 [id number] mg by s t 100 mg 01:28: 3D mouth 3 Hospita capsule 35 (three) l times a day. losartan 2020-0 2020- No 100mg QD Take 100 Met hodi (COZAAR) 2-03 02-[address] 100 MG 16:43: 00:00 mouth Hospita tablet 34 :00 daily. l letrozole 2020-0 2020- No QD Take by Meth colleen (FEMARA) 2-03 02-[address] 2.5 mg 16:43: 00:00 daily. Hospita chemo 03 :00 l tablet ramelteon 2020- No 8mg QD Take 1 Metho di (Rozerem) 8 5-12 04-26 tablet (8 st mg tablet 00:00: 00:00 mg total) Ho spita 00 :00 by mouth l nightly. thiamine 2019- Yes 100 mg = 1 Mem oria 100 mg oral 4-28 tab, PO, l tablet 19:04: Daily, X Miguel Angel 00 90 day, # 90 tab, 4 Refill(s), Pharmacy: [facility] butalbital- 2020- No 1{tbl} Q6H Take 1 M ethodi acetaminoph 4 02-[address] en-caff 00:00: 00:00 mouth Hospita (FIORICET) 00 :00 every 6 l 50-325-40 (six) mg per hours as tablet needed for headaches. letrozole Yes 2.5 mg = 1 Me moria 2.5 mg oral 3-17 tab, PO, l tablet 16:28: Daily, 0 [place] 00 Refill(s) letrozole 2019-0 Yes 0 Memoria 2.5 mg oral 3-17 Refill(s) l tablet 16:11: [place] 00 primidone 2019-0 Yes = 1 tab, Fred britta 250 mg oral 1-30 PO, BID, # l tablet 17:11: 180 tab, 2 Mindy nn 00 Refill(s), Pharmacy: [facility] topiramate Yes 100 mg = 1 M emoria 100 mg oral 1-30 tab, PO, l tablet 17:11: BID, # 180 Mindy nn 00 tab, 2 Refill(s), Pharmacy: [facility] gabapentin 2018- Yes 400 mg = 1 M emoria 400 MG Oral 9-20 cap, PO, l Capsule 18:27: BID, # 60 Mindy nn 11 cap, 1 Refill(s), Pharmacy: [facility] #[id number] topiramate 2018-0 Yes 50 mg = 1 Me moria 50 MG Oral 9-19 tab, PO, l Tablet 18:37: Daily, # Miguel Angel [Topamax] 42 90 tab, 2 Refill(s), other gabapentin 2019-0 No 400 mg = 1 M emoria 400 MG Oral 9-19 cap, PO, l Capsule 18:37: BID, X 90 Mindy nn 00 day, # 180 cap, 3 Refill(s), Pharmacy: [facility] topiramate Yes 50 mg = 1 Me moria 50 MG Oral 6-11 tab, PO, l Tablet 16:48: BID, # 180 Mindy nn [Topamax] 26 tab, 2 Refill(s), Pharmacy: [facility] primidone Yes = 1 tab, Fred britta 250 mg oral 5-06 PO, BID, # l tablet 15:11: 180 tab, [place] 35 Refill(s) 2, Pharmacy: [facility] topiramate Yes 50 mg = 1 Me moria 50 MG Oral 5-01 tab, PO, l Tablet 16:19: Bedtime, # Mindy nn [Topamax] 00 90 tab, 1 Refill(s), Pharmacy: [facility] topiramate 2020- No 50 mg = 1 M ethodi (TOPAMAX) 06-30 09-25 tab, PO, st 50 MG 00:00: 00:00 Daily, # Hospita tablet 00 :00 90 tab, 2 l Refill(s), other Carbidopa No 1 tab, PO, Me moria 25 MG / 1-30 BID, # 180 l Levodopa 16:43: tab, 2 [place] 100 MG Oral 00 Refill(s), Tablet Pharmacy: [Sin[facility] 25-100] [facility] primidone 2017-03 No 250 mg = 1 Me moria 250 mg oral 1-28 tab, PO, l tablet 16:02: BID, # 180 Mindy nn 00 tab, 2 Refill(s), Pharmacy: [facility] primidone No See Memoria 50 mg oral 3-29 Instructio l tablet 14:41: ns, # 360 Marcus n 15 tab, Refill(s) 2, TAKE 2 TABLETS TWICE A DAY, Pharmacy: [facility] amLODIPine Yes 10mg 10 mg. Metho di (NORVASC) 4-25 st 2.5 mg 00:00: Hospita tablet 00 l Vital Signs Vital Name Observation Time Observation Value Comments Source Systolic (mm Hg) 2020-08-21 19:41:00 Fred rial Miguel Angel Diastolic (mm Hg) 2020-08-21 19:41:00 Mem orial Miguel Angel Heart Rate 2020-08-21 19:41:00 [facility] [place] Respitory Rate 2020-08-21 19:41:00 Memori al [place] Height 2020-08-21 19:41:[address] [facility] Miguel Angel Weight 2020-08-21 19:41:00 [facility] [place] BMI Calculated 2020-08-21 19:41:00 Memori al [place] Respitory Rate 2020-05-21 20:51:00 Memori al Miguel Angel Systolic (mm Hg) 2020-05-21 20:51:00 Fred rial [place] Diastolic (mm Hg) 2020-05-21 20:51:00 [facility] orial [place] Heart Rate 2020-05-21 20:51:00 [facility] Weight 2020-05-21 20:51:00 [facility] Systolic blood 2020-04-05 00:07:00 133 mm[Hg] [facility] pressure Diastolic blood 2020-04-05 00:07:00 63 mm[Hg] [facility] pressure Heart rate 2020-04-05 00:07:00 74 /min [facility] Body temperature 2020-04-05 00:07:00 36.44 Antoinette [facility] Respiratory rate 2020-04-05 00:07:00 20 /min [facility] Oxygen saturation in 2020-04-05 00:07:00 95 /min [facility] Arterial blood by Pulse oximetry Body height 2020-04-04 16:31:00 165.1 cm [facility] Body weight 2020-04-04 16:31:00 97.523 kg [facility] BMI 2020-04-04 16:31:00 35.78 kg/m2 [facility] Systolic (mm Hg) 2019-05-17 16:00:00 [facility] Miguel Angel Diastolic (mm Hg) 2019-05-17 16:00:00 [facility] orial Miguel Angel Heart Rate 2019-05-17 16:00:00 [facility] [place] Respitory Rate 2019-05-17 16:00:00 Memori al Miguel Angel Height 2019-05-17 16:00:00 162.56 cm [facility] [place] Systolic (mm Hg) 2019-03-31 16:47:00 Fred rial Miguel Angel Diastolic (mm Hg) 2019-03-31 16:47:00 Mem orial Miguel Angel Heart Rate 2019-03-31 16:47:00 [facility] [place] Respitory Rate 2019-03-31 16:47:00 Memori al [place] Height 2019-03-31 16:47:00 165.1 cm [facility] Angel Weight 2019-03-31 16:47:00 [facility] [place] BMI Calculated 2019-03-31 16:47:00 Memori al Miguel Angel Systolic (mm Hg) 2018-12-30 18:16:00 Fred rial Miguel Angel Diastolic (mm Hg) 2018-12-30 18:16:00 Mem orial Miguel Angel Heart Rate 2018-12-30 18:16:00 [facility] Angel Respitory Rate 2018-12-30 18:16:00 Memori al [place] Height 2018-12-30 18:16:00 165.1 cm [facility] Angel Weight 2018-12-30 18:16:00 [facility] Angel BMI Calculated 2018-12-30 18:16:00 Memori al [place] Systolic (mm Hg) 2018-11-18 18:05:00 Fred rial [place] Diastolic (mm Hg) 2018-11-18 18:05:00 Mem orial Miguel Angel Heart Rate 2018-11-18 18:05:00 [facility] [place] Respitory Rate 2018-11-18 18:05:00 Memori al Miguel Angel Height 2018-11-18 18:05:00 165.1 cm [facility] [place] Weight 2018-11-18 18:05:00 [facility] [place] BMI Calculated 2018-11-18 18:05:00 Memori al Miguel Angel Height 2018-08-10 16:20:00 165.1 cm [facility] [place] Weight 2018-08-10 16:20:00 [facility] [place] BMI Calculated 2018-08-10 16:20:00 Memori al Miguel Angel Systolic (mm Hg) 2018-08-10 16:20:00 Fred rial Miguel Angel Diastolic (mm Hg) 2018-08-10 16:20:00 Mem orial [place] Respitory Rate 2018-08-10 16:20:00 Memori al [place] Heart Rate 2018-08-10 16:20:00 [facility] Angel Weight 2018-06-30 15:52:00 [facility] Angel Height 2018-06-30 15:52:00 165.1 cm [facility] Angel BMI Calculated 2018-06-30 15:52:00 Memori al [place] Heart Rate 2018-06-30 15:52:00 [facility] [place] Systolic (mm Hg) 2018-06-30 15:52:00 Fred rial [place] Diastolic (mm Hg) 2018-06-30 15:52:00 Mem orial Miguel Angel Respitory Rate 2018-06-30 15:52:00 Memori al [place] Systolic (mm Hg) 2018-03-31 16:08:00 Fred rial Miguel Angel Diastolic (mm Hg) 2018-03-31 16:08:00 Mem orial [place] Heart Rate 2018-03-31 16:08:00 [facility] [place] Height 2018-03-31 16:08:00 167.64 cm [facility] [place] Weight 2018-03-31 16:08:00 [facility] [place] BMI Calculated 2018-03-31 16:08:00 Memori al [place] BMI Calculated 2018-01-27 15:32:00 Memori al [place] Weight 2018-01-27 15:32:00 [facility] [place] Height 2018-01-27 15:32:00 167.64 cm [facility] Miguel Angel Systolic (mm Hg) 2018-01-27 15:32:00 Fred rial Miguel Angel Diastolic (mm Hg) 2018-01-27 15:32:00 Mem orial Miguel Angel Heart Rate 2018-01-27 15:32:00 [facility] Angel Procedures Procedure Date / Time Performing Clinician Source Performed CT HEAD WO CONTRAST 2020-04-09 17:54:02 Linh De Paz [facility] XR CHEST 1 VW PORTABLE 2020-04-04 21:30:00 [facility] CYTOLOGY 2020-04-04 19:55:00 Adolfo Park [facility] (NON-GYNECOLOGICAL) REQUEST CYTOLOGY 2020-04-04 19:46:00 Adolfo Park [facility] (NON-GYNECOLOGICAL) REQUEST CYTOLOGY 2020-04-04 19:31:00 Adolfo Park [facility] (NON-GYNECOLOGICAL) REQUEST CYTOLOGY 2020-04-04 19:10:00 Adolfo Park [facility] (NON-GYNECOLOGICAL) REQUEST IL AN ELECTIVE 2020-04-04 18:58:52 Christy Singh [facility] ENDOTRACHEAL AIRWAY BRONCHOSCOPY, USING 2020-04-04 18:20:00 Adolfo Park [facility] ELECTROMAGNETIC NAVIGATION US, ENDOBRONCHIAL 2020-04-04 18:20:00 Adolfo Park [facility] SURGICAL PATHOLOGY REQUEST 2020-04-04 14:29:00 Adolfo Park [facility] COVID-19 QUALITATIVE 2020-03-30 16:39:00 Adolfo Park [facility] RT-PCR MRI HEAD EXTERNAL STUDY 2020-03-28 16:46:00 Linh De Paz [facility] CT CHEST WO CONTRAST 2020-03-22 20:04:35 Adolfo Park [facility] HC COMPLETE BLD COUNT 2020-03-22 18:26:00 Adolfo Park [facility] W/AUTO DIFF COMPREHENSIVE METABOLIC 2020-03-22 18:26:00 Adolfo Park [facility] PANEL PARTIAL THROMBOPLASTIN 2020-03-22 18:26:00 Adolfo Park [facility] TIME (PTT) PROTHROMBIN TIME WITH INR 2020-03-22 18:26:00 Adolfo Park [facility] TYPE AND SCREEN 2020-03-22 18:26:00 Adolfo Park [facility] ESTIMATED GFR 2020-03-22 18:26:00 Adolfo Park [facility] CT ABDOMEN PELVIS WO 2020-02-09 00:00:00 Provider, Historical [facility] CONTRAST CT CHEST EXTERNAL STUDY 2020-02-01 16:43:00 Adolfo Park [facility] CT CHEST WO CONTRAST 2020-02-01 00:00:00 Provider, Historical [facility] CYTOLOGY 2019-12-06 15:19:00 Adolfo Park [facility] (NON-GYNECOLOGICAL) REQUEST CYTOLOGY 2019-12-06 15:13:00 Adolfo Park [facility] (NON-GYNECOLOGICAL) REQUEST XR CHEST 1 VW PORTABLE 2019-12-06 15:10:00 Shaun Sainz [facility] CYTOLOGY 2019-12-06 15:04:00 Adolfo Park [facility] (NON-GYNECOLOGICAL) REQUEST FUNGUS CULTURE 2019-12-06 14:51:00 Adolfo Park [facility] AFB CULTURE 2019-12-06 14:51:00 Adolfo Park [facility] ANAEROBIC CULTURE 2019-12-06 13:51:00 Adolfo Park [facility] AEROBIC CULTURE 2019-12-06 13:51:00 Adolfo Park [facility] FUNGUS SMEAR 2019-12-06 13:51:00 Adolfo Park [facility] AFB STAIN 2019-12-06 13:51:00 Adolfo Park [facility] IL AN ELECTIVE 2019-12-06 13:11:[address] [facility]ital ENDOTRACHEAL AIRWAY [place] US, ENDOBRONCHIAL 2019-12-06 12:50:00 dAolfo Park [facility] BRONCHOSCOPY 2019-12-06 12:50:00 Adolfo Park [facility] COVID-19 QUALITATIVE 2019-12-02 16:27:00 Adolfo Park [facility] RT-PCR PARTIAL THROMBOPLASTIN 2019-12-02 16:27:00 Adolfo Park [facility] TIME (PTT) PROTHROMBIN TIME WITH INR 2019-12-02 16:27:00 Adolfo Park [facility] COMPREHENSIVE METABOLIC 2019-12-02 16:27:00 Adolfo Park [facility] PANEL HC COMPLETE BLD COUNT 2019-12-02 16:27:00 Adolfo Park [facility] W/AUTO DIFF ESTIMATED GFR 2019-12-02 16:27:00 Adolfo Park [facility] PET CT WHOLE BODY EXTERNAL 2019-12-01 13:51:00 Wade Layne [facility] STUDY PET CT SKULL BASE TO MID 2019-12-01 00:00:00 Aj Grijalva [facility] THIGH CT CHEST EXTERNAL STUDY 2019-11-23 19:10:00 Adolfo Park [facility] CT CHEST W CONTRAST 2019-11-23 00:00:00 Provider, Historical [facility] MRI BRAIN W WO CONTRAST 2019-11-08 00:00:00 Provider, Historical [facility] Craniotomy [facility] Plan of Care Planned Activity Planned Date Details Comments Source Future Scheduled Test Hepatitis C screening [facility] (procedure) [code = 926276955] Future Scheduled Test COLONOSCOPY SCREENING [facility] [code = COLONOSCOPY SCREENING] Future Scheduled Test SHINGLES VACCINES (#1) [facility] [code = SHINGLES VACCINES (#1)] Future Scheduled Test COVID-19 VACCINE (2 - [facility] Moderna 2-dose series) [code = COVID-19 VACCINE (2 - [facility] 2-dose series)] Future Scheduled Test INFLUENZA VACCINE [code [facility] [facility] = INFLUENZA VACCINE] Encounters Start End Encounter Admission Attending Care Care Encounter Source Date/Time Date/Time Type Type Clinicians Facility Department ID 2020-12-14 2020-12-14 Outpatient SHAY DAY [id number] Memoria 11:00:00 11:00:00 22 sue Michelle 2020-08-21 2020-08-22 Outpatient nullFlavo MNA [id number] Memoria 19:30:00 04:59:59 r Neurology 21 sue Michelle 2020-08-21 2020-08-21 Outpatient KAYDEN PerezSCHLEONIDAS [id number] 14:30:00 23:59:59 Patric 21 Addison 2020-08-21 2020-08-21 Outpatient SHAY EDSON [id number] Memoria 14:30:00 14:30:00 21 sue Michelle 2020-07-17 2020-07-17 Office ZAHRAA Jeffrey 1.2.840.114 [id number] 09:01:29 13:39:26 Visit Leonel AMBULATOR 350.1.13.21 Gael Thompson 0.2.7.2.686 [id number] 800 2020-06-25 2020-06-25 Refill Wade Layne 1.2.840.1 [id number] 21 [id number] Methodi 00:00:00 00:00:[address] 3.430.2.7 Hospit a .3.822402 l .8 2020-05-21 2020-05-22 Outpatient nullFlavo MNA [id number] Memoria 20:45:00 04:59:59 r Neurology 20 l Anshu Michelle 2020-05-21 2020-05-21 Outpatient AnaDEEPASCHER MHMONIQUESCHER [id number] 15:45:00 23:59:59 Patric 20 Addison 2020-05-21 2020-05-21 Outpatient MHIE IE [id number] Memoria 15:45:00 15:45:00 20 l Miguel Angel 2020-05-16 2020-05-16 Lab Cristhian 1.2.840.1 [id number] Methodi 10:35:45 10:40:[address] Korin 3.430.2.7 Hospit a .3.571229 l .8 2020-05-15 2020-05-15 Telephone Gisel 1.2.840.1 [id number] 2100 [id number] Methodi 00:00:00 00:00:[address] 3.430.2.7 Hospit a .3.974625 l .8 2020-05-09 2020-05-11 Outside nullFlavo NCA [id number] [facility] 19:14:35 05:59:59 Medical r Neurology 06 l Records Anshu Michelle 2020-05-09 2020-05-10 Outpatient MHMISCHER MHMISCHER [id number] 13:14:35 23:59:59 06 2020-05-09 2020-05-09 Telephone Wade Layne 1.2.840.1 [id number] Methodi 00:00:00 00:00:[address] 3.430.2.7 Hospit a .3.177061 l .8 2020-04-27 2020-04-27 Telephone Wade Layne 1.2.840.1 [id number] Methodi 16:00:00 16:30:[address] 3.430.2.7 Hospit a .3.025638 l .8 2020-04-24 2020-04-24 [facility] 1.2.840.1 [id number] 42908 Methodi 00:00:00 00:00:00 Medical Adolfo MacCristian 63751.1.[address] Review 3.430.2.7 Hospit a .3.512485 l .8 2020-04-09 2020-04-09 [facility], 1.2.840.1 [id number] 2099 [id number] Methodi 14:28:07 23:59:00 Encounter Linh Harper 39918.1.[address] 3.430.2.7 Hospit a .3.630814 l .8 2020-04-09 2020-04-09 [facility], 1.2.840.1 [id number] 72512 06882 Methodi 12:38:00 14:29:31 Visit Linh Harper 82449.1.[address] 3.430.2.7 Hospit a .3.725407 l .8 2020-04-09 2020-04-09 [facility], 1.2.840.1 [id number] 2099 [id number] Methodi 11:06:55 14:27:00 Encounter Linh Harper 97301.1.[address] 3.430.2.7 Hospit a .3.353072 l .8 2020-04-09 2020-04-09 [facility] [id number] [place] 00:00:00 00:00:00 LINH [address] 2020-04-09 2020-04-09 [facility] [id number] [place] 00:00:00 00:00:00 LINH 313 Method i 2020-04-09 2020-04-09 [facility] [id number] [place] [address] 00:00:00 00:00:00 LINH [address] 2020-04-09 2020-04-09 Orders Gisel, 1.2.840.1 [id number] 9222 Methodi 00:00:00 00:00:00 Only Francy 43481.1.[address] 3.430.2.7 Hospit a .3.411697 l .8 2020-04-09 2020-04-09 Telephone Mcdonough, 1.2.840.1 [id number] 2099 778984 Methodi 00:00:00 00:00:[address] Jane 3.430.2.7 Hospit a .3.096573 l .8 2020-04-09 2020-04-09 Telephone Wade Layne 1.2.840.1 [id number] Methodi 00:00:00 00:00:[address] 3.430.2.7 Hospit a .3.435458 l .8 2020-04-09 2020-04-09 Travel 1.2.840.1 1.2.296.662 8746 207196 Methodi 00:00:00 00:00:[address] 3.430.2.7 0.2.7.3.698 Ho spita .3.742780 084.8 l .8 2020-04-06 2020-04-06 Travel 1.2.840.1 1.2.112.151 5996 952658 Methodi 00:00:00 00:00:[address] 3.430.2.7 0.2.7.3.698 Ho spita .3.590908 084.8 l .8 2020-04-06 2020-04-06 Telephone Mcdonough, 1.2.840.1 [id number] 2099 [id number] Methodi 00:00:00 00:00:[address] Jane 3.430.2.7 Hospit a .3.562283 l .8 2020-04-04 2020-04-04 [facility] [place], 1.2.840.1 [id number] 49724 16137 Methodi 08:23:00 19:28:00 Mayra Hernández 10027.1.[address] 3.430.2.7 Hospit a .3.065309 l .8 2020-04-04 2020-04-04 Surgery Vlad, 1.2.840.1 [id number] 322301 9238 Methodi 12:55:00 15:40:00 Adolfo Hernández 05714.1.[address] 3.430.2.7 Hospit a .3.729276 l .8 2020-04-04 2020-04-04 Anesthesia Koby Sutton 1.2.840.1 1040 [id number] Methodi 12:20:00 15:10:00 Event FranciscoChristy 15301.1.[address] 3.430.2.7 Hospit a .3.063751 l .8 2020-04-04 2020-04-04 [facility] [id number] [place] 00:00:00 00:00:00 KAVITA [address] 2020-04-04 2020-04-04 [facility] [id number] 530 [place] 00:00:00 00:00:[address] ADOLFO [address] 2020-04-04 2020-04-04 Travel 1.2.840.1 1.2.503.081 9434 918568 Methodi 00:00:00 00:00:[address] 3.430.2.7 0.2.7.3.698 spita .3.112809 084.8 l .8 2020-04-03 2020-04-03 Telephone Angelita, 1.2.840.1 [id number] 2099 301595 Methodi 00:00:00 00:00:[address] Jane 3.430.2.7 Hospit a .3.365673 l .8 2020-04-03 2020-04-03 Telephone Vlad, 1.2.840.3 [id number] 380 [id number] Methodi 00:00:00 00:00:00 Adolfo Hernández [address]803.1.[address] 3.430.2.7 Hospit a .3.587602 l .8 2020-04-02 2020-04-02 Travel 1.2.840.1 1.2.762.261 9384 494970 Methodi 00:00:00 00:00:[address] 3.430.2.7 0.2.7.3.698 Ho spita .3.845582 084.8 l .8 2020-03-30 2020-03-30 Outpatient [facility] [id number] [address] [place] [address] 00:00:00 00:00:00 ADOLFO [address] 2020-03-30 2020-03-30 Travel 1.2.840.1 1.2.580.857 0223 673313 Methodi 00:00:00 00:00:[address] 3.430.2.7 0.2.7.3.698 Ho spita .3.445532 084.8 l .8 2020-03-29 2020-03-29 Orders [place], 1.2.840.1 [id number] 00559 07185 Methodi 00:00:00 00:00:00 Only Linh G. 58244.1.[address] 3.430.2.7 Hospit a .3.984873 l .8 2020-03-29 2020-03-29 Telephone [place], 1.2.840.1 [id number] 852 [id number] Methodi 00:00:00 00:00:[address] 3.430.2.7 Hospit a .3.918425 l .8 2020-03-22 2020-03-22 [facility], 1.2.840.1 [id number] 09827 Methodi 13:28:02 23:59:00 Encounter Adolfo Hernández 11035.1.[address] 3.430.2.7 Hospit a .3.493077 l .8 2020-03-22 2020-03-22 [facility], 1.2.840.1 [id number] 82298 Methodi 10:20:34 13:27:00 Encounter Adolfo Hernández 82988.1.[address] 3.430.2.7 Hospit a .3.149404 l .8 2020-03-22 2020-03-22 [facility], 1.2.840.1 [id number] 371696 2468 Methodi 09:36:31 12:35:50 Visit Edblaire Hernández 13785.1.[address] 3.430.2.7 Hospit a .3.237076 l .8 2020-03-22 2020-03-22 [facility], 1.2.840.1 [id number] 216141 7239 Methodi 12:02:38 12:17:[address] 85289.1.[address] 3.430.2.7 Hospit a .3.653192 l .8 2020-03-22 2020-03-22 [facility], 1.2.840.1 [id number] 60133 85936 Methodi 10:18:29 10:19:00 Encounter Adolfo Hernández 45144.1.[address] 3.430.2.7 Hospit a .3.607673 l .8 2020-03-22 2020-03-22 Outpatient [facility] [id number] [address] [place] [address] 00:00:00 00:00:00 EDBLAIRE [address] 2020-03-22 2020-03-22 Travel 1.2.840.1 1.2.638.241 7689 391403 Methodi 00:00:00 00:00:[address] 3.430.2.7 0.2.7.3.698 spita .3.282914 084.8 l .8 2020-03-22 2020-03-22 Outpatient [facility] [id number] 407 [place] 00:00:00 00:00:00 EDWARD [address] 2020-03-22 2020-03-22 Outpatient [facility] [id number] 499 [place] 00:00:00 00:00:00 EDBLAIRE [address] 2020-03-22 2020-03-22 Outpatient [facility] [id number] 499 [place] 00:00:00 00:00:00 EDWARD [address] 2020-03-22 2020-03-22 Outpatient [facility] [id number] 513 [place] 00:00:00 00:00:00 EDWARD [address] 2020-02-22 2020-02-22 Orders Provider, 1.2.840.1 [id number] 2099 178067 Methodi 00:00:00 00:00:00 Only Historical 23544.1.1 951 s t 3.430.2.7 Hospit a .3.221149 l .8 2020-02-22 2020-02-22 Orders Provider, 1.2.840.1 [id number] 2099 726283 Methodi 00:00:00 00:00:00 Only Historical 70954.1.1 779 s t 3.430.2.7 Hospit a .3.264111 l .8 2020-02-17 2020-02-17 [facility], 1.2.840.1 [id number] 07107 99539 Methodi 14:26:33 23:59:00 Encounter Adolfo Hernández 76488.1.[address] 3.430.2.7 Hospit a .3.183452 l .8 2020-02-17 2020-02-17 [facility] [id number] 486 [place] 00:00:00 00:00:00 EDBLAIRE [address] 2020-02-16 2020-02-16 [facility], 1.2.840.8 [id number] 642 [id number] Methodi 00:00:00 00:00:00 Adolfo WelchHCristian [address]77.1.[address] 3.430.2.7 Hospit a .3.691919 l .8 2020-02-14 2020-02-14 Laboratory Only, [facility] 1.2.840.114 8 [id number] 15:29:26 15:44:26 Only Test Andre 350.1.13.10 Merlene 4.2.7.2.686 [place] 670.2206316 353 2020-01-02 2020-01-02 Office [place], 1.2.840.1 [id number] 88937 28417 Methodi 13:37:48 14:51:01 Visit Linh Harper 19225.1.[address] 3.430.2.7 Hospit a .3.470820 l .8 2020-01-02 2020-01-02 Travel 1.2.840.1 1.2.388.378 5824 381365 Methodi 00:00:00 00:00:[address] 3.430.2.7 0.2.7.3.698 Ho spita .3.251483 084.8 l .8 2020-01-02 2020-01-02 [facility] [id number] 1032 [place] 00:00:00 00:00:00 LINH [address] 2019-12-21 2019-12-21 Travel 1.2.840.1 1.2.889.566 4968 105879 Methodi 00:00:00 00:00:[address] 3.430.2.7 0.2.7.3.698 Ho spita .3.366187 084.8 l .8 2019-12-12 2019-12-12 Telephone [place], 1.2.840.1 [id number] 2099 970355 Methodi 00:00:00 00:00:00 Edblaire Y.H. 78120.1.[address] 3.430.2.7 Hospit a .3.613682 l .8 2019-12-08 2019-12-08 Telephone Mcdonough, 1.2.840.1 [id number] 2099 378831 Methodi 00:00:00 00:00:[address] Jane 3.430.2.7 Hospit a .3.612016 l .8 2019-12-06 2019-12-06 [facility], 1.2.840.1 [id number] 47122 93496 Methodi 06:04:00 15:31:00 Encounter Adolfo Y.H. 09030.1.[address] 3.430.2.7 Hospit a .3.061529 l .8 2019-12-06 2019-12-06 [facility], 1.2.840.1 [id number] 009542 9298 Methodi 08:00:00 10:05:00 Adolfo Hernández [address]878.1.[address] 3.430.2.7 Hospit a .3.943598 l .8 2019-12-06 2019-12-06 Anesthesia Sophie Goss 1.2.840 .1 [id number] Methodi 07:51:00 09:27:00 Event Gabriel Young 53030.1.[address] 3.430.2.7 Hospit a .3.363188 l .8 2019-12-06 2019-12-06 Travel 1.2.840.1 1.2.798.619 9680 684067 Methodi 00:00:00 00:00:[address] 3.430.2.7 0.2.7.3.698 Ho spita .3.779855 084.8 l .8 2019-12-06 2019-12-06 Outpatient [facility] 165 [id number] 577 [place] 00:00:00 00:00:00 STEV[address]LAIRE [address] 2019-12-05 2019-12-05 [facility] Wade Layne 1.2.840.1 [id number] 2 [id number] Methodi 17:03:32 23:59:[address] 3.430.2.7 Hospit a .3.723453 l .8 2019-12-05 2019-12-05 Office Wade Layne 1.2.840.1 [id number] 21 [id number] Methodi 14:57:15 16:37:[address] 3.430.2.7 Hospit a .3.342003 l .8 2019-12-05 2019-12-05 Travel 1.2.840.1 1.2.980.917 7957 363050 Methodi 00:00:00 00:00:[address] 3.430.2.7 0.2.7.3.698 Ho spita .3.477406 084.8 l .8 2019-12-05 2019-12-05 Orders Provider, 1.2.840.1 [id number] 2100 041956 Methodi 00:00:00 00:00:00 Only Historical 77627.1.1 970 s t 3.430.2.7 Hospit a .3.316425 l .8 2019-12-05 2019-12-05 Telephone Mcdonough, 1.2.840.1 [id number] 2100 366601 Methodi 00:00:00 00:00:[address] Jane 3.430.2.7 Hospit a .3.324952 l .8 2019-12-05 2019-12-05 Outpatient BRANDEN LAYNEK [facility] 099 [id number] [place] 00:00:00 00:00:[address] 2019-12-05 2019-12-05 Outpatient BRANDEN LAYNEK [facility] 437 [id number] [place] 00:00:00 00:00:[address] 2019-12-02 2019-12-02 Outpatient [facility] [id number] 569 [place] 00:00:00 00:00:00 ADOLFO [address] 2019-12-02 2019-12-02 Telephone Mcdonough, 1.2.840.1 [id number] 2100 542606 Methodi 00:00:00 00:00:[address] Jane 3.430.2.7 Hospit a .3.084849 l .8 2019-12-02 2019-12-02 Travel 1.2.840.1 1.2.120.794 5918 631152 Methodi 00:00:00 00:00:[address] 3.430.2.7 0.2.7.3.698 Ho spita .3.411802 084.8 l .8 2019-11-25 2019-11-25 [facility] [place], 1.2.840.1 [id number] 43584 18315 Methodi 10:30:53 23:59:00 Encounter Adolfo Hernández 23459.1.[address] 3.430.2.7 Hospit a .3.107764 l .8 2019-11-25 2019-11-25 Office [place], 1.2.840.1 [id number] 774930 9627 Methodi 11:06:05 11:15:39 Visit Adolfo Hernández 76696.1.[address] 3.430.2.7 Hospit a .3.071151 l .8 2019-11-25 2019-11-25 Outpatient [facility] [id number] 519 [place] 00:00:00 00:00:00 EDWARD [address] 2019-11-25 2019-11-25 Travel 1.2.840.1 1.2.668.154 2264 328151 Methodi 00:00:00 00:00:[address] 3.430.2.7 0.2.7.3.698 Ho spita .3.082178 084.8 l .8 2019-11-25 2019-11-25 Orders Provider, 1.2.840.1 [id number] 2100 013347 Methodi 00:00:00 00:00:00 Only Historical 25604.1.1 070 s t 3.430.2.7 Hospit a .3.397259 l .8 2019-11-25 2019-11-25 Outpatient [facility] [id number] 563 [place] 00:00:00 00:00:00 EDWARD [address] 2019-11-24 2019-11-24 Travel 1.2.840.1 1.2.605.464 3549 685101 Methodi 00:00:00 00:00:[address] 3.430.2.7 0.2.7.3.698 Ho spita .3.056267 084.8 l .8 2019-11-11 2019-11-13 [facility] [id number] 55 Memoria 19:41:07 04:59:59 Medical r Neurology 05 l Records Anshu Michelle 2019-11-11 2019-11-12 Outpatient MHMISCHER MISCHER [id number] 14:41:07 23:59:59 05 2019-11-05 2019-11-05 Letter JONNY Bella 1.2.840.114 [id number] 00:00:00 00:00:00 (Out) Rose Marie Broussard MOLLY 350.1.13.10 [facility] 4.2.7.2.686 [id number] 019 2019-11-04 2019-11-04 Laboratory Lab, [facility] 1.2.840.114 77 [id number] 10:17:33 10:37:33 Only Fam Pob [facility] 350.1.13.10 [place] 4.2.7.2.686 Professio [id number] nal 044 Office Building One 2019-11-04 2019-11-04 Letter Doctor FULLER 1.2.840.114 [id number] 00:00:00 00:00:00 (Out) UnassMOLLY [place]on 350.1.13.10 [place] [facility] 4.2.7.2.686 [id number] 2019-08-30 2019-08-30 Ambulatory nullFlavo MNA [id number] Memoria 16:00:00 16:00:00 Pre-Reg r Neurology 19 l [place] Miguel Angel 2019-08-30 2019-08-30 Outpatient MHIE MHIE [id number] Memoria 11:00:00 11:00:00 19 l 2019-08-30 2019-08-30 Outpatient KAYDEN Perez [id number] 11:00:00 11:00:00 Patric 19 [place] 2019-07-12 2019-07-12 Outpatient WADE LAYNE [facility] 837 [id number] [place] 00:00:00 00:00:[address] 2019-07-07 2019-07-07 Outpatient MHIE MHIE [id number] Memoria 10:30:00 10:30:00 16 l [place] 2019-06-28 2019-06-29 Outpatient nullFlavo MNA [id number] Memoria 18:15:00 04:59:59 r Neurology 18 l [place] Miguel Angel 2019-06-28 2019-06-28 Outpatient KAYDEN Perez MHMISCHER [id number] 13:15:00 23:59:59 Patric 18 Add[place] 2019-06-28 2019-06-28 Outpatient MHIE MHIE [id number] Memoria 13:15:00 13:15:00 18 l Miguel Angel 2019-06-27 2019-06-27 Outpatient WADE LAYNE [facility] [id number] [place] 00:00:00 00:00:[address] 2019-06-13 2019-06-13 Outpatient BALDEV [facility] [id number] [place] 00:00:00 00:00:00 LINH [address] 2019-05-24 2019-06-01 Inpatient [facility] 018 [id number] [place] 00:00:00 00:00:00 942 Method i 2019-05-17 2019-05-18 Outpatient nullFlavo MNA [id number] Memoria 15:45:00 04:59:59 r Neurology 17 l Anshu Michelle 2019-05-17 2019-05-17 Outpatient LOS PerezMISCHER MHMISCHER [id number] 10:45:00 23:59:59 Patric 17 Addison 2019-05-17 2019-05-17 Ambulatory nullFlavo MNA [id number] Memoria 15:15:00 15:15:00 Pre-Reg r Neurology 16 l Anshu Michelle 2019-05-17 2019-05-17 Outpatient MHIE MHIE [id number] Memoria 10:45:00 10:45:00 17 l Miguel Angel 2019-05-17 2019-05-17 Outpatient DEEPA PerezSCHER MHMISCHER [id number] 10:15:00 10:15:00 Patric 16 [place] 2019-03-31 2019-04-01 Outpatient nullFlavo MNA [id number] Memoria 16:30:00 05:59:59 r Neurology 15 l Anshu Michelle 2019-03-31 2019-03-31 Outpatient LOS PerezMISCHER MHMISCHER [id number] 10:30:00 23:59:59 Patric 15 Addison 2019-03-31 2019-03-31 Outpatient MHIE MHIE [id number] Memoria 10:30:00 10:30:00 15 l Miguel Angel 2018-12-30 2018-12-31 Outpatient nullFlavo MNA [id number] Memoria 18:15:00 04:59:59 r Neurology 14 sue Michelle 2018-12-30 2018-12-30 Outpatient Ana MHMISCHER MHMISCHER [id number] 13:15:00 23:59:59 Patric 14 Addison 2018-12-30 2018-12-30 Outpatient MHIE MHIE [id number] Memoria 13:15:00 13:15:00 14 sue Michelle 2018-11-18 2018-11-19 Outpatient nullFlavo MNA [id number] Memoria 18:00:00 04:59:59 r Neurology 13 sue Michelle 2018-11-18 2018-11-18 Outpatient Ana, MHMISCHER MHMISCHER [id number] 13:00:00 23:59:59 Patric 13 Addison 2018-11-18 2018-11-18 Outpatient MHIE MHIE [id number] Memoria 13:00:00 13:00:00 13 use Michelle 2018-11-09 2018-11-09 Ambulatory nullFlavo MNA [id number] Memoria 14:30:00 14:30:00 Pre-Reg r Neurology 12 sue Michelle 2018-11-09 2018-11-09 Outpatient MHIE MHIE [id number] Memoria 09:30:00 09:30:00 12 sue Michelle 2018-11-09 2018-11-09 Outpatient Ana MHMISCHER MHMISCHER [id number] 09:30:00 09:30:00 Patric 12 [place] 2018-11-03 2018-11-03 Hydrate Control Tender 1, Adc Lab [facility] 1.2.840.114 [id number] 14:27:18 14:42:18 Visit Andre 350.1.13.10 [place] 4.2.7.2.686 [place] [id number] 353 2018-11-03 2018-11-03 Orders Doctor JONNY 1.2.840.114 [id number] 00:00:00 00:00:00 Only Unassigned, MOLLY 350.1.13.10 [place] [facility] 4.2.7.2.686 [id number] 2018-08-10 2018-08-11 Outpatient nullFlavo MNA [id number] Memoria 16:15:00 04:59:59 r Neurology 11 l Anshu Michelle 2018-08-10 2018-08-10 Outpatient Ana, MHMISCHER MHMISCHER [id number] 11:15:00 23:59:59 Patric 11 [place] 2018-08-10 2018-08-10 Outpatient MHIE MHIE [id number] Memoria 11:15:00 11:15:00 11 sue Michelle 2018-06-30 2018-07-01 Outpatient nullFlavo MNA [id number] Memoria 15:45:00 04:59:59 r Neurology 10 sue [place] Miguel Angel 2018-06-30 2018-06-30 Outpatient Ana MHMISCHER MHMISCHER [id number] 10:45:00 23:59:59 Patric 10 [place] 2018-06-30 2018-06-30 Outpatient MHIE MHIE [id number] Memoria 10:45:00 10:45:00 10 sue Miguel Angel 2018-05-25 2018-05-25 Outpatient MHIE MHIE [id number] Memoria 10:00:00 10:00:00 09 sue Miguel Angel 2018-04-13 2018-04-13 Outpatient MHIE MHIE [id number] Memoria 10:15:00 10:15:00 08 sue Michelle 2018-04-06 2018-04-08 Phone nullFlavo MNA [id number] Memoria 21:28:00 05:59:59 Message r Neurology 04 sue [place] Miguel Angel 2018-04-06 2018-04-07 Outpatient MHMISCHER MHMISCHER [id number] 15:28:00 23:59:59 2018-03-31 2018-04-01 Outpatient nullFlavo MNA [id number] Memoria 16:00:00 05:59:59 r Neurology 07 l [place] Miguel Angel 2018-03-31 2018-03-31 Outpatient Ana, MHMISCHER MHMISCHER [id number] 10:00:00 23:59:59 Patric 07 [place] 2018-03-31 2018-03-31 Outpatient MHIE MHIE [id number] Memoria 10:00:00 10:00:00 07 sue Miguel Angel 2018-03-05 2018-03-07 Outside nullFlavo MNA [id number] Memoria 20:35:00 05:59:59 Medical r Neurology 03 l Records Anshu Michelle 2018-03-05 2018-03-06 Outpatient MHMISCHER MHMISCHER [id number] 14:35:00 23:59:59 03 2018-01-27 2018-01-29 Phone nullFlavo MNA [id number] Memoria 16:53:00 05:59:59 Message r Neurology 02 l Anshu Badilloann 2018-01-27 2018-01-28 Outpatient MHMISCHER MHMISCHER [id number] 10:53:00 23:59:59 02 2018-01-27 2018-01-28 Outpatient nullFlavo MNA [id number] Memoria 15:30:00 05:59:59 r Neurology 06 l Anshu Miguel Angel 2018-01-27 2018-01-27 Outpatient Ana MHMISCHER MHMISCHER [id number] 09:30:00 23:59:59 Patric 06 Addison 2018-01-27 2018-01-27 Outpatient MHIE MHIE [id number] Memoria 09:30:00 09:30:00 06 sue Miguel Angel 2017-12-09 2017-12-09 Ambulatory nullFlavo MNA [id number] Memoria 15:00:00 15:00:00 Pre-Reg r Neurology 03 l [place] Miguel Angel 2017-12-09 2017-12-09 Outpatient MHIE MHIE [id number] Memoria 10:00:00 10:00:00 03 sue Miguel Angel 2017-12-09 2017-12-09 Outpatient LOS PerezMISCHER MHMISCHER [id number] 10:00:00 10:00:00 Patric 03 Addison 2017-11-12 2017-11-12 Outpatient MHIE MHIE [id number] Memoria 11:15:00 11:15:00 05 sue Miguel Angel 2017-10-28 2017-10-28 Outpatient MHIE MHIE [id number] Memoria 09:15:00 09:15:00 04 sue Miguel Angel 2017-03-27 2017-03-27 Outpatient MHIE MHIE [id number] Memoria 14:15:00 14:15:00 02 sue Michelle Results Test Description Test Time Test Comments Results Result Comments Source HEMATOLOGY 2020-05-[address] [facility] Mindy nn 16:23:00 HEMATOLOGY 2020-05-22 16:23:00 Test Item Value Reference Range Interpretation Comme nts MCH (test code = MCH) 27.9 pg 27.0-33.0 [facility] IcbsdorPVSRRFOPFT5804-72-81 16:23:0031.2[facility] 2020-05-22 16:23:0013.8[facility] PhhddjqTAIQJNXFGV0943-53-71 16:23:13234Chtvooae JddemxmFNJACZIBFD6388-46-39 16:23:0011.3[facility] GrdxzdeQDLAIYDURP9252-69-95 16:23:086967Pcocxuax MnplkznFRPGQJEDIT3558-31-81 16:23:01241Vjumosij Miguel Angel KUMBMXUBOL7258-60-94 16:23:03194Dxqcgnae MamkrmtLJXIPOQLLX7728-43-22 16:23:0031 [facility] VivsubuRNCLDCLMCA2966-88-05 16:23:0020[facility] 2020-05-22 16:23:0076.2[facility] UsqbrosLLUKMONOMY9843-24-75 16:23:0014.8[facility] FfubfrwKKDYJQOPIE7193-36-85 16:23:007.7[facility] JezswgjAHIXVTKBTF9334-92-26 16:23:000.8[facility] IxcgwmvTHLXWDNRVQ2870-75-44 16:23:000.5[facility]annCHEM JBWUN7469-25-23 16:23:08281Nfhfskyg HermannCHEM KLESM3640-36-88 16:23:0016 [facility]annCHEM BKMGQ7043-45-29 16:23:000.84[facility]annCHEM PANEL 2020-05-22 16:23:0068[facility]annCHEM YCTJM9220-79-29 16:23:0078[facility]annCHEM LZXLD3876-50-25 16:23:69144Zjitlwje HermannCHEM UTWPH8601-17-07 16:23:004.8[facility]annCHEM WYWVS5852-73-92 16:23:70056Evmqnbjw HermannCHEM UMRLS6172-67-65 16:23:0029[facility]annCHEM TBVAG2884-24-61 16:23:008.9 [facility]annCHE[facility] KVKUB1089-11-23 16:23:006.5[facility]annCHEM PANEL 2020-05-22 16:23:003.9[facility]annCHEM QGCIU6622-03-14 16:23:002.6[facility]annCHEM QVDBC5535-94-44 16:23:001.5[facility]annCHEM CZKAS1046-80-75 16:23:000.2[facility]annCHEM YWLDZ0864-59-73 16:23:25536Mxluxykr HermannCHEM ZXKKZ2786-44-02 16:23:0012[facility]annCHEM TOQHI6702-16-94 16:23:0015 [facility] NxxhvzfZDCEDHCSZV7919-04-37 16:23:003.9[facility]annHEMATOLOGY 2020-05-22 16:23:004.27[facility] WunqyymWAXXUZLEPJ4209-83-98 16:23:0011.9[facility] PxcqkviSHGZANRLJR2372-65-11 16:23:0038.2[facility]annSurgical pathology hhkcgyu2843-29-72 17:27:40 Test Item Value Reference Range Interpretation Comments Case number (test [id number] code = 2337289) Surgical pathology See link below for PDF report (test code = Lab Report 2255) Result status (test This is Supplemental code = 7894966) [id number] [facility] gkxxepb7905-46-51 16:34:02 Test Item Value Reference Range Interpretation Comments Case number (test code = [id number]) Cytology See link below for (non-gynecological) PDF Lab Report report (test code = 1178) Result status (test code This is Final Report = [id number]) [facility] [id number] [facility] Euadl2784-18-42 20:32:19This exam was not acquired at a [facility] facility and has not been interpreted by a [facility] Provider. The exam was imported into our imaging system.[facility]CT [facility] Wo Dzllofiv6148-71-71 18:02:55EXAM: CT HEAD WO CONTRAST CLINICAL HISTORY: T84.498S Other mechanical complication of other internalorthopedic devices implants and grafts sequela, mechanical complication TECHNIQUE: Noncontrast enhanced images of the brain were obtained from the skull base to the vertex. Both soft tissue and bone reconstruction algorithms were performed. CT scans are performed using radiation dose reduction techniques (iterative reconstruction and/or automated exposure control). Technical factors are evaluatedand adjusted to ensure appropriate moderation of exposure. Automated dose management technology is applied to adjust radiation exposure while achieving a diagnostic quality image. COMPARISON: PET/CT, 12/01/2019; CT brain, 05/29/2019. 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 Residual tumor burden cannotbe excluded on the current noncontrast CT. The de la rosa- white matter differentiation is otherwise preserved and without evidence of acute territorial infarction. Background of minimal involutional changes with generalized parenchymal volume loss and scattered white matter chronic small vessel ischemic changes. There is no evidence for acute intracranial hemorrhage, midline shift, hydrocephalus, or extra-axial fluid collection. Bilateral orbital lens extraction noted. Paranasal sinuses are clear. Mastoid air cells are normally pneumatized. Osseous structures are otherwise intact. 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 Residual tumor burden cannot be excluded on the current noncontrast CT. Otherwise no CT evidence for acute intracranial abnormality. [facility]-[id number] Interface, Radiology Results [facility] - 04/09/2020 12:06 PM CST EXAM: CT HEAD WO CONTRASTCLINICAL HISTORY: T84.498S Other mechanical complication of other internal orthopedic devices implants and grafts sequela, mechanical complicationTECHNIQUE: Noncontrast enhanced images of the brain were obtained from the skull base to the vertex. Both soft tissue and bone reconstruction algorithms were performed. CT scans are performed using radiation dose reduction techniques (iterative reconstruction and/or automated exposure control). Technical factors are evaluated and adjusted to ensure appropriate moderation of exposure. 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 Residual tumor burden cannot be excluded on the current noncontrast CT.The de la rosa- white matter differentiation is otherwise preserved and without evidence of acute territorial infarction.Background of minimal involutional changes with generalized parenchymal volume loss and scattered white matter chronic small vessel ischemic changes.There isno evidence for acute intracranial hemorrhage, midline shift, hydrocephalus, or extra-axial fluid collection.Bilateral orbital lens extraction noted. Paranasal sinuses are clear. Mastoid air cells are normally pneumatized. Osseous structures are otherwise intact.IMPRESSION:Evidence for a prior right anterolateral frontoparietal craniotomy with subjacent resection cavity and associated encephalomalacia. Residual tumor burden cannot be excluded on the current noncontrast CT.Otherwise no CT evidencefor acute intracranial abnormality.[id number] HospitalXR Chest 1 Vw [id number] 22:42:30EXAMINATION: XR CHEST 1 VW PORTABLE CLINICAL HISTORY: Post bronchoscopy and biopsy COMPARISON: Most Recent Prior at [facility] IMPRESSION: Lines: None Lungs and pleura: Linear opacity at the left upper lobe is unchanged. No effusion or pneumothorax. Nodular opacities are characterized better advantage on prior CT. Heart and mediastinum: Stable appearance of cardiomediastinal silhouette. Bones: No suspicious osseous lesions. [facility]-[id number] Interface, Radiology Results - 04/04/2020 4:45 PM CST EXAMINATION: XR CHEST 1 VW PORTABLECLINICAL HISTORY: Post bronchoscopy and biopsyCOMPARISON: [facility]Lines: N oneLungs and pleura: Linear opacity at the left upper lobe is unchanged. No effusion or pneumothorax. Nodular opacities are characterized better advantage on prior CT.Heart and mediastinum: Stable appearance of cardiomediastinal silhouette. Bones: No suspicious osseous lesions. [facility]-[id number] TtkijgivRkyhdr0010-24-07 18:58:52Christy Singh CRNA 04/04/2020 1:00 PMAirway Date/Time: 04/04/2020 12:58 PM Location: OR Performed by: anesthesiologistAnesthesiologist: Koby Sutton Jr., MDOther Staff: Margarette Damicouthorized by: Koby Sutton Jr., MD Urgency: ElectiveDifficult Airway: No Preoxygenated with 100%O2: Yes Mask Ventilation: Assisted mask (OPA)Final Airway Type: Endotracheal airwayFinal Endotracheal Airway: ETTCuffed: Yes Technique Used: Video laryngoscopyDevices/Methods Used in Placement: Intubating styletInsertion Site: OralBlade type: Glidescope.Laryngoscope Blade/Videolaryngoscope Blade Size: 3ETT Size (mm): 8.5Cuff at minimum occlusion pressure: Yes Measured from: LipsETT to Lips (cm): 24Placement Verified by: CO2 detection and direct visualization Laryngoscopic view: Grade I - full view of glottisRapid Sequence Induction (RSI): No Modified RSI: No Number of Attempts at Approach: 1 Difficult to insert ETT passed vocal folds; able to pass after torquing the tubeIndiana University Health West HospitalARS-CoV-2 (COVID-19) RNA [Presence] in Respiratory specimen by HODAN with probe [id number] 19:39:36 Test Item Value Reference Range Interpretation Comments SARS-CoV-2 (COVID-19) RNA Not detected Not-Detected [Presence] in Respiratory specimen by HODAN with probe detection (test code = 90036-9) CT Chest Wo [id number] 23:04:34EXAMINATION:CT CHEST WO CONTRAST CLINICAL HISTORY:R91.8 Other nonspecific abnormal finding of lung field, Z85.118 Personal history of other malignant neoplasm of bronchus and lung, lung nodules TECHNIQUE:Multiple axial images of the chest were obtained without intravenous contrast. The lack of intravenous contrast reduces the sensitivity of detecting solid organ disease and evaluating vasculature. Sagittal and coronal computerized reformatted images were also obtained.CT imaging was performed with iterative reconstruction techniques and/or automated exposure control to reduce radiation dose. COMPARISON:November 23, 2019 and February 01, 2020 CT scan FINDINGS:1.There are scattered bilateral pulmonary nodules. The largest nodule is in the anterior segment of the right lower lobe and measures 16 x14 mm; previously 8 x 9 mm and [...] small gallstones..7.There are postoperative changes in both breasts. IMPRESSION:Increasing size of right pulmonary metastasis since prior study. [facility]-[id number] [facility], Radiology Results 03/22/2020 5:07 PM CSTFormatting of this note mightbe different from the original.EXAMINATION:CT CHEST WO CONTRASTCLINICAL HISTORY:R91.8 Other nonspecific abnormal finding of lung field, Z85.118 Personal history of other malignant neoplasm of bronchus and lung, lung nodulesTECHNIQUE:Multiple axial images of the chest were obtained without intravenous contrast. The lack of intravenous contrast reduces the sensitivity of detecting solid organ disease and evaluating vasculature. Sagittal and coronal computerized reformatted images were also obtained.CT imaging was performed with iterative reconstruction techniques and/or automated exposure control to reduce radiation dose.COMPARISON:November 23, 2019 and February 01, 2020 CT scanFINDINGS:1.There [...] small gallstones..7.There are postoperative changes in both breasts.IMPRESSION:Increasing size of right pulmonary metastasis since prior study.[facility]-[id number] HospitalPET/CT Whole Body External [id number] 18:56:59This exam was not acquired at a [facility] facility and has not been interpreted by a [facility] Provider. The exam was imported into our imaging system.[facility]- CT L-SPINE W/O [id number] 12:05:00 [facility]Name: ODALIS RUVALCABA : 1945 Sex: F Patient Name: ODALIS RUVALCABA Unit No: [id number] EXAMS: CPT CODE: [id number] CT L-SPINE W/O CONTRAST 61615 TECHNIQUE: Multiplanar CT images were obtained of the lumbar spine without IV contrast. COMPARISON: MR dated 01/25/2020 INDICATION: LBP FINDINGS: Interval postoperative changes of L4-L5 posterior instrumented fusion demonstrated with intact hardware. The interbody graft is without evidenc e of healing. A hyperdense mass within the [...] The central canal is decompressed. Marked left, ehph-pt-tpnjthem right foraminal stenosis is present. L5/S1: No significant disc bulge or herniation. Bilateral facet hypertrophy is present. No definite foraminal or central canal stenosis. IMPRESSION: Interval postoperative changes of L4- L5 posterior instrumented fusion. A hyperdense mass within the left L4- L5 neural foramen may represent graft material and likely impinges the left L4 nerve. [facility] NAME: ODALIS RUVALCABA [address] [facility] PHYS: Finesse Harmonmagan Cici : 1945 AGE: 74 SEX: F [id number] LOC: Y.RAD PHONE #: [phone] EXAM DATE: 03/07/2020 STATUS: DEP CLI FAX #: [phone] RAD #: D/C DT PAGE 1 Signed Report (CONTINUED) Patient Name: ODALIS RUVALCABA Unit No: [id number] EXAMS: CPT CODE: [id number] CT L-SPINE W/O CONTRAST 82709 <Continued> at 1205 Reported and signed by: Sudhir Villagomez M.D. CC: Kian Hansen MD Technologist: Alisa Hannah, RT(R); Shawn Live CTDI: DLP: Trnscrpt: 03/21/2020 (1202) t.SDR.SLJ/t.SDR.SLJ [facility] NAME: ODALIS RUVALCABA [address] [facility] PHYS: Kian Harmonn Cici : 1945 AGE: 74 SEX: F [place], [place] [address] LOC: Y.RAD PHONE #: [phone] EXAM DATE: 03/07/2020 STATUS: DEP CLI FAX #: [phone] RAD #: D/C DT PAGE 2 Signed Report Patient Name: ODALIS RUVALCABA Unit No: [id number] EXAMS: CPT CODE: [id number] CT L-SPINE W/O CONTRAST 96148 <Continued> Orig Print D/T: S: 03/21/2020 (1208) [facility] NAME: ODALIS RUVALCABA [address] [facility] PHYS: Kian Harmon Veronica Cici : 1945 AGE: 74 SEX: F [place], [place] [address] LOC: SMITH PH ONE #: [phone] EXAM DATE: 03/07/2020 STATUS: DEP CLI FAX #: [phone] RAD #: D/C DT PAGE 3 Signed ReportHGB [id number] 07:19:00 Test Item Value Reference Range Interpretation Comments HEMOGLOBIN (test code = HGB) 10.2 g/dL 12-16 L HEMATOCRIT (test code = HCT) 33.0 % 37-47 L BASIC METABOLIC [id number] 06:22:00 Test Item Value Reference Range Interpretation [...] RATE (test code = GFR) mL/mi n/1.73 r8Qztcqsoax Range:Healthy Adults >90 mL/min/1.73 m2 For Chronic Kidney Disease: St age II Mild Decrease in GFR 60-90 St age III Moderate Decrease in GFR 30-59 Stage IV Severe Decre ase in GFR 15- 29 Stage V Kidney Failure <15 CREATININE (test code 0.75 mg/dL 0.55-1.30 N = CREAT) CALCIUM (test code = 8.4 mg/dL 8.2-10.1 N CA) HGB [id number] 05:57:00 Test Item Value Reference Range Interpretation Comments HEMOGLOBIN (test code = HGB) 10.3 g/dL 12-16 L HEMATOCRIT (test code = HCT) 32.2 % 37-47 L BASIC METABOLIC [id number] 19:33:00 Test Item Value Reference Range Interpretation [...] RATE (test code = GFR) mL/mi n/1.73 n8Jhwjmnrmm Range:Healthy Adults >90 mL/min/1.73 m2 For Chronic Kidney Disease: St age II Mild Decrease in GFR 60-90 St age III Moderate Decrease in GFR 30-59 Stage IV Severe Decre ase in GFR 15- 29 Stage V Kidney Failure <15 CREATININE (test code 0.82 mg/dL 0.55-1.30 N = CREAT) CALCIUM (test code = 8.9 mg/dL 8.2-10.1 N CA) PROTHROMBIN [id number] 19:29:00 Test Item Value Reference Range Interpretation [...] other day NSPECIMEN COMMENT: N THROMBOPLASTIN TIME [id number] 19:29:00 Test Item Value Reference Range Interpretation Comments PTT ACTIVATED (test code = APTT) 33.7 secs 24.9-37.0 N IS PATIENT ON ANTICOAGULANTS ? NHas Lab been notified if Patient is on Heparin Drip? NOIf Yes, orderCBC, OCCULT BLOOD, PT every other day NSPECIMEN COMMENT: N CBC W/AUTO [id number] 18:39:00 Test Item Value Reference Range Interpretation [...] code = NRBC) COVID 19 Asymptomatic IH [id number] 18:32:00 Test Item Value Reference Range Interpretation Comments COVID 19 Asymptomatic IH AG (test NEGATIVE NEGATIVE code = COVNONPUIAG) SPECIMEN COMMENT: NASALHGB [id number] 06:00:00 Test Item Value Reference Range Interpretation Comments HEMOGLOBIN (test code = HGB) 10.8 g/dL 12-16 L HEMATOCRIT (test code = HCT) 34.5 % 37-47 L HGB [id number] 05:54:00 Test Item Value Reference Range Interpretation Comments HEMOGLOBIN (test code = HGB) 10.7 g/dL 12-16 L HEMATOCRIT (test code = HCT) 33.3 % 37-47 L HGB [id number] 06:02:00 Test Item Value Reference Range Interpretation Comments HEMOGLOBIN (test code = HGB) 12.1 g/dL 12-16 N HEMATOCRIT (test code = HCT) 38.1 % 37-[address] Chest External [id number] 20:59:55This exam was not acquired at a [facility] facility and has not been interpreted by a [facility] Provider. The exam was imported into our imaging system.[facility] METABOLIC [id number] 19:47:00 Test Item Value Reference Range Interpretation [...] RATE (test code = GFR) mL/mi n/1.73 j9Dfnnavaxz Range:Healthy Adults >90 mL/min/1.73 m2 For Chronic Kidney Disease: St age II Mild Decrease in GFR 60-90 St age III Moderate Decrease in GFR 30-59 Stage IV Severe Decre ase in GFR 15- 29 Stage V Kidney Failure <15 CREATININE (test code 0.85 mg/dL 0.55-1.30 N = CREAT) CALCIUM (test code = 8.5 mg/dL 8.2-10.1 N CA) PROTHROMBIN [id number] 18:28:00 Test Item Value Reference Range Interpretation [...] BLOOD, PT every other day NTHROMBOPLASTIN TIME [id number] 18:28:00 Test Item Value Reference Range Interpretation [...] code = NRBC) - MRI L-SPINE W/O [id number] 11:24:00 [facility] : 1945 Sex: F Patient Name: ODALIS RUVALCABA Unit No: [id number] EXAMS: CPT CODE: [id number] MRI L-SPINE W/O CONT 17091 DIAGNOSIS: 1. At L1-2 there is 2 [...] MD Technologist: GERTRUDIS ARREDONDO RT(R) Transcribed D/ (8989) [id number] [facility] NAME: ODALIS RUVALCABA [address] [facility] PHYS: Kian Harmon : 1945 AGE: 74 SEX: F [place], [place] [address] LOC: Y.MRI PHONE #: [phone] EXAM DATE: 01/25/2020 STATUS: REG CLI FAX #: [phone] RAD #: D/C DT PAGE 1 Signed Report Patient Name: ODALIS RUVALCABA Unit No: [id number] EXAMS: CPT CODE: [id number] MRI L- SPINE W/O CONT 19685 <Continued> Orig Print D/T: S: 01/25/2020 (0088) [facility] NAME: ODALIS RUVALCABA [address] [facility] PHYS: Kian Haromnn M : 1945 AGE: 74 SEX: F [place], [place] [address] LOC: ERASMO PHONE #: [phone] EXAM DATE: 01/25/2020 STATUS: REG CLI FAX #: [phone] RAD #: D/C DT PAGE 2 Signed ReportAFB [id number] 18:13:09 Test Item Value Reference Range Interpretation Comments AFB culture isolate No growth after 6 (test code = 543-9) weeks of incubation. [facility] [id number] 18:15:09 Test Item Value Reference Range Interpretation Comments Fungus culture isolate No growth after 4 (test code = 1441) weeks of incubation. [facility] [id number] 14:47:41 Test Item Value Reference Range Interpretation Comments Anaerobic culture No anaerobic organisms isolate (test code = isolated. 552) [facility] HospitalAFB [id number] 19:21:55 Test Item Value Reference Range Interpretation Comments AFB stain (test code = No acid fast bacilli 676-7) (AFB) seen. [facility] [id number] 19:21:55 Test Item Value Reference Range Interpretation Comments Aerobic culture isolate No growth after 3 (test code = 498) days. [facility] [id number] 19:21:55 Test Item Value Reference Range Interpretation Comments Fungus smear (test code = No fungi observed. 1443) [facility] HospitalGram [id number] 19:21:55Gram stain isolateRare WBC'sNo organisms seen Comment: Specimen InformationSpecimen Source: FluidSpecimen Site: Lun R [facility]ITALMethod[facility] [id number] 13:11:32Anusha Loera 12/06/2019 8:14 AMAirway Date/Time: 12/06/2019 8:08 AMPerformed by: Anusha Loerauthorized by: Sophie Goss MD Location: ORUrgency: ElectiveAnesthesiologist: Sophie Goss, MDResident/RECORD CENTER COORDINATOR/AA: Anusha Loera Anesthesia Staff: Gabriel Medrano EPerformed by: other anesthesia staffPreoxygenated with 100% [...] secure.No damage to lips, teeth, or gums. VSS.[facility] at WayneCcjxeituNIXR-ZjQ-8 (COVID-19) RNA [Presence] in Respiratory specimen by HODAN with probe [id number] 22:18:49 Test Item Value Reference Range Interpretation Comments SARS-CoV-2 (COVID-19) RNA Not detected Not-Detected [Presence] in Respiratory specimen by HODAN with probe detection (test code = 55252-7) - XR PELVIS 1/2 [id number] 09:43:00 Patient Name: ODALIS RUVALCABA Unit No: [id number] EXAMS: CPT CODE: [id number] XR PELVIS 1/2 VIEWS 80581 AP VIEW OF THE PELVIS. COMMENT: In progress tot al left hip arthroplasty. AP view of the pelvis COMMENT: COMPARISON: No prior exams available. Completed total left hip arthroplasty. Prosthesis appears to be in good position. at 0943 Reported and signed by: Sudhir Kirby M.D. CC: Jessee Santiago MD Technologist: ESTEFANIA WHITE (RT.R) Transcribed D/ (0943) [facility]: ODALIS RUVALCABA [address] [place] [address] PHYS: MATVA.Jessee Lopez : 1945 AGE: 73 SEX: F [place] [address] LOC: Y.501 A PHONE #: [phone] EXAM DATE: 01/11/2019 STATUS: ADM IN FAX #: [phone] RAD #: D/C DT PAGE 1 Signed Report Patient Name: ODALIS RUVALCABA Unit No: [id number] EXAMS: CPT CODE: [id number] XR PELVIS 1/2 VIEWS 36941 <Continued> Orig Print D/T: S: 01/12/2019 (0947) [facility] NAME: [facility]ABAGUERNSE[facility]ALSue [address] [place] [address] PHYS: MATVADanita - Jessee Santiago : 1945 AGE: 73 SEX: F [place] [address] LOC: Y.501 A PHONE #: [phone] EXAM DATE: 01/11/2019 STATUS: ADM IN FAX #: [phone] RAD #: D/C DT PAGE 2 Signed Report- XR PELVIS 1/2 [id number] 09:43:00 Patient Name: ODALIS RUVALCABA Unit No: [id number] EXAMS: CPT CODE: [id number] XR PELVIS 1/2 VIEWS 12534 AP VIEW OF THE PELVIS. COMMENT: In progress total left hip arthroplasty. AP view of the pelvis COMMENT: COMPARISON: No prior exams available. Completed total left hip arthroplasty. Prosthesis appears to be in good position. at 0943 Reported and signed by: Sudhir Kirby M.D. CC: Jessee Santiago MD Technologist: ESTEFANIA WHITE (RT.R) Transcribed D/ (1394) [facility] NAME: ODALIS RUVALCABA[address] PHYS: Jessee Britton : 1945 AGE: 73 SEX: F [place] [address] LOC: Y.501 A PHONE #: [phone] EXAM DATE: 01/11/2019 STATUS: ADM IN FAX #: [phone] RAD #: D/C DT PAGE 1 Signed Report Patient Name: ODALIS RUVALCABA Unit No: [id number] EXAMS: CPT CODE: [id number] XR PELVIS 1/2 VIEWS 98189 <Continued> Orig Print D/T: S: 01/12/2019 (0947) [facility] NAME: ODALIS RUVALCABA [address] [facility] PHYS: Jessee Britton : 1945 AGE: 73 SEX: F [place] [address] LOC: Y.501 A PHONE #: [phone] EXAM DATE: 01/11/2019 STATUS: ADM IN FAX #: [phone] RAD #: D/C DT PAGE 2 Signed ReportBASI METABOLIC [id number] 07:12:00 Test Item Value Reference Range Interpretation [...] RATE (test code = GFR) mL/mi n/1.73 w6Hqntoqhan Range:Healthy Adults >90 mL/min/1.73 m2 For Chronic Kidney Disease: St age II Mild Decrease in GFR 60-90 St age III Moderate Decrease in GFR 30-59 Stage IV Severe Decre ase in GFR 15- 29 Stage V Kidney Failure <15 CREATININE (test code 1.02 mg/dL 0.55-1.30 N = CREAT) CALCIUM (test code = 8.3 mg/dL 8.2-10.1 N CA) HGB [id number] 05:59:00 Test Item Value Reference Range Interpretation Comments HEMOGLOBIN (test code = HGB) 11.0 g/dL 12-16 L HEMATOCRIT (test code = HCT) 34.0 % 37-47 L COMPREHENSIVE METABOLIC [id number] 20:53:00 Test Item Value Reference Range Interpretation [...] RATE (test code = GFR) mL/mi n/1.73 p4Occgujmnb Range:Healthy Adults >90 mL/min/1.73 m2 For Chronic [...] TOTAL (test code = ALKP) CBC W/AUTO [id number] 20:31:00 Test Item Value Reference Range Interpretation [...] % 0-0 N code = NRBC) PROTHROMBIN [id number] 20:26:00 Test Item Value Reference Range Interpretation [...] Patient is on Heparin Drip? NOTHROMBOPLASTIN TIME [id number] 20:26:00 Test Item Value Reference Range Interpretation Comments PTT ACTIVATED (test code = APTT) 32.1 secs 24.9-37.0 N IS PATIENT ON ANTICOAGULANTS ? NHas Lab been notified if Patient is on Heparin Drip? NO
--- NOTE | 2020-10-06 00:17 | ER ---
Nurse's Notes [facility] Name: Khushbu Keith Age: 75 yrs Sex: Female : 1945 Arrival Date: 10/05/2020 Time: 21:19 Bed Treatment Private MD: Diagnosis: Acute headache. Healing wound left groin Presentation: 10/05 22:46 Chief complaint: Patient states: increased headache x 5 days. Vaginal pain x 5 weeks. kg Pt is scheduled for MRI but pain has increased. Also pt had skin stag removed from vulva Thursday but has gotten worse. Coronavirus screen: Client denies travel out of the [place] in the last 14 days. At this time, unable to obtain information related to travel outside the [place] At this time, the client does not indicate any symptoms associated with coronavirus-19. Ebola Screen: Patient negative for fever greater than or equal to 101.5 degrees Fahrenheit, and additional compatible Ebola Virus Disease symptoms Patient denies exposure to infectious person. Patient denies travel to an Ebola-affected area in the 21 days before illness onset. Initial Sepsis Screen: Does the patient meet any 2 criteria? No. Patient's initial sepsis screen is negative. Does the patient have a suspected source of infection? No. Patient's initial sepsis screen is negative. Risk Assessment: Do you want to hurt yourself or someone else? Patient reports no desire to harm self or others. Onset of symptoms was September 30, 2020. 22:46 Method Of Arrival: Ambulatory kg 22:46 Acuity: CONCHA 3 kg Triage Assessment: 22:52 Headache History: The patient has had previous headaches and this one is more severe kg than previous episodes. General: Appears in no apparent distress. Behavior is calm, cooperative, appropriate for age, quiet. Pain: Pain currently is 6 out of 10 on a pain scale. at worst was 8 out of 10 on a pain scale. level that patient reports is acceptable is 1 out of 10 on a pain scale. Pain began gradually, Also complains of no other associated symptoms. Neuro: Reports headache. Historical: - Allergies: 22:52 Codeine; kg 22:52 Erythromycin; kg - Home Meds: 22:52 amlodipine 10 mg tab once daily [Active]; aripiprazole 5 mg Oral tab once daily kg [Active]; gabapentin 100 mg Oral cap 1-3 caps daily [Active]; Hydrocodone-Acetaminophen Oral [Active]; levothyroxine 75 mcg tab once daily [Active]; lorazepam 0.5 mg Oral tab once a day [Active]; metoprolol succinate 100 mg Oral Tb24 once daily [Active]; omeprazole 20 mg Oral cpDR 1 cap once daily [Active]; primidone 250 mg Oral tab twice a day [Active]; ramelteon 8mg nightly Oral [Active]; Vitamin D3 2,000 unit Oral cap daily [Active]; rosuvastatin 40 mg Oral tab once daily [Active]; venlafaxine 150 mg Oral cp24 twice a day [Active]; - PMHx: 22:52 right plantar fascitis; Osteoarthritis to hands; metastatic breast cancer, brain and kg lung; left hip sciatica; Hypertension; Hyperlipidemia; bilateral mastectomy 2015; Anxiety; - PSHx: 22:52 Brain sx; lung biopsy x 3; kg - Immunization history:: Adult Immunizations up to date, Client reports receiving the 2nd dose of the Covid vaccine, Date received: June 04, 2020 [facility] Client reports receiving the 1st dose of the Covid vaccine, May 07, 2020 [facility]. - Social history:: Smoking status: Patient denies any tobacco usage or history of. Patient uses alcohol, on a daily basis. Screenin:05 Abuse screen: Denies threats or abuse. Denies injuries from another. Nutritional kg screening: No deficits noted. Tuberculosis screening: No symptoms or risk factors identified. Fall Risk None identified. Assessment: 23:45 General: Appears in no apparent distress. uncomfortable, Behavior is calm, cooperative, jb4 appropriate for age. Pain: Complains of pain in headache Pain does not radiate. Pain currently is 6 out of 10 on a pain scale. Neuro: Level of Consciousness is awake, alert, obeys commands, Oriented to person, place, time, situation. Cardiovascular: Patient's skin is warm and dry. Respiratory: Airway is patent Respiratory effort is even, unlabored, Respiratory pattern is regular, symmetrical. GI: No signs and/or symptoms were reported involving the gastrointestinal system. : No signs and/or symptoms were reported regarding the genitourinary system. EENT: No signs and/or symptoms were reported regarding the EENT system. Derm: Skin is intact, Skin is pink, warm \T\ dry. Musculoskeletal: Circulation, motion, and sensation intact. Range of motion: intact in all extremities. 10/06 01:05 Reassessment: Patient appears in no apparent distress at this time. Patient and/or jb4 family updated on plan of care and expected duration. Pain level reassessed. Patient is alert, oriented x 3, equal unlabored respirations, skin warm/dry/pink. Vital Signs: 10/05 22:46 BP 172 / 78; Pulse 93; Resp 20; Temp 98.5(O); Pulse Ox 100% on R/A; Weight 99.34 kg kg (R); Height 5 ft. 5 in. (165.10 cm); Pain 6/10; 10/06 00:45 BP 176 / 82; Pulse 89; Resp 16; Pulse Ox 98% on R/A; jb4 10/05 22:46 Body Mass Index 36.44 (99.34 kg, 165.10 cm) kg ED Course: 10/05 21:19 Patient arrived in ED. bp1 22:52 Triage completed. kg 22:52 Arm band placed on. kg 23:41 Vinnie Hughes MD is Attending Physician. pkl 23:45 Patient has correct armband on for positive identification. Bed in low position. Call jb4 light in reach. Side rails up X 1. Pulse ox on. NIBP on. 10/06 00:16 Koby Zapata, RN is Primary Nurse. jb4 01:05 No provider procedures requiring assistance completed. Patient did not have IV access jb4 during this emergency room visit. Administered Medications: 00:30 Drug: morphine 5 mg Route: IM; Site: left deltoid; jb4 01:00 Follow up: Response: No adverse reaction; Marked relief of symptoms; Pain is decreased; jb4 RASS: Alert and Calm (0) 00:30 Drug: Ondansetron 4 mg Route: PO; jb4 00:59 Follow up: Response: No adverse reaction jb4 Outcome: 00:16 Discharge ordered by . pkl 01:05 Discharged to home via wheelchair, with family. jb4 01:05 Condition: stable 01:05 Discharge instructions given to patient, Instructed on discharge instructions, follow up and referral plans. medication usage, Demonstrated understanding of instructions, follow-up care, medications, Prescriptions given X 1. 01:05 Patient left the ED. jb4 Signatures: Vinnie Hughes MD MD pkKoby Elkins, RN RN jb4 Donna Madrid Kristen RN RN kg
--- NOTE | 2020-10-06 00:17 | EDPHYS ---
Physician Documentation [facility] Name: Khushbu Keith Age: 75 yrs Sex: Female : 1945 Arrival Date: 10/05/2020 Time: 21:19 Bed Treatment Private MD: ED Physician Vinnie Hughes HPI: 10/06 00:00 This 75 yrs old Female presents to ER via Ambulatory with complaints of pkl Vaginal Pain, Headache, - Brain Cancer. 00:02 The patient complains of pain to the right parietal region. The patient describes the pkl headache as constant. Onset: The symptoms/episode began/occurred 5 day(s) ago. Associated signs and symptoms: Pertinent positives: pain left groin. Patient had skin tag removed from her left groin [address] Craft. 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 Patient scheduled for MRI of the brain on Thursday ( 10/08/20 ) and CT Scans of the chest/abdomen on Thursday ( 10/10/20 ). Here tonight for pain relief of her headache and left groin. Does not want any imaging studies tonight. Historical: - Allergies: 10/05 22:52 Codeine; kg 22:52 Erythromycin; kg - Home Meds: 22:52 amlodipine 10 mg tab once daily [Active]; aripiprazole 5 mg Oral tab once daily kg [Active]; gabapentin 100 mg Oral cap 1-3 caps daily [Active]; Hydrocodone-Acetaminophen Oral [Active]; levothyroxine 75 mcg tab once daily [Active]; lorazepam 0.5 mg Oral tab once a day [Active]; metoprolol succinate 100 mg Oral Tb24 once daily [Active]; omeprazole 20 mg Oral cpDR 1 cap once daily [Active]; primidone 250 mg Oral tab twice a day [Active]; ramelteon 8mg nightly Oral [Active]; Vitamin D3 2,000 unit Oral cap daily [Active]; rosuvastatin 40 mg Oral tab once daily [Active]; venlafaxine 150 mg Oral cp24 twice a day [Active]; - PMHx: 22:52 right plantar fascitis; Osteoarthritis to hands; metastatic breast cancer, brain and kg lung; left hip sciatica; Hypertension; Hyperlipidemia; bilateral mastectomy 2015; Anxiety; - PSHx: 22:52 Brain sx; lung biopsy x 3; kg - Immunization history:: Adult Immunizations up to date, Client reports receiving the 2nd dose of the Covid vaccine, Date received: June 04, 2020 Client reports receiving the 1st dose of the Covid vaccine, May 07, 2020. - Social history:: Smoking status: Patient denies any tobacco usage or history of. Patient uses alcohol, on a daily basis. ROS: 10/06 00:13 Eyes: Negative for injury, pain, redness, and discharge, ENT: Negative for injury, pkl pain, and discharge, Neck: Negative for injury, pain, and swelling, Cardiovascular: Negative for chest pain, palpitations, and edema, Respiratory: Negative for shortness of breath, cough, wheezing, and pleuritic chest pain. Abdomen/GI: Positive for abdominal pain, of the left groin. Back: Negative for acute changes. : Negative for urinary symptoms. MS/extremity: Negative for acute changes. Skin: Positive for healing wound left groin. Neuro: Positive for headache, of the right parietal region. Exam: 00:13 Head/Face: Normocephalic, atraumatic. Eyes: Pupils equal round and reactive to light, pkl extra-ocular motions intact. Lids and lashes normal. Conjunctiva and sclera are non-icteric and not injected. Cornea within normal limits. Periorbital areas with no swelling, redness, or edema. ENT: Nares patent. No nasal discharge, no septal abnormalities noted. Tympanic membranes are normal and external auditory canals are clear. Oropharynx with no redness, swelling, or masses, exudates, or evidence of obstruction, uvula midline. Mucous membranes moist. Neck: Trachea midline, no thyromegaly or masses palpated, and no cervical lymphadenopathy. Supple, full range of motion without nuchal rigidity, or vertebral point tenderness. No Meningismus. Chest/axilla: Normal chest wall appearance and motion. Nontender with no deformity. No lesions are appreciated. Cardiovascular: Regular rate and rhythm with a normal S1 and S2. No gallops, murmurs, or rubs. Normal PMI, no JVD. No pulse deficits. Respiratory: Lungs have equal breath sounds bilaterally, clear to auscultation and percussion. No rales, rhonchi or wheezes noted. No increased work of breathing, no retractions or nasal flaring. Abdomen/GI: Soft, non-tender, with normal bowel sounds. No distension or tympany. No guarding or rebound. No evidence of tenderness throughout. Back: No spinal tenderness. No costovertebral tenderness. Full range of motion. MS/ Extremity: Pulses equal, no cyanosis. Neurovascular intact. Full, normal range of motion. Neuro: Awake and alert, GCS 15, oriented to person, place, time, and situation. Cranial nerves II-XII grossly intact. Motor strength 5/5 in all extremities. Sensory grossly intact. Cerebellar exam normal. Normal gait. 00:13 Skin: healing left groin. Vital Signs: 10/05 22:46 BP 172 / 78; Pulse 93; Resp 20; Temp 98.5(O); Pulse Ox 100% on R/A; Weight 99.34 kg kg (R); Height 5 ft. 5 in. (165.10 cm); Pain 6/10; 10/06 00:45 BP 176 / 82; Pulse 89; Resp 16; Pulse Ox 98% on R/A; jb4 10/05 22:46 Body Mass Index 36.44 (99.34 kg, 165.10 cm) kg MDM: 10/05 23:41 Patient medically screened. pkl 10/06 00:13 Data reviewed: vital signs, nurses notes. pkl Administered Medications: 00:30 Drug: morphine 5 mg Route: IM; Site: left deltoid; jb4 01:00 Follow up: Response: No adverse reaction; Marked relief of symptoms; Pain is decreased; jb4 RASS: Alert and Calm (0) 00:30 Drug: Ondansetron 4 mg Route: PO; jb4 00:59 Follow up: Response: No adverse reaction jb4 Disposition Summary: 10/06/20 00:16 Discharge Ordered Location: Home pkl Problem: new pkl Symptoms: have improved pkl Condition: Stable pkl Diagnosis - Acute headache. Healing wound left groin pkl Followup: pkl - With: Private Physician - When: 2 - 3 days - Reason: Re-evaluation by your physician Discharge Instructions: - Discharge Summary Sheet pkl Forms: - Medication Reconciliation Form pkl - Thank You Letter pkl - Antibiotic Education pkl - Prescription Opioid Use pkl Prescriptions: - Zofran 4 mg Oral Tablet - take 1 tablet by ORAL route every 12 hours As needed; 12 tablet; Refills: 0, pkl Product Selection Permitted Signatures: Vinnie Hughes MD MD pkl Koby Zapata RN RN jb4 Yi Marshall RN RN kg
[2020-10-06] MEDS ORDERED: ONDANSETRON 4 MG (ODT) TAB ONE (00:43)
[2020-10-06] MEDS ORDERED: MORPHINE 4 MG/ML SYR ONE (00:43)
[2020-10-06] MEDS ORDERED: MORPHINE 2 MG/ML SYR ONE (00:43)
[2020-10-06 01:13] VITALS: TEMP 98.5
[2020-10-06 01:15] VITALS: BP 176/82; O2SAT 98
== END 2020-10-06 01:05 | disposition home or self-care (01) ==
LOC: ER 21:16
DX: R51.9 Headache, unspecified (principal); S31.104A Unspecified open wound of abdominal wall, left lower quadrant without penetration into peritoneal cavity, initial encounter; Z98.890 Other specified postprocedural states; C50.919 Malignant neoplasm of unspecified site of unspecified female breast; C78.00 Secondary malignant neoplasm of unspecified lung; C79.31 Secondary malignant neoplasm of brain; I10 Essential (primary) hypertension; F41.9 Anxiety disorder, unspecified; Z90.13 Acquired absence of bilateral breasts and nipples; Z88.3 Allergy status to other anti-infective agents; Z88.5 Allergy status to narcotic agent
CPT/HCPCS: 96372; 99283; J2270

== ENCOUNTER 2020-10-27 18:19 | Emergency (ER) | payer OTHER, BC ==
--- OUTSIDE RECORDS SUMMARY | 2020-10-27 18:25 | XMS REPORT | Continuity of Care Document ---
:1945 Author Organization [facility] t Address [address] [place] [address] Care Team Providers Name Role Phone Jonny Her MD Primary Care Physician Addison Perez Attending Clinician Gael Jeffrey MD Attending Clinician Salomon BRADFORD Attending Clinician Korin Morrow MD Attending Clinician Gisel JACKMAN Attending Clinician Unavailable Xavier BRADFORD, Y.H. Attending Clinician Meredith Stoddard MD Attending Clinician Jane Goldstein NP Attending Clinician Brenda Sutton MD Attending Clinician Francisco CHEN Attending Clinician Valentine BRADFORD Attending Clinician Only, Test Attending Clinician Unavailable Layo Goss MD Attending Clinician Jaspal Young Attending Clinician Unavailable Jena RN, T Attending Clinician Unavailable Lab, Fam Pob I Attending Clinician Unavailable Doctor Unassigned, Name Attending Clinician Unavailable 1, Lab Attending Clinician Unavailable PARK Admitting Clinician Unavailable Payers Payer Name Policy Type Policy Effective Date Expiration Date Sour ce Number MEDICAREMEDICARE PART [id number] 2009 Me yemiodist A AND 00:00:00 Hospital [id number] [id number]AD [id number] 2016 Method ist [id number]/03/03 0 00:00:00 Hos pital 017-PresentIndemnity Problems Condition Condition Condition Status Onset Resolution Last Treating Co mments Source Name Details Category Date Date Treatment Clinician Date LAD LAD Disease Active Overview: Method i (lymphaden (lymphaden 9- Form[facility] opathy), opathy), 00:00: g of this Hos zoila hilar hilar 00 note l might be different from the original. Added automatic ally from request for surgery [id number] Lung Lung Disease Active Overview: Method i metastases metastases 9- [facility] 00:00: g of this Hospita 00 note l might be different from the original. Added automatic ally from request for surgery [id number] Personal Personal Disease Active Overview: Me thodi history of history of 9- [facility] lung lung 00:00: g of this Hospita cancer cancer 00 note l might be different from the original. 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 [...] 2020-08-24 M emoria a 02:04:35 l (finding) [place] Paresthesi a (finding) Active Problem 08/24/2020 [facility] Amnesia Problem Active 2020-08-24 Fred britta (finding) 02:04:35 l Amnesia [place] (finding) Active Problem 08/24/2020 [facility] Malignant Problem Active 2020-08-24 Me moria tumor of 02:04:35 l breast [place] (disorder) Malignant tumor of breast (disorder) Active Problem 08/24/2020 [facility] Allergies, Adverse Reactions, Alerts Allergy Allergy Status Severity Reaction(s) Onset Inactive Treating Comm ents Source Name Type Date Date Clinician No Known DA Active U 2020- [facility]21 Clear Allergie 00:00: [facility] codeine DA Active [place] 2020-1 [facility] 2-21 Clear 00:00: [facility] 00 [facility] erythrom DA Active [place] 2020-1 [facility] ycin 2- Clear base 00:00: Cox 00 [facility] adhesive DA Active [place] 2020- [facility] tape 2- Clear 00:00: Cox 00 [facility] No Known DA Active U 2020-1 [facility] Drug 1-25 Clear Allergie 00:00: [facility] codeine DA Active MO 2020-1 [facility] 1-25 Clear 00:00: Cox 00 [facility] erythrom DA Active [place] 2020-1 [facility] ycin 1-25 Clear base 00:00: Cox 00 [facility] adhesive DA Active MO 2020-1 [facility] tape 1-25 Clear 00:00: Cox 00 [facility] codeine DA Active [place] 2019-1 [facility] 1-12 [place] 00:00: [facility] 00 dic Hosp[facility] l erythrom DA Active MO 2019-1 [facility] ycin 1-12 [place] base 00:00: Orthope 00 dic Hospita l adhesive DA Active [place] 2019- [facility] tape 1-12 [place] 00:00: Orthope 00 dic Hospita l adhesive DA Active MO 2019-1 [facility] tape 1-08 [place] 00:00: Orthope 00 dic Hospita l codeine DA Active [place] 2019-1 [facility] 1-06 Clear 00:00: Cox 00 [facility] erythrom DA Active MO 2019-1 [facility] ycin 1-06 Clear base 00:00: Cox 00 [facility] Codeine Propensi Active Methodi ty to [...] Date Source Natural brother Basal cell carcinoma [facility] Natural brother Breast cancer [facility] Natural brother Heart disease [facility] Natural brother Prostate cancer [facility] Natural brother Stomach cancer [facility] Natural father Brain cancer [facility] Natural mother Colon cancer [facility] Natural mother Colon polyps [facility] Natural mother Hypertension [facility] Social History Social Habit Start Date Stop Date Quantity Comments Source Cigarettes smoked 2020-04-06 2020-04-06 [facility] current (pack per 00:00:00 00:00:00 Hospita l day) - Reported Cigarette 2020-04-06 2020-04-06 [facility] pack-years 00:00:00 00:00:00 Hospital Tobacco use and 2020-04-06 2020-04-06 Never used [facility] exposure 00:00:00 00:00:00 Hospital Alcohol intake 2020-04-06 2020-04-06 Current drinker [facility] dist 00:00:00 00:00:00 of alcohol Hospital (finding) History of tobacco 1969-11-19 1994-04-16 Cigarette Smoker [facility] use 00:00:00 00:00:00 Hospital Sex Ass[birth year] At [birth year] [facility] 00:00:00 00:00:00 Hospital Smoking Status Start Date Stop Date Source Former smoker 2020-04-06 00:00:00 2020-04-06 00:00:00 [facility] Medications Ordered Filled Start Stop Current Ordering Indication Dosage Frequency Signature Comments Components Source Medication Medication Date Date Medication? Clinician (SIG) Name Name morris Yes 8 mg = 1 Me moria mg oral 6-22 tab, PO, l tablet 20:00: Bedtime, # Mindy nn 00 30 tab, 1 Refill(s) ramelteon 8 Yes 8 mg = 1 Me moria mg oral 6-22 tab, PO, l tablet 20:00: Bedtime, # Mindy nn 00 30 tab, 1 Refill(s) ramelteon Yes TAKE 1 Method i (ROZEREM) 8 4-26 TABLET(8 st mg tablet 00:00: MG) BY Hospit a 00 MOUTH l EVERY NIGHT ramelteon Yes TAKE 1 Method i (ROZEREM) 8 4-26 TABLET(8 st mg tablet 00:00: MG) BY Hospit a 00 MOUTH l EVERY NIGHT gabapentin Yes 800 mg = 2 M emoria 400 MG Oral 3-22 cap, PO, l Capsule 21:24: TID, # 540 Herm gabriel 00 cap, 2 Refill(s), Pharmacy: [facility], 162.56, cm, 05/17/19 11:00:00 CDT, Height, 96.818, kg, 05/21/20 16:00:00 CDT, Weight gabapentin Yes 800 mg = 2 M emoria 400 MG Oral 3-22 cap, PO, l Capsule 21:24: TID, # 540 Herm gabriel 00 cap, 2 Refill(s), Pharmacy: [facility], 162.56, cm, 05/17/19 11:00:00 CDT, Height, 96.818, kg, 05/21/20 16:00:00 CDT, Weight [place]DROcodone 2020- No [id number] 1{tbl} Q4H Take 1 Methodi -acetaminop 2-26 -[address] [facility]) 00:00: 04:59 mouth Hosp daisy 10-325 mg 00 :00 every 4 l per tablet (four) hours as needed for moderate pain for up to 100 doses .chronic pain. Max Daily Amount: 6 tablets HYDROcodone 2020- No [id number] 1{tbl} Q4H Take 1 Methodi -acetaminop 2-26 03-[address] [facility]) 00:00: 04:59 mouth Hosp daisy 10-325 mg 00 :00 every 4 l per tablet (four) hours as needed for moderate pain for up to 100 doses .chronic pain. Max Daily Amount: 6 tablets venlafaxine 0 Yes 150mg QD Take 150 M ethodi XR 2-[address] (EFFEXOR-XR 01:28: mouth Hospi ta ) 150 MG 24 35 daily. l hr capsule PRIMIDONE 0 Yes 250mg Q.5D Take 250 Met hodi [...] take it in l the evening topiramate 0 Yes 50mg Q.5D Take 50 mg M ethodi (TOPAMAX) 2-[address] 25 MG 01:28: (two) Hospita tablet 35 times a l day. One in the morning , one at night cholecalcif 2020-0 Yes 2000U QD Take 2,000 Methodi mario, 2-[address] vitamin D3, 01:28: mouth Hospi ta 400 unit 35 daily. l tablet LORAZepam Yes .5mg Q6H Take 0.5 Meth colleen (ATIVAN) 2-[address] 0.5 MG 01:28: mouth Hospita tablet 35 every 6 l (six) hours as needed for anxiety. vit A/vit Yes Take by Metho di C/vit 2-[address] E/zinc/ashlyn 01:28: Hospit a er (ICAPS 35 l AREDS ORAL) gabapentin Yes 100mg Q.[id number] Take 100 Methodi (NEURONTIN) 2-04 [id number] mg by s t 100 mg 01:28: 3D mouth 3 Hospita capsule 35 (three) l times a day. venlafaxine Yes 150mg QD Take 150 M [...] mario, 2-[address] vitamin D3, 01:28: mouth Hospi ta 400 unit 35 daily. l tablet LORAZepam Yes .5mg Q6H Take 0.5 Meth colleen (ATIVAN) 2-[address] 0.5 MG 01:28: mouth Hospita tablet 35 every 6 l (six) hours as needed for anxiety. vit A/vit Yes Take by Metho di C/vit 2-[address] E/zinc/ashlyn 01:28: Hospit a er (ICAPS 35 l AREDS ORAL) gabapentin Yes 100mg Q.[id number] Take 100 Methodi (NEURONTIN) 2-04 [id number] mg by s t 100 mg 01:28: 3D mouth 3 Hospita capsule 35 (three) l times a day. losartan 2020- No 100mg QD Take 100 Met hodi (COZAAR) 2-03 02-[address] 100 MG 16:43: 00:00 mouth Hospita tablet 34 :00 daily. l losartan 2020- No 100mg QD Take 100 Met hodi (COZAAR) 2-03 02-[address] 100 MG 16:43: 00:00 mouth Hospita tablet 34 :00 daily. l letrozole 2020- No QD Take by Meth colleen (FEMARA) 2-03 02-[address] 2.5 mg 16:43: 00:00 daily. Hospita chemo 03 :00 l tablet letrozole 2020- No QD Take by Meth colleen (FEMARA) 2-03 02-[address] 2.5 mg 16:43: 00:00 daily. Hospita chemo 03 :00 l tablet ramelteon 2020- No 8mg QD Take 1 Metho di (Rozerem) 8 5-12 04-26 tablet (8 st mg tablet 00:00: 00:00 mg total) Ho spita 00 :00 by mouth l nightly. ramelteon 2020- No 8mg QD Take 1 Metho di (Rozerem) 8 07-11 tablet (8 st mg tablet 00:00: 00:00 mg total) Ho spita 00 :00 by mouth l nightly. thiamine 2020-0 Yes 100 mg = 1 Mem oria 100 mg oral 4-28 tab, PO, l tablet 19:04: Daily, X Miguel Angel 90 day, # 90 tab, 4 Refill(s), [facility]: [facility] thiamine 2020-0 Yes 100 mg = 1 Mem oria 100 mg oral 4-28 tab, PO, l tablet 19:04: Daily, X Miguel Angel 00 90 day, # 90 tab, 4 Refill(s), Pharmacy: [facility] butalbital- 2020- No 1{tbl} Q6H Take 1 M ethodi acetaminoph 4-03 03-[address] [facility] 00:00: 00:00 mouth Hospita (FIORICET) 00 :00 every 6 l 50-325-40 (six) mg per hours as tablet needed for headaches. butalbital- 2020- No 1{tbl} Q6H Take 1 M ethodi acetaminoph 4-03 03-[address] [facility] 00:00: 00:00 mouth Hospita (FIORICET) 00 :00 every 6 l 50-325-40 (six) mg per hours as tablet needed for headaches. letrozole 2020-0 Yes 2.5 mg = 1 Me moria 2.5 mg oral 3-17 tab, PO, l tablet 16:28: Daily, 0 Miguel Angel 00 Refill(s) letrozole 2020-0 Yes 2.5 mg = 1 Me moria 2.5 mg oral 3-17 tab, PO, l tablet 16:28: Daily, 0 Miguel Angel 00 Refill(s) letrozole 2020-0 Yes 0 Memoria 2.5 mg oral 3-17 Refill(s) l tablet 16:11: Miguel Angel 00 letrozole 2020-0 Yes 0 Memoria 2.5 mg oral 3-17 Refill(s) l tablet 16:11: [place] 00 primidone 2020-0 Yes = 1 tab, Fred britta 250 mg oral 1-30 PO, BID, # l tablet 17:11: 180 tab, 2 Mindy nn 00 Refill(s), Pharmacy: [facility] topiramate 2020-0 Yes 100 mg = 1 M emoria 100 mg oral 1-30 tab, PO, l tablet 17:11: BID, # 180 Mindy nn 00 tab, 2 Refill(s), Pharmacy: [facility] primidone 2020-0 Yes = 1 tab, Fred britta 250 mg oral 1-30 PO, BID, # l tablet 17:11: 180 tab, 2 Mindy nn 00 Refill(s), Pharmacy: [facility] topiramate 2020-0 Yes 100 mg = 1 M emoria 100 mg oral 1-30 tab, PO, l tablet 17:11: BID, # 180 Mindy nn 00 tab, 2 Refill(s), Pharmacy: [facility] gabapentin 2019-0 Yes 400 mg = 1 M emoria 400 MG Oral 9-20 cap, PO, l Capsule 18:27: BID, # 60 Mindy nn 11 cap, 1 Refill(s), Pharmacy: [facility] #[id number] gabapentin 2018-0 Yes 400 mg = 1 M emoria 400 MG Oral 9-20 cap, PO, l Capsule 18:27: BID, # 60 Mindy nn 11 cap, 1 Refill(s), Pharmacy: [facility] #[id number] topiramate 2019-0 Yes 50 mg = 1 Me moria 50 MG Oral 9-19 tab, PO, l Tablet 18:37: Daily, # [place] [Topamax] 42 90 tab, 2 Refill(s), other topiramate 2019-0 Yes 50 mg = 1 Me moria 50 MG Oral 9-19 tab, PO, l Tablet 18:37: Daily, # [place] [Topamax] 42 90 tab, 2 Refill(s), other gabapentin 2019-0 No 400 mg = 1 M emoria 400 MG Oral 9-19 cap, PO, l Capsule 18:37: BID, X 90 Mindy nn 00 day, # 180 cap, 3 Refill(s), Pharmacy: [facility] gabapentin 2019-0 No 400 mg = 1 [...] tab, 2 Refill(s), Pharmacy: [facility] topiramate Yes 50 mg = 1 Me moria 50 MG Oral 6-11 tab, PO, l Tablet 16:48: BID, # 180 Mindy nn [Topamax] 26 tab, 2 Refill(s), Pharmacy: [facility] primidone Yes = 1 tab, Fred britta 250 mg oral 5-06 PO, BID, # l tablet 15:11: 180 tab, [place] 35 Refill(s) 2, Pharmacy: [facility] primidone Yes = 1 tab, Fred britta 250 mg oral 5-06 PO, BID, # l tablet 15:11: 180 tab, Miguel Angel 35 Refill(s) 2, Pharmacy: [facility] topiramate Yes 50 mg = 1 Me moria 50 MG Oral 5-01 tab, PO, l Tablet 16:19: Bedtime, # Mindy nn [Topamax] 00 90 tab, 1 Refill(s), Pharmacy: [facility] topiramate Yes 50 mg = 1 Me moria 50 MG Oral 5-01 tab, PO, l Tablet 16:19: Bedtime, # Mindy nn [Topamax] 00 90 tab, 1 Refill(s), Pharmacy: [facility] topiramate 2019- No 50 mg = 1 M ethodi (TOPAMAX) 06-30 tab, PO, st 50 MG 00:00: 00:00 Daily, # Hospita tablet 00 :00 90 tab, 2 l Refill(s), other topiramate 2019- No 50 mg = 1 M ethodi (TOPAMAX) 06-30 tab, PO, st 50 MG 00:00: 00:00 Daily, # Hospita tablet 00 :00 90 tab, 2 l Refill(s), other Carbidopa No 1 tab, PO, Me moria 25 MG / 1-30 BID, # 180 l Levodopa 16:43: tab, 2 Miguel Angel 100 MG Oral 00 Refill(s), Tablet Pharmacy: [[facility] Carbidopa No 1 tab, PO, Me moria 25 MG / 1-30 BID, # 180 l Levodopa 16:43: tab, 2 [place] 100 MG Oral 00 Refill(s), Tablet Pharmacy: [Sin[facility] 25-100] [facility] 2017-03 No 250 mg = 1 Me moria 250 mg oral 1-28 tab, PO, l tablet 16:02: BID, # 180 Mindy nn 00 tab, 2 Refill(s), Pharmacy: [facility] 2017-03 No 250 mg = 1 Me moria 250 mg oral 1-28 tab, PO, l tablet 16:02: BID, # 180 Mindy nn 00 tab, 2 Refill(s), Pharmacy: [facility] No See Memoria 50 mg oral 3-29 Instructio l tablet 14:41: ns, # 360 Marcus n 15 tab, Refill(s) 2, TAKE 2 TABLETS TWICE A DAY, Pharmacy: [facility] No See Memoria 50 mg oral 3-29 Instructio l tablet 14:41: ns, # 360 Marcus n 15 tab, Refill(s) 2, TAKE 2 TABLETS TWICE A DAY, Pharmacy: [facility] amLODIPine Yes 10mg 10 mg. Metho di (NORVASC) 4-25 st 2.5 mg 00:00: Hospita tablet 00 l amLODIPine Yes 10mg 10 mg. Metho di (NORVASC) 4-25 st 2.5 mg 00:00: Hospita tablet 00 l Vital Signs Vital Name Observation Time Observation Value Comments Source Systolic (mm Hg) 2020-08-21 19:41:00 Fred rial Miguel Angel Diastolic (mm Hg) 2020-08-21 19:41:00 Mem orial Miguel Angel Heart Rate 2020-08-21 19:41:00 [facility] Angel Respitory Rate 2020-08-21 19:41:00 Memori al Mgiuel Angel Height 2020-08-21 19:41:00 165.1 cm [facility] [place] Weight 2020-08-21 [facility]:41:[facility] Calculated 2020-08-21 19:41:00 Memori al Miguel Angel Respitory Rate 2020-05-21 20:51:00 Memori al Miguel Angel Systolic (mm Hg) 2020-05-21 20:51:00 Fred rial [place] Diastolic (mm Hg) 2020-05-21 20:51:00 Mem orial [place] Heart Rate 2020-05-21 20:51:00 [facility] [place] Weight 2020-05-21 20:51:[address] [facility] Systolic blood 2020-04-05 00:07:00 133 mm[Hg] [facility] pressure Diastolic blood 2020-04-05 00:07:00 63 mm[Hg] [facility] pressure Heart rate 2020-04-05 00:07:00 74 /min [facility] Body temperature 2020-04-05 00:07:00 36.44 Antoinette [facility] Respiratory rate 2020-04-05 00:07:00 20 /min [facility] Oxygen saturation in 2020-04-05 00:07:00 95 /min [facility] Arterial blood by Pulse oximetry Body height 2020-04-04 16:31:00 165.1 cm [facility] Body weight 2020-04-04 16:31:00 97.523 kg [facility] BMI 2020-04-04 16:31:00 35.78 kg/m2 [facility] Systolic (mm Hg) 2019-05-17 16:00:00 Fred rial Miguel Angel Diastolic (mm Hg) 2019-05-17 16:00:00 Mem orial Miguel Angel Heart Rate 2019-05-17 16:00:00 [facility] [place] Respitory Rate 2019-05-17 16:00:00 Memori al [place] Height 2019-05-17 16:00:00 162.56 cm [facility] Angel Systolic (mm Hg) 2019-03-31 16:47:00 Fred rial [place] Diastolic (mm Hg) 2019-03-31 16:47:00 Mem orial [place] Heart Rate 2019-03-31 16:47:00 [facility] Miguel Angel Respitory Rate 2019-03-31 16:47:00 Memori al [place] Angel Height 2019-03-31 16:47:00 165.1 cm [facility] Miguel Angel Weight 2019-03-31 16:47:00 [facility] Angel BMI Calculated 2019-03-31 16:47:00 Memori al [place] Angel Systolic (mm Hg) 2018-12-30 18:16:00 Fred rial [place] Angel Diastolic (mm Hg) 2018-12-30 18:16:00 Mem orial Miguel Angel Heart Rate 2018-12-30 18:16:00 [facility] Angel Respitory Rate 2018-12-30 18:16:00 Memori al Miguel Angel Height 2018-12-30 18:16:00 165.1 cm [facility] Miguel Angel Weight 2018-12-30 18:16:00 [facility] [place] BMI Calculated 2018-12-30 18:16:00 Memori al [place] Systolic (mm Hg) 2018-11-18 18:05:00 Fred rial [place] Diastolic (mm Hg) 2018-11-18 18:05:00 Mem orial [place] Heart Rate 2018-11-18 18:05:00 [facility] [place] Respitory Rate 2018-11-18 18:05:00 Memori al Miguel Angel Height 2018-11-18 18:05:00 165.1 cm [facility] Angel Weight 2018-11-18 18:05:00 [facility] [place] BMI Calculated 2018-11-18 18:05:00 Memori al Miguel Angel Height 2018-08-10 16:20:00 165.1 cm [facility] Angel Weight 2018-08-10 16:20:00 [facility] Angel BMI Calculated 2018-08-10 16:20:00 Memori al [place] Systolic (mm Hg) 2018-08-10 16:20:00 Fred rial [place] Diastolic (mm Hg) 2018-08-10 16:20:00 Mem orial [place] Respitory Rate 2018-08-10 16:20:00 Memori al Miguel Angel Heart Rate 2018-08-10 16:20:00 [facility] [place] Weight 2018-06-30 15:52:00 [facility] [place] Height 2018-06-30 15:52:00 165.1 cm [facility] Miguel Angel BMI Calculated 2018-06-30 15:52:00 Memori al [place] Heart Rate 2018-06-30 15:52:00 [facility] [place] Systolic (mm Hg) 2018-06-30 15:52:00 Fred rial [place] Diastolic (mm Hg) 2018-06-30 15:52:00 Mem orial Miguel Angel Respitory Rate 2018-06-30 15:52:00 Memori al [place] Systolic (mm Hg) 2018-03-31 16:08:00 Fred rial [place] Diastolic (mm Hg) 2018-03-31 16:08:00 Mem orial [place] Heart Rate 2018-03-31 16:08:00 [facility] [place] Height 2018-03-31 16:08:00 167.64 cm [facility] Angel Weight 2018-03-31 16:08:00 [facility] [place] BMI Calculated 2018-03-31 16:08:00 Memori al Miguel Angel BMI Calculated 2018-01-27 15:32:00 Memori al [place] Weight 2018-01-27 15:32:00 [facility] Angel Height 2018-01-27 15:32:00 167.64 cm [facility] Angel Systolic (mm Hg) 2018-01-27 15:32:00 Fred rial [place] Diastolic (mm Hg) 2018-01-27 15:32:00 Mem orial [place] Heart Rate 2018-01-27 15:32:00 [facility] [place] Procedures Procedure Date / Time Performing Clinician Source Performed CT HEAD WO CONTRAST 2020-04-09 17:54:02 Maco Stoddard [facility] XR CHEST 1 VW PORTABLE 2020-04-04 21:30:00 [facility] 2020-04-04 19:55[facility] 2020-04-04 19:46[facility] 2020-04-04 19:31[facility]00 [facility] CYTOLOGY 2020-04-04 19:10:00 [facility] RE[facility] MT AN ELECTIVE 2020-04-04 18:58:52 Christy Singh [facility] ENDOTRACHEAL AIRWAY BRONCHOSCOPY, USING 2020-04-04 18:20:00 Adolfo Park [facility] ELECTROMAGNETIC NAVIGATION US, ENDOBRONCHIAL 2020-04-04 18:20:00 Adolfo Park [facility] SURGICAL PATHOLOGY REQUEST 2020-04-04 14:29:00 Adolfo Park [facility] COVID-19 QUALITATIVE 2020-03-30 16:39:00 Adolfo Park [facility] RT-PCR MRI HEAD EXTERNAL STUDY 2020-03-28 16:46:00 Maco Stoddard [facility] CT CHEST WO CONTRAST 2020-03-22 20:04:35 Adolfo Park [facility] HC COMPLETE BLD COUNT 2020-03-22 18:26:00 Adolfo Park [facility] W/AUTO DIFF COMPREHENSIVE METABOLIC 2020-03-22 18:26:00 Adolfo Park [facility] PANEL PARTIAL THROMBOPLASTIN 2020-03-22 18:26:00 Adolfo Park [facility] TIME (PTT) PROTHROMBIN TIME WITH INR 2020-03-22 18:26:00 Adolfo Park [facility] TYPE AND SCREEN 2020-03-22 18:26:00 Adolfo Park [facility] ESTIMATED GFR 2020-03-22 18:26:00 Adolfo Park [facility] CT ABDOMEN PELVIS WO 2020-02-09 00:00:00 Provider, Historical [facility] CONTRAST CT CHEST EXTERNAL STUDY 2020-02-01 16:43:00 Adolfo Park [facility] CT CHEST WO CONTRAST 2020-02-01 00:00:00 Provider, Historical [facility] CYTOLOGY 2019-12-06 15:19:00 Adolfo Park [facility] (NON-GYNECOLOGICAL) REQUEST CYTOLOGY 2019-12-06 15:13:00 Adolfo Park [facility] (NON-GYNECOLOGICAL) REQUEST XR CHEST 1 VW PORTABLE 2019-12-06 15:10:00 Shaun Sainz [facility] CYTOLOGY 2019-12-06 15:04:00 Adolfo Park [facility] (NON-GYNECOLOGICAL) REQUEST FUNGUS CULTURE 2019-12-06 14:51:00 Adolfo Park [facility] AFB CULTURE 2019-12-06 14:51:00 Adolfo Park [facility] ANAEROBIC CULTURE 2019-12-06 13:51:00 Adolfo Park [facility] AEROBIC CULTURE 2019-12-06 13:51:00 Adolfo Park [facility] FUNGUS SMEAR 2019-12-06 13:51:00 Adolfo Park [facility] AFB STAIN 2019-12-06 13:51:00 Adolfo Park [facility] MT AN ELECTIVE 2019-12-06 13:11:32 Anusha Loera [facility]ital ENDOTRACHEAL AIRWAY [place] US, ENDOBRONCHIAL 2019-12-06 12:50:00 Adolfo Park [facility] BRONCHOSCOPY 2019-12-06 12:50:00 Adolfo Park [facility] COVID-19 QUALITATIVE 2019-12-02 16:27:00 Adolfo Park [facility] RT-PCR PARTIAL THROMBOPLASTIN 2019-12-02 16:27:00 Adolfo Park [facility] TIME (PTT) PROTHROMBIN TIME WITH INR 2019-12-02 16:27:00 Adolfo Park [facility] COMPREHENSIVE METABOLIC 2019-12-02 16:27:00 Adolfo Park [facility] PANEL HC COMPLETE BLD COUNT 2019-12-02 16:27:00 Adolfo Park [facility] W/AUTO DIFF ESTIMATED GFR 2019-12-02 16:27:00 Adolfo Park [facility] PET CT WHOLE BODY EXTERNAL 2019-12-01 13:51:00 Diego Latif [facility] STUDY PET CT SKULL BASE TO MID 2019-12-01 00:00:00 [facility] THIGH CT CHEST EXTERNAL STUDY 2019-11-23 19:10:00 Adolfo Park [facility] CT CHEST W CONTRAST 2019-11-23 00:00:00 Provider, Historical [facility] [facility] BRAIN W WO CONTRAST 2019-11-08 00:00:00 Provider, Historical [facility] Craniotomy [facility] Plan of Care Planned Activity Planned Date Details Comments Source Future Scheduled Test Hepatitis C screening [facility] (procedure) [code = 711379440] Future Scheduled Test COLONOSCOPY SCREENING [facility] [code = COLONOSCOPY SCREENING] Future Scheduled Test SHINGLES VACCINES (#1) [facility] [code = SHINGLES VACCINES (#1)] Future Scheduled Test COVID-19 VACCINE (2 - [facility] Moderna 2-dose series) [code = COVID-19 VACCINE (2 - Moderna 2-dose series)] Future Scheduled Test INFLUENZA VACCINE [code [facility] = INFLUENZA VACCINE] Future Scheduled Test Hepatitis C screening [facility] (procedure) [code = 980573225] Future Scheduled Test COLONOSCOPY SCREENING [facility] [code = COLONOSCOPY SCREENING] Future Scheduled Test SHINGLES VACCINES (#1) [facility] [code = SHINGLES VACCINES (#1)] Future Scheduled Test COVID-19 VACCINE (2 - [facility] Moderna 2-dose series) [code = COVID-19 VACCINE (2 - Moderna 2-dose series)] Future Scheduled Test INFLUENZA VACCINE [code [facility] = INFLUENZA VACCINE] Encounters Start End Encounter Admission Attending Care Care Encounter Source Date/Time Date/Time Type Type Clinicians Facility Department ID 2020-12-14 2020-12-14 Outpatient EDSON DAY [id number] Memoria 11:00:00 11:00:00 22 [facility] 2020-12-14 2020-12-14 Outpatient EDSON DAY [id number] Memoria 11:00:00 11:00:00 22 [facility] 2020-11-07 2020-11-07 Outpatient EDSON EDSON [id number] Memoria 11:45:00 11:45:00 23 l [place] 2020-08-21 2020-08-22 Outpatient nullFlavo MNA [id number] Memoria 19:30:00 04:59:59 r Neurology 21 l Anshu [place] 2020-08-21 2020-08-22 Outpatient nullFlavo MNA [id number] Memoria 19:30:00 04:59:59 r Neurology 21 l Anshu [place] 2020-08-21 2020-08-21 Outpatient KAYDEN Perez [facility] 910 [id number] 14:30:00 23:59:59 Patric 21 [place] 2020-08-21 2020-08-21 Outpatient MHIE IE [id number] Memoria 14:30:00 14:30:00 21 l [place] 2020-07-17 2020-07-17 Office ZAHRAA Jeffrey 1.2.840.114 [id number] 09:01:29 13:39:26 Visit Leonel AMBULATOR 350.1.13.21 Gael Y 0.2.7.2.686 [id number] 800 2020-06-25 2020-06-25 RefDiego Hughes 1.2.840.1 [id number] Methodi 00:00:00 00:00:[address] 3.430.2.7 Hospit a .3.956421 l .8 2020-06-25 2020-06-25 RefDiego Hughes 1.2.840.1 [id number] Methodi 00:00:00 00:00:[address] 3.430.2.7 Hospit a .3.410762 l .8 2020-05-21 2020-05-22 Outpatient nullFlavo MNA [id number] Memoria 20:45:00 04:59:59 r Neurology 20 l Anshu Miguel Angel 2020-05-21 2020-05-22 Outpatient nullFlavo MNA [id number] Memoria 20:45:00 04:59:59 r Neurology 20 l Anshu Michelle 2020-05-21 2020-05-21 Outpatient KAYDEN Perez [id number] 15:45:00 23:59:59 Patric 20 [place] 2020-05-21 2020-05-21 Outpatient MHIE IE [id number] Memoria 15:45:00 15:45:00 20 l Miguel Angel 2020-05-16 2020-05-16 Lab Cristhian, 1.2.840.1 [id number] 21 [id number] Methodi 10:35:45 10:40:[address] Korin 3.430.2.7 Hospit a .3.365283 l .8 2020-05-16 2020-05-16 Lab Cristhian, 1.2.840.1 [id number] 21 [id number] Methodi 10:35:45 10:40:[address] Korin 3.430.2.7 Hospit a .3.430219 l .8 2020-05-15 2020-05-15 Telephone [place], 1.2.840.1 [id number] 2100 [id number] Methodi 00:00:00 00:00:[address] 3.430.2.7 Hospit a .3.607254 l .8 2020-05-15 2020-05-15 Telephone [place], 1.2.840.1 [id number] 2100 [id number] Methodi 00:00:00 00:00:[address] 3.430.2.7 Hospit a .3.564480 l .8 2020-05-09 2020-05-11 Outside nullFlavo CAA [id number] Memoria 19:14:35 05:59:59 Medical r Neurology 06 l Records Beauregard Miguel Angel 2020-05-09 2020-05-11 Outside nullFlavo MNA [id number] Memoria 19:14:35 05:59:59 Medical r Neurology 06 l Records Anshu Michelle 2020-05-09 2020-05-10 Outpatient MHMISCHER MISCHER [id number] 13:14:35 23:59:59 06 2020-05-09 2020-05-09 Telephone Diego Latif 1.2.840.1 [id number] Methodi 00:00:00 00:00:[address] 3.430.2.7 Hospit a .3.476348 l .8 2020-05-09 2020-05-09 Telephone Diego Latif 1.2.840.1 [id number] Methodi 00:00:00 00:00:[address] 3.430.2.7 Hospit a .3.330823 l .8 2020-04-27 2020-04-27 Telephone Diego Latif 1.2.840.1 [id number] Methodi 16:00:00 16:30:[address] 3.430.2.7 Hospit a .3.670380 l .8 2020-04-27 2020-04-27 Telephone Diego Latif 1.2.840.1 [id number] Methodi 16:00:00 16:30:[address] 3.430.2.7 Hospit a .3.573083 l .8 2020-04-24 2020-04-24 [facility], 1.2.840.1 [id number] 53745 16212 Methodi 00:00:00 00:00:00 Medical Edward Y.H. [address]408.1.[address] Review 3.430.2.7 Hospit a .3.226019 l .8 2020-04-24 2020-04-24 [facility], 1.2.840.1 [id number] 08507 85587 Methodi 00:00:00 00:00:00 Medical Edward Y.H. 54034.1.[address] Review 3.430.2.7 Hospit a .3.802657 l .8 2020-04-09 2020-04-09 [facility], 1.2.840.1 [id number] 2099 479001 Methodi 14:28:07 23:59:00 Encounter Maco G. 85327.1.[address] 3.430.2.7 Hospit a .3.355202 l .8 2020-04-09 2020-04-09 [facility], 1.2.840.1 [id number] 2099 841536 Methodi 14:28:07 23:59:00 Encounter Maco G. 14530.1.[address] 3.430.2.7 Hospit a .3.944255 l .8 2020-04-09 2020-04-09 [facility], 1.2.840.1 [id number] 39616 40106 Methodi 12:38:00 14:29:31 Visit Maco Harper 59534.1.[address] 3.430.2.7 Hospit a .3.895183 l .8 2020-04-09 2020-04-09 [facility], 1.2.840.1 [id number] 05944 15013 Methodi 12:38:00 14:29:31 Visit Maco Harper 34837.1.[address] 3.430.2.7 Hospit a .3.879044 l .8 2020-04-09 2020-04-09 [facility], 1.2.840.1 [id number] 2099 321264 Methodi 11:06:55 14:27:00 Encounter Maco Harper 12990.1.[address] 3.430.2.7 Hospit a .3.264559 l .8 2020-04-09 2020-04-09 [facility], 1.2.840.1 [id number] 2099 [id number] Methodi 11:06:55 14:27:00 Encounter Maco Harper 77027.1.[address] 3.430.2.7 Hospit a .3.317698 l .8 2020-04-09 2020-04-09 Orders Gisel, 1.2.840.1 [id number] 974115 0057 Methodi 00:00:00 00:00:00 Only Francy 54259.1.[address] 3.430.2.7 Hospit a .3.069603 l .8 2020-04-09 2020-04-09 Telephone Angelita 1.2.840.1 [id number] 2100 287618 Methodi 00:00:00 00:00:[address] Jane 3.430.2.7 Hospit a .3.350369 l .8 2020-04-09 2020-04-09 Telephone Diego Latif 1.2.840.1 [id number] Methodi 00:00:00 00:00:[address] 3.430.2.7 Hospit a .3.761748 l .8 2020-04-09 2020-04-09 Travel 1.2.840.1 1.2.779.502 3381 430816 Methodi 00:00:00 00:00:[address] 3.430.2.7 0.2.7.3.698 Ho spita .3.001145 084.8 l .8 2020-04-09 2020-04-09 Orders [place], 1.2.840.1 [id number] 007372 8428 Methodi 00:00:00 00:00:00 Only Francy 60445.1.[address] 3.430.2.7 Hospit a .3.509123 l .8 2020-04-09 2020-04-09 Telephone Angelita, 1.2.840.1 [id number] 2100 007188 Methodi 00:00:00 00:00:[address] Jane 3.430.2.7 Hospit a .3.880889 l .8 2020-04-09 2020-04-09 Telephone Diego Latif 1.2.840.1 [id number] Methodi 00:00:00 00:00:[address] 3.430.2.7 Hospit a .3.296356 l .8 2020-04-09 2020-04-09 Travel 1.2.840.1 1.2.091.301 8493 330873 Methodi 00:00:00 00:00:[address] 3.430.2.7 0.2.7.3.698 Ho spita .3.951525 084.8 l .8 2020-04-06 2020-04-06 Travel 1.2.840.1 1.2.204.948 1909 938285 Methodi 00:00:00 00:00:[address] 3.430.2.7 0.2.7.3.698 Ho spita .3.438225 084.8 l .8 2020-04-06 2020-04-06 Telephone [place], 1.2.840.1 [id number] 2099 091100 Methodi 00:00:00 00:00:[address] Jane 3.430.2.7 Hospit a .3.812449 l .8 2020-04-06 2020-04-06 Travel 1.2.840.1 1.2.037.514 4711 905099 Methodi 00:00:00 00:00:[address] 3.430.2.7 0.2.7.3.698 Ho spita .3.700726 084.8 l .8 2020-04-06 2020-04-06 Telephone [place], 1.2.840.1 [id number] 2099 031765 Methodi 00:00:00 00:00:[address] Jane 3.430.2.7 Hospit a .3.913485 l .8 2020-04-04 2020-04-04 [facility], 1.2.840.1 [id number] 36624 00362 Methodi 08:23:00 19:28:00 Encounter Edblaire Y.H. 36582.1.[address] 3.430.2.7 Hospit a .3.031436 l .8 2020-04-04 2020-04-04 [facility], 1.2.840.1 [id number] 60866 Methodi 08:23:00 19:28:00 Encounter Edward Y.H. 22057.1.[address] 3.430.2.7 Hospit a .3.902512 l .8 2020-04-04 2020-04-04 [facility], 1.2.840.1 [id number] 252011 8958 Methodi 12:55:00 15:40:00 Edward [facility].1.[address] 3.430.2.7 Hospit a .3.741649 l .8 2020-04-04 2020-04-04 [facility], 1.2.840.1 [id number] 833909 2349 Methodi 12:55:00 15:40:00 Adolfo Hernández [address]91.1.[address] 3.430.2.7 Hospit a .3.688934 l .8 2020-04-04 2020-04-04 Anesthesia Koby Sutton 1.2.840.1 1040 40200 1533825104 Methodi 12:20:00 15:10:00 Event Christy Singh 05875.1.[address] 3.430.2.7 Hospit a .3.469456 l .8 2020-04-04 2020-04-04 Anesthesia Koby Sutton 1.2.840.1 1040 55454 [id number] Methodi 12:20:00 15:10:00 Event Christy Singh 69193.1.[address] 3.430.2.7 Hospit a .3.534870 l .8 2020-04-04 2020-04-04 Travel 1.2.840.1 1.2.665.064 1375 184374 Methodi 00:00:00 00:00:[address] 3.430.2.7 0.2.7.3.698 Ho spita .3.299574 084.8 l .8 2020-04-04 2020-04-04 Travel 1.2.840.1 1.2.092.236 0987 003856 Methodi 00:00:00 00:00:[address] 3.430.2.7 0.2.7.3.698 Ho spita .3.099615 084.8 l .8 2020-04-03 2020-04-03 Telephone [place], 1.2.840.1 [id number] 2099 480405 Methodi 00:00:00 00:00:[address] Jane 3.430.2.7 Hospit a .3.156695 l .8 2020-04-03 2020-04-03 Telephone Xavier, 1.2.840.9 [id number] 710 4039323 Methodi 00:00:00 00:00:00 Edblaire Thompson.H[address] 3.430.2.7 Hospit a .3.319288 l .8 2020-04-03 2020-04-03 Telephone [place], 1.2.840.1 [id number] 2099 103361 Methodi 00:00:00 00:00:[address] Jane 3.430.2.7 Hospit a .3.116020 l .8 2020-04-03 2020-04-03 Telephone [place], 1.2.840.3 [id number] 485 [id number] Methodi 00:00:00 00:00:00 Adolfo Thompson.H. 40813.1.[address] 3.430.2.7 Hospit a .3.566629 l .8 2020-04-02 2020-04-02 Travel 1.2.840.1 1.2.757.841 3062 771683 Methodi 00:00:00 00:00:[address] 3.430.2.7 0.2.7.3.698 Ho spita .3.387508 084.8 l .8 2020-04-02 2020-04-02 Travel 1.2.840.1 1.2.413.042 1626 314157 Methodi 00:00:00 00:00:[address] 3.430.2.7 0.2.7.3.698 Ho spita .3.892219 084.8 l .8 2020-03-30 2020-03-30 Travel 1.2.840.1 1.2.963.949 8270 731348 Methodi 00:00:00 00:00:[address] 3.430.2.7 0.2.7.3.698 Ho spita .3.646486 084.8 l .8 2020-03-30 2020-03-30 Travel 1.2.840.1 1.2.358.342 1209 058142 Methodi 00:00:00 00:00:[address] 3.430.2.7 0.2.7.3.698 Ho spita .3.637206 084.8 l .8 2020-03-29 2020-03-29 Orders Isabella, 1.2.840.1 [id number] 29446 Methodi 00:00:00 00:00:00 Only Maco G. 43168.1.[address] 3.430.2.7 Hospit a .3.567045 l .8 2020-03-29 2020-03-29 Telephone [place], 1.2.840.1 [id number] 833 0636269 Methodi 00:00:00 00:00:[address] 3.430.2.7 Hospit a .3.548882 l .8 2020-03-29 2020-03-29 Orders Isabella, 1.2.840.1 [id number] 96569 Methodi 00:00:00 00:00:00 Only Maco G. 15838.1.[address] 3.430.2.7 Hospit a .3.176036 l .8 2020-03-29 2020-03-29 Telephone Isabella, 1.2.840.1 [id number] 610 9256976 Methodi 00:00:00 00:00:[address] 3.430.2.7 Hospit a .3.736141 l .8 2020-03-22 2020-03-22 [facility], 1.2.840.1 [id number] 91801 Methodi 13:28:02 23:59:00 Encounter Adolfo Hernández 55760.1.[address] 3.430.2.7 Hospit a .3.778476 l .8 2020-03-22 2020-03-22 [facility], 1.2.840.1 [id number] 21000 59637 Methodi 13:28:02 23:59:00 Encounter Edward Y.H. 08277.1.[address] 3.430.2.7 Hospit a .3.207921 l .8 2020-03-22 2020-03-22 [facility], 1.2.840.1 [id number] 56134 80301 Methodi 10:20:34 13:27:00 Encounter Edward Y.H. 05766.1.[address] 3.430.2.7 Hospit a .3.794399 l .8 2020-03-22 2020-03-22 [facility], 1.2.840.1 [id number] 27048 27531 Methodi 10:20:34 13:27:00 Encounter Edward Y.H. 42231.1.[address] 3.430.2.7 Hospit a .3.740632 l .8 2020-03-22 2020-03-22 [facility], 1.2.840.1 [id number] 811723 9057 Methodi 09:36:31 12:35:50 Visit Edward Y.H. [address]7280.1.[address] 3.430.2.7 Hospit a .3.335142 l .8 2020-03-22 2020-03-22 [facility], 1.2.840.1 [id number] 140587 9778 Methodi 09:36:31 12:35:50 Visit Edward Y.H. [address]8428.1.[address] 3.430.2.7 Hospit a .3.687304 l .8 2020-03-22 2020-03-22 [facility], 1.2.840.1 [id number] 187547 4393 Methodi 12:02:38 12:17:38 Edward [address].1.[address] 3.430.2.7 Hospit a .3.716898 l .8 2020-03-22 2020-03-22 [facility], 1.2.840.1 [id number] 113045 7256 Methodi 12:02:38 12:17:38 Edward [facility] [address] 3.430.2.7 Hospit a .3.625409 l .8 2020-03-22 2020-03-22 [facility], 1.2.840.1 [id number] 46521 Methodi 10:18:29 10:19:00 Encounter Adolfo Thompson.H. [address]97.1.[address] 3.430.2.7 Hospit a .3.118306 l .8 2020-03-22 2020-03-22 [facility], 1.2.840.1 [id number] 05397 Methodi 10:18:29 10:19:00 Encounter Adolfo Y.H. 35383.1.[address] 3.430.2.7 Hospit a .3.272580 l .8 2020-03-22 2020-03-22 Travel 1.2.840.1 1.2.924.486 5008 294313 Methodi 00:00:00 00:00:[address] 3.430.2.7 0.2.7.3.698 Ho spita .3.001693 084.8 l .8 2020-03-22 2020-03-22 Travel 1.2.840.1 1.2.526.437 9343 776479 Methodi 00:00:00 00:00:[address] 3.430.2.7 0.2.7.3.698 Ho spita .3.379613 084.8 l .8 2020-02-22 2020-02-22 Orders Provider, 1.2.840.1 [id number] 2100 720473 Methodi 00:00:00 00:00:00 Only Historical 60732.1.1 951 s t 3.430.2.7 Hospit a .3.237878 l .8 2020-02-22 2020-02-22 Orders Provider, 1.2.840.1 [id number] 2100 575788 Methodi 00:00:00 00:00:00 Only Historical 96324.1.1 779 s t 3.430.2.7 Hospit a .3.630787 l .8 2020-02-22 2020-02-22 Orders Provider, 1.2.840.1 [id number] 2099 161272 Methodi 00:00:00 00:00:00 Only Historical 52603.1.1 951 s t 3.430.2.7 Hospit a .3.961833 l .8 2020-02-22 2020-02-22 Orders Provider, 1.2.840.1 [id number] 2099 430383 Methodi 00:00:00 00:00:00 Only Historical 92208.1.1 779 s t 3.430.2.7 Hospit a .3.643773 l .8 2020-02-17 2020-02-17 [facility], 1.2.840.1 [id number] 34073 15194 Methodi 14:26:33 23:59:00 Encounter Edward Y.H. 33455.1.[address] 3.430.2.7 Hospit a .3.225603 l .8 2020-02-17 2020-02-17 [facility], 1.2.840.1 [id number] 41226 21294 Methodi 14:26:33 23:59:00 Encounter Edward Y.H. 74245.1.[address] 3.430.2.7 Hospit a .3.463796 l .8 2020-02-16 2020-02-16 [facility], 1.2.840.7 [id number] 092 7475595 Methodi 00:00:00 00:00:00 Edblaire Y.H. [address] 3.430.2.7 Hospit a .3.186442 l .8 2020-02-16 2020-02-16 [facility], 1.2.840.2 [id number] 002 6622601 Methodi 00:00:00 00:00:00 Edward Y[facility]H. [address]221.1.[address] 3.430.2.7 Hospit a .3.274169 l .8 2020-02-14 2020-02-14 Laboratory Only, [facility] 1.2.840.114 8 1749433 15:29:26 15:44:26 Only Test [place] 350.1.13.10 [place] 4.2.7.2.686 [place] 817.0474727 353 2020-01-02 2020-01-02 Office Isabella, 1.2.840.1 [id number] 31450 86238 Methodi 13:37:48 14:51:01 Visit Maco Harper 05416.1.[address] 3.430.2.7 Hospit a .3.738403 l .8 2020-01-02 2020-01-02 Office Isabella, 1.2.840.1 [id number] 60826 Methodi 13:37:48 14:51:01 Visit Maco Harper 17071.1.[address] 3.430.2.7 Hospit a .3.647879 l .8 2020-01-02 2020-01-02 Travel 1.2.840.1 1.2.141.703 2555 210857 Methodi 00:00:00 00:00:[address] 3.430.2.7 0.2.7.3.698 Ho spita .3.511693 084.8 l .8 2020-01-02 2020-01-02 Travel 1.2.840.1 1.2.053.802 1306 943798 Methodi 00:00:00 00:00:[address] 3.430.2.7 0.2.7.3.698 Ho spita .3.199539 084.8 l .8 2019-12-21 2019-12-21 Travel 1.2.840.1 1.2.497.845 7981 146345 Methodi 00:00:00 00:00:[address] 3.430.2.7 0.2.7.3.698 Ho spita .3.790729 084.8 l .8 2019-12-21 2019-12-21 Travel 1.2.840.1 1.2.918.533 2230 092688 Methodi 00:00:00 00:00:[address] 3.430.2.7 0.2.7.3.698 Ho spita .3.440757 084.8 l .8 2019-12-12 2019-12-12 [facility], 1.2.840.1 [id number] 2099 118388 Methodi 00:00:00 00:00:00 Edblaire Thompson.H. [address]108.1.[address] 3.430.2.7 Hospit a .3.783093 l .8 2019-12-12 2019-12-12 [facility], 1.2.840.1 [id number] 2099 190255 Methodi 00:00:00 00:00:00 Edblaire Thompson.H[address]22.[address] 3.430.2.7 Hospit a .3.267201 l .8 2019-12-08 2019-12-08 Telephone [place], 1.2.840.1 [id number] 2099 847665 Methodi 00:00:00 00:00:[address] Jane 3.430.2.7 Hospit a .3.473953 l .8 2019-12-08 2019-12-08 Telephone Walton, 1.2.840.1 [id number] 2099 780118 Methodi 00:00:00 00:00:[address] Jane 3.430.2.7 Hospit a .3.617327 l .8 2019-12-06 2019-12-06 [facility], 1.2.840.1 [id number] 27761 76967 Methodi 06:04:00 15:31:00 Encounter Edblaire Y.H. [address]51.1.[address] 3.430.2.7 Hospit a .3.824411 l .8 2019-12-06 2019-12-06 [facility], 1.2.840.1 [id number] 22834 96454 Methodi 06:04:00 15:31:00 Encounter Adolfo Thompson.H. 77742.1.[address] 3.430.2.7 Hospit a .3.991648 l .8 2019-12-06 2019-12-06 [facility], 1.2.840.1 [id number] 983339 1825 Methodi 08:00:00 10:05:00 Adolfo Hernández 97233.1.[address] 3.430.2.7 Hospit a .3.645189 l .8 2019-12-06 2019-12-06 [facility], 1.2.840.1 [id number] 823390 8951 Methodi 08:00:00 10:05:00 Adolfo Hernández [address]15.[address] 3.430.2.7 Hospit a .3.357730 l .8 2019-12-06 2019-12-06 Anesthesia Ana Paula Sophieimelda Vasques 1.2.840 .1 [id number] Methodi 07:51:00 09:27:00 Event Gabriel Young 12187.1.[address] 3.430.2.7 Hospit a .3.560368 l .8 2019-12-06 2019-12-06 Anesthesia GossSophie 1.2.840 .1 [id number] Methodi 07:51:00 09:27:00 Event Gabriel Young 61106.1.[address] 3.430.2.7 Hospit a .3.552756 l .8 2019-12-06 2019-12-06 Travel 1.2.840.1 1.2.800.748 5220 773291 Methodi 00:00:00 00:00:[address] 3.430.2.7 0.2.7.3.698 Ho spita .3.275009 084.8 l .8 2019-12-06 2019-12-06 Travel 1.2.840.1 1.2.713.253 9724 487133 Methodi 00:00:00 00:00:[address] 3.430.2.7 0.2.7.3.698 Ho spita .3.043381 084.8 l .8 2019-12-05 2019-12-05 [facility] [place] 1.2.840.1 [id number] 2 [id number] Methodi 17:03:32 23:59:[address] 3.430.2.7 Hospit a .3.489802 l .8 2019-12-05 2019-12-05 [facility] [place] 1.2.840.1 [id number] 2 [id number] Methodi 17:03:32 23:59:[address] 3.430.2.7 Hospit a .3.643584 l .8 2019-12-05 2019-12-05 [facility] [place] 1.2.840.1 [id number] 21 [id number] Methodi 14:57:15 16:37:[address] 3.430.2.7 Hospit a .3.482809 l .8 2019-12-05 2019-12-05 [facility] 1.2.840.1 [id number] 21 [id number] Methodi 14:57:15 16:37:[address] 3.430.2.7 Hospit a .3.064481 l .8 2019-12-05 2019-12-05 Travel 1.2.840.1 1.2.592.737 9884 102760 Methodi 00:00:00 00:00:[address] 3.430.2.7 0.2.7.3.698 Ho spita .3.541450 084.8 l .8 2019-12-05 2019-12-05 Orders Provider, 1.2.840.1 [id number] 2100 [id number] Methodi 00:00:00 00:00:00 Only Historical 64246.1.1 970 s t 3.430.2.7 Hospit a .3.805428 l .8 2019-12-05 2019-12-05 Telephone Walton, 1.2.840.1 [id number] 2100 564985 Methodi 00:00:00 00:00:[address] Jane 3.430.2.7 Hospit a .3.538310 l .8 2019-12-05 2019-12-05 Travel 1.2.840.1 1.2.623.760 0326 648620 Methodi 00:00:00 00:00:[address] 3.430.2.7 0.2.7.3.698 Ho spita .3.979966 084.8 l .8 2019-12-05 2019-12-05 Orders Provider, 1.2.840.1 [id number] 2100 813965 Methodi 00:00:00 00:00:00 Only Historical 05347.1.1 970 s t 3.430.2.7 Hospit a .3.772055 l .8 2019-12-05 2019-12-05 Telephone Walton, 1.2.840.1 [id number] 2100 786093 Methodi 00:00:00 00:00:[address] Jane 3.430.2.7 Hospit a .3.940751 l .8 2019-12-02 2019-12-02 Telephone Walton, 1.2.840.1 [id number] 2100 241881 Methodi 00:00:00 00:00:[address] Jane 3.430.2.7 Hospit a .3.507923 l .8 2019-12-02 2019-12-02 Travel 1.2.840.1 1.2.072.249 6666 834777 Methodi 00:00:00 00:00:[address] 3.430.2.7 0.2.7.3.698 Ho spita .3.037407 084.8 l .8 2019-12-02 2019-12-02 Telephone Walton, 1.2.840.1 [id number] 2100 995624 Methodi 00:00:00 00:00:[address] Jane 3.430.2.7 Hospit a .3.020396 l .8 2019-12-02 2019-12-02 Travel 1.2.840.1 1.2.790.765 9819 080642 Methodi 00:00:00 00:00:[address] 3.430.2.7 0.2.7.3.698 Ho spita .3.690672 084.8 l .8 2019-11-25 2019-11-25 [facility], 1.2.840.1 [id number] 93671 86856 Methodi 10:30:53 23:59:00 Encounter Edblaire Mac. 11157.1.[address] 3.430.2.7 Hospit a .3.688059 l .8 2019-11-25 2019-11-25 [facility], 1.2.840.1 [id number] 30459 23323 Methodi 10:30:53 23:59:00 Encounter Adolfo Mac. 93581.1.[address] 3.430.2.7 Hospit a .3.357288 l .8 2019-11-25 2019-11-25 [facility], 1.2.840.1 [id number] 564573 9780 Methodi 11:06:05 11:15:39 Visit Adolfo Hernández 64696.1.[address] 3.430.2.7 Hospit a .3.827945 l .8 2019-11-25 2019-11-25 [facility], 1.2.840.1 [id number] 1712 Methodi 11:06:05 11:15:39 Visit Adolfo Hernández 14264.1.[address] 3.430.2.7 Hospit a .3.097394 l .8 2019-11-25 2019-11-25 Travel 1.2.840.1 1.2.787.624 8962 059015 Methodi 00:00:00 00:00:[address] 3.430.2.7 0.2.7.3.698 Ho spita .3.257903 084.8 l .8 2019-11-25 2019-11-25 [facility], 1.2.840.1 [id number] 2099 934175 Methodi 00:00:00 00:00:00 Only Historical 52346.1.1 070 s t 3.430.2.7 Hospit a .3.234164 l .8 2019-11-25 2019-11-25 Travel 1.2.840.1 1.2.830.740 9239 690374 Methodi 00:00:00 00:00:[address] 3.430.2.7 0.2.7.3.698 Ho spita .3.404829 084.8 l .8 2019-11-25 2019-11-25 Orders Provider, 1.2.840.1 [id number] 2099 548457 Methodi 00:00:00 00:00:00 Only Historical 81234.1.1 070 s t 3.430.2.7 Hospit a .3.694385 l .8 2019-11-24 2019-11-24 Travel 1.2.840.1 1.2.938.638 8616 262449 Methodi 00:00:00 00:00:[address] 3.430.2.7 0.2.7.3.698 Ho spita .3.901210 084.8 l .8 2019-11-24 2019-11-24 Travel 1.2.840.1 1.2.336.118 6663 728734 Methodi 00:00:00 00:00:[address] 3.430.2.7 0.2.7.3.698 Ho spita .3.216412 084.8 l .8 2019-11-11 2019-11-13 Outside nullFlavo MNA [id number] Memoria 19:41:07 04:59:59 Medical r Neurology 05 l Records Anshu Miguel Angel 2019-11-11 2019-11-13 Outside nullFlavo MNA [id number] Memoria 19:41:07 04:59:59 Medical r Neurology 05 l Records Bea[place] Miguel Angel 2019-11-11 2019-11-12 Outpatient MHMISCHER MISCHER [id number] 14:41:07 23:59:59 05 2019-11-05 2019-11-05 Letter JONNY Bella 1.2.840.114 [id number] 00:00:00 00:00:00 (Out) Rose Marie Broussard MOLLY 350.1.13.10 [facility] 4.2.7.2.686 [id number] 019 2019-11-04 2019-11-04 Laboratory Lab, [facility] 1.2.840.114 [id number] 10:17:33 10:37:33 Only Fam Pob [facility] 350.1.13.10 [place] 4.2.7.2.686 Professio 159.3980895 nal 044 Office [address] One 2019-11-04 2019-11-04 Letter Doctor FULLER 1.2.840.114 [id number] 00:00:00 00:00:00 (Out) MOLLY Yang 350.1.13.10 [place] [facility] 4.2.7.2.686 [id number] 044 2019-08-30 2019-08-30 Ambulatory nullFlavo MNA [id number] Memoria 16:00:00 16:00:00 Pre-Reg r Neurology 19 l [place] 2019-08-30 2019-08-30 Ambulatory nullFlavo MNA [id number] Memoria 16:00:00 16:00:00 Pre-Reg r Neurology 19 l [place] 2019-08-30 2019-08-30 Outpatient MHIE MHIE [id number] Memoria 11:00:00 11:00:00 19 [place] 2019-08-30 2019-08-30 [id number] 11:00:00 11:00:00 Patric 19 [place] 2019-07-07 2019-07-07 Outpatient MHIE MHIE [id number] Memoria 10:30:00 10:30:00 16 sue Michelle 2019-07-07 2019-07-07 Outpatient MHIE MHIE [id number] Memoria 10:30:00 10:30:00 16 l Miguel Angel 2019-06-28 2019-06-29 Outpatient nullFlavo MNA [id number] Memoria 18:15:00 04:59:59 r Neurology 18 l Anshu [place] 2019-06-28 2019-06-29 Outpatient nullFlavo MNA [id number] Memoria 18:15:00 04:59:59 r Neurology 18 l Anshu Michelle 2019-06-28 2019-06-28 [facility] [id number] 13:15:00 23:59:59 Patric 18 Addison 2019-06-28 2019-06-28 Outpatient MHIE MHIE [id number] Memoria 13:15:00 13:15:00 18 sue Michelle 2019-05-17 2019-05-18 Outpatient nullFlavo MNA [id number] Memoria 15:45:00 04:59:59 r Neurology 17 l Beauregardquincy Michelle 2019-05-17 2019-05-18 Outpatient nullFlavo MNA [id number] Memoria 15:45:00 04:59:59 r Neurology 17 l Beauregardquincy Michelle 2019-05-17 2019-05-17 [facility] [id number] 10:45:00 23:59:59 Patric 17 Addison 2019-05-17 2019-05-17 Ambulatory nullFlavo MNA [id number] Memoria 15:15:00 15:15:00 Pre-Reg r Neurology 16 l Beauregardquincy Michelle 2019-05-17 2019-05-17 Outpatient MHIE MHIE [id number] Memoria 10:45:00 10:45:00 17 sue Michelle 2019-05-17 2019-05-17 [facility] [id number] 10:15:00 10:15:00 Patric 16 Addison 2019-03-31 2019-04-01 Outpatient nullFlavo MNA [id number] Memoria 16:30:00 05:59:59 r Neurology 15 l Beauregard [place] 2019-03-31 2019-04-01 Outpatient nullFlavo MNA [id number] Memoria 16:30:00 05:59:59 r Neurology 15 l Beauregard [place] 2019-03-31 2019-03-31 Outpatient LOS PerezMISCHER MHMISCHER [id number] 10:30:00 23:59:59 Patric 15 Addison 2019-03-31 2019-03-31 Outpatient MHIE MHIE [id number] Memoria 10:30:00 10:30:00 15 sue Michelle 2018-12-30 2018-12-31 Outpatient nullFlavo MNA [id number] Memoria 18:15:00 04:59:59 r Neurology 14 sue Michelle 2018-12-30 2018-12-31 Outpatient nullFlavo MNA [id number] Memoria 18:15:00 04:59:59 r Neurology 14 sue Michelle 2018-12-30 2018-12-30 Outpatient LOS [facility]TXSCHER [facility] [id number] 13:15:00 23:59:59 Patric 14 Addison 2018-12-30 2018-12-30 Outpatient MHIE MHIE [id number] Memoria 13:15:00 13:15:00 14 sue Michelle 2018-11-18 2018-11-19 Outpatient nullFlavo MNA [id number] Memoria 18:00:00 04:59:59 r Neurology 13 sue Michelle 2018-11-18 2018-11-19 Outpatient nullFlavo MNA [id number] Memoria 18:00:00 04:59:59 r Neurology 13 sue Michelle 2018-11-18 2018-11-18 [facility] [id number] 13:00:00 23:59:59 Patric 13 Addison 2018-11-18 2018-11-18 Outpatient MHIE MHIE [id number] Memoria 13:00:00 13:00:00 13 sue Michelle 2018-11-09 2018-11-09 Ambulatory nullFlavo MNA [id number] Memoria 14:30:00 14:30:00 Pre-Reg r Neurology 12 l Anshu Michelle 2018-11-09 2018-11-09 Ambulatory nullFlavo MNA [id number] Memoria 14:30:00 14:30:00 Pre-Reg r Neurology 12 l Anshu Michelle 2018-11-09 2018-11-09 Outpatient MHIE MHIE [id number] Memoria 09:30:00 09:30:00 12 sue Michelle 2018-11-09 2018-11-09 Outpatient DEPEA PerezSCHER MISCHER [id number] 09:30:00 09:30:00 Patric 12 Addison 2018-11-03 2018-11-03 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, Adc Lab [facility] [id number] 14:27:18 14:42:18 Visit Andre 350.1.13.10 [place] [id number] [place] [id number] [id number] 2018-11-03 2018-11-03 Orders Doctor JONNY [id number] 00:00:00 00:00:00 Only Unassigned, MOLLY 350.1.13.10 [place] [id number] 2018-08-10 2018-08-11 Outpatient nullFlavo MNA [id number] Memoria 16:15:00 04:59:59 r Neurology 11 Anshu Michelle 2018-08-10 2018-08-11 Outpatient nullFlavo MNA [id number] Memoria 16:15:00 04:59:59 r Neurology 11 l Anshu Michelle 2018-08-10 2018-08-10 Outpatient KAYDEN Perez MHMISCHER [id number] 11:15:00 23:59:59 Patric 11 Addison 2018-08-10 2018-08-10 Outpatient MHIE MHIE [id number] Memoria 11:15:00 11:15:00 11 sue Miguel Angel 2018-06-30 2018-07-01 Outpatient nullFlavo MNA [id number] Memoria 15:45:00 04:59:59 r Neurology 10 l Anshu Michelle 2018-06-30 2018-07-01 Outpatient nullFlavo MNA [id number] Memoria 15:45:00 04:59:59 r Neurology 10 l Anshu Michelle 2018-06-30 2018-06-30 Outpatient DEEPA PerezSCHLEONIDAS MHMISCHER [id number] 10:45:00 23:59:59 Patric 10 [place] 2018-06-30 2018-06-30 Outpatient MHIE MHIE [id number] Memoria 10:45:00 10:45:00 10 sue Michelle 2018-05-25 2018-05-25 Outpatient MHIE MHIE [id number] Memoria 10:00:00 10:00:00 09 sue Michelle 2018-05-25 2018-05-25 Outpatient MHIE MHIE [id number] Memoria 10:00:00 10:00:00 09 sue Michelle 2018-04-13 2018-04-13 Outpatient MHIE MHIE [id number] Memoria 10:15:00 10:15:00 08 sue Michelle 2018-04-13 2018-04-13 Outpatient MHIE MHIE [id number] Memoria 10:15:00 10:15:00 08 sue Michelle 2018-04-06 2018-04-08 Phone nullFlavo MNA [id number] Memoria 21:28:00 05:59:59 Message r Neurology 04 l Anshu Michelle 2018-04-06 2018-04-08 Phone nullFlavo MNA [id number] Memoria 21:28:00 05:59:59 Message r Neurology 04 l Anshu Michelle 2018-04-06 2018-04-07 Outpatient MHMISCHER MHMISCHER [id number] 15:28:00 23:59:59 2018-03-31 2018-04-01 Outpatient nullFlavo MNA [id number] Memoria 16:00:00 05:59:59 r Neurology 07 l Anshu Michelle 2018-03-31 2018-04-01 Outpatient nullFlavo MNA [id number] Memoria 16:00:00 05:59:59 r Neurology 07 l Anshu Badilloann 2018-03-31 2018-03-31 Outpatient Ana MISCHER MHMISCHER [id number] 10:00:00 23:59:59 Patric Anthony Jaime 2018-03-31 2018-03-31 Outpatient MHIE MHIE [id number] Memoria 10:00:00 10:00:00 07 sue Michelle 2018-03-05 2018-03-07 Outside nullFlavo MNA [id number] Memoria 20:35:00 05:59:59 Medical r Neurology 03 l Records Anshu Michelle 2018-03-05 2018-03-07 Outside nullFlavo MNA [id number] Memoria 20:35:00 05:59:59 Medical r Neurology 03 l Records Anshu Michelle 2018-03-05 2018-03-06 Outpatient MHMISCHER MHMISCHER [id number] 14:35:00 23:59:59 2018-01-27 2018-01-29 Phone nullFlavo MNA [id number] Memoria 16:53:00 05:59:59 Message r Neurology 02 l Anshu Michelle 2018-01-27 2018-01-29 Phone nullFlavo MNA [id number] Memoria 16:53:00 05:59:59 Message r Neurology 02 l Anshu Michelle 2018-01-27 2018-01-28 Outpatient MHMISCHER MHMISCHER [id number] 10:53:00 23:59:59 02 2018-01-27 2018-01-28 Outpatient nullFlavo MNA [id number] Memoria 15:30:00 05:59:59 r Neurology 06 l Anshu Michelle 2018-01-27 2018-01-28 Outpatient nullFlavo MNA [id number] Memoria 15:30:00 05:59:59 r Neurology 06 l Anshu Michelle 2018-01-27 2018-01-27 Outpatient Ana MHMISCHER MHMISCHER [id number] 09:30:00 23:59:59 Patric 06 Add[place] 2018-01-27 2018-01-27 Outpatient MHIE MHIE [id number] Memoria 09:30:00 09:30:00 06 sue Michelle 2017-12-09 2017-12-09 Ambulatory nullFlavo MNA [id number] Memoria 15:00:00 15:00:00 Pre-Reg r Neurology 03 l Anshu Badilloann 2017-12-09 2017-12-09 Ambulatory nullFlavo MNA [id number] Memoria 15:00:00 15:00:00 Pre-Reg r Neurology 03 sue [place] Miguel Angel 2017-12-09 2017-12-09 Outpatient MHIE MHIE [id number] Memoria 10:00:00 10:00:00 03 sue [place] 2017-12-09 2017-12-09 [facility] [id number] 10:00:00 10:00:00 Patric 03 [place] 2017-11-12 2017-11-12 Outpatient MHIE MHIE [id number] Memoria 11:15:00 11:15:00 05 sue Miguel Angel 2017-11-12 2017-11-12 Outpatient MHIE MHIE [id number] Memoria 11:15:00 11:15:00 05 sue Miguel Angel 2017-10-28 2017-10-28 Outpatient MHIE MHIE [id number] Memoria 09:15:00 09:15:00 04 sue Michelle 2017-10-28 2017-10-28 Outpatient SHAY DAY [id number] Memoria 09:15:00 09:15:00 04 l Miguel Angel 2017-03-27 2017-03-27 Outpatient SHAY DAY [id number] Memoria 14:15:00 14:15:00 02 l [place] 2017-03-27 2017-03-27 Outpatient SHAY DAY [id number] Memoria 14:15:00 14:15:00 02 l Miguel Angel Results Test Description Test Time Test Comments Results Result Comments Source HEMATOLOGY 2020-05-22 38.2 [facility]y nn 16:23:00 HEMATOLOGY 2020-05-22 89.5 [facility] Mindy nn 16:23:00 HEMATOLOGY 2020-05-22 16:23:00 Test Item Value Reference Range Interpretation Comme nts MCH (test code = MCH) 27.9 pg 27.0-33.0 [facility] UwnjuxxOESYJCWDTR4350-03-22 16:23:0031.2[facility] HermannHEMATOLOGY 2020-05-22 16:23:0013.8[facility] SppawvkORJNNFPHUN1520-01-22 16:23:20837Klligvzc MehxnywZMBDNFZMWP1626-62-75 16:23:0011.3[facility] HgezunxZXAYAUPHEL1720-64-40 16:23:887278Zjzedggf XfcxwdzXWLABGCKSR5754-12-73 16:23:27807Sucferbs [place] TELZIRGKAZ0995-69-11 16:23:20078Glsmebpm BecvfjqHCPPWMWFEH9719-20-80 16:23:0031 [facility] AcosxgyJWMFWHPDAU0693-88-71 16:23:0020[facility] HermannHEMATOLOGY 2020-05-22 16:23:0076.2[facility] HayvdkbJYGRGOYNLX6151-61-71 16:23:0014.8[facility] XvehkyiDAIHFAEDSO7253-58-80 16:23:007.7[facility] HermannCHEM JWTGJ4513-13-09 16:23:51569Kgdvtszo VagbszgEJXLRRAHXT4550-25-59 16:23:000.8[facility] [place] UYCNZHRWPW3909-62-28 16:23:000.5[facility] HermannCHEM HWWDD9537-62-66 16:23:62704 [facility] HermannCHEM KQEUD5417-20-21 16:23:0016[facility] HermannCHEM PANEL 2020-05-22 16:23:000.84[facility] HermannCHEM XAIYZ0514-85-82 16:23:0068[facility] HermannCHEM FIZTM0821-83-56 16:23:0078[facility] HermannCHEM CRNWJ4006-32-32 16:23:00280Olzayvkk HermannCHEM RYMVZ0558-49-03 16:23:004.8[facility]annCHEM ERQOB0954-33-37 16:23:0016[facility] HermannCHEM OXEYG7586-66-57 16:23:54699 [facility]annCHEM UHJOC3308-87-91 16:23:0029[facility] HermannCHEM PANEL 2020-05-22 16:23:008.9[facility]annCHEM QQKKM1868-61-26 16:23:006.5[facility] HermannCHEM BFFCJ4407-49-17 16:23:003.9[facility] HermannCHEM CPLCZ5148-34-44 16:23:002.6[facility]annCHEM PACHP2457-61-17 16:23:001.5[facility]annCHEM IHTFG0612-79-66 16:23:000.2[facility]annCHEM WCPQQ9792-82-66 16:23:37551 [facility]annCHEM KXFOT1913-01-85 16:23:0012[facility] HermannCHEM PANEL 2020-05-22 16:23:000.84[facility] HermannCHEM OEFYU6409-82-07 16:23:0015[facility] TwhxugsPBDMPFCZVJ5212-24-74 16:23:003.9[facility] IriysdiPVCHSXKSUN2126-00-15 16:23:004.27[facility] IueuorzZIZNXIBYYO2914-88-51 16:23:0011.9[facility] [place] CHEM TLFRP8508-39-95 16:23:0068[facility] HermannCHEM AFLMC1187-49-46 16:23:0078 [facility] HermannCHEM LIGGI0965-88-75 16:23:04938Phgfcrid HermannCHEM PANEL 2020-05-22 16:23:004.8[facility] HermannCHEM YUAKZ3347-04-70 16:23:18103Pgainvvw HermannCHEM RCKNO8091-86-01 16:23:0029[facility] HermannCHEM XCUSO6824-93-99 16:23:008.9[facility] HermannCHEM URQJI4025-05-62 16:23:006.5[facility] HermannCHEM DHSTD5269-67-25 16:23:003.9[facility] HermannCHEM MQRHJ5482-21-22 16:23:002.6 [facility] HermannCHEM XFRKU2569-94-05 16:23:001.5[facility] HermannCHEM PANEL 2020-05-22 16:23:000.2[facility] HermannCHEM TBMAL2900-49-92 16:23:02968Qbxodcbj HermannCHEM WDMUU6609-68-09 16:23:0012[facility] HermannCHEM IPWHA0847-96-24 16:23:0015[facility] UttiwrdHHVBRBJYFR5519-79-90 16:23:003.9[facility] Miguel Angel PIBZLBMEWE8224-11-76 16:23:004.27[facility] JfddgqmJRLZFXTODM2726-10-47 16:23:00 11.9[facility] CgcgmwfPTYDSOAHZO6053-00-42 16:23:0038.2[facility] HermannHEMATOLOGY 2020-05-22 16:23:0089.5[facility] LxszbwkKTCPFYDULD7609-51-47 16:23:00 Test Item Value Reference Range Interpretation Comments MCH (test code = MCH) 27.9 pg 27.0-33.0 [facility] DzcyurtOWMEIWTLZQ3107-65-40 16:23:0031.2[facility] HermannHEMATOLOGY 2020-05-22 16:23:0013.8[facility] IuloqhkINNSVDDOFU3467-80-49 16:23:98280Lnxfumjp LikuzufXOGWLELOCS0098-36-51 16:23:0011.3[facility] ZlnujkqIFKEWQVELD6834-91-68 16:23:475992Yhnqrccp OqfbnszJZSUIEELMP6320-10-03 16:23:74284Ozwbfxqm [place] IQRCWXGIAF0526-44-16 16:23:44735Naibnoaf TqivjxbZZSMQDUPTD5794-39-03 16:23:0031 Memorial PlslvwtCDXKZGXVAO2474-13-14 16:23:0020[facility] HermannHEMATOLOGY 2020-05-22 16:23:0076.2[facility] NwzsvcpKLLFFFKXZP1169-36-62 16:23:0014.8[facility] AvqlemuCEBBXTHATQ8349-28-57 16:23:007.7[facility] YiytawdUIDAYKBGSH3390-36-56 16:23:000.8[facility] BqsumdqMECPSNDTLD6370-40-57 16:23:000.5[facility] [place] Surgical pathology daeobvq7949-11-39 17:27:40 Test Item Value Reference Range Interpretation Comments Case number (test [id number] code = [id number]) Surgical pathology See link below for PDF report (test code = Lab Report 2255) Result status (test This is Supplemental code = 0983598) Report [facility] [id number] [facility] iurvapl4749-23-50 17:27:40 Test Item Value Reference Range Interpretation Comments Case number (test [id number] code = 4568383) Surgical pathology See link below for PDF report (test code = Lab Report 2255) Result status (test This is Supplemental code = 3747258) Report for [id number] [facility] hhfjaur5751-07-59 16:34:02 Test Item Value Reference Range Interpretation Comments Case number (test code = [id number]) Cytology See link below for (non-gynecological) PDF Lab Report report (test code = 1178) Result status (test code This is Final Report = [id number]) for [id number] [facility] ncykxwa4210-59-72 16:34:02 Test Item Value Reference Range Interpretation Comments Case number (test code = [id number]) Cytology See link below for (non-gynecological) PDF Lab Report report (test code = 1178) Result status (test code This is Final Report = [id number]) [id number] [facility] Cvbjb7225-77-47 20:32:19This exam was not acquired at a [facility] facility and has not been interpreted by a [facility] Provider. The exam was imported into our imaging system.[facility] Head External Clmdu6648-08-89 20:32:19This exam was not acquired at a [facility] facility and has not been interpreted by a [facility] Provider. The exam was imported into our imaging system.[facility] Wo Kakcsfgk1890-14-47 18:02:55EXAM: CT HEAD WO CONTRAST CLINICAL HISTORY: T84.498S Other mechanical complication of other internalorthopedic devices implants and grafts sequela, mechanical complication TECHNIQUE: Noncontrast enhanced images of the brain were obtained from the skull base to the vertex. Both soft tissue and bone r econstruction algorithms were performed. CT scans are performed using radiation dose reduction techniques (iterative reconstruction and/or automated exposure control). Technical factors are evaluatedand adjusted to ensure appropriate moderation of exposure. Automated dose management technology is ap plied to adjust radiation exposure while achieving a diagnostic quality image. COMPARISON: PET/CT, 12/01/2019; CT brain, 05/29/2019. 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 Residual tumor burden cannotbe excluded on the current noncontrast CT. The de la rosa-white matter differentiation is otherwise preserved and without [...] no CT evidence for acute intracranial abnormality. [facility]-[id number] Interface, Radiology Results Incoming - 04/09/2020 12:06 PM CST EXAM: CT HEAD WO CONTRASTCLINICAL HISTORY: T84.498S Other mechanical complication of other internal orthopedic devices implants and grafts sequela, mechanical complicationTECHNIQUE: Noncontrast enhanced images of the brain were obtained from the skull base to the vertex. Both soft tissue and bone reconstr uction algorithms were performed. CT scans are performed [...] on the current noncontrast CT.The de la rosa-white matter differentiation is otherwise preserved and without [...] noncontrast CT.Otherwise no CT evidencefor acute intracranial abnormality.BOP-[id number] Orthopedic Hospital Head Wo Wjhqcmyb2277-91-40 18:02:55EXAM: CT HEAD WO CONTRAST CLINICAL HISTORY: T84.498S Other mechanical complication of other internalorthopedic devices implants and grafts sequela, mechanical complication TECHNIQUE: Noncontrast enhanced images of the brain were obtained from the skull base to the vertex. Both soft tissue and bone r econstruction algorithms were performed. CT scans are performed using radiation dose reduction techniques (iterative reconstruction and/or automated exposure control). Technical factors are evaluatedand adjusted to ensure appropriate moderation of exposure. Automated dose management technology is ap plied to adjust radiation exposure while achieving a diagnostic quality image. COMPARISON: PET/CT, 12/01/2019; CT brain, 05/29/2019. 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 Residual tumor burden cannotbe excluded on the current noncontrast CT. The de la rosa-white matter differentiation is otherwise preserved and without [...] no CT evidence for acute intracranial abnormality. [facility]-[id number] Interface, Radiology Results Incoming - 04/09/2020 12:06 PM CST EXAM: CT HEAD WO CONTRASTCLINICAL HISTORY: T84.498S Other mechanical complication of other internal orthopedic devices implants and grafts sequela, mechanical complicationTECHNIQUE: Noncontrast enhanced images of the brain were obtained from the skull base to the vertex. Both soft tissue and bone reconstr uction algorithms were performed. CT scans are performed [...] on the current noncontrast CT.The de la rosa-white matter differentiation is otherwise preserved and without [...] noncontrast CT.Otherwise no CT evidencefor acute intracranial abnormality.[facility]-[id number] HospitalXR Chest 1 Tbgsvdjq1543-40-79 22:42:30EXAMINATION: XR CHEST 1 PORTABLE CLINICAL HISTORY: Post bronchoscopy and biopsy COMPARISON: Most Recent Prior at [facility] IMPRESSION: Lines: None Lungs and pleura: Linear opacity at the left upper lobe is unchanged. No effusion or pneumothorax. Nodular opacities are characterized better advantage on prior CT. Heart and mediastinum: Stable appearance of cardiomediastinal silhouette. Bones: No suspicious osseous lesions. [facility]-[id number] [facility], Radiology Results 04/04/2020 4:45 PM CST EXAMINATION: XR CHEST 1 PORTABLECL INICAL HISTORY: Post bronchoscopy and biopsyCOMPARISON: [facility]:Lines: NoneLungs and pleura: Linear opacity at the left upper lobe is unchanged. No effusion or pneumothorax. Nodular opacities are characterized better advantage on prior CT.Heart and mediastinum: Stable appearance of cardiomediastinal silhouette. Bones: No suspicious osseous lesions. [id number] HospitalXR Chest 1 Feoxxibh5528-27-02 22:42:30 EXAMINATION: XR CHEST 1 PORTABLE CLINICAL HISTORY: Post bronchoscopy and biopsy COMPARISON: Most Recent Prior at [facility] IMPRESSION: Lines: None Lungs and pleura: Linear opacity at the left upper lobe is unchanged. No effusion or pneumothorax. Nodular opacities are characterized better advantage on prior CT. Heart and mediastinum: Stable appearance of cardiomediastinal silhouette. Bones: No suspicious osseous lesions. [facility]-[id number] Interface, Radiology Results 04/04/2020 4:45 PM CST EXAMINATION: XR CHEST 1 PORTABLECLINICAL HISTORY: Post bronchoscopy and biopsyCOMPARISON: [facility]Lines: NoneLungs and pleura: Linear opacity at the left upper lobe is unchanged. No effusion or pneumothorax. Nodular opacities are characterized better advantage on prior CT.Heart and mediastinum: Stable appearance of cardiomediastinal silhouette. Bones: No suspicious osseous lesions. HMSJ-[id number] [facility]2021-02-03 18:58:52Christy SinghMER[facility] 04/04/2020 1:00 PMAirway Date/Time: 04/04/2020 12:58 PM [...] folds; able to pass after torquing the tubeUT [facility]2021-02-03 18:58:52Christy SinghMER[facility] 04/04/2020 1:00 PMAirway Date/Time: 04/04/2020 12:58 PM Location: OR Performed by: anesthesiologistAnesthesiologist: Koby Sutton Jr., MDOther Staff: Whitney Damicozed by: Koby Sutton Jr., MD Urgency: ElectiveDifficult [...] folds; able to pass after torquing the tubeChristus Mother Frances Hospital – TylerCT Chest Wo Vottmsvu6060-01-55 23:04:34EXAMINATION:CT CHEST WO CONTRAST CLINICAL HISTORY:R91.8 Other [...] of right pulmonary metastasis since prior study. [facility]-[id number] [facility], Radiology Results - 03/22/2020 5:07 PM CSTFormatting of this note [...] size of right pulmonary metastasis since prior study.[facility]-[id number] Scott & [facility] Chest Wo Ldruvcrq8201-60-15 23:04:34 EXAMINATION:CT CHEST WO CONTRAST CLINICAL HISTORY:R91.8 Other nonspecific [...] automated exposure control to reduce radiation dose. LALO RISON:November 23, 2019 and February 01, 2020 CT [...] caliber. No enlarged mediastinal or hilar lymph nodes6. Limited scans to the upper abdomen demonstrate small gallstones..7.There are postoperative changes in both breasts. IMPRESSION:Increasing size of right pulmonary metastasis since prior study. [facility]-[id number] [facility], Radiology Results - 03/22/2020 5:07 PM CSTFormatting of this note [...] and coronal computerized reformatted images were also obtained.CTimaging was performed with iterative reconstruction techniques and/or [...] size of right pulmonary metastasis since prior study.[facility]-[id number] HospitalPET/CT Whole Body External Mxsav7160-51-69 18:56:59This exam was not acquired at a [facility] facility and has not been interpreted by a [facility] Provider. The exam was imported into our imaging system.[facility] TylerPET/CT Whole Body External Ijqmx2249-83-45 18:56:59This exam was not acquired at a [facility] facility and has not been interpreted by a [facility] Provider. The exam was imported into our imaging system.[facility]- CT L-SPINE W/O CCENMJNT5308-56-67 12:05:00 [facility] : 1945 Sex: F Patient Name: ODALIS RUVALCABA Unit No: [id number] EXAMS: CPT CODE: [id number] CT L-SPINE W/O CONTRAST 12158 TECHNIQUE: Multiplanar CT images were obtained of [...] The central canal is decompressed. Marked left, snph-ts-hpivucpo right foraminal stenosis is present. L5/S1: No significant disc bulge or herniation. Bilateral facet hypertrophy is present. No definite foraminal or central canal stenosis. IMPRESSION: Interval postoperative changes of L4-L5 posterior instrumented fusion. A hyperdense mass within the left L4-L5 neural foramen may represent graft material and likely impinges the left L4 nerve. [facility] NAME: ODALIS RUVALCABA [address] [facility] PHYS: Finesse Harmonmagan Cici : 1945 AGE: 74 SEX: F Radha [id number] LOC: Y.RAD PHONE #: [phone] EXAM DATE: 03/07/2020 STATUS: DEP CLI FAX #: [phone] RAD #: D/C DT PAGE 1 Signed Report (CONTINUED) Patient Name: ODALIS RUVALCABA Unit No: [id number] EXAMS: CPT CODE: [id number] CT L-SPINE W/O CONTRAST 75497 <Continued> at 1205 Reported and signed by: Sudhir Villagomez M.D. CC: Bernardo Hansen MD Technologist: Alisa Hannah, RT(R); Shawn Live CTDI: DLP: Trnscrpt: 03/21/2020 (1202) t .MIKHAILR.SUNILJ/tPHYLICIAR.SUNILJ [facility] NAME: ODALIS RUVALCABA [address] [facility] PHYS: Bernardo Harmonn Cici : 1945 AGE: 74 SEX: Dawit [place], [place] [address] LOC: Y.RAD PHONE #: [phone] EXAM DATE: 03/07/2020 STATUS:DEP CLI FAX #: [phone] RAD #: D/C DT PAGE 2 Signed Report Patient Name: ODALIS RUVALCABA Unit No: [id number] EXAMS: CPT CODE: [id number] CT L-SPINE W/O CONTRAST 75294 <Continued> Orig Print D/T: S: 03/21/2020 (120) [facility] NAME: ODALIS RUVALCABA [address] [facility] PHYS: Bernardo Harmon Veronica Cici : 1945 AGE: 74 SEX: F [place], [place] [address] LOC: YuriRAD PHONE #: [phone] EXAM DATE: 03/07/2020 STATUS: DEP CLI FAX #: [phone] RAD #: D/C DT PAGE 3 Signed ReportHGB [id number] 07:19:00 Test Item Value Reference Range Interpretation Comments HEMOGLOBIN (test code = HGB) 10.2 g/dL 12-16 L HEMATOCRIT (test code = HCT) 33.0 % 37-47 L BASIC METABOLIC [id number] 06:22:00 Test Item Value Reference Range Interpretation [...] RATE (test code = GFR) mL/mi n/1.73 [id number] Range:Healthy Adults >90 mL/min/1.73 m2 For Chronic Kidney Disease: St age II Mild Decrease in GFR 60-90 St age III Moderate Decrease in GFR 30-59 Stage IV Severe Decre ase in GFR 15- 29 Stage V Kidney Failure <15 CREATININE (test code 0.75 mg/dL 0.55-1.30 N = CREAT) CALCIUM (test code = 8.4 mg/dL 8.2-10.1 N CA) HGB [id number] 05:57:00 Test Item Value Reference Range Interpretation Comments HEMOGLOBIN (test code = HGB) 10.3 g/dL 12-16 L HEMATOCRIT (test code = HCT) 32.2 % 37-47 L BASIC METABOLIC [id number] 19:33:00 Test Item Value Reference Range Interpretation [...] RATE (test code = GFR) mL/mi n/1.73 [id number] Range:Healthy Adults >90 mL/min/1.73 m2 For Chronic Kidney Disease: St age II Mild Decrease in GFR 60-90 St age III Moderate Decrease in GFR 30-59 Stage IV Severe Decre ase in GFR 15- 29 Stage V Kidney Failure <15 CREATININE (test code 0.82 mg/dL 0.55-1.30 N = CREAT) CALCIUM (test code = 8.9 mg/dL 8.2-10.1 N CA) PROTHROMBIN [id number] 19:29:00 Test Item Value Reference Range Interpretation [...] other day NSPECIMEN COMMENT: N THROMBOPLASTIN TIME [id number] 19:29:00 Test Item Value Reference Range Interpretation Comments PTT ACTIVATED (test code = APTT) 33.7 secs 24.9-37.0 N IS PATIENT ON ANTICOAGULANTS ? [facility] been notified if Patient is on Heparin Drip? NOIf Yes, orderCBC, OCCULT BLOOD, PT every other day NSPECIMEN COMMENT: N CBC W/AUTO [id number] 18:39:00 Test Item Value Reference Range Interpretation [...] code = NRBC) COVID 19 Asymptomatic IH [id number] 18:32:00 Test Item Value Reference Range Interpretation Comments COVID 19 Asymptomatic IH AG (test NEGATIVE NEGATIVE code = COVNONPUIAG) SPECIMEN COMMENT: NASALHGB [id number] 06:00:00 Test Item Value Reference Range Interpretation Comments HEMOGLOBIN (test code = HGB) 10.8 g/dL 12-16 L HEMATOCRIT (test code = HCT) 34.5 % 37-47 L HGB [id number] 05:54:00 Test Item Value Reference Range Interpretation Comments HEMOGLOBIN (test code = HGB) 10.7 g/dL 12-16 L HEMATOCRIT (test code = HCT) 33.3 % 37-47 L HGB [id number] 06:02:00 Test Item Value Reference Range Interpretation Comments HEMOGLOBIN (test code = HGB) 12.1 g/dL 12-16 N HEMATOCRIT (test code = HCT) 38.1 % 37-[address] Chest External [id number] 20:59:55This exam was not acquired at a [facility] facility and has not been interpreted by a [facility] Provider. The exam was imported into our imaging system.[facility] [id number] 20:59:55This exam was not acquired at a [facility] facility and has not been interpreted by a [facility] Provider. The exam was imported into our imaging system.[facility] [id number] 19:47:00 Test Item Value Reference Range Interpretation [...] RATE (test code = GFR) mL/mi n/1.73 a5Xwkmwdxar Range:Healthy Adults >90 mL/min/1.73 m2 For Chronic Kidney Disease: St age II Mild Decrease in GFR 60-90 St age III Moderate Decrease in GFR 30-59 Stage IV Severe Decre ase in GFR 15- 29 Stage V Kidney Failure <15 CREATININE (test code 0.85 mg/dL 0.55-1.30 N = CREAT) CALCIUM (test code = 8.5 mg/dL 8.2-10.1 N CA) PROTHROMBIN [id number] 18:28:00 Test Item Value Reference Range Interpretation [...] BLOOD, PT every other day NTHROMBOPLASTIN TIME [id number] 18:28:00 Test Item Value Reference Range Interpretation [...] code = NRBC) - MRI L-SPINE W/O [id number] 11:24:00 [facility] : 1945 Sex: F Patient Name: ODALIS RUVALCABA Unit No: [id number] EXAMS: CPT CODE: [id number] MRI L-SPINE W/O CONT 74716 DIAGNOSIS: 1. At L1-2 there is 2 [...] and signed by: Peter Muro MD CC: Bernardo Hansen MD Technologist: GERTRUDIS ARREDONDO RT(R) Transcribed D/ (1124) t.[email or web address] [facility] NAME: ODALIS RUVALCABA [address] [facility] PHYS: Bernardo Harmon : 1945 AGE: 74 SEX: F [place], [place] [address] LOC: Y.MRI PHONE #: [phone] EXAM DATE: 01/25/2020 STATUS: REG CLI FAX #: [phone] RAD #: D/C DT PAGE 1 Signed Report Patient Name: ODALIS RUVALCABA Unit No: [id number] EXAMS: CPT CODE: [id number] MRI L- SPINE W/O CONT 11854 <Continued> Orig Print D/T: S: 01/25/2020 (1127) [facility] NAME: ODALIS RUVALCABALAWRENCE [address] [facility] PHYS: CARIDAD KimeyBernardo Godinezn Cici : 1945 AGE: 74 SEX: F [place], [place] [address] LOC: Y.MRI PHONE #: [phone] EXAM DATE: 01/25/2020 STATUS: REG CLI FAX #: [phone] RAD #: D/C DT PAGE 2 Signed ReportAFB [id number] 18:13:09 Test Item Value Reference Range Interpretation Comments AFB culture isolate No growth after 6 (test code = 543-9) weeks of incubation. [facility] [id number] 18:13:09 Test Item Value Reference Range Interpretation Comments AFB culture isolate No growth after 6 (test code = 543-9) weeks of incubation. [facility] [id number] 18:15:09 Test Item Value Reference Range Interpretation Comments Fungus culture isolate No growth after 4 (test code = 1441) weeks of incubation. [facility] [id number] 18:15:09 Test Item Value Reference Range Interpretation Comments Fungus culture isolate No growth after 4 (test code = 1441) weeks of incubation. [facility] [id number] 14:47:41 Test Item Value Reference Range Interpretation Comments Anaerobic culture No anaerobic organisms isolate (test code = isolated. 552) [facility] [id number] 14:47:41 Test Item Value Reference Range Interpretation Comments Anaerobic culture No anaerobic organisms isolate (test code = isolated. 552) [facility] [id number] 19:21:55 Test Item Value Reference Range Interpretation Comments AFB stain (test code = No acid fast bacilli 676-7) (AFB) seen. [facility] [id number] 19:21:55 Test Item Value Reference Range Interpretation Comments Aerobic culture isolate No growth after 3 (test code = 498) days. [facility] [id number] 19:21:55 Test Item Value Reference Range Interpretation Comments Fungus smear (test code = No fungi observed. 1443) [facility] [id number] 19:21:55 Test Item Value Reference Range Interpretation Comments AFB stain (test code = No acid fast bacilli 676-7) (AFB) seen. [facility] [id number] 19:21:55 Test Item Value Reference Range Interpretation Comments Aerobic culture isolate No growth after 3 (test code = 498) days. [facility] [id number] 19:21:55 Test Item Value Reference Range Interpretation Comments Fungus smear (test code = No fungi observed. 1443) [facility] [id number] 19:21:55Gram stain isolateRare WBC'sNo organisms seen Comment: Specimen InformationSpecimen Source: FluidSpecimen Site: Lun R [facility] [place] [facility] [id number] 19:21:55Gram stain isolateRare WBC'sNo organisms seen Comment: Specimen InformationSpecimen Source: FluidSpecimen Site: Lun R [facility] [id number] 13:11:32Anusha Loera 12/06/2019 8:14 AMAirway Date/Time: 12/06/2019 8:08 AMPerformed by: Anusha Loerauthorized by: Sophie Goss MD Location: ORUrgency: ElectiveAnesthesiologist: Sophie Goss MDResident/INTERLOCKER/AA: Anusha Loera Anesthesia Staff: Gabriel Young EPerformed [...] secure.No damage to lips, teeth, or gums. VSS.[facility] [id number] 13:11:32Anusha Loera 12/06/2019 8:14 AMAirway Date/Time: 12/06/2019 8:08 AMPerformed by: Anusha Loerauthorized by: Sophie Goss MD Location: ORUrgency: ElectiveAnesthesiologist: Sophie Goss MDResident/INTERLOCKER/AA: Anusha Loera Anesthesia Staff: Gabriel Young EPerformed [...] secure.No damage to lips, teeth, or gums. VSS.[facility]- XR PELVIS 1/2 [id number] 09:43:00 Patient Name: ODALIS RUVALCABA Unit No: [id number] EXAMS: CPT CODE: [id number] XR PELVIS 1/2 VIEWS 49205 AP VIEW OF THE PELVIS. COMMENT: In progress total left hip arthroplasty. AP view of the pelvis COMMENT: COMPARISON: No prior exams available. Completed total left hip arthroplasty. Prosthesis a ppears to be in good position. at 0943 Reported and signed by: Sudhir Kirby M.D. CC: Jessee Santiago MD Technologist: ESTEFANIA WHITE (RT.R) Transcribed D/T: 01/12 (0943) Carlos Alberto [facility] NAME: ODALIS RUVALCABA [address] [facility] PHYS: MATVA.Helen - Jessee Santiago : 1945 AGE: 73 SEX: F [place] [address] LOC: Y.501 A PHONE #: [phone] EXAM DATE: 01/11/2019 STATUS: ADM IN FAX #: [phone] RAD #: D/C DT PAGE 1 Signed Report Patient Name: ODALIS RUVALCABA Unit No: [id number] EXAMS: CPT CODE: [id number] XR PELVIS 1/2 VIEWS 50765 <Continued> Orig Print D/T: S: 01/12/2019 (0947) [facility] NAME: ODALIS RUVALCABA [address] [place] [address] PHYS: MATPETE.Helen - Jessee Santiago : 1945 AGE: 73 SEX: F [place] [address] LOC: Y.501 A PHONE #: [phone] EXAM DATE: 01/11/2019 STATUS: ADM IN FAX #: [phone] RAD #: D/C DT PAGE 2 Signed Report- XR PELVIS 1/2 [id number] 09:43:00 Patient Name: ODALIS RUVALCABA Unit No: [id number] EXAMS: CPT CODE: [id number] XR PELVIS 1/2 VIEWS 42133 AP VIEW OF THE PELVIS. COMMENT: In progress total left hip arthroplasty. AP view of the pelvis COMMENT: COMPARISON: No prior exams available. Completed total left hip arthroplasty. Prosthesis appears to be in good position. at 0943 Reported and signed by: Sudhir Kirby M.D. CC: Jessee Santiago MD Technologist: ESTEFANIA WHITE (RT.R) Transcribed D/ (0943) SaleemJ [facility] NAME: ODALIS RUVALCABA[address] PHYS: IZABELPETEDanita Gonzalez Jessee Santiago : 1945 AGE: 73 SEX: F [place] [address] LOC: Y.501 A PHONE #: [phone] EXAM DATE: 01/11/2019 STATUS: ADM IN FAX #: [phone] RAD #: D/C DT PAGE 1 Signed Report Patient Name: ODALIS RUVALCABA Unit No: [id number] EXAMS: CPT CODE: [id number] XR PELVIS 1/2 VIEWS 21180 <Continued> Orig Print D/T: S: 01/12/2019 (0947) [facility] NAME: ODALIS RUVALCABA [address] [place] [address] PHYS: GEOVANY Gonzalez Jessee Santiago Cici : 1945 AGE: 73 SEX: F [place] [address] LOC: Y.501 A PHONE #: [phone] EXAM DATE: 01/11/2019 STATUS: ADM IN FAX #: [phone] RAD #: D/C DT PAGE 2 Signed ReportBASI METABOLIC [id number] 07:12:00 Test Item Value Reference Range Interpretation [...] RATE (test code = GFR) mL/mi n/1.73 x2Vpbzmmlxk Range:Healthy Adults >90 mL/min/1.73 m2 For Chronic Kidney Disease: St age II Mild Decrease in GFR 60-90 St age III Moderate Decrease in GFR 30-59 Stage IV Severe Decre ase in GFR 15- 29 Stage V Kidney Failure <15 CREATININE (test code 1.02 mg/dL 0.55-1.30 N = CREAT) CALCIUM (test code = 8.3 mg/dL 8.2-10.1 N CA) HGB [id number] 05:59:00 Test Item Value Reference Range Interpretation Comments HEMOGLOBIN (test code = HGB) 11.0 g/dL 12-16 L HEMATOCRIT (test code = HCT) 34.0 % 37-47 L COMPREHENSIVE METABOLIC [id number] 20:53:00 Test Item Value Reference Range Interpretation [...] RATE (test code = GFR) mL/mi n/1.73 c5Gwuufgaij Range:Healthy Adults >90 mL/min/1.73 m2 For Chronic [...] TOTAL (test code = ALKP) CBC W/AUTO [id number] 20:31:00 Test Item Value Reference Range Interpretation [...] % 0-0 N code = NRBC) PROTHROMBIN [id number] 20:26:00 Test Item Value Reference Range Interpretation [...] Patient is on Heparin Drip? NOTHROMBOPLASTIN TIME [id number] 20:26:00 Test Item Value Reference Range Interpretation Comments PTT ACTIVATED (test code = APTT) 32.1 secs 24.9-37.0 N IS PATIENT ON ANTICOAGULANTS ? NHas Lab been notified if Patient is on Heparin Drip? NO
--- NOTE | 2020-10-27 20:50 | RAD REPORT ---
EXAM DESCRIPTION: CT - Head Brain Wo Cont - 10/27/2020 8:19 pm CLINICAL HISTORY: CONFUSED Headache, drowsiness COMPARISON: Recent MR brain imaging TECHNIQUE: All CT scans are performed using dose optimization technique as appropriate and may inclu de automated exposure control or mA/KV adjustment according to patient size. FINDINGS: Multiple areas of brain edema are noted particularly prominent in the right temporoparieta l region compatible with the patient's known brain metastasis.Gliosis is seen in the right frontal re gion with postoperative changes present.No acute bleed is seen. No midline shift is evident. The paranasal sinuses and mastoids are clear. No fracture. IMPRESSION: No acute hemorrhage or midline shift is evident. Significant areas of brain edema are p resent greatest in the temporoparietal white matter, greater on the right, compatible with patient's known history of brain metastatic deposits.
[2020-10-28] MEDS ORDERED: dexAMETHasone 4 MG/ML VIAL ONE (01:28)
[2020-10-28 01:47] LABS: Urine Blood Negative (Negative); Urine Glucose Negative (Negative); Urine Protein Negative (Negative); Urine pH 5.5 (5.0-7.0)
[2020-10-28 01:53] LABS: Absolute Lymphocytes (CBC) 0.5 K/uL (0.7-4.9); Basophils % 0.6 % (0-1.3); Hematocrit 41.6 % (36.0-45.0); Lymphocytes % 13.2 % (15.3-44.8); MPV 8.8 fL (7.6-11.3); RBC Red Blood Cell Count 4.32 M/uL (3.86-4.86)
[2020-10-28 02:00] LABS: Protime INR 1.05
[2020-10-28 02:13] LABS: ALT/SGPT 33 U/L (12-78); AST/SGOT 13 U/L (15-37); Albumin 3.7 g/dL (3.4-5.0); Alkaline Phosphatase 151 U/L (45-117); BUN Blood Urea Nitrogen 17 mg/dL (7-18); Bicarbonate 28 mmol/L (21-32); Bilirubin Direct < 0.1 mg/dL (0-0.2); Bilirubin Total 0.3 mg/dL (0.2-1.0); Glucose Level 144 mg/dL (74-106); NT PRO-BNP 99 pg/mL (<450); Potassium 3.7 mmol/L (3.5-5.1); Protein, Total 7.2 g/dL (6.4-8.2); Sodium Level 142 mmol/L (136-145); Troponin (Emerg Dept Use Only) < 0.02 ng/mL (0.0-0.045)
--- NOTE | 2020-10-28 04:10 | EDPHYS ---
Physician Documentation [facility] Name: Khushbu Keith Age: 75 yrs Sex: Female : 1945 Arrival Date: 10/27/2020 Time: 18:24 Bed 9 Private MD: Aminah Torres C ED Physician Rashel Mckinney HPI: 10/28 00:20 This 75 yrs old Female presents to ER via Wheelchair with complaints of mh7 Confusion. 00:20 The patient's problem is reported as dysphasia, expressive aphasia. mh7 00:20 Onset: The symptoms/episode began/occurred yesterday, at 14:30. mh7 00:20 Duration: The episode is continuous. Context: the episode(s) was witnessed, by family, mh7 , symptoms became apparent on October 27, 2020, at 14:30. occurred at home, occurred while the patient was sitting, Possible contributing factors include: Metastatic breast cancer with brain mets. The symptoms are alleviated by nothing. The symptoms are aggravated by nothing. Associated signs and symptoms: Pertinent positives: diarrhea, Pertinent negatives: abdominal pain, agitation, ataxia, blurred vision, chest pain, combativeness, confusion, diaphoresis, dizziness, headache, lightheadedness, nausea, numbness, palpitations, seizure, shortness of breath, tingling, vertigo, vomiting, weakness. Severity of symptoms: At their worst the symptoms were moderate yesterday, in the emergency department the symptoms have improved moderately. Patient's baseline: Neuro: alert and fully oriented, Motor: no deficits, Ambulation: walks without assistance, Speech: normal. Patient reports that she has breast cancer with metastasis to brain and is receiving radiation therapy for brain mets. Last treatment was 2 days ago. She reports yesterday that she started having difficulty with speech in expressing her words. She denies any dizziness, numbness/tingling, or focal weakness. She denies any fever, headache, chest pain, abdominal pain, cough, nausea, or vomiting. She has had some intermittent diarrhea.. Historical: - Allergies: 10/27 19:51 Codeine; iw 19:51 Erythromycin; iw - PSHx: 19:51 Brain sx; lung biopsy x 3; iw - Immunization history:: Adult Immunizations up to date. - Social history:: Smoking status: Patient denies any tobacco usage or history of. ROS: 10/28 00:20 Constitutional: Negative for fever, chills, and weight loss, Eyes: Negative for injury, mh7 pain, redness, and discharge, ENT: Negative for injury, pain, and discharge, Neck: Negative for injury, pain, and swelling, Cardiovascular: Negative for chest pain, palpitations, and edema, Respiratory: Negative for shortness of breath, cough, wheezing, and pleuritic chest pain, Back: Negative for injury and pain, : Negative for injury, bleeding, discharge, and swelling, MS/Extremity: Negative for injury and deformity, Skin: Negative for injury, rash, and discoloration, Neuro: Negative for headache, weakness, numbness, tingling, and seizure, Psych: Negative for depression, anxiety, suicide ideation, homicidal ideation, and hallucinations, Allergy/Immunology: Negative for hives, rash, and allergies, Endocrine: Negative for neck swelling, polydipsia, polyuria, polyphagia, and marked weight changes, Hematologic/Lymphatic: Negative for swollen nodes, abnormal bleeding, and unusual bruising. Exam: 00:20 Constitutional: This is a well developed, well nourished patient who is awake, alert, mh7 and in no acute distress. Head/Face: Normocephalic, atraumatic. Eyes: Pupils equal round and reactive to light, extra-ocular motions intact. Lids and lashes normal. Conjunctiva and sclera are non-icteric and not injected. Cornea within normal limits. Periorbital areas with no swelling, redness, or edema. Neck: Trachea midline, no thyromegaly or masses palpated, and no cervical lymphadenopathy. Supple, full range of motion without nuchal rigidity, or vertebral point tenderness. No Meningismus. Chest/axilla: Normal chest wall appearance and motion. Nontender with no deformity. No lesions are appreciated. Cardiovascular: Regular rate and rhythm with a normal S1 and S2. No gallops, murmurs, or rubs. Normal PMI, no JVD. No pulse deficits. Respiratory: Lungs have equal breath sounds bilaterally, clear to auscultation and percussion. No rales, rhonchi or wheezes noted. No increased work of breathing, no retractions or nasal flaring. Abdomen/GI: Soft, non-tender, with normal bowel sounds. No distension or tympany. No guarding or rebound. No evidence of tenderness throughout. Back: No spinal tenderness. No costovertebral tenderness. Full range of motion. Skin: Warm, dry with normal turgor. Normal color with no rashes, no lesions, and no evidence of cellulitis. MS/ Extremity: Pulses equal, no cyanosis. Neurovascular intact. Full, normal range of motion. 00:20 Neuro: Orientation: is normal, Mentation: is normal, Memory: is normal, Cranial nerves: grossly normal, Cerebellar function: is grossly normal, Motor: is normal, Sensation: is normal, Gait: not tested. seizure activity, is not displayed by the patient, Abnormal movements: there are no abnormal movements, Speech is stuttering and hesitant. 00:20 Psych: Behavior/mood is anxious, Oriented to person, place, time, Patient has no thoughts/intents to harm self or others. Judgement / Insight is normal. Memory is normal. Delusions/hallucinations are not present. Vital Signs: 10/27 19:46 BP 195 / 83; Pulse 97; Resp 16; Temp 98.7; Pulse Ox 100% on R/A; Weight 97.52 kg; iw Height 5 ft. 5 in. (165.10 cm); 10/28 03:36 BP 198 / 83; Pulse 94; Resp 16; Temp 98.4; Pulse Ox 98% on R/A; tt3 10/27 19:46 Body Mass Index 35.78 (97.52 kg, 165.10 cm) iw MDM: 04:01 Differential diagnosis: CVA, TIA, metabolic disorder, drug effects. Data reviewed: [facility] vital signs, nurses notes, lab test result(s), cardiac enzymes, CBC, electrolytes, urinalysis, EKG, radiologic studies, CT scan, plain films. Data interpreted: Pulse oximetry: on room air is 98 %. Interpretation: normal. Counseling: I had a detailed discussion with the patient and/or guardian regarding: the historical points, exam findings, and any diagnostic results supporting the discharge/admit diagnosis, the presence of at least one elevated blood pressure reading (>120/80) during this emergency department visit, lab results, radiology results. Response to treatment: the patient's symptoms have resolved after treatment, the patient's blood pressure is in an acceptable range, mental status has returned to baseline, the patient no longer shows bradycardia, the patient is not short of breath, the patient is not tachycardic, the patient's pain is gone, the patient's temperature has normalized, the patient is now symptom free, patient is well hydrated. Physician consultation: Justyna Nieves MD was contacted at 00:45, regarding patient's condition, would like further tests performed, basic blood tests, Requested basic lab work including electrolytes and if within normal range patient can be discharged to follow-up with oncology.. ED course: Feels better, no acute distress, vital signs stable, no focal neurological deficits. Speech is normal and there is no hesitancy. She indicates that she is on radiation therapy for brain mets for palliative care. Discussed all test results and findings with the patient as well as discussion with Dr. Dumont. Patient request to be discharged from the ED at this time.. 04:09 Patient medically screened. [facility] 10/28 00:35 Order name: Basic Metabolic Panel [facility] 10/28 00:35 Order name: CBC with Diff [facility] 10/28 00:35 Order name: LFT's; Complete Time: 02:15 [facility] 10/28 00:35 Order name: Magnesium; Complete Time: 02:15 [facility] 10/28 00:35 Order name: NT PRO-BNP; Complete Time: 02:15 [facility] 10/28 00:35 Order name: PT-INR; Complete Time: 02:05 [facility] 10/27 19:52 Order name: CT Head Brain wo Cont; Complete Time: 00:26 10/28 00:35 Order name: Troponin (emerg Dept Use Only); Complete Time: 02:15 [facility] 10/28 00:35 Order name: XRAY Chest (1 view) [facility] 10/28 00:36 Order name: Basic Metabolic Panel; Complete Time: 02:15 [facility] 10/28 00:36 Order name: CBC with Automated Diff; Complete Time: 02:05 [facility] 10/28 00:42 Order name: Phosphorus [facility] 10/28 00:43 Order name: Phosphorus; Complete Time: 02:15 [facility] 10/28 01:46 Order name: Urine Dipstick-Ancillary; Complete Time: 02:05 [facility] 10/28 00:35 Order name: EKG; Complete Time: 00:36 [facility] 10/28 00:35 Order name: EKG - Nurse/Tech; Complete Time: 02:10 [facility] 10/28 00:35 Order name: IV Saline Lock; Complete Time: 01:16 [facility] 10/28 00:35 Order name: Labs collected and sent; Complete Time: 01:16 [facility] 10/28 00:35 Order name: O2 Per Protocol; Complete Time: 01:16 [facility] 10/28 00:35 Order name: O2 Sat Monitoring; Complete Time: :16 [facility] 10/28 00:35 Order name: Urine Dipstick-Ancillary (obtain specimen); Complete Time: 01:46 [facility] Administered Medications: 01:15 Drug: Decadron - Dexamethasone 4 mg Route: IVP; Site: left antecubital; bb 02:37 Follow up: Response: No adverse reaction Disposition Summary: 10/28/20 04:09 Discharge Ordered Location: Home [facility] Problem: an ongoing problem [facility] Symptoms: have improved [facility] Condition: Stable [facility] Diagnosis - Cancer with brain metastasis, chronic [facility] - Dysphasia and aphasia - Resolved [facility] - Diarrhea, unspecified [facility] Followup: [facility] - With: Private Physician - When: 1 - 2 days - Reason: Worsening of condition, Recheck today's complaints, Continuance of care, Re-evaluation by your physician Discharge Instructions: - Discharge Summary Sheet [facility] - Aphasia [facility] - Metastatic Cancer [facility] - Diarrhea, Adult, Ttmu-mo-Ipur [facility] Forms: - Medication Reconciliation Form [facility] - Thank You Letter [facility] - Antibiotic Education [facility] - Prescription Opioid Use [facility] Signatures: Dispatcher [employer] Sussy Martinez RN RN bb Williams, Irene, RN RN iw Holmes, Maurice, MD MD [facility] Corrections: (The following items were deleted from the chart) 01:00 00:20 Onset: The symptoms/episode began/occurred yesterday, at 12:30, [place] [id number]
--- NOTE | 2020-10-28 04:10 | ER ---
Nurse's Notes [facility] Name: Khushbu Keith Age: 75 yrs Sex: Female : 1945 Arrival Date: 10/27/2020 Time: 18:24 Bed 9 Private MD: Aminah Torres C Diagnosis: Cancer with brain metastasis, chronic;Dysphasia and aphasia-Resolved;Diarrhea, unspecified Presentation: 10/27 19:46 Chief complaint: Patient states: has hx of brain cancer and this afternoon she couldn't iw find her words and she couldn't talk , started at 430 pm , has had diarrhea all day, is seen by Dr. Dumont, being treated with radiation, has been taking Imodium for diarrhea. Coronavirus screen: At this time, the client does not indicate any symptoms associated with coronavirus-19. Ebola Screen: Patient negative for fever greater than or equal to 101.5 degrees Fahrenheit, and additional compatible Ebola Virus Disease symptoms Patient denies exposure to infectious person. Patient denies travel to an Ebola-affected area in the 21 days before illness onset. No symptoms or risks identified at this time. Initial Sepsis Screen: Does the patient meet any 2 criteria? No. Patient's initial sepsis screen is negative. Does the patient have a suspected source of infection? No. Patient's initial sepsis screen is negative. Risk Assessment: Do you want to hurt yourself or someone else? Patient reports no desire to harm self or others. Onset of symptoms was October 27, 2020. 19:46 Method Of Arrival: Wheelchair iw 19:46 Acuity: CONCHA 2 iw Historical: - Allergies: 19:51 Codeine; iw 19:51 Erythromycin; iw - PSHx: 19:51 Brain sx; lung biopsy x 3; iw - Immunization history:: Adult Immunizations up to date. - Social history:: Smoking status: Patient denies any tobacco usage or history of. Screenin/29 00:30 Abuse screen: Denies threats or abuse. Nutritional screening: No deficits noted. bb Tuberculosis screening: No symptoms or risk factors identified. Fall Risk None identified. Assessment: 00:30 General: Appears in no apparent distress. Behavior is calm, cooperative. Neuro: Level bb of Consciousness is awake, alert, obeys commands, Oriented to person, place, situation. Cardiovascular: Capillary refill < 3 seconds Patient's skin is warm and dry. Respiratory: Airway is patent Respiratory effort is even, unlabored, Respiratory pattern is regular. GI: No signs and/or symptoms were reported involving the gastrointestinal system. Derm: Skin is pink, warm \T\ dry. Musculoskeletal: Circulation, motion, and sensation intact. 02:00 Reassessment: Patient is alert, oriented x 3, equal unlabored respirations, skin bb warm/dry/pink. spouse at bedside awaiting diagnostic results. 04:29 Reassessment: Patient is alert, oriented x 3, equal unlabored respirations, skin bb warm/dry/pink. pt verbalized understanding of and agrees to plan of care discharge instructions given pt assisted to exit via wheelchair accompanied by spouse. Vital Signs: 10/27 19:46 BP 195 / 83; Pulse 97; Resp 16; Temp 98.7; Pulse Ox 100% on R/A; Weight 97.52 kg; iw Height 5 ft. 5 in. (165.10 cm); 10/28 03:36 BP 198 / 83; Pulse 94; Resp 16; Temp 98.4; Pulse Ox 98% on R/A; tt3 10/27 19:46 Body Mass Index 35.78 (97.52 kg, 165.10 cm) iw ED Course: 10/27 18:24 Patient arrived in ED. mr 18:24 Brendon Her MD is Private Physician. mr 18:24 Aminah Torres MD is Private Physician. mr 19:50 Triage completed. iw 19:52 Arm band placed on. iw 20:20 CT Head Brain wo Cont In Process Unspecified. EDMS 10/28 00:26 Rashel Mckinney MD is Attending Physician. 7 00:30 Patient has correct armband on for positive identification. bb 00:49 XRAY Chest (1 view) In Process Unspecified. EDMS 01:15 Initial lab(s) drawn, by me, sent to lab. Inserted saline lock: 20 gauge in left bb antecubital area, using aseptic technique. Blood collected. 01:16 CBC with Diff Sent. bb 01:16 Basic Metabolic Panel Sent. bb 04:24 Sussy Walls, RN is Primary Nurse. bb 04:30 No provider procedures requiring assistance completed. IV discontinued, intact, bb bleeding controlled, No redness/swelling at site. Pressure dressing applied. Administered Medications: 01:15 Drug: Decadron - Dexamethasone 4 mg Route: IVP; Site: left antecubital; bb 02:37 Follow up: Response: No adverse reaction bb Outcome: 04:09 Discharge ordered by MD. almanza 04:30 Discharged to home via wheelchair, with family. malena 04:30 Condition: stable 04:30 Discharge instructions given to patient, family, Instructed on discharge instructions, follow up and referral plans. Demonstrated understanding of instructions, follow-up care. 04:31 Patient left the ED. bb Signatures: Dispatcher [employer] BRINDA MaldonadoBee mr WallsSussy RN RN Samantha Kowalski RN RN iw Rashel Mckinney MD MD mh7 Tremaine Stuart tt3 Corrections: (The following items were deleted from the chart) 10/27 19:52 19:46 BP 195 / 83; Pulse 97bpm; Resp 16bpm; Pulse Ox 100% RA; Temp 98.7F; 97.52 kg; iw iw
[2020-10-28 04:38] VITALS: BP 198/83; TEMP 98.4; O2SAT 98
--- NOTE | 2020-10-28 09:26 | RAD REPORT ---
EXAM DESCRIPTION: [place] Single View10/28/2020 12:49 am CLINICAL HISTORY: Confusion COMPARISON: July 2020 FINDINGS: Small area of atelectasis left upper lobe unchanged. Couple of tiny right lung nodules without obvious change Heart is mildly enlarged. Central venous catheter with its tip in the superior cava
== END 2020-10-28 04:31 | disposition home or self-care (01) ==
LOC: ER 18:19
DX: C50.919 Malignant neoplasm of unspecified site of unspecified female breast (principal); C79.31 Secondary malignant neoplasm of brain; R19.7 Diarrhea, unspecified; Z88.3 Allergy status to other anti-infective agents; Z88.5 Allergy status to narcotic agent
CPT/HCPCS: 93005; 85025; 80048; 36415; 83735; 84100; 85610; 80076; 81003; 84484; 83880; 70450; 71045; 96374; 99284; J1100